=== PATIENT | male | born 1965 | race African-American/Black ===

== ENCOUNTER 2017-07-20 09:09 | Emergency (ER) | payer MEDICARE, MEDICAID ==
[~2017-07-20] VITALS: Ht 175.3 cm; Wt 100.7 kg
[~2017-07-20 09:09] MED LIST: BACTRIM DS TAB1 EAC1 ORAL; KEFLEX500 MG ORAL; NORVASC10 MG ORAL
[2017-07-20 09:17] VITALS: BP 145/94
[2017-07-20] MEDS ORDERED: ROBAXIN-750750 MG PO (09:45)
[2017-07-20] MEDS ORDERED: IBUPROFEN600 MG ORAL (09:45)
[2017-07-20] MEDS ORDERED: Ketorolac 30mg Inj IM ONE (09:45)
[2017-07-20 09:53] VITALS: BP 145/94
--- NOTE | 2017-07-20 12:54 | Emergency Room Report ---
History of Present Illness General Chief Complaint: Lower Back Pain or Injury Source: Patient Present Illness HPI 52-year-old male no significant past medical history p/w back pain for 2 days. Patient states pain started when after he lifted heavy boxes yesterday and. Pain is localized to the lateral lower back, sharp in nature, radiating down leg. Movement worsens pain. There are no alleviating factors. Patient has experienced this similar pain in the past. Denies trauma. Denies lower extremity weakness/numbness, no bowel/bladder retention or incontinence, saddle anesthesia. Denies fever, chills, abdominal pain, n/v, dysuria/hematuria. No history of IVDA Allergies: Coded Allergies: NO KNOWN ALLERGIES (Unverified Allergy, Unknown, 08/04/15) Patient History Past Medical History: see triage record Past Surgical History: none Pertinent Family History: none Reviewed Nursing Documentation: PMH: Agreed, PSxH: Agreed Nursing Documentation-PMH Past Medical History: No History, Except For Hx Hypertension: Yes Review of Systems All Other Systems: negative except mentioned in HPI Physical Exam Vital Signs Date Time Temp Pulse Resp B/P (MAP) Pulse Ox O2 Delivery O2 Flow Rate FiO2 07/20/17 09:10 97.3 79 18 145/94 95 Room Air Sp02 EP Interpretation: reviewed, normal General Appearance: alert, GCS 15, non-toxic, mild distress Head: normocephalic, atraumatic Eyes: bilateral eye normal inspection, bilateral eye PERRL, bilateral eye EOMI ENT: normal ENT inspection, normal pharynx, normal voice, moist mucus membranes Neck: normal inspection, full range of motion, supple Respiratory: normal inspection, lungs clear, normal breath sounds, no respiratory distress, no retraction, no wheezing, speaking full sentences, chest symmetrical Cardiovascular #1: normal inspection, regular rate, rhythm, no edema, normal capillary refill Cardiovascular #2: 2+ radial (R), 2+ radial (L) Gastrointestinal: normal inspection, non tender, soft, non-distended, no guarding Genitourinary: no CVA tenderness Musculoskeletal: other - Bilateral lower lumbar paraspinal tenderness, no midline tenderness full range of motion, able to bear weight on both lower extremities without issue Neurologic: normal inspection, alert, oriented x3, responsive, motor strength/ tone normal, sensory intact, normal gait, speech normal Psychiatric: normal inspection, judgement/insight normal, memory normal Skin: normal inspection, normal color, no rash, warm/dry, well hydrated, normal turgor Medical Decision Making Diagnostic Impression: Primary Impression: Low back pain ER Course 52-year-old male p/w back pain DDX: Likely musculoskeletal back pain vs. muscular strain vs. sciatica Lumbar fracture is unlikely given patients age, no midline tenderness, no history of trauma, and that patient is ambulatory. Therefore, at this time no imaging is indicated Serious diagnoses such as cord compression, epidural abscess is unlikely in this patient given the clinical scenario and abscess of neurological symptoms or findings. Patient appears nontoxic. Plan: Toradol ER course: Patient has remained nontoxic appearing and ambulatory in the ED. Pain improved w/ medications Disposition: Patient will be discharged to home with prescription of motrin and robaxin. Patient cautioned of the effects of robaxin including possible impairment of physical or mental abilities. Patient was instructed to refrain from operating machinery or driving. Patient is also cautioned on the GI effects of motrin and to take sparingly. Patient verbalized understanding. Strict precautions discussed with patient on when to emergently return to the ED which includes severe/worsening back pain, leg weakness/numbness, urinary retention/incontinence, fever or chills, which may indicate severe illness. Patient is to follow up with their PMD within 5 days. Patient agrees with plan. Please note that this Emergency Department Report was dictated using [email or web address] professor of voice technology software, occasionally this can lead to erroneous entry secondary to interpretation by the dictation equipment. Last Vital Signs Date Time Temp Pulse Resp B/P (MAP) Pulse Ox O2 Delivery O2 Flow Rate FiO2 07/20/17 09:53 97.3 18 145/94 95 Room Air 07/20/17 09:17 80 Disposition: HOME, SELF-CARE Condition: Improved Scripts Ibuprofen* (MOTRIN*) 600 Mg Tablet 600 MG ORAL Q8H Y for For Pain, #30 TAB 0 Refills Prov: Litzy Van M.D. 07/20/17 Methocarbamol* (ROBAXIN-750*) 750 Mg Tablet 750 MG PO QID, #28 TAB 0 Refills Prov: Litzy Van M.D. 07/20/17 Referrals: NON PHYSICIAN (PCP) Patient Instructions: Back Pain, Adult Litzy Van M.D. Jul 20, 2017 12:54
== END 2017-07-20 09:53 | disposition home or self-care (01) ==
LOC: EMR 09:50
DX: M54.5 Low back pain (principal); I10 Essential (primary) hypertension
CPT/HCPCS: 96372; 99283; J1885

== ENCOUNTER 2017-10-31 09:59 | Emergency (ER) | payer MEDICARE, MEDICAID ==
[~2017-10-31] VITALS: Ht 165.1 cm; Wt 99.8 kg
[~2017-10-31 09:59] MED LIST changes: +IBUPROFEN600 MG ORAL; +ROBAXIN-750750 MG PO
[2017-10-31 10:22] VITALS: BP 132/95
[2017-10-31] MEDS ORDERED: Sodium Chloride 500ML 500 ML IV ONE (10:32)
[2017-10-31] MEDS ORDERED: Ipratropium 0.02% Inh Soln 2.5ml UD HHN SCH (10:45)
[2017-10-31] MEDS ORDERED: Solu-MEDROL 125mg Inj IVP ONE (10:45)
[2017-10-31] MEDS ORDERED: Albuterol ud Inhalation HHN SCH (10:45)
[2017-10-31 10:54] LABS: APPEARANCE,URINE CLEAR; BILIRUBIN, URINE NEGATIVE (NEGATIVE); COLOR,URINE PALE YELLOW; GLUCOSE, URINE (UA) NEGATIVE (NEGATIVE); KETONES,URINE NEGATIVE (NEGATIVE); LEUKOCYTE ESTERASE ,URINE 1+ (NEGATIVE); NITRITE,URINE NEGATIVE (NEGATIVE); PH,URINE 6 (4.5-8.0); PROTEIN,URINE NEGATIVE (NEGATIVE); UROBILINOGEN,URINE NORMAL MG/DL (0.0-1.0)
[2017-10-31 10:55] LABS: BASOPHILS % (AUTO) 1.2 % (0.0-2.0); EOSINOPHILS % (AUTO) 3.2 % (0.0-3.0); HEMATOCRIT 44.9 % (42.0-52.0); HEMOGLOBIN 14.3 G/DL (14.2-18.0); LYMPHOCYTES % (AUTO) 17.9 % (20.0-45.0); MEAN CORPUSCULAR VOLUME 86 FL (80-99); MONOCYTES % (AUTO) 6.5 % (1.0-10.0); NEUTROPHILS % (AUTO) 71.2 % (45.0-75.0); PLATELET COUNT 201 K/UL (150-450); RED BLOOD COUNT 5.25 M/UL (4.70-6.10); RED CELL DISTRIBUTION WIDTH 13.4 % (11.6-14.8)
[2017-10-31 11:03] LABS: ANION GAP 8 mmol/L (5-15); BLOOD UREA NITROGEN 17 mg/dL (7-18); CALCIUM 8.6 MG/DL (8.5-10.1); CARBON DIOXIDE 25 MMOL/L (21-32); CHLORIDE 107 MMOL/L (98-107); CREATININE 1.8 MG/DL (0.55-1.30); SODIUM 140 MMOL/L (136-145)
[2017-10-31 11:15] LABS: ALANINE AMINOTRANSFERASE 41 U/L (12-78); ALBUMIN 3.3 G/DL (3.4-5.0); ALBUMIN/GLOBULIN RATIO 0.8 (1.0-2.7); ALKALINE PHOSPHATASE 33 U/L (46-116); ASPARTATE AMINO TRANSFERASE 25 U/L (15-37); BILIRUBIN,TOTAL 0.6 MG/DL (0.2-1.0); CREATINE KINASE 551 U/L (26-308)
[2017-10-31] MEDS ORDERED: AMOXICILLIN500 MG ORAL (11:44)
[2017-10-31] MEDS ORDERED: PREDNISONE20 MG ORAL (11:44)
[2017-10-31] MEDS ORDERED: ALBUTEROL SULF8.5 GM INH (11:44)
[2017-10-31 11:51] VITALS: BP 128/77
--- NOTE | 2017-10-31 12:00 | Diagnostic Imaging Report ---
Indication: Dyspnea Comparison: None A single view chest radiograph was obtained. Findings: There is mild basilar atelectasis present. The heart is borderline enlarged. Bones are unremarkable. IMPRESSION: Streaky densities at the lung bases likely atelectasis. Pneumonia not entirely excluded. Please correlate clinically.
--- NOTE | 2017-10-31 15:06 | Emergency Room Report ---
History of Present Illness General Chief Complaint: Upper Respiratory Illness Source: Patient, Medical Record Present Illness HPI 52-year-old male presents ED for evaluation. complaining of shortness of breath. On and off for several weeks. States he usually uses inhaler but states it is not helping at this time. Admits to smoking. Denies chest pain. Denies fevers or chills. Admits to cough productive with yellowish phlegm. No other aggravating relieving factors. Denies any other associated symptoms Allergies: Coded Allergies: NO KNOWN ALLERGIES (Unverified Allergy, Unknown, 08/04/15) Patient History Past Medical History: HTN Past Surgical History: none Pertinent Family History: none Social History: Reports: smoking; Denies: alcohol use, drug use Immunizations: UTD Reviewed Nursing Documentation: PMH: Agreed; PSxH: Agreed Nursing Documentation-PMH Past Medical History: No History, Except For Hx Hypertension: Yes Review of Systems All Other Systems: negative except mentioned in HPI Physical Exam Vital Signs Date Time Temp Pulse Resp B/P (MAP) Pulse Ox O2 Delivery O2 Flow Rate FiO2 10/31/17 10:15 98.7 99 18 137/92 94 Room Air 98.8 Sp02 EP Interpretation: reviewed, normal General Appearance: no apparent distress, alert, GCS 15, non-toxic Head: normocephalic, atraumatic Eyes: bilateral eye normal inspection, bilateral eye PERRL ENT: hearing grossly normal, normal pharynx, no angioedema, normal voice Neck: full range of motion, supple/symm/no masses Respiratory: chest non-tender, speaking full sentences, wheezing Cardiovascular #1: regular rate, rhythm, no edema Cardiovascular #2: 2+ carotid (R), 2+ carotid (L), 2+ radial (R), 2+ radial (L) , 2+ dorsalis pedis (R), 2+ dorsalis pedis (L) Gastrointestinal: normal bowel sounds, non tender, soft, non-distended, no guarding, no rebound Rectal: deferred Genitourinary: normal inspection, no CVA tenderness Musculoskeletal: back normal, gait/station normal, normal range of motion, non- tender Neurologic: alert, oriented x3, responsive, motor strength/tone normal, sensory intact, speech normal Psychiatric: judgement/insight normal, memory normal, mood/affect normal, no suicidal/homicidal ideation Reflexes: 3+ bicep (R), 3+ bicep (L), 3+ tricep (R), 3+ tricep (L), 3+ knee (R) , 3+ knee (L) Skin: normal color, no rash, warm/dry, well hydrated Lymphatic: no adenopathy Medical Decision Making Diagnostic Impression: Primary Impression: Pneumonia Qualified Codes: J18.1 - Lobar pneumonia, unspecified organism ER Course Hospital Course 52-year-old male presents to ED complaining of SOB, cough, wheezing Differential diagnoses include: URI, bronchitis, asthma/COPD, pneumonia Clinical course Patient placed on stretcher. After initial history, physical exam reveals a male in no acute distress. Bilateral TM unremarkable. No pharyngeal erythema. No tonsillar exudates. No lymphadenopathy. wheezing I ordered labs, IV fluids, chest x-ray. Labs reviewed-no leukocytosis, hemoglobin/hematocrit stable, electrolytes okay, trop negative Chest x-ray shows possible infiltrate EKG - NSR, no acute ischemic changes interpreted by me On reassessment patient states he feels better. Per curb-65 criteria, patient does not require admission. Patient can be safely discharged to home with outpatient therapy. Patient agrees with plan. Diagnosis - pneumonia Stable and discharged home with prescriptions for amoxicillin, prednisone, albuterol. Instructed to followup with PMD. Return to ED if symptoms recur or worsen Labs Test 10/31/17 10:34 White Blood Count 8.0 K/UL (4.8-10.8) Red Blood Count 5.25 M/UL (4.70-6.10) Hemoglobin 14.3 G/DL (14.2-18.0) Hematocrit 44.9 % (42.0-52.0) Mean Corpuscular Volume 86 FL (80-99) Mean Corpuscular Hemoglobin 27.3 PG (27.0-31.0) Mean Corpuscular Hemoglobin Concent 31.8 G/DL (32.0-36.0) Red Cell Distribution Width 13.4 % (11.6-14.8) Platelet Count 201 K/UL (150-450) Mean Platelet Volume 7.7 FL (6.5-10.1) Neutrophils (%) (Auto) 71.2 % (45.0-75.0) Lymphocytes (%) (Auto) 17.9 % (20.0-45.0) Monocytes (%) (Auto) 6.5 % (1.0-10.0) Eosinophils (%) (Auto) 3.2 % (0.0-3.0) Basophils (%) (Auto) 1.2 % (0.0-2.0) Urine Color Pale yellow Urine Appearance Clear Urine pH 6 (4.5-8.0) Urine Specific [place] 1.010 (1.005-1.035) Urine Protein Negative (NEGATIVE) Urine Glucose (UA) Negative (NEGATIVE) Urine Ketones Negative (NEGATIVE) Urine Occult Blood Negative (NEGATIVE) Urine Nitrite Negative (NEGATIVE) Urine Bilirubin Negative (NEGATIVE) Urine Urobilinogen Normal MG/DL (0.0-1.0) Urine Leukocyte Esterase 1+ (NEGATIVE) Urine RBC 0-2 /HPF (0 - 0) Urine WBC 2-4 /HPF (0 - 0) Urine Squamous Epithelial Cells Occasional /LPF Urine Bacteria Occasional /HPF (NONE) Sodium Level 140 MMOL/L (136-145) Potassium Level 4.0 MMOL/L (3.5-5.1) Chloride Level 107 MMOL/L (98-107) Carbon Dioxide Level 25 MMOL/L (21-32) Anion Gap 8 mmol/L (5-15) Blood Urea Nitrogen 17 mg/dL (7-18) Creatinine 1.8 MG/DL (0.55-1.30) Estimat Glomerular Filtration Rate 47.9 mL/min (>60) Glucose Level 103 MG/DL (74-106) Calcium Level 8.6 MG/DL (8.5-10.1) Total Bilirubin 0.6 MG/DL (0.2-1.0) Aspartate Amino Transf (AST/SGOT) 25 U/L (15-37) Alanine Aminotransferase (ALT/SGPT) 41 U/L (12-78) Alkaline Phosphatase 33 U/L (46-116) Total Creatine Kinase 551 U/L (26-308) Creatine Kinase MB 4.0 NG/ML (0.0-3.6) Creatine Kinase MB Relative Index 0.7 Troponin I 0.014 ng/mL (0.000-0.056) Pro-B-Type Natriuretic Peptide 1547 pg/mL (0-125) Total Protein 7.5 G/DL (6.4-8.2) Albumin 3.3 G/DL (3.4-5.0) Globulin 4.2 g/dL Albumin/Globulin Ratio 0.8 (1.0-2.7) EKG Diagnostic Results Rate: normal Rhythm: NSR ST Segments: no acute changes ASA given to the pt in ED: No Rhythm Strip Diag. Results EP Interpretation: yes Rhythm: NSR, no PVC's Chest X-Ray Diagnostic Results Chest X-Ray Diagnostic Results : Chest X-Ray Ordered: Yes # of Views/Limited/Complete: 1 View Indication: Shortness of Breath EP Interpretation: Yes Interpretation: no pneumothorax, other - bilateral atelectasis Impression: Other - ?PNA Electronically Signed by: Electronically signed by Christiano Akbar MD Last Vital Signs Date Time Temp Pulse Resp B/P (MAP) Pulse Ox O2 Delivery O2 Flow Rate FiO2 10/31/17 11:51 98.1 94 23 128/77 96 Room Air 98.8 Status: improved Disposition: HOME, SELF-CARE Condition: Stable Scripts Amoxicillin* (AMOXIL*) 500 Mg Capsule 500 MG ORAL THREE TIMES A DAY, #21 CAP Prov: Christiano Akbar MD 10/31/17 Prednisone* (PREDNISONE*) 20 Mg Tablet 40 MG ORAL DAILY, #10 TAB Prov: Christiano Akbar MD 10/31/17 Albuterol Sulfate* (ALBUTEROL SULFATE MDI*) 8.5 Gm Hfa.aer.ad 2 PUFF INH Q6H, #1 EA 0 Refills Prov: Christiano Akbar MD 10/31/17 Patient Instructions: Community-Acquired Pneumonia, Adult, [id number] Christiano Akbar MD Oct 31, 2017 15:06
--- NOTE | 2017-11-01 12:46 | Cardiology Report ---
APPROVED REPORT EKG Measurement Heart [id number] Normal sinus rhythm Possible Left atrial enlargement Borderline ECG
== END 2017-10-31 11:54 | disposition home or self-care (01) ==
LOC: EMR 11:30
DX: J18.9 Pneumonia, unspecified organism (principal); I10 Essential (primary) hypertension
CPT/HCPCS: 36415; 71045; 80053; 81003; 82550; 82553; 83880; 84484; 85025; 93005; 94640; 94664; 96361; 96374; 99284; J2930

== ENCOUNTER 2017-12-30 08:16 | Emergency (ER) | payer MEDICARE, MEDICAID ==
[~2017-12-30] VITALS: Ht 175.3 cm; Wt 99.8 kg
[~2017-12-30 08:16] MED LIST changes: +ALBUTEROL SULF8.5 GM INH; +AMOXICILLIN500 MG ORAL; +PREDNISONE20 MG ORAL
[2017-12-30] MEDS ORDERED: IBUPROFEN600 MG ORAL (08:34)
[2017-12-30] MEDS ORDERED: PREDNISONE20 MG ORAL (08:34)
--- NOTE | 2017-12-30 08:43 | Emergency Room Report ---
History of Present Illness General Chief Complaint: Lower Extremity Injury Source: Patient Present Illness HPI Patient 52-year-old male who presented after increased left sided knee pain. The patient denies recent injury. Patient had noticed his knee become spontaneously swollen. He denies any fever. He stated he the had not been consuming any alcohol but had been recently having increased red meat consumption. Patient reports having had no recent injuries or extra work. The patient states is currently disabled. He the reports increased pain with ambulation. The patient denies any swelling to his calf. Allergies: Coded Allergies: NO KNOWN ALLERGIES (Unverified Allergy, Unknown, 08/04/15) Patient History Past Medical History: see triage record, asthma Reviewed Nursing Documentation: PMH: Agreed; PSxH: Agreed Nursing Documentation-PMH Past Medical History: No History, Except For Hx Hypertension: Yes Review of Systems All Other Systems: negative except mentioned in HPI Physical Exam Vital Signs Date Time Temp Pulse Resp B/P (MAP) Pulse Ox O2 Delivery O2 Flow Rate FiO2 12/30/17 08:20 98.1 82 18 116/77 95 Room Air 98.1 General Appearance: well appearing, no apparent distress, alert, GCS 15, obese , Chronically Ill Head: normocephalic, atraumatic ENT: hearing grossly normal, normal voice Neck: full range of motion, supple Respiratory: no respiratory distress, speaking full sentences Cardiovascular #1: normal peripheral pulses, regular rate, rhythm, no edema Musculoskeletal: no calf tenderness, swelling - left knee, small effusion, no erythema. , other - left knee slight laxity anterior drawer, grind test normal Neurologic: normal inspection, alert, oriented x3, responsive, clerk of works III-XII nml as tested, normal gait Psychiatric: mood/affect normal Skin: no rash Medical Decision Making Diagnostic Impression: Primary Impression: Arthritis ER Course Patient presented for knee pain. Differential diagnosis included was not limited to popliteal aneurysm, arthritis, dislocation, ligamentous injury, septic joint among others. Patient has a benign exam and does not appear to require any further imaging or laboratory testing at this time. The patient was given ibuprofen. The patient's exam is consistent with arthritis which is likely related to gout as patient has had increased meat consumption. Patient was given prescription for prednisone as well as ibuprofen. He is advised follow-up with his primary care physician for further evaluation and possible orthopedic referral and MRI if pain persists or worsens. Last Vital Signs Date Time Temp Pulse Resp B/P (MAP) Pulse Ox O2 Delivery O2 Flow Rate FiO2 12/30/17 08:20 98.1 82 18 116/77 95 Room Air 98.1 Status: improved Disposition: HOME, SELF-CARE Condition: Stable Scripts Ibuprofen* (MOTRIN*) 600 Mg Tablet 600 MG ORAL Q8H PRN for For Pain, #30 TAB 0 Refills Prov: Moe Jones MD 12/30/17 Prednisone* (PREDNISONE*) 20 Mg Tablet 40 MG ORAL DAILY, #10 TAB Prov: Moe Jones MD 12/30/17 Patient Instructions: Arthritis Additional Instructions: Follow up with primary care physician for further evaluation of knee pain and possible orthopedic referral. Return if numbness or weakness. Avoid eating meat. May need MRI if pain persists Moe Jones MD Dec 30, 2017 08:43
[2017-12-30 09:28] VITALS: BP 119/78
== END 2017-12-30 09:31 | disposition home or self-care (01) ==
LOC: EMR 08:25
DX: M19.90 Unspecified osteoarthritis, unspecified site (principal); I10 Essential (primary) hypertension
CPT/HCPCS: 99284

== ENCOUNTER 2018-04-17 09:07 | Inpatient (IN) | payer MEDICARE, MEDICAID ==
[~2018-04-17] VITALS: Ht 175.3 cm; Wt 101.7 kg
[2018-04-17] MEDS ORDERED: Ipratropium 0.02% Inh Soln 2.5ml UD HHN ONE (09:30)
[2018-04-17] MEDS ORDERED: Solu-MEDROL 125mg Inj IVP ONE (09:30)
[2018-04-17] MEDS ORDERED: Albuterol ud Inhalation HHN ONE (09:30)
[2018-04-17 09:36] VITALS: BP 132/99
[2018-04-17 09:49] LABS: BASOPHILS % (AUTO) 0.5 % (0.0-2.0); EOSINOPHILS % (AUTO) 3.6 % (0.0-3.0); HEMATOCRIT 43.3 % (42.0-52.0); HEMOGLOBIN 13.7 G/DL (14.2-18.0); LYMPHOCYTES % (AUTO) 13.7 % (20.0-45.0); MEAN CORPUSCULAR VOLUME 89 FL (80-99); MONOCYTES % (AUTO) 5.3 % (1.0-10.0); NEUTROPHILS % (AUTO) 76.8 % (45.0-75.0); PLATELET COUNT 203 K/UL (150-450); RED BLOOD COUNT 4.85 M/UL (4.70-6.10); RED CELL DISTRIBUTION WIDTH 13.6 % (11.6-14.8); WHITE BLOOD COUNT 9.8 K/UL (4.8-10.8)
[2018-04-17 10:00] LABS: ANION GAP 7 mmol/L (5-15); BLOOD UREA NITROGEN 10 mg/dL (7-18); CALCIUM 8.8 MG/DL (8.5-10.1); CARBON DIOXIDE 28 MMOL/L (21-32); CHLORIDE 107 MMOL/L (98-107); CREATININE 1.7 MG/DL (0.55-1.30); SODIUM 142 MMOL/L (136-145)
[2018-04-17 10:13] LABS: ALANINE AMINOTRANSFERASE 59 U/L (12-78); ALBUMIN 3.1 G/DL (3.4-5.0); ALBUMIN/GLOBULIN RATIO 0.7 (1.0-2.7); ALKALINE PHOSPHATASE 36 U/L (46-116); ASPARTATE AMINO TRANSFERASE 31 U/L (15-37); BILIRUBIN,TOTAL 0.4 MG/DL (0.2-1.0); CREATINE KINASE 575 U/L (26-308)
[2018-04-17 10:31] LABS: APPEARANCE,URINE CLEAR; BILIRUBIN, URINE NEGATIVE (NEGATIVE); COLOR,URINE PALE YELLOW; GLUCOSE, URINE (UA) NEGATIVE (NEGATIVE); KETONES,URINE NEGATIVE (NEGATIVE); LEUKOCYTE ESTERASE ,URINE NEGATIVE (NEGATIVE); NITRITE,URINE NEGATIVE (NEGATIVE); PH,URINE 6 (4.5-8.0); PROTEIN,URINE NEGATIVE (NEGATIVE); UROBILINOGEN,URINE NORMAL MG/DL (0.0-1.0)
[2018-04-17] MEDS ORDERED: Metoprolol 5mg/5ml Inj IVP STA ×2 (10:43→12:18)
[2018-04-17] MEDS ORDERED: Nitroglycerin 2% oint pkt TOPIC ONE (10:45)
--- NOTE | 2018-04-17 10:58 | Emergency Room Report ---
History of Present Illness General Chief Complaint: Dyspnea/Respdistress Source: Patient Present Illness HPI Patient's presents with 2 days of intermittent dyspnea. He's been using his inhaler and machine without help. I denies any fevers or chills. He gets extremely dyspneic and feels a slight amount of chest pressure. Denies any productive phlegm. Several days ago, he had a similar problem which seemed to get better with aggressive use of his inhaler and machine. He has had prednisone in the past. He states this is one of the worst attacks he has had. He has never been intubated. Chest pain rated 0/10. He denies CHF or prior cardiac problems. H/O COPD No NVD, dysuria, abdominal pain, headache, palpitations, depression, rashes, joint pain, calf pain or swelling. Allergies: Coded Allergies: NO KNOWN ALLERGIES (Unverified Allergy, Unknown, 08/04/15) Patient History Past Medical History: see triage record Social History: Reports: smoking; Denies: drug use - see tox Social History Narrative Reviewed Nursing Documentation: PMH: Agreed; PSxH: Agreed Nursing Documentation-PMH Past Medical History: No History, Except For Hx Hypertension: Yes Hx Asthma: Yes Review of Systems All Other Systems: negative except mentioned in HPI Physical Exam Vital Signs Date Time Temp Pulse Resp B/P (MAP) Pulse Ox O2 Delivery O2 Flow Rate FiO2 04/17/18 09:11 98.2 104 20 132/89 96 Room Air 98.2 04/17/18 09:42 21 Sp02 EP Interpretation: reviewed, normal General Appearance: well appearing, no apparent distress, GCS 15 Head: normocephalic Eyes: bilateral eye normal inspection, bilateral eye PERRL ENT: moist mucus membranes Neck: supple Respiratory: lungs clear, normal breath sounds Cardiovascular #1: regular rate, rhythm Cardiovascular #2: 2+ radial (R) Gastrointestinal: normal inspection, normal bowel sounds, non tender, no mass, non-distended Musculoskeletal: back normal, gait/station normal, normal range of motion Neurologic: alert, oriented x3, grossly normal Psychiatric: anxious Skin: normal inspection, warm/dry Medical Decision Making Diagnostic Impression: Primary Impression: NSTEMI (non-ST elevated myocardial infarction) Additional Impressions: CHF (congestive heart failure) Qualified Codes: I50.41 - Acute combined systolic (congestive) and diastolic ( congestive) heart failure Cocaine abuse Renal insufficiency Elevated lactic acid level ER Course Patient presents with dyspnea. Differential includes acute myocardial infarction, congestive failure, exacerbation COPD, pneumonia amongst others. Evaluation will be with EKG, labs. Also chest x-ray will be obtained. Patient be treated with Solu Medrol and breathing treatments. He will be observed on a quality assurance monitor chassis. EKG with normal sinus rhythm biatrial enlargement left ventricular hypertrophy no acute changes. Labs significant for positive troponin. Chest x-ray with congestive failure. Patient is treated with aspirin,, Nitropaste and Lasix. Some improvement with treatment, less dyspnea. Metoprolol given as HTN and ischemia. The patient is improved and admitted to Dr. Coffey to stepdown unit. Laboratory Tests Test 04/17/18 09:39 04/17/18 10:20 04/17/18 10:44 04/17/18 12:50 White Blood Count 9.8 K/UL (4.8-10.8) Red Blood Count 4.85 M/UL (4.70-6.10) Hemoglobin 13.7 G/DL (14.2-18.0) L Hematocrit 43.3 % (42.0-52.0) Mean Corpuscular Volume 89 FL (80-99) Mean Corpuscular Hemoglobin 28.3 PG (27.0-31.0) Mean Corpuscular Hemoglobin Concent 31.7 G/DL (32.0-36.0) L Red Cell Distribution Width 13.6 % (11.6-14.8) Platelet Count 203 K/UL (150-450) Mean Platelet Volume 8.3 FL (6.5-10.1) Neutrophils (%) (Auto) 76.8 % (45.0-75.0) H Lymphocytes (%) (Auto) 13.7 % (20.0-45.0) L Monocytes (%) (Auto) 5.3 % (1.0-10.0) Eosinophils (%) (Auto) 3.6 % (0.0-3.0) H Basophils (%) (Auto) 0.5 % (0.0-2.0) Prothrombin Time 10.1 SEC (9.30-11.50) Prothrombin Time INR 1.0 (0.9-1.1) PTT 27 SEC (23-33) 27 SEC (23-33) Sodium Level 142 MMOL/L (136-145) Potassium Level 4.0 MMOL/L (3.5-5.1) Chloride Level 107 MMOL/L (98-107) Carbon Dioxide Level 28 MMOL/L (21-32) Anion Gap 7 mmol/L (5-15) Blood Urea Nitrogen 10 mg/dL (7-18) Creatinine 1.7 MG/DL (0.55-1.30) H Estimate Glomerular Filtration Rate 51.1 mL/min (>60) Glucose Level 99 MG/DL (74-106) Lactic Acid Level 2.30 mmol/L (0.4-2.0) H 2.00 mmol/L (0.66-2.22) Calcium Level 8.8 MG/DL (8.5-10.1) Magnesium Level 1.8 MG/DL (1.8-2.4) Total Bilirubin 0.4 MG/DL (0.2-1.0) Aspartate Amino Transferase (AST) 31 U/L (15-37) Alanine Aminotransferase (ALT) 59 U/L (12-78) Alkaline Phosphatase 36 U/L (46-116) L Total Creatine Kinase 575 U/L (26-308) H Troponin I 0.057 ng/mL (0.000-0.056) 0.047 ng/mL (0.000-0.056) Pro-B-Type Natriuretic Peptide 2999 pg/mL (0-125) H Total Protein 7.3 G/DL (6.4-8.2) Albumin 3.1 G/DL (3.4-5.0) L Globulin 4.2 g/dL Albumin/Globulin Ratio 0.7 (1.0-2.7) L Urine Color Pale yellow Urine Appearance Clear Urine pH 6 (4.5-8.0) Urine Specific [place] 1.010 (1.005-1.035) Urine Protein Negative (NEGATIVE) Urine Glucose (UA) Negative (NEGATIVE) Urine Ketones Negative (NEGATIVE) Urine Blood Negative (NEGATIVE) Urine Nitrite Negative (NEGATIVE) Urine Bilirubin Negative (NEGATIVE) Urine Urobilinogen Normal MG/DL (0.0-1.0) Urine Leukocyte Esterase Negative (NEGATIVE) Urine Opiates Screen Negative (NEGATIVE) Urine Barbiturates Screen Negative (NEGATIVE) Phencyclidine (PCP) Screen Negative (NEGATIVE) Urine Amphetamines Screen Negative (NEGATIVE) Urine Benzodiazepines Screen Negative (NEGATIVE) Urine Cocaine Screen Positive (NEGATIVE) H Urine Marijuana (THC) Screen Negative (NEGATIVE) Test 04/17/18 19:15 04/18/18 05:00 D-Dimer 0.22 mg/L FEU (0.00-0.49) White Blood Count 18.2 K/UL (4.8-10.8) #H Red Blood Count 4.61 M/UL (4.70-6.10) L Hemoglobin 13.2 G/DL (14.2-18.0) L Hematocrit 40.7 % (42.0-52.0) L Mean Corpuscular Volume 88 FL (80-99) Mean Corpuscular Hemoglobin 28.6 PG (27.0-31.0) Mean Corpuscular Hemoglobin Concent 32.3 G/DL (32.0-36.0) Red Cell Distribution Width 13.7 % (11.6-14.8) Platelet Count 212 K/UL (150-450) Mean Platelet Volume 7.5 FL (6.5-10.1) Neutrophils (%) (Auto) % (45.0-75.0) Lymphocytes (%) (Auto) % (20.0-45.0) Monocytes (%) (Auto) % (1.0-10.0) Eosinophils (%) (Auto) % (0.0-3.0) Basophils (%) (Auto) % (0.0-2.0) Differential Total Cells Counted 100 Neutrophils % (Manual) 87 % (45-75) H Lymphocytes % (Manual) 3 % (20-45) L Monocytes % (Manual) 4 % (1-10) Eosinophils % (Manual) 0 % (0-3) Basophils % (Manual) 0 % (0-2) Band Neutrophils 6 % (0-8) Platelet Estimate Adequate Platelet Morphology Normal Hypochromasia 1+ Sodium Level 140 MMOL/L (136-145) Potassium Level 4.8 MMOL/L (3.5-5.1) Chloride Level 107 MMOL/L (98-107) Carbon Dioxide Level 23 MMOL/L (21-32) Anion Gap 10 mmol/L (5-15) Blood Urea Nitrogen 27 mg/dL (7-18) H Creatinine 1.9 MG/DL (0.55-1.30) H Estimate Glomerular Filtration Rate 45.0 mL/min (>60) Glucose Level 111 MG/DL (74-106) H Calcium Level 9.4 MG/DL (8.5-10.1) Troponin I 0.019 ng/mL (0.000-0.056) Pro-B-Type Natriuretic Peptide 3104 pg/mL (0-125) H EKG Diagnostic Results Rate: normal Rhythm: NSR ST Segments: no acute changes ASA given to the pt in ED: Yes Rhythm Strip Diag. Results EP Interpretation: yes Rhythm: NSR, no PVC's, no ectopy Chest X-Ray Diagnostic Results Chest X-Ray Diagnostic Results : Chest X-Ray Ordered: Yes # of Views/Limited/Complete: 1 View Indication: Shortness of Breath EP Interpretation: Yes Interpretation: no effusion, no pneumothorax, other - chf Impression: Other Electronically Signed by: Electronically signed by Vinod Rodriguez MD Last Vital Signs Date Time Temp Pulse Resp B/P (MAP) Pulse Ox O2 Delivery O2 Flow Rate FiO2 04/18/18 04:00 Room Air 04/18/18 04:00 97.7 97 19 141/92 (108) 93 97.7 04/17/18 12:40 21 Status: improved Disposition: ADMITTED INPATIENT Condition: Serious Referrals: NON PHYSICIAN (PCP) Vinod Rodriguez M.D. Apr 17, 2018 10:58
[2018-04-17] MEDS ORDERED: NORCO 10-325 T1 EACH ORAL (11:05)
[2018-04-17] MEDS ORDERED: NORVASC10 MG ORAL (11:05)
[2018-04-17] MEDS ORDERED: BENADRYL25 MG ORAL (11:05)
--- NOTE | 2018-04-17 11:24 | Diagnostic Imaging Report ---
Indication: Shortness of breath Technique: One view of the chest Comparison: 10/31/2017 Findings: Heart is enlarged. There is bilateral pulmonary venous congestion, somewhat worse on the prior exam. No focal consolidation. No effusions. Impression: Cardiomegaly with mild pulmonary venous congestion
[2018-04-17] MEDS ORDERED: Heparin 25,000u/D5W 500ml 500 ML IV SCH (12:00)
[2018-04-17 12:15] VITALS: BP 139/101
[2018-04-17 12:50] VITALS: BP 127/98
--- NOTE | 2018-04-17 13:59 | Cardiac Electrophysiology PN ---
Subjective Subjective [id number] Objective Last 24 Hour Vital Signs Date Time Temp Pulse Resp B/P (MAP) Pulse Ox O2 Delivery O2 Flow Rate FiO2 04/17/18 12:40 98.3 90 20 139/107 96 Room Air 21 98.3 04/17/18 12:25 90 139/107 04/17/18 12:15 98.3 90 20 139/101 96 Room Air 98.3 04/17/18 10:57 153/95 04/17/18 10:56 96 153/95 04/17/18 09:57 88 20 Room Air 21 04/17/18 09:42 92 22 100 Room Air 21 04/17/18 09:36 98 20 Room Air 04/17/18 09:36 98 20 132/99 99 Room Air 04/17/18 09:11 98.2 104 20 132/89 96 Room Air 98.2 Laboratory Tests Test 04/17/18 09:39 04/17/18 10:20 04/17/18 10:44 04/17/18 12:50 White Blood Count 9.8 K/UL (4.8-10.8) Red Blood Count 4.85 M/UL (4.70-6.10) Hemoglobin 13.7 G/DL (14.2-18.0) L Hematocrit 43.3 % (42.0-52.0) Mean Corpuscular Volume 89 FL (80-99) Mean Corpuscular Hemoglobin 28.3 PG (27.0-31.0) Mean Corpuscular Hemoglobin Concent 31.7 G/DL (32.0-36.0) L Red Cell Distribution Width 13.6 % (11.6-14.8) Platelet Count 203 K/UL (150-450) Mean Platelet Volume 8.3 FL (6.5-10.1) Neutrophils (%) (Auto) 76.8 % (45.0-75.0) H Lymphocytes (%) (Auto) 13.7 % (20.0-45.0) L Monocytes (%) (Auto) 5.3 % (1.0-10.0) Eosinophils (%) (Auto) 3.6 % (0.0-3.0) H Basophils (%) (Auto) 0.5 % (0.0-2.0) Prothrombin Time 10.1 SEC (9.30-11.50) Prothromb Time International Ratio 1.0 (0.9-1.1) Activated Partial Thromboplast Time 27 SEC (23-33) 27 SEC (23-33) Sodium Level 142 MMOL/L (136-145) Potassium Level 4.0 MMOL/L (3.5-5.1) Chloride Level 107 MMOL/L (98-107) Carbon Dioxide Level 28 MMOL/L (21-32) Anion Gap 7 mmol/L (5-15) Blood Urea Nitrogen 10 mg/dL (7-18) Creatinine 1.7 MG/DL (0.55-1.30) H Estimat Glomerular Filtration Rate 51.1 mL/min (>60) Glucose Level 99 MG/DL (74-106) Lactic Acid Level 2.30 mmol/L (0.4-2.0) H 2.00 mmol/L (0.66-2.22) Calcium Level 8.8 MG/DL (8.5-10.1) Magnesium Level 1.8 MG/DL (1.8-2.4) Total Bilirubin 0.4 MG/DL (0.2-1.0) Aspartate Amino Transf (AST/SGOT) 31 U/L (15-37) Alanine Aminotransferase (ALT/SGPT) 59 U/L (12-78) Alkaline Phosphatase 36 U/L (46-116) L Total Creatine Kinase 575 U/L (26-308) H Troponin I 0.057 ng/mL (0.000-0.056) 0.047 ng/mL (0.000-0.056) Pro-B-Type Natriuretic Peptide 2999 pg/mL (0-125) H Total Protein 7.3 G/DL (6.4-8.2) Albumin 3.1 G/DL (3.4-5.0) L Globulin 4.2 g/dL Albumin/Globulin Ratio 0.7 (1.0-2.7) L Urine Color Pale yellow Urine Appearance Clear Urine pH 6 (4.5-8.0) Urine Specific [place] 1.010 (1.005-1.035) Urine Protein Negative (NEGATIVE) Urine Glucose (UA) Negative (NEGATIVE) Urine Ketones Negative (NEGATIVE) Urine Blood Negative (NEGATIVE) Urine Nitrite Negative (NEGATIVE) Urine Bilirubin Negative (NEGATIVE) Urine Urobilinogen Normal MG/DL (0.0-1.0) Urine Leukocyte Esterase Negative (NEGATIVE) Urine Opiates Screen Negative (NEGATIVE) Urine Barbiturates Screen Negative (NEGATIVE) Phencyclidine (PCP) Screen Negative (NEGATIVE) Urine Amphetamines Screen Negative (NEGATIVE) Urine Benzodiazepines Screen Negative (NEGATIVE) Urine Cocaine Screen Positive (NEGATIVE) H Urine Marijuana (THC) Screen Negative (NEGATIVE) Nhan Sim MD Apr 17, 2018 13:59
[2018-04-17] MEDS ORDERED: Methocarbamol 750mg tab ORAL PRN (14:45)
[2018-04-17 16:00] VITALS: BP 129/81
--- NOTE | 2018-04-17 16:30 | Consultation ---
DATE OF CONSULTATION: 04/17/2018 CARDIOLOGY CONSULTATION CONSULTING PHYSICIAN: Nhan Sim M.D. REFERRING PHYSICIAN: Abisai Johnson M.D. REASON FOR CONSULTATION: Shortness of breath and elevated troponin. HISTORY OF PRESENT ILLNESS: The patient is a 52-year-old gentleman with history of hypertension and cocaine use, who came to the emergency room complaining of shortness of breath. The patient denies any chest pain, syncope, or presyncope. The patient states that he used cocaine a few days earlier. The patient denies any prior myocardial infarction or congestive heart failure or known coronary artery disease. PAST MEDICAL HISTORY: Hypertension. FAMILY HISTORY: Noncontributory. SOCIAL HISTORY: He smokes and uses cocaine. He drinks alcohol. REVIEW OF SYSTEMS: Review of systems was performed and was negative other than what is mentioned in the history of present illness. PHYSICAL EXAMINATION: VITAL SIGNS: Blood pressure of 139/107, pulse is 90, respirations 18, and temperature 98.3 degrees. HEAD AND NECK: No JVD. LUNGS: Clear. CARDIOVASCULAR: Regular S1 and S2 with no gallop or murmur. ABDOMEN: Soft. EXTREMITIES: No pitting edema. LABORATORY AND DIAGNOSTIC DATA: His EKG shows sinus rhythm with nonspecific ST-T wave abnormalities. Labs show white count 9.8, hemoglobin 13.7, hematocrit 43.3, and platelet count of 203. Sodium 142, potassium 4.3, BUN of 10, creatinine 1.7, and glucose of 99. Initial troponin was 0.057 and second troponin 0.047. His BNP is 3000. ASSESSMENT AND PLAN: 1. Initial troponin leak, this is likely due to the patient's renal failure. The second troponin is negative and the patient does not have any chest pain. We will start the patient on aspirin and Lipitor. We will avoid beta-oneida in view of concurrent cocaine use. We will get an echocardiogram to evaluate for ejection fraction and wall motion abnormality. 2. Hypertension. Start the patient on Cardizem CD 120 mg daily that would help with the cocaine vasospasm. 3. Renal failure, creatinine 1.7. Repeat creatinine. His urine toxicology screen also positive for cocaine. Thank you very much for allowing me to participate in the care of this patient. Please do not hesitate to contact me for any questions regarding my evaluation. Nhan Sim M.D. DR: ROMINA JOB#: [id number] CC:
[2018-04-17] MEDS ORDERED: Albuterol/Ipratropium 3ml neb HHN PRN (17:30)
--- NOTE | 2018-04-17 17:45 | History and Physical ---
History of Present Illness General Date patient seen: Apr 17, 2018 Time patient seen: 17:23 Reason for Hospitalization: Dyspnea/Respdistress Present Illness HPI 52 year old man with history of HTN, pneumonia, smoking crack cocaine, last use 1 week ago who presents with dyspnea x 2 days. He denies any chest pain, palpitations or loss of consciousness. He was seen in ED and treated with IV Lasix, SoluMedrol and Duoneb with improvement in his symptoms. Allergies: Coded Allergies: NO KNOWN ALLERGIES (Unverified Allergy, Unknown, 08/04/15) Medication History Scheduled Albuterol Sulfate* (Albuterol Sulfate Mdi*), 2 PUFF INH Q6H Amlodipine Besylate (Norvasc), 10 MG ORAL DAILY, (Reported) Amlodipine Besylate (Norvasc), 10 MG ORAL DAILY, (Reported) Amoxicillin* (Amoxil*), 500 MG ORAL THREE TIMES A DAY Cephalexin* (Keflex*), 500 MG ORAL Q6H Methocarbamol* (Robaxin-750*), 750 MG PO QID Prednisone* (Prednisone*), 40 MG ORAL DAILY Prednisone* (Prednisone*), 40 MG ORAL DAILY Trimethoprim/Sulfamethoxazole 160/800* (Bactrim Ds Tablet*), 1 TAB ORAL Q12H Scheduled PRN Diphenhydramine Hcl* (Benadryl*), 50 MG ORAL Q6H PRN for Itching, (Reported) Hydrocodone Bit/Acetaminophen 10-325* ([place] 10-325*), 1 TAB ORAL Q6H PRN for For Pain, (Reported) Ibuprofen* (Motrin*), 600 MG ORAL Q8H PRN for For Pain Ibuprofen* (Motrin*), 600 MG ORAL Q8H PRN for For Pain Patient History Healthcare decision maker Resuscitation status Full Code Advanced Directive on File No Family History Family History: No history of premature CAD Social History Social History: (1) Former cigarrette smoker, + crack cocaine Review of Systems Constitutional: Denies: chills, fever Eye: Denies: eye pain, tearing ENT: Reports: ear pain Respiratory: Reports: shortness of breath; Denies: cough, orthopnea Cardiovascular: Denies: chest pain, edema, syncope Gastrointestinal: Denies: abdominal pain Musculoskeletal: Denies: back pain Skin: Denies: rash Neurological: Denies: headache Endocrine: Denies: excessive sweating, increased urine Hematologic/Lymphatic: Denies: anemia, blood clots Physical Exam General Appearance: no apparent distress, alert HEENT: normocephalic, atraumatic Neck: non-tender, supple Respiratory/Chest: lungs clear, normal breath sounds Cardiovascular/Chest: normal peripheral pulses, normal rate, regular rhythm Abdomen: non tender, soft, no organomegaly, no mass Extremities: normal range of motion, non-tender, no edema Skin Exam: normal pigmentation, warm/dry Neurologic: consulting nurse II-XII grossly normal, no motor/sensory deficits Last 24 Hour Vital Signs Date Time Temp Pulse Resp B/P (MAP) Pulse Ox O2 Delivery O2 Flow Rate FiO2 04/17/18 16:00 Room Air 04/17/18 16:00 87 04/17/18 16:00 97.9 88 16 129/81 (97) 94 97.9 04/17/18 14:49 Room Air 04/17/18 12:50 97.9 90 18 127/98 (108) 96 97.9 04/17/18 12:40 98.3 90 20 139/107 96 Room Air 21 98.3 04/17/18 12:37 95 04/17/18 12:25 90 139/107 04/17/18 12:15 98.3 90 20 139/101 96 Room Air 98.3 04/17/18 10:57 153/95 04/17/18 10:56 96 153/95 04/17/18 09:57 88 20 Room Air 21 04/17/18 09:42 92 22 100 Room Air 21 04/17/18 09:36 98 20 Room Air 04/17/18 09:36 98 20 132/99 99 Room Air 04/17/18 09:11 98.2 104 20 132/89 96 Room Air 98.2 Laboratory Tests Test 04/17/18 09:39 04/17/18 10:20 04/17/18 10:44 04/17/18 12:50 White Blood Count 9.8 K/UL (4.8-10.8) Red Blood Count 4.85 M/UL (4.70-6.10) Hemoglobin 13.7 G/DL (14.2-18.0) L Hematocrit 43.3 % (42.0-52.0) Mean Corpuscular Volume 89 FL (80-99) Mean Corpuscular Hemoglobin 28.3 PG (27.0-31.0) Mean Corpuscular Hemoglobin Concent 31.7 G/DL (32.0-36.0) L Red Cell Distribution Width 13.6 % (11.6-14.8) Platelet Count 203 K/UL (150-450) Mean Platelet Volume 8.3 FL (6.5-10.1) Neutrophils (%) (Auto) 76.8 % (45.0-75.0) H Lymphocytes (%) (Auto) 13.7 % (20.0-45.0) L Monocytes (%) (Auto) 5.3 % (1.0-10.0) Eosinophils (%) (Auto) 3.6 % (0.0-3.0) H Basophils (%) (Auto) 0.5 % (0.0-2.0) Prothrombin Time 10.1 SEC (9.30-11.50) Prothromb Time International Ratio 1.0 (0.9-1.1) Activated Partial Thromboplast Time 27 SEC (23-33) 27 SEC (23-33) Sodium Level 142 MMOL/L (136-145) Potassium Level 4.0 MMOL/L (3.5-5.1) Chloride Level 107 MMOL/L (98-107) Carbon Dioxide Level 28 MMOL/L (21-32) Anion Gap 7 mmol/L (5-15) Blood Urea Nitrogen 10 mg/dL (7-18) Creatinine 1.7 MG/DL (0.55-1.30) H Estimat Glomerular Filtration Rate 51.1 mL/min (>60) Glucose Level 99 MG/DL (74-106) Lactic Acid Level 2.30 mmol/L (0.4-2.0) H 2.00 mmol/L (0.66-2.22) Calcium Level 8.8 MG/DL (8.5-10.1) Magnesium Level 1.8 MG/DL (1.8-2.4) Total Bilirubin 0.4 MG/DL (0.2-1.0) Aspartate Amino Transf (AST/SGOT) 31 U/L (15-37) Alanine Aminotransferase (ALT/SGPT) 59 U/L (12-78) Alkaline Phosphatase 36 U/L (46-116) L Total Creatine Kinase 575 U/L (26-308) H Troponin I 0.057 ng/mL (0.000-0.056) 0.047 ng/mL (0.000-0.056) Pro-B-Type Natriuretic Peptide 2999 pg/mL (0-125) H Total Protein 7.3 G/DL (6.4-8.2) Albumin 3.1 G/DL (3.4-5.0) L Globulin 4.2 g/dL Albumin/Globulin Ratio 0.7 (1.0-2.7) L Urine Color Pale yellow Urine Appearance Clear Urine pH 6 (4.5-8.0) Urine Specific [place] 1.010 (1.005-1.035) Urine Protein Negative (NEGATIVE) Urine Glucose (UA) Negative (NEGATIVE) Urine Ketones Negative (NEGATIVE) Urine Blood Negative (NEGATIVE) Urine Nitrite Negative (NEGATIVE) Urine Bilirubin Negative (NEGATIVE) Urine Urobilinogen Normal MG/DL (0.0-1.0) Urine Leukocyte Esterase Negative (NEGATIVE) Urine Opiates Screen Negative (NEGATIVE) Urine Barbiturates Screen Negative (NEGATIVE) Phencyclidine (PCP) Screen Negative (NEGATIVE) Urine Amphetamines Screen Negative (NEGATIVE) Urine Benzodiazepines Screen Negative (NEGATIVE) Urine Cocaine Screen Positive (NEGATIVE) H Urine Marijuana (THC) Screen Negative (NEGATIVE) Height (Feet): 5 Height (Inches): 9.00 Weight (Pounds): 225 Medications Current Medications Medications (Trade) Dose Ordered Sig/Lizette Route PRN Reason Start Time Stop Time Status Last Admin Dose Admin Amlodipine Besylate (Norvasc) 10 mg DAILY ORAL 04/18/18 09:00 05/18/18 08:59 Atorvastatin Calcium (Lipitor) 10 mg BEDTIME ORAL 04/17/18 21:00 05/17/18 20:59 Furosemide (Lasix) 40 mg DAILY ORAL 04/18/18 09:00 05/18/18 08:59 Methocarbamol (Robaxin) 750 mg Q6H PRN ORAL MUSCLE PAIN/SPASMS 04/17/18 14:45 05/17/18 14:44 Assessment/Plan Problem List: (1) TOÑA (acute kidney injury) ICD Codes: N17.9 - Acute kidney failure, unspecified SNOMED: 36357250 (2) CHF (congestive heart failure) ICD Codes: I50.9 - Heart failure, unspecified SNOMED: 71149292 (3) NSTEMI (non-ST elevated myocardial infarction) ICD Codes: I21.4 - Non-ST elevation (NSTEMI) myocardial infarction SNOMED: 809395652, 152590889 Assessment/Plan Dyspnea without chest pain with mildly elevated troponin, doubt ACS at this time. Could have a component of fluid overload/ cute CHF given CXR findings. Will give oral Lasix starting tomorrow. Monitor on telemetry and monitor electrolytes. Obtain TTE. Cardiology evaluation appreciated. Monitor I&O and daily weights. 2 gram sodium diet. Elevated creatinine, could be TOÑA from cardiorenal syndrome. Will check BMP in AM. Essential HTN, continue amlodipine Substance abuse, counselled about the dangers of cocaine use, patient expressed understanding. VTE PPx heparin SC Full Code Patient will require a hospitalization crossing 2 midnights in order to get close hemodynamic monitoring and further treatments for her suspected fluid overload. Miller Bain MD Apr 17, 2018 17:45
--- NOTE | 2018-04-17 18:53 | Consultation ---
Consult Note Assessment/Plan DICT # [id number] Abisai Johnson MD Apr 17, 2018 18:53
[2018-04-17 20:00] VITALS: BP 134/76
[2018-04-17] MEDS ORDERED: Zolpidem 5mg tab ORAL PRN (20:15)
--- NOTE | 2018-04-17 20:30 | Consultation ---
DATE OF CONSULTATION: 04/17/2018 PULMONARY CONSULTATION CONSULTING PHYSICIAN: Abisai Johnson M.D. REFERRING PHYSICIAN: Caesar Mendoza M.D. REASON FOR CONSULTATION: Shortness of breath. HISTORY OF PRESENT ILLNESS: The patient is a 52-year-old male with history of hypertension and cocaine use, last 1 week ago presented with shortness of breath and atypical chest pain. No cough or wheezing. No congestion. No fevers or chills. No headaches or dizziness. Since coming to the ER, he has been afebrile. Vital signs are stable, saturating well on room air. His troponin on presentation was 0.057, repeat 0.047. Lactic acid 2.3, corrected to 2. Creatinine was 1.7. CK of 575. BNP was elevated. Urinalysis was negative. Urine toxicology positive for cocaine. Imaging, chest x-ray done in the emergency department showed cardiomegaly and pulmonary vascular congestion. He has been admitted for diuresis. Echo is pending. PAST MEDICAL HISTORY: 1. COPD. 2. Chronic pain. 3. Substance abuse. ALLERGIES: No known drug allergies. MEDICATIONS: Prior to admission medications reviewed. Current medications reviewed. SOCIAL HISTORY: Former smoker with cigarette, current crack use. FAMILY HISTORY: Noncontributory. REVIEW OF SYSTEMS: Negative other than history of present illness. PHYSICAL EXAMINATION: GENERAL: Overweight male in no acute distress. Awake, alert, and oriented x3. VITAL SIGNS: Temperature 98.3 degrees, pulse 90, blood pressure 139/107, respiratory 20, and saturating 96% on room air. HEENT: Normocephalic and atraumatic. Oropharynx is moist mucous membranes. NECK: Supple without lymphadenopathy or JVD. CHEST: Clear. HEART: Regular. ABDOMEN: Benign. LABORATORY AND DIAGNOSTIC DATA: Laboratories reviewed. Imaging, chest x-ray, pulmonary vascular congestion and cardiomegaly. ASSESSMENT: The patient is a 52-year-old male former smoker with a history of crack cocaine use including recent use presenting with shortness of breath and decompensated heart failure. He had elevated cardiac biomarkers and TOÑA and his creatinine down trended, so this is likely demand ischemia. There is no evidence of acute coronary syndrome at this time. He has been seen by Cardiology and echo has done and is pending. PROBLEM LIST: 1. Atypical chest pain. 2. Elevated cardiac biomarkers, likely demand ischemia. 3. Abnormal renal function, TOÑA versus CKD. 4. Lactic acidosis, resolved. 5. COPD without evidence of exacerbation. 6. Recent crack cocaine use. 7. Former smoker. TREATMENT PLAN: 1. Optimize pulmonary hygiene/mobilize as tolerated. 2. Follow up echocardiogram. 3. Monitor volumes and renal function, agree with cautious diuresis. 4. Follow up Cardiology recommendations, aspirin, consider statin, no beta-blockers. 5. P.r.n. bronchodilators. 6. Aspiration precautions. 7. DVT prophylaxis, heparin subcutaneous. Dr. Mendoza, thank you for allowing me to assist in the care of your patient. If I may be of any assistance in the future, please do not hesitate to ask. Abisai Johnson M.D. DR: ARIADNA JOB#: [id number] CC:
[2018-04-17] MEDS: Heparin 5000 units/ml inj SUBQ SCH (20:47)
[2018-04-18 04:00] VITALS: BP 141/92
[2018-04-18 06:00] LABS: HEMATOCRIT 40.7 % (42.0-52.0); HEMOGLOBIN 13.2 G/DL (14.2-18.0); MEAN CORPUSCULAR VOLUME 88 FL (80-99); PLATELET COUNT 212 K/UL (150-450); RED BLOOD COUNT 4.61 M/UL (4.70-6.10); RED CELL DISTRIBUTION WIDTH 13.7 % (11.6-14.8); WHITE BLOOD COUNT 18.2 K/UL (4.8-10.8)
[2018-04-18 07:47] LABS: CHLORIDE 107 MMOL/L (98-107); POTASSIUM 4.8 MMOL/L (3.5-5.1); SODIUM 140 MMOL/L (136-145)
[2018-04-18 07:48] LABS: ANION GAP 10 mmol/L (5-15); BLOOD UREA NITROGEN 27 mg/dL (7-18); CALCIUM 9.4 MG/DL (8.5-10.1); CARBON DIOXIDE 23 MMOL/L (21-32); CREATININE 1.9 MG/DL (0.55-1.30)
[2018-04-18 08:00] VITALS: BP 134/84
[2018-04-18] MEDS: Heparin 5000 units/ml inj SUBQ SCH ×2 (08:50→20:57)
[2018-04-18] MEDS ORDERED: Furosemide 40mg tab ORAL SCH (09:00)
--- NOTE | 2018-04-18 10:23 | General Progress Note ---
Assessment/Plan Problem List: (1) Acute on chronic systolic (congestive) heart failure ICD Codes: I50.23 - Acute on chronic systolic (congestive) heart failure SNOMED: 49556648, 281695415 (2) Cardiomyopathy ICD Codes: I42.9 - Cardiomyopathy, unspecified SNOMED: 19248138 (3) Acute on chronic renal failure ICD Codes: N17.9 - Acute kidney failure, unspecified; N18.9 - Chronic kidney disease, unspecified SNOMED: 084288928 (4) TOÑA (acute kidney injury) ICD Codes: N17.9 - Acute kidney failure, unspecified SNOMED: 16571136 (5) HTN (hypertension) ICD Codes: I10 - Essential (primary) hypertension SNOMED: 74485017 (6) Drug abuse ICD Codes: F19.10 - Other psychoactive substance abuse, uncomplicated SNOMED: 61271455 (7) Cardiorenal syndrome ICD Codes: I13.10 - Hypertensive heart and chronic kidney disease without heart failure, with stage 1 through stage 4 chronic kidney disease, or unspecified chronic kidney disease SNOMED: 017854499 Status: stable Assessment/Plan # Atypical chest pain likely NSTEMI type 2, demand ischemia in setting of CHF - Appreciate cardiology rec's. Monitor on tele. Mildly elevated trop. Cont ASA, statin. F/u nuc stress test today # Acute on chronic systolic heart failure/cardiomyopathy likely 2/2 cocaine abuse - Appreciate cardiology rec's. TTE review and EF 30-35%. Cont lasix 40mg daily. Avoid beta-oneida in view of concurrent cocaine use. # TOÑA likely cardiorenal syndrome - Renal consulted, hold SUSAN-I/ARB for now. Cont lasix for diuresis. Monitor BMP closely # Substance abuse - Counseled about the dangers of cocaine use, patient expressed understanding DVT Prophylaxis: SCD, HSQ Code Status: Full Hospital Classification Declaration: Based on this initial evaluation, and depending on the patient's clinical course, I anticipate that this patient will require hospitalization for 1-2 days for atypical chest pain, CHF, and close respiratory/hemodynamic monitoring. Disposition: Once the patient is stable to leave the hospital, I anticipate the patient will likely be discharged to the following environment: home with vs SNF I spent 42 minutes on this patient's case, and 38 minutes were dedicated to counseling and/or care coordination. Discussed with patient/family, nursing staff, SW/CM, cardiology, nephrology regarding clinical status, treatment course , and disposition planning. Time of note may not reflect time of encounter. Subjective Date patient seen: Apr 18, 2018 Time patient seen: 10:22 ROS Limited/Unobtainable: No Constitutional: Reports: no symptoms HEENT: Reports: no symptoms Cardiovascular: Reports: chest pain Respiratory: Reports: shortness of breath Gastrointestinal/Abdominal: Reports: no symptoms Genitourinary: Reports: no symptoms Neurologic/Psychiatric: Reports: no symptoms Endocrine: Reports: no symptoms Hematologic/Lymphatic: Reports: no symptoms Allergies: Coded Allergies: NO KNOWN ALLERGIES (Unverified Allergy, Unknown, 08/04/15) Subjective No acute o/n events Awaiting nuc stress test Chest pain, SOB improved. Good UOP Ambulating Objective Last 24 Hour Vital Signs Date Time Temp Pulse Resp B/P (MAP) Pulse Ox O2 Delivery O2 Flow Rate FiO2 04/18/18 08:49 100 134/84 04/18/18 08:10 100 20 Room Air 04/18/18 08:00 Room Air 04/18/18 08:00 97.7 104 21 134/84 (101) 95 97.7 04/18/18 07:52 105 04/18/18 04:00 Room Air 04/18/18 04:00 97.7 97 19 141/92 (108) 93 97.7 04/18/18 04:00 102 04/18/18 00:00 88 04/18/18 00:00 Room Air 04/17/18 20:00 92 04/17/18 20:00 Room Air 04/17/18 20:00 97.5 99 20 134/76 (95) 94 97.5 04/17/18 16:00 Room Air 04/17/18 16:00 87 04/17/18 16:00 97.9 88 16 129/81 (97) 94 97.9 04/17/18 14:49 Room Air 04/17/18 12:50 97.9 90 18 127/98 (108) 96 97.9 04/17/18 12:40 98.3 90 20 139/107 96 Room Air 21 98.3 04/17/18 12:37 95 04/17/18 12:25 90 139/107 04/17/18 12:15 98.3 90 20 139/101 96 Room Air 98.3 04/17/18 10:57 153/95 04/17/18 10:56 96 153/95 Intake and Output 04/17/18 04/18/18 19:00 07:00 Intake Total 510 ml Balance 510 ml Intake Oral 510 ml # Voids 2 3 # Bowel Movements 1 Laboratory Tests 04/17/18 10:44: Lactic Acid Level 2.00 04/17/18 12:50: Activated Partial Thromboplast Time 27, Troponin I 0.047 04/17/18 19:15: D-Dimer 0.22 04/18/18 05:00: Troponin I 0.019, White Blood Count 18.2#H, Red Blood Count 4.61L, Hemoglobin 13.2L, Hematocrit 40.7L, Mean Corpuscular Volume 88, Mean Corpuscular Hemoglobin 28.6, Mean Corpuscular Hemoglobin Concent 32.3, Red Cell Distribution Width 13.7, Platelet Count 212, Mean Platelet Volume 7.5, Neutrophils (%) (Auto) , Lymphocytes (%) (Auto) , Monocytes (%) (Auto) , Eosinophils (%) (Auto) , Basophils (%) (Auto) , Differential Total Cells Counted 100, Neutrophils % (Manual) 87H, Lymphocytes % (Manual) 3L, Monocytes % (Manual) 4, Eosinophils % (Manual) 0, Basophils % (Manual) 0, Band Neutrophils 6 , Platelet Estimate Adequate, Platelet Morphology Normal, Hypochromasia 1+, Sodium Level 140, Potassium Level 4.8, Chloride Level 107, Carbon Dioxide Level 23, Anion Gap 10, Blood Urea Nitrogen 27H, Creatinine 1.9H, Estimat Glomerular Filtration Rate 45.0, Glucose Level 111H, Calcium Level 9.4, Pro-B-Type Natriuretic Peptide 3104H Height (Feet): 5 Height (Inches): 9.00 Weight (Pounds): 224 Objective General: alert, cooperative, no distress, appears stated age Head: normocephalic, without obvious abnormality, atraumatic Eyes: conjunctivae/corneas clear. PERRL, EOM's intact Throat: lips, mucosa, and tongue normal. MMM Neck: supple, symmetrical, trachea midline, and no JVD Lungs: clear to auscultation bilaterally Heart: regular rate and rhythm, S1, S2 normal, no murmur, click, rub or gallop Abdomen: soft, non-tender, non-distended, bowel sounds normal; no masses or organomegaly Extremities: extremities normal, atraumatic, no cyanosis or edema Pulses: 2+ and symmetric Skin: skin color, texture, turgor normal; no rashes or lesions Neurologic: grossly normal, no focal deficits Ricardo Murdock M.D. Apr 18, 2018 10:23
[2018-04-18 12:00] VITALS: BP 132/74
--- NOTE | 2018-04-18 14:25 | Pulmonology Progress Note ---
Assessment/Plan Problems: (1) NSTEMI (non-ST elevated myocardial infarction) (2) CHF (congestive heart failure) (3) Elevated lactic acid level (4) TOÑA (acute kidney injury) (5) Cocaine abuse Assessment/Plan ASSESSMENT: The patient is a 52-year-old male former smoker with a history of crack cocaine use including recent use presenting with shortness of breath and decompensated heart failure. He had elevated cardiac biomarkers and TOÑA and his creatinine down trended, so this is likely demand ischemia. There is no evidence of acute coronary syndrome at this time. PROBLEM LIST: 1. Atypical chest pain 2/2 cocaine use, no e/o VTE (D-dimer and duplex neg) 2. Elevated cardiac biomarkers, likely demand ischemia. 3. CHF 4. Abnormal renal function, TOÑA versus CKD. 5. Lactic acidosis, resolved. 6. COPD without evidence of exacerbation. 7. Recent crack cocaine use. 8. Former smoker. TREATMENT PLAN: 1. Optimize pulmonary hygiene/mobilize as tolerated. 2. Monitor volumes and renal function, would decrease lasix 3. Nephrology evaluation 4. Follow up Cardiology recommendations, aspirin, statin, no beta-blockers. 5. P.r.n. bronchodilators. 6. Aspiration precautions. 7. Monitor for w/draw 8. Psychiatry evaluation 9. DVT prophylaxis, heparin subcutaneous. Subjective Allergies: Coded Allergies: NO KNOWN ALLERGIES (Unverified Allergy, Unknown, 08/04/15) Subjective AFVSS, stable on RA, no signs of w/draw, no CP, no SOB, less cough CR worse, TTE without elevated filling pressures, D-dimer and duplex negative, WCt increased Objective Last 24 Hour Vital Signs Date Time Temp Pulse Resp B/P (MAP) Pulse Ox O2 Delivery O2 Flow Rate FiO2 04/18/18 12:00 96.8 103 20 132/74 (93) 95 96.8 04/18/18 12:00 122 04/18/18 12:00 Room Air 04/18/18 11:14 108 20 Room Air 21 04/18/18 11:07 101 24 97 Room Air 21 04/18/18 08:49 100 134/84 04/18/18 08:10 100 20 Room Air 04/18/18 08:00 Room Air 04/18/18 08:00 97.7 104 21 134/84 (101) 95 97.7 04/18/18 07:52 105 04/18/18 04:00 Room Air 04/18/18 04:00 97.7 97 19 141/92 (108) 93 97.7 04/18/18 04:00 102 04/18/18 00:00 88 04/18/18 00:00 Room Air 04/17/18 20:00 92 04/17/18 20:00 Room Air 04/17/18 20:00 97.5 99 20 134/76 (95) 94 97.5 04/17/18 16:00 Room Air 04/17/18 16:00 87 04/17/18 16:00 97.9 88 16 129/81 (97) 94 97.9 04/17/18 14:49 Room Air Intake and Output 04/17/18 04/18/18 19:00 07:00 Intake Total 510 ml Balance 510 ml Intake Oral 510 ml # Voids 2 3 # Bowel Movements 1 General Appearance: WD/WN, no acute distress HEENT: normocephalic, atraumatic, anicteric, mucous membranes moist Respiratory/Chest: chest wall non-tender, lungs clear, normal breath sounds, no respiratory distress Cardiovascular: normal rate, regular rhythm, regularly irregular Abdomen: normal bowel sounds, soft, non tender, no organomegaly, non distended Extremities: no cyanosis, no clubbing, no edema Laboratory Tests 04/17/18 19:15: D-Dimer 0.22 04/18/18 05:00: White Blood Count 18.2#H, Red Blood Count 4.61L, Hemoglobin 13.2L, Hematocrit 40.7L, Mean Corpuscular Volume 88, Mean Corpuscular Hemoglobin 28.6, Mean Corpuscular Hemoglobin Concent 32.3, Red Cell Distribution Width 13.7, Platelet Count 212, Mean Platelet Volume 7.5, Neutrophils (%) (Auto) , Lymphocytes (%) ( Auto) , Monocytes (%) (Auto) , Eosinophils (%) (Auto) , Basophils (%) (Auto) , Differential Total Cells Counted 100, Neutrophils % (Manual) 87H, Lymphocytes % (Manual) 3L, Monocytes % (Manual) 4, Eosinophils % (Manual) 0, Basophils % ( Manual) 0, Band Neutrophils 6, Platelet Estimate Adequate, Platelet Morphology Normal, Hypochromasia 1+, Sodium Level 140, Potassium Level 4.8, Chloride Level 107, Carbon Dioxide Level 23, Anion Gap 10, Blood Urea Nitrogen 27H, Creatinine 1.9H, Estimat Glomerular Filtration Rate 45.0, Glucose Level 111H, Calcium Level 9.4, Troponin I 0.019, Pro-B-Type Natriuretic Peptide 3104H 04/18/18 12:00: Troponin I 0.024 Current Medications Medications (Trade) Dose Ordered Sig/Lizette Route PRN Reason Start Time Stop Time Status Last Admin Dose Admin Acetaminophen (Tylenol) 650 mg Q6H PRN ORAL Mild Pain (Pain Scale 1-3) 04/17/18 20:15 05/17/18 20:14 04/17/18 20:49 Albuterol/ Ipratropium (Albuterol/ Ipratropium) 3 ml Q4H PRN HHN Shortness of Breath 04/17/18 17:30 04/22/18 17:29 04/18/18 11:01 Amlodipine Besylate (Norvasc) 10 mg DAILY ORAL 04/18/18 09:00 05/18/18 08:59 04/18/18 08:49 Atorvastatin Calcium (Lipitor) 10 mg BEDTIME ORAL 04/17/18 21:00 05/17/18 20:59 04/17/18 20:46 Furosemide (Lasix) 40 mg DAILY ORAL 04/18/18 09:00 05/18/18 08:59 04/18/18 08:48 Heparin Sodium (Porcine) (Heparin 5000 units/ml) 5,000 units EVERY 12 HOURS SUBQ 04/17/18 21:00 05/17/18 20:59 04/18/18 08:50 Methocarbamol (Robaxin) 750 mg Q6H PRN ORAL MUSCLE PAIN/SPASMS 04/17/18 14:45 05/17/18 14:44 Zolpidem Tartrate (Ambien) 5 mg HSPRN PRN ORAL Insomnia 04/17/18 20:15 04/24/18 20:14 04/17/18 20:49 Abisai Johnson MD Apr 18, 2018 14:25
--- NOTE | 2018-04-18 15:02 | Consultation ---
History of Present Illness General Chief Complaint: Dyspnea/Respdistress Present Illness HPI 52-year-old male with history of hypertension and cocaine use, who came to the emergency room complaining of shortness of breath. The pt is depressed and irritable the pt denied any drug use. the pt was unable to cooperate with the exam. denies si/hi Allergies: Coded Allergies: NO KNOWN ALLERGIES (Unverified Allergy, Unknown, 08/04/15) Medication History Scheduled Albuterol Sulfate* (Albuterol Sulfate Mdi*), 2 PUFF INH Q6H Amlodipine Besylate (Norvasc), 10 MG ORAL DAILY, (Reported) Amlodipine Besylate (Norvasc), 10 MG ORAL DAILY, (Reported) Amoxicillin* (Amoxil*), 500 MG ORAL THREE TIMES A DAY Cephalexin* (Keflex*), 500 MG ORAL Q6H Methocarbamol* (Robaxin-750*), 750 MG PO QID Prednisone* (Prednisone*), 40 MG ORAL DAILY Prednisone* (Prednisone*), 40 MG ORAL DAILY Trimethoprim/Sulfamethoxazole 160/800* (Bactrim Ds Tablet*), 1 TAB ORAL Q12H Scheduled PRN Diphenhydramine Hcl* (Benadryl*), 50 MG ORAL Q6H PRN for Itching, (Reported) Hydrocodone Bit/Acetaminophen 10-325* ([place] 10-325*), 1 TAB ORAL Q6H PRN for For Pain, (Reported) Ibuprofen* (Motrin*), 600 MG ORAL Q8H PRN for For Pain Ibuprofen* (Motrin*), 600 MG ORAL Q8H PRN for For Pain Patient History History Provided By: Patient, Medical Record, PMD Healthcare decision maker Resuscitation status Full Code Advanced Directive on File No Past Medical/Surgical History Past Medical/Surgical History: (1) Overgrown toenails (2) Abscess of face (3) Low back pain (4) Pneumonia (5) Arthritis (6) Former cigarrette smoker, + crack cocaine (7) TOÑA (acute kidney injury) (8) Cocaine abuse (9) CHF (congestive heart failure) (10) Renal insufficiency (11) NSTEMI (non-ST elevated myocardial infarction) (12) Elevated lactic acid level Review of Systems Psychiatric: Reports: prior hx, anxiety, depressed feelings Physical Exam General Appearance: no apparent distress, alert Neurologic: oriented x 3, responsive, depressed affect Last 24 Hour Vital Signs Date Time Temp Pulse Resp B/P (MAP) Pulse Ox O2 Delivery O2 Flow Rate FiO2 04/18/18 12:00 96.8 103 20 132/74 (93) 95 96.8 04/18/18 12:00 122 04/18/18 12:00 Room Air 04/18/18 11:14 108 20 Room Air 21 04/18/18 11:07 101 24 97 Room Air 21 04/18/18 08:49 100 134/84 04/18/18 08:10 100 20 Room Air 04/18/18 08:00 Room Air 04/18/18 08:00 97.7 104 21 134/84 (101) 95 97.7 04/18/18 07:52 105 04/18/18 04:00 Room Air 04/18/18 04:00 97.7 97 19 141/92 (108) 93 97.7 04/18/18 04:00 102 04/18/18 00:00 88 04/18/18 00:00 Room Air 04/17/18 20:00 92 04/17/18 20:00 Room Air 04/17/18 20:00 97.5 99 20 134/76 (95) 94 97.5 04/17/18 16:00 Room Air 04/17/18 16:00 87 04/17/18 16:00 97.9 88 16 129/81 (97) 94 97.9 Intake and Output 04/17/18 04/18/18 19:00 07:00 Intake Total 510 ml Balance 510 ml Intake Oral 510 ml # Voids 2 3 # Bowel Movements 1 Laboratory Tests Test 04/17/18 19:15 04/18/18 05:00 04/18/18 12:00 D-Dimer 0.22 mg/L FEU (0.00-0.49) White Blood Count 18.2 K/UL (4.8-10.8) #H Red Blood Count 4.61 M/UL (4.70-6.10) L Hemoglobin 13.2 G/DL (14.2-18.0) L Hematocrit 40.7 % (42.0-52.0) L Mean Corpuscular Volume 88 FL (80-99) Mean Corpuscular Hemoglobin 28.6 PG (27.0-31.0) Mean Corpuscular Hemoglobin Concent 32.3 G/DL (32.0-36.0) Red Cell Distribution Width 13.7 % (11.6-14.8) Platelet Count 212 K/UL (150-450) Mean Platelet Volume 7.5 FL (6.5-10.1) Neutrophils (%) (Auto) % (45.0-75.0) Lymphocytes (%) (Auto) % (20.0-45.0) Monocytes (%) (Auto) % (1.0-10.0) Eosinophils (%) (Auto) % (0.0-3.0) Basophils (%) (Auto) % (0.0-2.0) Differential Total Cells Counted 100 Neutrophils % (Manual) 87 % (45-75) H Lymphocytes % (Manual) 3 % (20-45) L Monocytes % (Manual) 4 % (1-10) Eosinophils % (Manual) 0 % (0-3) Basophils % (Manual) 0 % (0-2) Band Neutrophils 6 % (0-8) Platelet Estimate Adequate Platelet Morphology Normal Hypochromasia 1+ Sodium Level 140 MMOL/L (136-145) Potassium Level 4.8 MMOL/L (3.5-5.1) Chloride Level 107 MMOL/L (98-107) Carbon Dioxide Level 23 MMOL/L (21-32) Anion Gap 10 mmol/L (5-15) Blood Urea Nitrogen 27 mg/dL (7-18) H Creatinine 1.9 MG/DL (0.55-1.30) H Estimat Glomerular Filtration Rate 45.0 mL/min (>60) Glucose Level 111 MG/DL (74-106) H Calcium Level 9.4 MG/DL (8.5-10.1) Troponin I 0.019 ng/mL (0.000-0.056) 0.024 ng/mL (0.000-0.056) Pro-B-Type Natriuretic Peptide 3104 pg/mL (0-125) H Height (Feet): 5 Height (Inches): 9.00 Weight (Pounds): 224 Medications Current Medications Medications (Trade) Dose Ordered Sig/Lizette Route PRN Reason Start Time Stop Time Status Last Admin Dose Admin Acetaminophen (Tylenol) 650 mg Q6H PRN ORAL Mild Pain (Pain Scale 1-3) 9/19/18 20:15 05/17/18 20:14 04/17/18 20:49 Albuterol/ Ipratropium (Albuterol/ Ipratropium) 3 ml Q4H PRN HHN Shortness of Breath 04/17/18 17:30 04/22/18 17:29 04/18/18 11:01 Amlodipine Besylate (Norvasc) 10 mg DAILY ORAL 04/18/18 09:00 05/18/18 08:59 04/18/18 08:49 Atorvastatin Calcium (Lipitor) 10 mg BEDTIME ORAL 04/17/18 21:00 05/17/18 20:59 04/17/18 20:46 Furosemide (Lasix) 40 mg DAILY ORAL 04/18/18 09:00 05/18/18 08:59 04/18/18 08:48 Heparin Sodium (Porcine) (Heparin 5000 units/ml) 5,000 units EVERY 12 HOURS SUBQ 04/17/18 21:00 05/17/18 20:59 04/18/18 08:50 Methocarbamol (Robaxin) 750 mg Q6H PRN ORAL MUSCLE PAIN/SPASMS 04/17/18 14:45 05/17/18 14:44 Zolpidem Tartrate (Ambien) 5 mg HSPRN PRN ORAL Insomnia 04/17/18 20:15 04/24/18 20:14 04/17/18 20:49 Assessment/Plan Status: stable Assessment/Plan Cocaine abuse depressive d/o the pt refused meds the pt refused outpt referrals Alex Fernandez MD Apr 18, 2018 15:02
--- NOTE | 2018-04-18 15:10 | Cardiac Electrophysiology PN ---
Assessment/Plan Assessment/Plan 1. Initial troponin leak, this is likely due to the patient's renal failure. 3 follow up troponins are negative and the patient does not have any chest pain.Continue aspirin and Lipitor. We will avoid beta-oneida in view of concurrent cocaine use. echocardiogram showed Ef 40-45% 2. Hypertension. On Norvasc 10 daily that would help with the cocaine vasospasm.Also on LAsix 3. Renal failure, creatinine 1.7. 4. Urine toxicology screen also positive for cocaine. Subjective Subjective Feeling better.No CP or SOB Objective Last 24 Hour Vital Signs Date Time Temp Pulse Resp B/P (MAP) Pulse Ox O2 Delivery O2 Flow Rate FiO2 04/18/18 12:00 96.8 103 20 132/74 (93) 95 96.8 04/18/18 12:00 122 04/18/18 12:00 Room Air 04/18/18 11:14 108 20 Room Air 21 04/18/18 11:07 101 24 97 Room Air 21 04/18/18 08:49 100 134/84 04/18/18 08:10 100 20 Room Air 04/18/18 08:00 Room Air 04/18/18 08:00 97.7 104 21 134/84 (101) 95 97.7 04/18/18 07:52 105 04/18/18 04:00 Room Air 04/18/18 04:00 97.7 97 19 141/92 (108) 93 97.7 04/18/18 04:00 102 04/18/18 00:00 88 04/18/18 00:00 Room Air 04/17/18 20:00 92 04/17/18 20:00 Room Air 04/17/18 20:00 97.5 99 20 134/76 (95) 94 97.5 04/17/18 16:00 Room Air 04/17/18 16:00 87 04/17/18 16:00 97.9 88 16 129/81 (97) 94 97.9 Intake and Output 04/17/18 04/18/18 19:00 07:00 Intake Total 510 ml Balance 510 ml Intake Oral 510 ml # Voids 2 3 # Bowel Movements 1 Laboratory Tests Test 04/17/18 19:15 04/18/18 05:00 04/18/18 12:00 D-Dimer 0.22 mg/L FEU (0.00-0.49) White Blood Count 18.2 K/UL (4.8-10.8) #H Red Blood Count 4.61 M/UL (4.70-6.10) L Hemoglobin 13.2 G/DL (14.2-18.0) L Hematocrit 40.7 % (42.0-52.0) L Mean Corpuscular Volume 88 FL (80-99) Mean Corpuscular Hemoglobin 28.6 PG (27.0-31.0) Mean Corpuscular Hemoglobin Concent 32.3 G/DL (32.0-36.0) Red Cell Distribution Width 13.7 % (11.6-14.8) Platelet Count 212 K/UL (150-450) Mean Platelet Volume 7.5 FL (6.5-10.1) Neutrophils (%) (Auto) % (45.0-75.0) Lymphocytes (%) (Auto) % (20.0-45.0) Monocytes (%) (Auto) % (1.0-10.0) Eosinophils (%) (Auto) % (0.0-3.0) Basophils (%) (Auto) % (0.0-2.0) Differential Total Cells Counted 100 Neutrophils % (Manual) 87 % (45-75) H Lymphocytes % (Manual) 3 % (20-45) L Monocytes % (Manual) 4 % (1-10) Eosinophils % (Manual) 0 % (0-3) Basophils % (Manual) 0 % (0-2) Band Neutrophils 6 % (0-8) Platelet Estimate Adequate Platelet Morphology Normal Hypochromasia 1+ Sodium Level 140 MMOL/L (136-145) Potassium Level 4.8 MMOL/L (3.5-5.1) Chloride Level 107 MMOL/L (98-107) Carbon Dioxide Level 23 MMOL/L (21-32) Anion Gap 10 mmol/L (5-15) Blood Urea Nitrogen 27 mg/dL (7-18) H Creatinine 1.9 MG/DL (0.55-1.30) H Estimat Glomerular Filtration Rate 45.0 mL/min (>60) Glucose Level 111 MG/DL (74-106) H Calcium Level 9.4 MG/DL (8.5-10.1) Troponin I 0.019 ng/mL (0.000-0.056) 0.024 ng/mL (0.000-0.056) Pro-B-Type Natriuretic Peptide 3104 pg/mL (0-125) H Objective HEAD AND NECK: No JVD. LUNGS: Clear. CARDIOVASCULAR: Regular S1 and S2 with no gallop or murmur. ABDOMEN: Soft. EXTREMITIES: No pitting edema. Nhan Sim MD Apr 18, 2018 15:10
--- NOTE | 2018-04-18 15:11 | Consultation ---
Consult Note Consult Note asked to eval for elevated Cr Patient's presents with 2 days of intermittent dyspnea. He's been using his inhaler and machine without help. I denies any fevers or chills. He gets extremely dyspneic and feels a slight amount of chest pressure. Denies any productive phlegm. Several days ago, he had a similar problem which seemed to get better with aggressive use of his inhaler and machine. He has had prednisone in the past. He states this is one of the worst attacks he has had. He has never been intubated. Chest pain rated 0/10. He denies CHF or prior cardiac problems. H/O COPD No NVD, dysuria, abdominal pain, headache, palpitations, depression, rashes, joint pain, calf pain or swelling. NO KNOWN ALLERGIES (Unverified Allergy, Unknown, 08/04/15) Past Medical History: No History, Except For Hx Hypertension: Yes Hx Asthma: Yes interviewed examined data reviewed Assessment/Plan renal failure ? Acute on Chronic Nephrotoxics??? : Med list: Bactrim , Ibuprofen, Prednisone Mild Anemia Urine + for cocaine HTN COPD former smoker evidence of CHF CLEO kidney 2D echo BP control Pulm support Urine studies per orders Dannie Puente MD Apr 18, 2018 15:11
[2018-04-18 16:00] VITALS: BP 137/86
[2018-04-18 18:36] LABS: APPEARANCE,URINE CLEAR; BILIRUBIN, URINE NEGATIVE (NEGATIVE); COLOR,URINE PALE YELLOW; GLUCOSE, URINE (UA) NEGATIVE (NEGATIVE); KETONES,URINE NEGATIVE (NEGATIVE); LEUKOCYTE ESTERASE ,URINE NEGATIVE (NEGATIVE); NITRITE,URINE NEGATIVE (NEGATIVE); PH,URINE 7 (4.5-8.0); PROTEIN,URINE NEGATIVE (NEGATIVE); UROBILINOGEN,URINE NORMAL MG/DL (0.0-1.0)
--- NOTE | 2018-04-18 18:38 | Cardiology Report ---
APPROVED REPORT EXAM: Two-dimensional and M-mode echocardiogram with Doppler and color Doppler. INDICATION Congestive Heart Failure M-Mode DIMENSIONS IVSd1.8 (0.7-1.1cm)Left Atrium (MM)4.6 (1.6-4.0cm) LVDd6.5 (3.5-5.6cm)Aortic Root3.3 (2.0-3.7cm) PWd1.6 (0.7-1.1cm)Aortic Cusp Exc.2.3 (1.5-2.0cm) IVSs2.4 cm LVDs5.4 (2.5-4.0cm) PWs1.7 cm Global left ventricular hypokinesis . Mild left ventricular enlargement. Left ventricular ejection fraction estimated to be 30-35 %. No evidence of left ventricular hypertrophy . Trace posterior pericardial effusion. Mild left atrial enlargement.. Right cardiac chamber sizes are within normal limits. Focal aortic valve sclerosis with adequate cusp excursion. Thickened mitral valve leaflets with normal excursion. Mitral annulus and aortic root calcification. Pulmonic valve not well visualized. Normal tricuspid valve structure. IVC at normal size with physiologic collapse. A color flow and spectral Doppler study was performed and revealed: No aortic regurgitation. Mild mitral regurgitation. Mitral inflow velocities indicates possible pseudo normalization pattern implying significant left ventricular diastolic dysfunction (Grade II ) Trace tricuspid regurgitation. Tricuspid systolic velocities suggests peak right ventricular systolic pressure of 13mmHg. Trace pulmonic regurgitation.
[2018-04-18] MEDS ORDERED: Methocarbamol 750mg tab ORAL PRN (19:00)
[2018-04-18] MEDS ORDERED: Albuterol/Ipratropium 3ml neb HHN PRN (19:00)
[2018-04-18 20:00] VITALS: BP 130/93
[2018-04-18] MEDS ORDERED: Zolpidem 5mg tab ORAL PRN (21:00)
[2018-04-19] VITALS: BP 135/94
[2018-04-19 04:00] VITALS: BP 125/89
[2018-04-19 06:07] LABS: BASOPHILS % (AUTO) 0.8 % (0.0-2.0); EOSINOPHILS % (AUTO) 1.6 % (0.0-3.0); HEMATOCRIT 43.8 % (42.0-52.0); HEMOGLOBIN 14.2 G/DL (14.2-18.0); LYMPHOCYTES % (AUTO) 17.9 % (20.0-45.0); MEAN CORPUSCULAR VOLUME 89 FL (80-99); MONOCYTES % (AUTO) 6.6 % (1.0-10.0); NEUTROPHILS % (AUTO) 73.1 % (45.0-75.0); PLATELET COUNT 211 K/UL (150-450); RED BLOOD COUNT 4.95 M/UL (4.70-6.10); RED CELL DISTRIBUTION WIDTH 13.6 % (11.6-14.8)
[2018-04-19 06:25] LABS: ALANINE AMINOTRANSFERASE 46 U/L (12-78); ALBUMIN 3.1 G/DL (3.4-5.0); ALBUMIN/GLOBULIN RATIO 0.7 (1.0-2.7); ALKALINE PHOSPHATASE 35 U/L (46-116); ANION GAP 9 mmol/L (5-15); ASPARTATE AMINO TRANSFERASE 22 U/L (15-37); BILIRUBIN,TOTAL 0.5 MG/DL (0.2-1.0); BLOOD UREA NITROGEN 27 mg/dL (7-18); CALCIUM 9.1 MG/DL (8.5-10.1); CARBON DIOXIDE 27 MMOL/L (21-32); CHLORIDE 106 MMOL/L (98-107); CHOLESTEROL 189 MG/DL (< 200); CREATINE KINASE 233 U/L (26-308); CREATININE 1.8 MG/DL (0.55-1.30); GAMMA GLUTAMYL TRANSPEPTIDASE 37 U/L (5-85); HDL CHOLESTEROL 48 MG/DL (40-60); PHOSPHORUS 4.5 MG/DL (2.5-4.9); POTASSIUM 4.3 MMOL/L (3.5-5.1); SODIUM 142 MMOL/L (136-145); TRIGLYCERIDES 147 MG/DL (30-150)
[2018-04-19 08:00] VITALS: BP 129/90
[2018-04-19] MEDS: Heparin 5000 units/ml inj SUBQ SCH (08:27)
[2018-04-19] MEDS ORDERED: Furosemide 40mg tab ORAL SCH (09:00)
--- NOTE | 2018-04-19 10:18 | Cardiac Electrophysiology PN ---
Assessment/Plan Assessment/Plan 1. Initial troponin leak, this is likely due to renal failure. Follow up troponins are negative and the patient does not have any chest pain. Continue aspirin and Lipitor. We will avoid beta-oneida in view of concurrent cocaine use. Echocardiogram showed Ef 40-45% Will schedule stress test today 2. Hypertension. On Norvasc 10 daily and Lasix 3. Renal failure, creatinine was 1.7. 4. Urine toxicology screen also positive for cocaine. DW RN Subjective Subjective No CP or SOB in NAD Objective Last 24 Hour Vital Signs Date Time Temp Pulse Resp B/P (MAP) Pulse Ox O2 Delivery O2 Flow Rate FiO2 04/19/18 09:00 Room Air 04/19/18 08:26 96 129/90 04/19/18 08:00 96 04/19/18 08:00 98.1 96 20 129/90 (103) 95 98.1 04/19/18 04:00 89 04/19/18 04:00 97.7 96 20 125/89 (101) 99 97.7 04/19/18 00:00 97.7 108 20 135/94 (108) 95 97.7 04/19/18 00:00 99 04/18/18 21:00 Room Air 04/18/18 20:00 98.2 106 20 130/93 (105) 95 98.2 04/18/18 20:00 107 04/18/18 19:22 92 18 Room Air 04/18/18 16:00 118 04/18/18 16:00 Room Air 04/18/18 16:00 99.3 105 18 137/86 (103) 91 99.3 04/18/18 12:00 96.8 103 20 132/74 (93) 95 96.8 04/18/18 12:00 122 04/18/18 12:00 Room Air 04/18/18 11:14 108 20 Room Air 21 04/18/18 11:07 101 24 97 Room Air 21 Intake and Output 04/18/18 04/19/18 19:00 07:00 Intake Total 640 ml 400 ml Output Total 400 ml Balance 240 ml 400 ml Intake Oral 640 ml 400 ml Output Urine Total 400 ml # Voids 3 Laboratory Tests Test 04/18/18 12:00 04/18/18 18:00 04/19/18 05:20 9/21/18 08:23 Troponin I 0.024 ng/mL (0.000-0.056) 0.050 ng/mL (0.000-0.056) Urine Color Pale yellow Urine Appearance Clear Urine pH 7 (4.5-8.0) Urine Specific [place] 1.010 (1.005-1.035) Urine Protein Negative (NEGATIVE) Urine Glucose (UA) Negative (NEGATIVE) Urine Ketones Negative (NEGATIVE) Urine Blood Negative (NEGATIVE) Urine Nitrite Negative (NEGATIVE) Urine Bilirubin Negative (NEGATIVE) Urine Urobilinogen Normal MG/DL (0.0-1.0) Urine Leukocyte Esterase Negative (NEGATIVE) Urine RBC 0-2 /HPF (0 - 0) H Urine WBC 0-2 /HPF (0 - 0) Urine Squamous Epithelial Cells None /LPF (NONE/OCC) Urine Bacteria None /HPF (NONE) White Blood Count 11.0 K/UL (4.8-10.8) H Red Blood Count 4.95 M/UL (4.70-6.10) Hemoglobin 14.2 G/DL (14.2-18.0) Hematocrit 43.8 % (42.0-52.0) Mean Corpuscular Volume 89 FL (80-99) Mean Corpuscular Hemoglobin 28.8 PG (27.0-31.0) Mean Corpuscular Hemoglobin Concent 32.5 G/DL (32.0-36.0) Red Cell Distribution Width 13.6 % (11.6-14.8) Platelet Count 211 K/UL (150-450) Mean Platelet Volume 8.1 FL (6.5-10.1) Neutrophils (%) (Auto) 73.1 % (45.0-75.0) Lymphocytes (%) (Auto) 17.9 % (20.0-45.0) L Monocytes (%) (Auto) 6.6 % (1.0-10.0) Eosinophils (%) (Auto) 1.6 % (0.0-3.0) Basophils (%) (Auto) 0.8 % (0.0-2.0) Sodium Level 142 MMOL/L (136-145) Potassium Level 4.3 MMOL/L (3.5-5.1) Chloride Level 106 MMOL/L (98-107) Carbon Dioxide Level 27 MMOL/L (21-32) Anion Gap 9 mmol/L (5-15) Blood Urea Nitrogen 27 mg/dL (7-18) H Creatinine 1.8 MG/DL (0.55-1.30) H Estimat Glomerular Filtration Rate 47.9 mL/min (>60) Glucose Level 94 MG/DL (74-106) Hemoglobin A1c 5.5 % (4.3-6.0) Uric Acid 11.4 MG/DL (2.6-7.2) H Calcium Level 9.1 MG/DL (8.5-10.1) Phosphorus Level 4.5 MG/DL (2.5-4.9) Magnesium Level 2.0 MG/DL (1.8-2.4) Total Bilirubin 0.5 MG/DL (0.2-1.0) Gamma Glutamyl Transpeptidase 37 U/L (5-85) Aspartate Amino Transf (AST/SGOT) 22 U/L (15-37) Alanine Aminotransferase (ALT/SGPT) 46 U/L (12-78) Alkaline Phosphatase 35 U/L (46-116) L Total Creatine Kinase 233 U/L (26-308) Pro-B-Type Natriuretic Peptide 3090 pg/mL (0-125) H Total Protein 7.5 G/DL (6.4-8.2) Albumin 3.1 G/DL (3.4-5.0) L Globulin 4.4 g/dL Albumin/Globulin Ratio 0.7 (1.0-2.7) L Triglycerides Level 147 MG/DL (30-150) Cholesterol Level 189 MG/DL (< 200) LDL Cholesterol 113 mg/dL (<100) H HDL Cholesterol 48 MG/DL (40-60) Cholesterol/HDL Ratio 3.9 (3.3-4.4) Vitamin B12 Level 358 PG/ML (193-986) Thyroid Stimulating Hormone (TSH) 1.462 uiU/mL (0.358-3.740) Urine Eosinophils Pending Objective HEAD AND NECK: No JVD. LUNGS: Clear. CARDIOVASCULAR: Regular S1 and S2 with no gallop or murmur. ABDOMEN: Soft. EXTREMITIES: No pitting edema. Nhan Sim MD Apr 19, 2018 10:18
[2018-04-19] MEDS ORDERED: Lexiscan 0.4mg/5ml syringe IV SCH (10:30)
--- NOTE | 2018-04-19 10:46 | General Progress Note ---
Assessment/Plan Assessment/Plan Cocaine abuse depressive d/o the pt refused meds the pt refused outpt referrals Subjective Date patient seen: Apr 19, 2018 Neurologic/Psychiatric: Reports: anxiety, depressed, emotional problems Allergies: Coded Allergies: NO KNOWN ALLERGIES (Unverified Allergy, Unknown, 08/04/15) Objective Last 24 Hour Vital Signs Date Time Temp Pulse Resp B/P (MAP) Pulse Ox O2 Delivery O2 Flow Rate FiO2 04/19/18 09:00 Room Air 04/19/18 08:26 96 129/90 04/19/18 08:00 96 04/19/18 08:00 98.1 96 20 129/90 (103) 95 98.1 04/19/18 04:00 89 04/19/18 04:00 97.7 96 20 125/89 (101) 99 97.7 04/19/18 00:00 97.7 108 20 135/94 (108) 95 97.7 04/19/18 00:00 99 04/18/18 21:00 Room Air 04/18/18 20:00 98.2 106 20 130/93 (105) 95 98.2 04/18/18 20:00 107 04/18/18 19:22 92 18 Room Air 04/18/18 16:00 118 04/18/18 16:00 Room Air 04/18/18 16:00 99.3 105 18 137/86 (103) 91 99.3 04/18/18 12:00 96.8 103 20 132/74 (93) 95 96.8 04/18/18 12:00 122 04/18/18 12:00 Room Air 04/18/18 11:14 108 20 Room Air 21 04/18/18 11:07 101 24 97 Room Air 21 Intake and Output 04/18/18 04/19/18 19:00 07:00 Intake Total 640 ml 400 ml Output Total 400 ml Balance 240 ml 400 ml Intake Oral 640 ml 400 ml Output Urine Total 400 ml # Voids 3 Laboratory Tests 04/18/18 12:00: Troponin I 0.024 04/18/18 18:00: Urine Color Pale yellow, Urine Appearance Clear, Urine pH 7, Urine Specific [place] 1.010, Urine Protein Negative, Urine Glucose (UA) Negative, Urine Ketones Negative, Urine Blood Negative, Urine Nitrite Negative, Urine Bilirubin Negative, Urine Urobilinogen Normal, Urine Leukocyte Esterase Negative, Urine RBC 0-2H, Urine WBC 0-2, Urine Squamous Epithelial Cells None, Urine Bacteria None 04/19/18 05:20: Troponin I 0.050, White Blood Count 11.0H, Red Blood Count 4.95, Hemoglobin 14.2 , Hematocrit 43.8, Mean Corpuscular Volume 89, Mean Corpuscular Hemoglobin 28.8 , Mean Corpuscular Hemoglobin Concent 32.5, Red Cell Distribution Width 13.6, Platelet Count 211, Mean Platelet Volume 8.1, Neutrophils (%) (Auto) 73.1, Lymphocytes (%) (Auto) 17.9L, Monocytes (%) (Auto) 6.6, Eosinophils (%) (Auto) 1.6, Basophils (%) (Auto) 0.8, Sodium Level 142, Potassium Level 4.3, Chloride Level 106, Carbon Dioxide Level 27, Anion Gap 9, Blood Urea Nitrogen 27H, Creatinine 1.8H, Estimat Glomerular Filtration Rate 47.9, Glucose Level 94, Hemoglobin A1c 5.5, Uric Acid 11.4H, Calcium Level 9.1, Phosphorus Level 4.5, Magnesium Level 2.0, Total Bilirubin 0.5, Gamma Glutamyl Transpeptidase 37, Aspartate Amino Transf (AST/SGOT) 22, Alanine Aminotransferase (ALT/SGPT) 46, Alkaline Phosphatase 35L, Total Creatine Kinase 233, Pro-B-Type Natriuretic Peptide 3090H, Total Protein 7.5, Albumin 3.1L, Globulin 4.4, Albumin/Globulin Ratio 0.7L, Triglycerides Level 147, Cholesterol Level 189, LDL Cholesterol 113H , HDL Cholesterol 48, Cholesterol/HDL Ratio 3.9, Vitamin B12 Level 358, Thyroid Stimulating Hormone (TSH) 1.462 04/19/18 08:23: Urine Eosinophils [Pending] Height (Feet): 5 Height (Inches): 9.00 Weight (Pounds): 224 General Appearance: no apparent distress, alert Neurologic: oriented x 3, responsive, depressed affect Alex Fernandez MD Apr 19, 2018 10:46
--- NOTE | 2018-04-19 11:39 | Diagnostic Imaging Report ---
Indication:Elevated Bun and Creatinine. Technique: Grayscale and duplex Doppler imaging of the kidneys performed. Comparison: None Findings: The size, contour, and echogenicity of both kidneys are within normal limits. Right kidney is 11.5 cm. Left kidney 11.4 cm in length. There are calcifications in the left kidney that are probably small nonobstructive stones. There is a left renal cyst measuring 1.6 cm noted. There is no hydronephrosis. The IVC and urinary bladder are unremarkable. IMPRESSION: Suspected nonobstructive stones in the left kidney. Left renal cyst
[2018-04-19 12:00] VITALS: BP 123/87
--- NOTE | 2018-04-19 13:55 | Nephrology Progress Note ---
Assessment/Plan Problem List: (1) Acute on chronic renal failure (2) CHF (congestive heart failure) (3) Cardiomyopathy (4) Cocaine abuse Assessment renal failure ? Acute on Chronic Nephrotoxics??? : Med list: Bactrim , Ibuprofen, Prednisone Mild Anemia Urine + for cocaine HTN COPD former smoker evidence of CHF and cardiomyopathy Plan CLEO kidney Suspected nonobstructive stones in the left kidney. 2D echo 30% EjFx BP control Pulm support Urine studies coreg , hydralazine , per orders Objective Objective Last 24 Hour Vital Signs Date Time Temp Pulse Resp B/P (MAP) Pulse Ox O2 Delivery O2 Flow Rate FiO2 04/19/18 12:00 97.9 93 20 123/87 (99) 100 97.9 04/19/18 12:00 93 04/19/18 09:00 Room Air 04/19/18 08:26 96 129/90 04/19/18 08:06 95 18 Room Air 04/19/18 08:00 96 04/19/18 08:00 98.1 96 20 129/90 (103) 95 98.1 04/19/18 04:00 89 04/19/18 04:00 97.7 96 20 125/89 (101) 99 97.7 04/19/18 00:00 97.7 108 20 135/94 (108) 95 97.7 04/19/18 00:00 99 04/18/18 21:00 Room Air 04/18/18 20:00 98.2 106 20 130/93 (105) 95 98.2 04/18/18 20:00 107 04/18/18 19:22 92 18 Room Air 04/18/18 16:00 118 04/18/18 16:00 Room Air 04/18/18 16:00 99.3 105 18 137/86 (103) 91 99.3 Intake and Output 04/18/18 04/19/18 19:00 07:00 Intake Total 640 ml 400 ml Output Total 400 ml Balance 240 ml 400 ml Intake Oral 640 ml 400 ml Output Urine Total 400 ml # Voids 3 Laboratory Tests 04/18/18 18:00: Urine Color Pale yellow, Urine Appearance Clear, Urine pH 7, Urine Specific Gattman 1.010, Urine Protein Negative, Urine Glucose (UA) Negative, Urine Ketones Negative, Urine Blood Negative, Urine Nitrite Negative, Urine Bilirubin Negative, Urine Urobilinogen Normal, Urine Leukocyte Esterase Negative, Urine RBC 0-2H, Urine WBC 0-2, Urine Squamous Epithelial Cells None, Urine Bacteria None 04/19/18 05:20: White Blood Count 11.0H, Red Blood Count 4.95, Hemoglobin 14.2, Hematocrit 43.8 , Mean Corpuscular Volume 89, Mean Corpuscular Hemoglobin 28.8, Mean Corpuscular Hemoglobin Concent 32.5, Red Cell Distribution Width 13.6, Platelet Count 211, Mean Platelet Volume 8.1, Neutrophils (%) (Auto) 73.1, Lymphocytes (% ) (Auto) 17.9L, Monocytes (%) (Auto) 6.6, Eosinophils (%) (Auto) 1.6, Basophils (%) (Auto) 0.8, Sodium Level 142, Potassium Level 4.3, Chloride Level 106, Carbon Dioxide Level 27, Anion Gap 9, Blood Urea Nitrogen 27H, Creatinine 1.8H, Estimat Glomerular Filtration Rate 47.9, Glucose Level 94, Hemoglobin A1c 5.5, Uric Acid 11.4H, Calcium Level 9.1, Phosphorus Level 4.5, Magnesium Level 2.0, Total Bilirubin 0.5, Gamma Glutamyl Transpeptidase 37, Aspartate Amino Transf ( AST/SGOT) 22, Alanine Aminotransferase (ALT/SGPT) 46, Alkaline Phosphatase 35L, Total Creatine Kinase 233, Troponin I 0.050, Pro-B-Type Natriuretic Peptide 3090H, Total Protein 7.5, Albumin 3.1L, Globulin 4.4, Albumin/Globulin Ratio 0.7L, Triglycerides Level 147, Cholesterol Level 189, LDL Cholesterol 113H, HDL Cholesterol 48, Cholesterol/HDL Ratio 3.9, Vitamin B12 Level 358, Thyroid Stimulating Hormone (TSH) 1.462 04/19/18 08:23: Urine Eosinophils None seen 04/19/18 12:30: Troponin I [Pending] Height (Feet): 5 Height (Inches): 9.00 Weight (Pounds): 224 Dannie Puente MD Apr 19, 2018 13:55
[2018-04-19] MEDS ORDERED: HydrALAZINE 25mg tab ORAL SCH (14:30)
[2018-04-19 16:00] VITALS: BP 120/75
--- NOTE | 2018-04-19 16:26 | Diagnostic Imaging Report ---
Indication: chest pain Technique: The study was conducted under the supervision of a supply service worker. lexiscan (regadenoson) infusion over 10 seconds followed by intravenous administration of 31.4 mCi of technetium 99m Myoview was performed. Three plane SPECT imaging of the heart was then performed. A resting study was performed as part of the one-day protocol with 10.9 mCi of technetium 99m myoview injected intravenously at that time. Three plane SPECT imaging of the heart was obtained. Comparison: None Clinical data: 1. Clinical response: Non ischemic 2. Electrocardiographic response: Non ischemic Findings: The myocardial perfusion scan demonstrates left ventricular dilatation. There is patchy perfusion with the small nontransmural defect in the anteroseptal wall and prominent defect in the inferior wall. There is no reversibility to suggest ischemic tissue. LVEF is estimated at 20%. IMPRESSION: Moderate to severe left ventricular dilatation with low ejection fraction estimated at 20% No definite evidence of myocardial ischemia. Suspected infarct involving the inferior wall. Suspected infarct involving the anteroseptal wall.
[2018-04-19] MEDS ORDERED: LIPITOR10 MG ORAL (17:23)
[2018-04-19] MEDS ORDERED: COREG3.125 MG ORAL (17:23)
[2018-04-19] MEDS ORDERED: NORVASC2.5 MG ORAL (17:23)
[2018-04-19] MEDS ORDERED: ASPIR 8181 MG ORAL (17:23)
[2018-04-19] MEDS ORDERED: FUROSEMIDE40 MG ORAL ×2 (17:23→17:24)
--- NOTE | 2018-04-19 17:27 | Discharge Instructions ---
Discharge Instructions Discharge Instructions Follow up with: primary care doctor and cardiolgoy dr. Nhan Sim in 1-2 weeks Services at Discharge: home health services Diet: 2 GM sodium (low sodium), cardiac 2 GM Na, low fat Resume Normal Activity?: Yes Activity: resume normal activities For Congestive Heart Failure Reminder Report to your physician any weight gain of 5 pounds or more in one week. Ricardo Murdock M.D. Apr 19, 2018 17:27
[2018-04-19] MEDS ORDERED: 1/2 NS 1000ml IV ONE (18:59)
--- NOTE | 2018-04-21 15:58 | Discharge Summary ---
Discharge Summary Hospital Course Date of Admission Apr 17, 2018 at 10:31 Date of Discharge Apr 19, 2018 at 19:00 Admitting Diagnosis NSTEMI, CHF HPI 52 year old man with history of HTN, pneumonia, smoking crack cocaine, last use 1 week ago who presents with dyspnea x 2 days. He denies any chest pain, palpitations or loss of consciousness. He was seen in ED and treated with IV Lasix, SoluMedrol and Duoneb with improvement in his symptoms. Consultations Cardiology, Nephrology, Pulmonology, Psychiatry Hospital Course Pt was admitted to [facility]. He was seen by cardiology. Serial trop mildly elevated. TTE showed EF 30-35%. Pt started on lasix for diuresis. Nuc stress test done showed moderate to severe left ventricular dilatation with low ejection fraction estimated at 20%, no definite evidence of myocardial ischemia. Discussed with cardiology and no further workup indicated. Pt with cardiomyopathy likely in setting of cocaine abuse. He was counseled on cessation. Pt also seen by nephrology given TOÑA which improved w/ lasix. Pt's cardiac medications optimized. Prior to d/c, pt was HD stable, tolerating PO and ambulating w/o assistance. Discharge physical exam General: alert, cooperative, no distress, appears stated age Head: normocephalic, without obvious abnormality, atraumatic Eyes: conjunctivae/corneas clear. PERRL, EOM's intact Throat: lips, mucosa, and tongue normal. MMM Neck: supple, symmetrical, trachea midline, and no JVD Lungs: clear to auscultation bilaterally Heart: regular rate and rhythm, S1, S2 normal, no murmur, click, rub or gallop Abdomen: soft, non-tender, non-distended, bowel sounds normal; no masses or organomegaly Extremities: extremities normal, atraumatic, no cyanosis or edema Pulses: 2+ and symmetric Skin: skin color, texture, turgor normal; no rashes or lesions Neurologic: grossly normal, no focal deficits Discharge Medications New Medications: Aspirin* (Aspir 81*) 81 Mg Tablet.dr 81 MG ORAL DAILY for 90 Days, #90 TAB 3 Refills Furosemide* (Lasix*) 40 Mg Tablet 40 MG ORAL DAILY for 30 Days, #30 TAB 0 Refills Amlodipine Besylate (Norvasc) 2.5 Mg Tablet 2.5 MG ORAL DAILY for 30 Days, #30 TAB 3 Refills Atorvastatin Calcium* (Lipitor*) 10 Mg Tablet 10 MG ORAL BEDTIME for 30 Days, #30 TAB 3 Refills Carvedilol (Coreg) 3.125 Mg Tablet 3.125 MG ORAL EVERY 12 HOURS for 30 Days, #60 TAB 3 Refills Continued Medications: Albuterol Sulfate* (Albuterol Sulfate Mdi*) 8.5 Gm Hfa.aer.ad 2 PUFF INH Q6H, #1 EA 0 Refills Diphenhydramine Hcl* (Benadryl*) 25 Mg Capsule 50 MG ORAL Q6H PRN for Itching, CAP (This prescription has been renewed) Hydrocodone Bit/Acetaminophen 10-325* (Willards 10-325*) 1 Each Tablet 1 TAB ORAL Q6H PRN for For Pain, #10 TAB 0 Refills (This prescription has been renewed) PRN PAIN Methocarbamol* (Robaxin-750*) 750 Mg Tablet 750 MG PO QID, #28 TAB 0 Refills Discontinued Medications: Amlodipine Besylate (Norvasc) 10 Mg Tablet 10 MG ORAL DAILY, TAB Amlodipine Besylate (Norvasc) 10 Mg Tablet 10 MG ORAL DAILY, TAB Amoxicillin* (Amoxil*) 500 Mg Capsule 500 MG ORAL THREE TIMES A DAY, #21 CAP Cephalexin* (Keflex*) 500 Mg Capsule 500 MG ORAL Q6H, #28 CAP 0 Refills Ibuprofen* (Motrin*) 600 Mg Tablet 600 MG ORAL Q8H PRN for For Pain, #30 TAB 0 Refills Ibuprofen* (Motrin*) 600 Mg Tablet 600 MG ORAL Q8H PRN for For Pain, #30 TAB 0 Refills Prednisone* (Prednisone*) 20 Mg Tablet 40 MG ORAL DAILY, #10 TAB Prednisone* (Prednisone*) 20 Mg Tablet 40 MG ORAL DAILY, #10 TAB Trimethoprim/Sulfamethoxazole 160/800* (Bactrim Ds Tablet*) 1 Each Tablet 1 TAB ORAL Q12H, #14 TAB 0 Refills Discharge Condition Upon Discharge: stable Discharge Disposition Patient was discharged to Home with Home Health(06) Discharge Diagnoses: (1) Acute on chronic systolic (congestive) heart failure (2) Cardiomyopathy (3) Cardiorenal syndrome (4) Drug abuse (5) TOÑA (acute kidney injury) Discharge Instructions Discharge Instructions Follow up with: primary care doctor and cardiolgoy dr. Nhan Sim in 1-2 weeks Services Upon Discharge: home health services Activity: resume normal activities Ricardo Murdock M.D. Apr 21, 2018 15:58
--- NOTE | 2018-04-21 20:26 | Diagnostic Imaging Report ---
APPROVED REPORT CPT Code: 79438 Present Symptoms Shortness of breath BILATERAL: Imaging reveals a patent deep venous system bilaterally. There is no evidence of thrombus within the femoral, popliteal or tibial segments. The greater saphenous veins are also within normal limits. Doppler indicates normal spontaneous flow within these segments.
== END 2018-04-19 19:00 | disposition home health service (06) | DRG 291 ==
LOC: EMR 09:20 → 2W 10:31 → EDBEDREQ 10:49 → 2E 04-18 17:57
DX: I13.0 Hypertensive heart and chronic kidney disease with heart failure and stage 1 through stage 4 chronic kidney disease, or unspecified chronic kidney disease (principal); I50.23 Acute on chronic systolic (congestive) heart failure; E87.2 Acidosis; N18.9 Chronic kidney disease, unspecified; I42.9 Cardiomyopathy, unspecified; F14.10 Cocaine abuse, uncomplicated; Z87.891 Personal history of nicotine dependence; J44.9 Chronic obstructive pulmonary disease, unspecified
CPT/HCPCS: 36415; 71045; 76770; 78452; 80048; 80053; 80061; 80307; 81001; 81003; 82550; 82607; 82977; 83036; 83605; 83735; 83880; 84100; 84443; 84484; 84550; 85007; 85025; 85379; 85610; 85730; 86140; 89050; 93005; 93017; 93306; 93970; 94640; 94664; 96361; 96374; 96375; 99285; J2785; J7620

== ENCOUNTER 2018-08-08 09:09 | Inpatient (IN) | payer MEDICARE, MEDICAID ==
[~2018-08-08] VITALS: Ht 175.3 cm; Wt 99.8 kg
[~2018-08-08 09:09] MED LIST changes: +ASPIR 8181 MG ORAL; +BENADRYL25 MG ORAL; +COREG3.125 MG ORAL; +FUROSEMIDE40 MG ORAL; +LIPITOR10 MG ORAL; +NORCO 10-325 T1 EACH ORAL; +NORVASC2.5 MG ORAL
[2018-08-08] MEDS ORDERED: LORazepam Inj 2mg/ml 1ml IV ONE (09:30)
--- NOTE | 2018-08-08 09:33 | Emergency Room Report ---
History of Present Illness General Chief Complaint: Asthma Source: Patient Present Illness HPI Patient initially presents with complaints of shortness of breath Attributing it to his asthma Reports that he has been using his inhaler without any significant relief Reviewing previous medical record patient was admitted with congestive heart failure after cocaine abuse This was asked during questioning and at this point he does report that he used cocaine 2 days ago And his symptoms started soon after that Denies any chest pain at this time he does feel some shortness of breath Feels agitated and anxious Denies any vomiting or diarrhea Allergies: Coded Allergies: NO KNOWN ALLERGIES (Verified Allergy, Unknown, 08/08/18) Patient History Past Medical History: see triage record Pertinent Family History: none Reviewed Nursing Documentation: PMH: Agreed; PSxH: Agreed Nursing Documentation-PMH Past Medical History: No History, Except For Hx Cardiac Problems: Yes Hx Hypertension: Yes Hx Asthma: Yes Hx Cancer: No Hx Gastrointestinal Problems: No Hx Neurological Problems: Yes - Chronic back pain Review of Systems All Other Systems: negative except mentioned in HPI Physical Exam Vital Signs Date Time Temp Pulse Resp B/P (MAP) Pulse Ox O2 Delivery O2 Flow Rate FiO2 08/08/18 09:06 98.2 103 20 134/104 98 Room Air Sp02 EP Interpretation: reviewed, normal General Appearance: mild distress - Mildly anxious Head: normocephalic, atraumatic Eyes: bilateral eye PERRL, bilateral eye EOMI ENT: hearing grossly normal, normal pharynx, TMs + canals normal, uvula midline Neck: full range of motion, supple, no meningismus, no bony tend Respiratory: no rhonchi, no respiratory distress, no retraction, no accessory muscle use, crackles - Bilaterally Cardiovascular #1: normal peripheral pulses, regular rate, rhythm, no edema, no gallop, no JVD, other - Holosystolic murmur Gastrointestinal: normal bowel sounds, non tender, soft, no mass, no organomegaly, non-distended, no guarding, no hernia, no pulsatile mass, no rebound Genitourinary: no CVA tenderness Musculoskeletal: normal inspection Neurologic: oriented x3, responsive, clay 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 III-XII nml as tested, motor strength/ tone normal, sensory intact Psychiatric: mood/affect normal Skin: normal color, no rash, warm/dry, palpation normal Lymphatic: normal inspection, no adenopathy Medical Decision Making Diagnostic Impression: Primary Impression: ACS (acute coronary syndrome) Additional Impressions: Drug abuse CHF (congestive heart failure) ER Course Patient is a fairly complex patient with multiple differential to consideration including but not limited to cardiac cardiopulmonary and vascular emergencies Patient initially presents with complaints of asthma discomfort however with further discussing and evaluation I am concerned about Cardiomyopathy and pulmonary congestion secondary to cocaine abuse patient's blood work does reveal some acute pathology Patient has acute intervention and admitted for further care Labs Test 08/08/18 09:30 08/08/18 12:14 08/08/18 18:50 08/09/18 09:48 White Blood Count 8.0 K/UL (4.8-10.8) 8.9 K/UL (4.8-10.8) Red Blood Count 4.66 M/UL (4.70-6.10) 4.87 M/UL (4.70-6.10) Hemoglobin 12.8 G/DL (14.2-18.0) 13.6 G/DL (14.2-18.0) Hematocrit 40.7 % (42.0-52.0) 42.4 % (42.0-52.0) Mean Corpuscular Volume 87 FL (80-99) 87 FL (80-99) Mean Corpuscular Hemoglobin 27.4 PG (27.0-31.0) 28.0 PG (27.0-31.0) Mean Corpuscular Hemoglobin Concent 31.4 G/DL (32.0-36.0) 32.1 G/DL (32.0-36.0) Red Cell Distribution Width 14.6 % (11.6-14.8) 14.2 % (11.6-14.8) Platelet Count 269 K/UL (150-450) 362 K/UL (150-450) Mean Platelet Volume 7.2 FL (6.5-10.1) 6.6 FL (6.5-10.1) Neutrophils (%) (Auto) 70.6 % (45.0-75.0) 69.0 % (45.0-75.0) Lymphocytes (%) (Auto) 18.4 % (20.0-45.0) 19.9 % (20.0-45.0) Monocytes (%) (Auto) 6.7 % (1.0-10.0) 5.8 % (1.0-10.0) Eosinophils (%) (Auto) 3.1 % (0.0-3.0) 4.3 % (0.0-3.0) Basophils (%) (Auto) 1.2 % (0.0-2.0) 1.0 % (0.0-2.0) Sodium Level 142 MMOL/L (136-145) 142 MMOL/L (136-145) Potassium Level 3.9 MMOL/L (3.5-5.1) 4.1 MMOL/L (3.5-5.1) Chloride Level 108 MMOL/L (98-107) 105 MMOL/L (98-107) Carbon Dioxide Level 26 MMOL/L (21-32) 30 MMOL/L (21-32) Anion Gap 8 mmol/L (5-15) 7 mmol/L (5-15) Blood Urea Nitrogen 11 mg/dL (7-18) 16 mg/dL (7-18) Creatinine 1.8 MG/DL (0.55-1.30) 1.9 MG/DL (0.55-1.30) Estimat Glomerular Filtration Rate 47.8 mL/min (>60) 44.8 mL/min (>60) Glucose Level 104 MG/DL (74-106) 94 MG/DL (74-106) Calcium Level 8.3 MG/DL (8.5-10.1) 9.3 MG/DL (8.5-10.1) Total Bilirubin 0.2 MG/DL (0.2-1.0) Aspartate Amino Transf (AST/SGOT) 42 U/L (15-37) Alanine Aminotransferase (ALT/SGPT) 50 U/L (12-78) Alkaline Phosphatase 47 U/L (46-116) Total Creatine Kinase 1044 U/L (26-308) Creatine Kinase MB 6.8 NG/ML (0.0-3.6) Creatine Kinase MB Relative Index 0.6 Troponin I 0.052 ng/mL (0.000-0.056) 0.045 ng/mL (0.000-0.056) 0.055 ng/mL (0.000-0.056) 0.036 ng/mL (0.000-0.056) Pro-B-Type Natriuretic Peptide 2236 pg/mL (0-125) Total Protein 7.1 G/DL (6.4-8.2) Albumin 2.8 G/DL (3.4-5.0) Globulin 4.3 g/dL Albumin/Globulin Ratio 0.7 (1.0-2.7) Urine Opiates Screen Negative (NEGATIVE) Urine Barbiturates Screen Negative (NEGATIVE) Phencyclidine (PCP) Screen Negative (NEGATIVE) Urine Amphetamines Screen Negative (NEGATIVE) Urine Benzodiazepines Screen Negative (NEGATIVE) Urine Cocaine Screen Positive (NEGATIVE) Urine Marijuana (THC) Screen Negative (NEGATIVE) Rhythm Strip Diag. Results EP Interpretation: yes Rate: 77 Rhythm: NSR, no PVC's, other - Nonspecific ST and T wave changes Chest X-Ray Diagnostic Results Chest X-Ray Diagnostic Results : Chest X-Ray Ordered: Yes # of Views/Limited/Complete: 1 View Indication: Chest Pain EP Interpretation: Yes Interpretation: no consolidation, no pneumothorax, other - Cardiomegaly and pulmonary congestion Impression: Other - Acute CHF Electronically Signed by: John Vogel DO Last Vital Signs Date Time Temp Pulse Resp B/P (MAP) Pulse Ox O2 Delivery O2 Flow Rate FiO2 08/08/18 09:06 98.2 103 20 134/104 98 Room Air Status: improved Disposition: ADMITTED INPATIENT Condition: Serious Referrals: NOT CHOSEN FABRICIO/,REFERRING (PCP) John Vogel DO Aug 08, 2018 09:33
[2018-08-08 10:02] LABS: BASOPHILS % (AUTO) 1.2 % (0.0-2.0); EOSINOPHILS % (AUTO) 3.1 % (0.0-3.0); HEMATOCRIT 40.7 % (42.0-52.0); HEMOGLOBIN 12.8 G/DL (14.2-18.0); LYMPHOCYTES % (AUTO) 18.4 % (20.0-45.0); MEAN CORPUSCULAR VOLUME 87 FL (80-99); MONOCYTES % (AUTO) 6.7 % (1.0-10.0); NEUTROPHILS % (AUTO) 70.6 % (45.0-75.0); PLATELET COUNT 269 K/UL (150-450); RED BLOOD COUNT 4.66 M/UL (4.70-6.10); RED CELL DISTRIBUTION WIDTH 14.6 % (11.6-14.8)
[2018-08-08 10:12] LABS: ANION GAP 8 mmol/L (5-15); BLOOD UREA NITROGEN 11 mg/dL (7-18); CALCIUM 8.3 MG/DL (8.5-10.1); CARBON DIOXIDE 26 MMOL/L (21-32); CHLORIDE 108 MMOL/L (98-107); CREATININE 1.8 MG/DL (0.55-1.30); POTASSIUM 3.9 MMOL/L (3.5-5.1); SODIUM 142 MMOL/L (136-145)
[2018-08-08 10:14] VITALS: BP 133/105
--- NOTE | 2018-08-08 10:15 | NUR ---
ED Nurse Note: Pt. AAOx4. ambulatory. came in to ER due to SOB x 1 week. pt received breathing tx en route to ER. skin is intact
--- NOTE | 2018-08-08 10:23 | NUR ---
ED Nurse Note: notified Dr. Vogel regarding pt.'s bp of 133/105. Per Dr. Vogel, it is ok
[2018-08-08 10:27] LABS: ALANINE AMINOTRANSFERASE 50 U/L (12-78); ALBUMIN 2.8 G/DL (3.4-5.0); ALBUMIN/GLOBULIN RATIO 0.7 (1.0-2.7); ALKALINE PHOSPHATASE 47 U/L (46-116); ASPARTATE AMINO TRANSFERASE 42 U/L (15-37); BILIRUBIN,TOTAL 0.2 MG/DL (0.2-1.0); CKMB 6.8 NG/ML (0.0-3.6); CREATINE KINASE 1044 U/L (26-308)
[2018-08-08] MEDS ORDERED: Sodium Chloride 500ML 500 ML IV ONE (11:30)
--- NOTE | 2018-08-08 11:50 | NUR ---
ED Nurse Note: PT GIVEN LUNCH TRAY
--- NOTE | 2018-08-08 11:55 | History and Physical ---
History of Present Illness General Date patient seen: Aug 08, 2018 Time patient seen: 11:45 Reason for Hospitalization: acute hypoxic respiratory failure Present Illness HPI Hernesto Khoury is a 53 yo male with h/o chf, asthma, and cocaine abuse who presents today with complains of shortness of breath that has been getting worse over the past 2 days. Patient denies any chest pain. Patient admits to recent cocaine use 2 days ago. Patient very agitated and anxious, denies abd pain/nausea/vomiting/diarrhea. Denies any MCLEAN/Dizziness/Vision changes. States he uses an inhaler without any relief. social hx reviewed: denies alcohol use, admits to smoking less than half ppd and cocaine use last used 2 days ago past fam hx reviewed: denies any sig past fam hx that he is aware of code status reviewed: FULL CODE Allergies: Coded Allergies: NO KNOWN ALLERGIES (Unverified Allergy, Unknown, 08/04/15) Medication History Scheduled Albuterol Sulfate* (Albuterol Sulfate Mdi*), 2 PUFF INH Q6H Amlodipine Besylate (Norvasc), 2.5 MG ORAL DAILY Aspirin* (Aspir 81*), 81 MG ORAL DAILY Atorvastatin Calcium* (Lipitor*), 10 MG ORAL BEDTIME Carvedilol (Coreg), 3.125 MG ORAL EVERY 12 HOURS Furosemide* (Lasix*), 40 MG ORAL DAILY Methocarbamol* (Robaxin-750*), 750 MG PO QID Scheduled PRN Diphenhydramine Hcl* (Benadryl*), 50 MG ORAL Q6H PRN for Itching, (Reported) Hydrocodone Bit/Acetaminophen 10-325* ([place] 10-325*), 1 TAB ORAL Q6H PRN for For Pain, (Reported) Patient History Healthcare decision maker Resuscitation status Advanced Directive on File Family History Family History: No history of premature CAD Review of Systems ROS Narrative 14 point ros reviewed and negative except mentioned in HPI Physical Exam General Appearance: WD/WN, alert, mild distress Lines, tubes and drains: peripheral HEENT: normocephalic, atraumatic, mucous membranes moist, PERRL Neck: non-tender, normal alignment, supple Respiratory/Chest: chest wall non-tender, respiratory distress, rhonchi - bilaterally Cardiovascular/Chest: normal peripheral pulses, normal rate, regular rhythm Abdomen: normal bowel sounds, non tender, soft, no organomegaly, no mass Extremities: normal range of motion, non-tender, normal inspection, no calf tenderness Skin Exam: normal pigmentation, warm/dry 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, no motor/sensory deficits, alert, oriented x 3, responsive, normal mood/affect Last 24 Hour Vital Signs Date Time Temp Pulse Resp B/P (MAP) Pulse Ox O2 Delivery O2 Flow Rate FiO2 08/08/18 10:14 98.2 100 20 133/105 98 Room Air 08/08/18 10:14 100 20 Room Air 08/08/18 09:06 98.2 103 20 134/104 98 Room Air Laboratory Tests Test 08/08/18 09:30 White Blood Count 8.0 K/UL (4.8-10.8) Red Blood Count 4.66 M/UL (4.70-6.10) L Hemoglobin 12.8 G/DL (14.2-18.0) L Hematocrit 40.7 % (42.0-52.0) L Mean Corpuscular Volume 87 FL (80-99) Mean Corpuscular Hemoglobin 27.4 PG (27.0-31.0) Mean Corpuscular Hemoglobin Concent 31.4 G/DL (32.0-36.0) L Red Cell Distribution Width 14.6 % (11.6-14.8) Platelet Count 269 K/UL (150-450) Mean Platelet Volume 7.2 FL (6.5-10.1) Neutrophils (%) (Auto) 70.6 % (45.0-75.0) Lymphocytes (%) (Auto) 18.4 % (20.0-45.0) L Monocytes (%) (Auto) 6.7 % (1.0-10.0) Eosinophils (%) (Auto) 3.1 % (0.0-3.0) H Basophils (%) (Auto) 1.2 % (0.0-2.0) Sodium Level 142 MMOL/L (136-145) Potassium Level 3.9 MMOL/L (3.5-5.1) Chloride Level 108 MMOL/L (98-107) H Carbon Dioxide Level 26 MMOL/L (21-32) Anion Gap 8 mmol/L (5-15) Blood Urea Nitrogen 11 mg/dL (7-18) Creatinine 1.8 MG/DL (0.55-1.30) H Estimat Glomerular Filtration Rate 47.8 mL/min (>60) Glucose Level 104 MG/DL (74-106) Calcium Level 8.3 MG/DL (8.5-10.1) L Total Bilirubin 0.2 MG/DL (0.2-1.0) Aspartate Amino Transf (AST/SGOT) 42 U/L (15-37) H Alanine Aminotransferase (ALT/SGPT) 50 U/L (12-78) Alkaline Phosphatase 47 U/L (46-116) Total Creatine Kinase 1044 U/L (26-308) H Creatine Kinase MB 6.8 NG/ML (0.0-3.6) H Creatine Kinase MB Relative Index 0.6 Troponin I 0.052 ng/mL (0.000-0.056) Pro-B-Type Natriuretic Peptide 2236 pg/mL (0-125) H Total Protein 7.1 G/DL (6.4-8.2) Albumin 2.8 G/DL (3.4-5.0) L Globulin 4.3 g/dL Albumin/Globulin Ratio 0.7 (1.0-2.7) L Urine Opiates Screen Negative (NEGATIVE) Urine Barbiturates Screen Negative (NEGATIVE) Phencyclidine (PCP) Screen Negative (NEGATIVE) Urine Amphetamines Screen Negative (NEGATIVE) Urine Benzodiazepines Screen Negative (NEGATIVE) Urine Cocaine Screen Positive (NEGATIVE) H Urine Marijuana (THC) Screen Negative (NEGATIVE) Height (Feet): 5 Height (Inches): 9.00 Weight (Pounds): 220 Medications Current Medications Medications (Trade) Dose Ordered Sig/Lizette Route PRN Reason Start Time Stop Time Status Last Admin Dose Admin Sodium Chloride 500 ml @ 999 mls/hr Q31M ONCE IV 08/08/18 11:30 08/08/18 12:00 08/08/18 11:35 Assessment/Plan Status: stable Assessment/Plan Acute on Chronic Systolic CHF exacerbation - BNP 2236 - EF around 30% - resume home meds, amlodipine, coreg, aggressive diuresis - asa - statin - tele - strict i/o - trop x 1 mild elevated 0.52, trend x 3 - due to cocaine abuse - pulse ox - monasb NSTEMI - type II nstemi - trop x 1 0.52, no acute st t wave changes - trend trop x 3 - likely due to demand ischemia from cocaine use Asthma Exacerbation - duonebs Cocaine abuse - educated on cessation for over 15 mins - patient states he understands Smoker - educated on cessation for over 15 mins - patient states he understands Diet: Cardiac Inpatient admit DVT Prophylaxis: SCD, HSQ Code Status: Full Hospital Classification Declaration: Based on this initial evaluation, and depending on the patient's clinical course, I anticipate that this patient will require hospitalization for 2-3 days for systolic CHF exacerbation induced by cocaine and close respiratory/hemodynamic monitoring. Disposition: Once the patient is stable to leave the hospital, I anticipate the patient will likely be discharged to the following environment: home with vs SNF I spent 71 minutes on this patient's case, and 41 minutes were dedicated to counseling and/or care coordination. Discussed with patient/family, nursing staff, SW/CM regarding clinical status, treatment course, and disposition planning. Time of note may not reflect time of encounter. ---- Date of Discussion: 08/08/18 A [id number] discussion with the patient regarding the patient's advanced care planning took place during this hospitalization on the above date. The discussion included the explanation and discussion of advance directives and associated forms/documents, as well as the patient's current code status. We also discussed at length the patient's medical conditions (both acute and chronic), general prognosis, treatment options, and goals of care. The following summarizes the discussion: Advance Care Planning/Goals of Care: - Will attempt to fill out an AD and/or POLST with the patient prior to discharge, if not already completed - Continue current evaluation and management of any acute and chronic medical issues - Will continue to support the patient/family - Will continue to discuss both short- and long-term goals of care DPOA-HC/Surrogate Decision Maker: None currently appointed Code Status: Full Code AD Forms/Documents Completed: Deferred A total of 35 minutes was spent on this discussion, including counseling, answering questions, and completing, if any, pertinent advanced care planning forms/documents. Brianne Yeung MD Aug 08, 2018 11:55
--- NOTE | 2018-08-08 12:05 | NUR ---
ED Nurse Note: SENT DOWN REPEAT TROPONIN
[2018-08-08 12:09] VITALS: BP 133/58
--- NOTE | 2018-08-08 12:39 | NUR ---
ED Nurse Note: PT. PULLED OUT IV ACCESS AND INSERTED A NEW IV ACCESS ON THE R HAND(20 GAUGE)
--- NOTE | 2018-08-08 12:44 | Diagnostic Imaging Report ---
Indication: Chest pain Technique: One view of the chest Comparison: 04/17/2018 Findings: The heart is borderline enlarged. There is borderline interstitial congestion which is less severe than on prior study. There is slight blunting of the bilateral costophrenic sulci. Impression: Borderline cardiomegaly and borderline interstitial edema Small bilateral pleural effusions
[2018-08-08 15:04] VITALS: BP 110/65
--- NOTE | 2018-08-08 15:10 | NUR ---
ED Nurse Note: Phone call report given to ANGELITA Dejesus
--- NOTE | 2018-08-08 15:21 | NUR ---
ED Nurse Note: Per CN, I have to wait for tghe admission packet before bringing the pt. up to Tele for admission
[2018-08-08 15:50] VITALS: BP 118/96
--- NOTE | 2018-08-08 15:50 | NUR ---
ED Nurse Note: PT TRANSPORTED VIA GURNEY WITH ALL HIS BELONGINGS. REPORT GIVEN TO ANGELITA SHEPARD
--- NOTE | 2018-08-08 15:50 | NUR ---
NURSE NOTES: Pt received from Zeynep Pitt RN alert and oriented x3 with moments of confusion. Per [employer], they gave him Ativan prior to transfer up to floor. Pt has no complaints or s/s of pain, SOB, or n/v. IV site asymptomatic and patent. Bed in lowest position, call light and belongings within reach. Bed alarm on, advised pt to stay in bed and avoid getting up by himself without assistance d/t risk of falls, pt verbalized understanding. No wounds noted upon admission. Belongings signed with transferring nurse, belongings all accounted for and with patient upon transfer. Admission orders already inputted, will carry them out.
[2018-08-08] MEDS: Methocarbamol 750mg tab ORAL SCH (17:39)
[2018-08-08 20:00] VITALS: BP 133/89
[2018-08-08] MEDS: Heparin 5000 units/ml inj SUBQ SCH (22:00)
[2018-08-09] VITALS: BP 130/95
[2018-08-09] MEDS: Albuterol/Ipratropium 3ml neb HHN SCH ×4 (01:58→19:54)
[2018-08-09 04:00] VITALS: BP 121/86
[2018-08-09] MEDS: Heparin 5000 units/ml inj SUBQ SCH ×3 (05:35→21:59)
[2018-08-09 08:00] VITALS: BP 125/90
--- NOTE | 2018-08-09 08:00 | General Progress Note ---
Assessment/Plan Status: stable, progressing Assessment/Plan Acute on Chronic Systolic CHF exacerbation - BNP 2236 - EF around 30% - resume home meds, amlodipine, coreg, aggressive diuresis - asa - statin - tele - strict i/o - trop mild elevated x3 around 0.5 - due to cocaine abuse - pulse ox - monasb - improving slowly - off o2 ncl NSTEMI - type II nstemi, demand ischemia from cocaine abuse - trop x 3 mild elevated around 0.5, stable - likely due to demand ischemia from cocaine use Asthma Exacerbation - duonebs Cocaine abuse - educated on cessation for over 15 mins - patient states he understands Smoker - educated on cessation for over 15 mins - patient states he understands Diet: Cardiac Inpatient admit DVT Prophylaxis: SCD, HSQ Code Status: Full Hospital Classification Declaration: Based on this initial evaluation, and depending on the patient's clinical course, I anticipate that this patient will require hospitalization for 2-3 days for systolic CHF exacerbation induced by cocaine and close respiratory/hemodynamic monitoring. Disposition: Once the patient is stable to leave the hospital, I anticipate the patient will likely be discharged to the following environment: home with HH vs SNF I spent 59 minutes on this patient's case, and 41 minutes were dedicated to counseling and/or care coordination. Discussed with patient/family, nursing staff, SW/CM regarding clinical status, treatment course, and disposition planning. Time of note may not reflect time of encounter. ---- Date of Discussion: 08/08/18 A [id number] discussion with the patient regarding the patient's advanced care planning took place during this hospitalization on the above date. The discussion included the explanation and discussion of advance directives and associated forms/documents, as well as the patient's current code status. We also discussed at length the patient's medical conditions (both acute and chronic), general prognosis, treatment options, and goals of care. The following summarizes the discussion: Advance Care Planning/Goals of Care: - Will attempt to fill out an AD and/or POLST with the patient prior to discharge, if not already completed - Continue current evaluation and management of any acute and chronic medical issues - Will continue to support the patient/family - Will continue to discuss both short- and long-term goals of care DPOA-HC/Surrogate Decision Maker: None currently appointed Code Status: Full Code AD Forms/Documents Completed: Deferred A total of 35 minutes was spent on this discussion, including counseling, answering questions, and completing, if any, pertinent advanced care planning forms/documents. Subjective Date patient seen: Aug 09, 2018 Time patient seen: 07:57 Allergies: Coded Allergies: NO KNOWN ALLERGIES (Verified Allergy, Unknown, 08/08/18) Subjective f/u chf exacerbation, sob, acute hypoxic resp failure states he is starting to feel better now a bit sob on exacerbation denies any fevers/chills/cp feels weak and is hungry ROS: 14 point ROS reviewed and negative except per above subjective/interval events. Objective Last 24 Hour Vital Signs Date Time Temp Pulse Resp B/P (MAP) Pulse Ox O2 Delivery O2 Flow Rate FiO2 08/09/18 04:00 97.0 92 20 121/86 (98) 96 08/09/18 04:00 92 08/09/18 02:02 96 20 99 Room Air 21 08/09/18 01:54 90 20 96 Room Air 21 08/09/18 00:00 98.4 96 20 130/95 (107) 98 96 08/09/18 00:00 90 08/08/18 21:22 105 20 Room Air 08/08/18 21:09 97 147/107 08/08/18 21:00 Room Air 08/08/18 20:00 98.0 106 133/89 (104) 08/08/18 20:00 107 08/08/18 17:04 Room Air 08/08/18 15:50 98.3 112 22 118/96 99 Room Air 08/08/18 15:50 89 08/08/18 15:50 98.3 112 118/96 (103) 08/08/18 15:04 98.6 16 22 110/65 99 Room Air 08/08/18 12:09 98.2 13 20 133/58 100 Room Air 08/08/18 10:14 98.2 100 20 133/105 98 Room Air 08/08/18 10:14 100 20 Room Air 08/08/18 09:06 98.2 103 20 134/104 98 Room Air Intake and Output 08/08/18 08/09/18 19:00 07:00 Intake Total 240 ml Output Total 0 ml Balance 240 ml Intake Oral 240 ml Output Urine Total 0 ml # Voids 3 # Bowel Movements 1 1 Laboratory Tests 08/08/18 09:30: White Blood Count 8.0, Red Blood Count 4.66L, Hemoglobin 12.8L, Hematocrit 40.7L , Mean Corpuscular Volume 87, Mean Corpuscular Hemoglobin 27.4, Mean Corpuscular Hemoglobin Concent 31.4L, Red Cell Distribution Width 14.6, Platelet Count 269, Mean Platelet Volume 7.2, Neutrophils (%) (Auto) 70.6, Lymphocytes (%) (Auto) 18.4L, Monocytes (%) (Auto) 6.7, Eosinophils (%) (Auto) 3.1H, Basophils (%) (Auto) 1.2, Sodium Level 142, Potassium Level 3.9, Chloride Level 108H, Carbon Dioxide Level 26, Anion Gap 8, Blood Urea Nitrogen 11, Creatinine 1.8H, Estimat Glomerular Filtration Rate 47.8, Glucose Level 104, Calcium Level 8.3L, Total Bilirubin 0.2, Aspartate Amino Transf (AST/SGOT) 42H, Alanine Aminotransferase (ALT/SGPT) 50, Alkaline Phosphatase 47, Total Creatine Kinase 1044H, Creatine Kinase MB 6.8H, Creatine Kinase MB Relative Index 0.6, Troponin I 0.052, Pro-B-Type Natriuretic Peptide 2236H, Total Protein 7.1, Albumin 2.8L, Globulin 4.3, Albumin/Globulin Ratio 0.7L, Urine Opiates Screen Negative, Urine Barbiturates Screen Negative, Phencyclidine (PCP) Screen Negative, Urine Amphetamines Screen Negative, Urine Benzodiazepines Screen Negative, Urine Cocaine Screen PositiveH, Urine Marijuana (THC) Screen Negative 08/08/18 12:14: Troponin I 0.045 08/08/18 18:50: Troponin I 0.055 Height (Feet): 5 Height (Inches): 9.00 Weight (Pounds): 220 Objective General Appearance: WD/WN, alert, mild distress Lines, tubes and drains: peripheral HEENT: normocephalic, atraumatic, mucous membranes moist, PERRL Neck: non-tender, normal alignment, supple Respiratory/Chest: chest wall non-tender, respiratory distress, mild crackles appreciated b/l Cardiovascular/Chest: normal peripheral pulses, normal rate, regular rhythm Abdomen: normal bowel sounds, non tender, soft, no organomegaly, no mass Extremities: normal range of motion, non-tender, normal inspection, no calf tenderness Skin Exam: normal pigmentation, warm/dry 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
--- NOTE | 2018-08-09 08:12 | NUR ---
NURSE NOTES: Received report from Oleg GOLDSTEIN. Pt in bed on cell phone. Introductions made. No distress noted. Bed in lowest position with side rail sup x2 and call light in reach. Will continue to monitor.
--- NOTE | 2018-08-09 08:12 | NUR ---
HAND-OFF: Report given to ANGELITA Murphy.
[2018-08-09] MEDS: Methocarbamol 750mg tab ORAL SCH ×3 (10:20→18:20)
[2018-08-09] MEDS: Aspirin EC 81mg tab ORAL SCH (10:20)
[2018-08-09 10:27] LABS: EOSINOPHILS % (AUTO) 4.3 % (0.0-3.0); HEMATOCRIT 42.4 % (42.0-52.0); HEMOGLOBIN 13.6 G/DL (14.2-18.0); LYMPHOCYTES % (AUTO) 19.9 % (20.0-45.0); MEAN CORPUSCULAR VOLUME 87 FL (80-99); MONOCYTES % (AUTO) 5.8 % (1.0-10.0); PLATELET COUNT 362 K/UL (150-450); RED BLOOD COUNT 4.87 M/UL (4.70-6.10); RED CELL DISTRIBUTION WIDTH 14.2 % (11.6-14.8); WHITE BLOOD COUNT 8.9 K/UL (4.8-10.8)
[2018-08-09 10:43] LABS: ANION GAP 7 mmol/L (5-15); BLOOD UREA NITROGEN 16 mg/dL (7-18); CALCIUM 9.3 MG/DL (8.5-10.1); CARBON DIOXIDE 30 MMOL/L (21-32); CHLORIDE 105 MMOL/L (98-107); CREATININE 1.9 MG/DL (0.55-1.30); POTASSIUM 4.1 MMOL/L (3.5-5.1); SODIUM 142 MMOL/L (136-145)
[2018-08-09 12:00] VITALS: BP 128/93
--- NOTE | 2018-08-09 12:58 | NUR ---
CASE MANAGEMENT:REVIEW BIBA FROM HOME CC: SOB. COUGH. WHEEZING SI: ACS. ASTHMA 98.3 103 20 134/104 98% ON RA CR+1.8 TCK+1044 BNP+2236 URINE(+) COCAINE IS: BREATHING TREATMENT PRIOR TO ADMISSION 500CC NS BOLUS IV LASIX ASA PO IV ATIVAN CXR : TO TELEMETRY INTERQUAL CRITERIA MET
[2018-08-09 16:00] VITALS: BP 130/91
--- NOTE | 2018-08-09 18:10 | Cardiology Report ---
APPROVED REPORT EKG Measurement Heart [id number] Normal sinus rhythm Possible Left atrial enlargement Left ventricular hypertrophy Nonspecific T wave abnormality Prolonged QT Abnormal ECG
--- NOTE | 2018-08-09 18:54 | NUR ---
NURSE NOTES: Per family, Left message asking MD Yeung for BNP, lipid panel, repeat CXR and cardio consult orders. Awaiting call back.
--- NOTE | 2018-08-09 19:20 | NUR ---
HAND-OFF: Report given to ANGELITA Rivas. Pt stable.
--- NOTE | 2018-08-09 19:30 | NUR ---
NURSE NOTES: Received report from ANGELITA Murphy. Patient in bed resting with no signs of acute distress. Denies pain or discomfort. Respiration even and non labored on room air. Vital signs stable. Bed in lowest position. Call light within reach. Will continue plan of care.
[2018-08-09 20:00] VITALS: BP 117/77
[2018-08-10] VITALS: BP 98/65
[2018-08-10] MEDS: Albuterol/Ipratropium 3ml neb HHN SCH ×3 (01:08→13:13)
[2018-08-10 04:00] VITALS: BP 137/84
[2018-08-10] MEDS: Heparin 5000 units/ml inj SUBQ SCH ×2 (05:52→13:32)
--- NOTE | 2018-08-10 07:15 | NUR ---
NURSE NOTES: Received report from ANGELITA Rivas. Patient in bed resting with signs of coughing and moderate chest pain from the cough. Respiratory therapist is contacted. Patient is SR. Bed in lowest position. Call light within reach. Will continue plan of care.
--- NOTE | 2018-08-10 07:55 | NUR ---
HAND-OFF: Report given to ANGELITA Clark. Vitals stable. Patient in no acute distress.
[2018-08-10 08:00] VITALS: BP 126/91
[2018-08-10] MEDS: Aspirin EC 81mg tab ORAL SCH (09:39)
[2018-08-10] MEDS: Methocarbamol 750mg tab ORAL SCH ×2 (09:40→13:38)
[2018-08-10 12:00] VITALS: BP 109/79
[2018-08-10] MEDS ORDERED: NORVASC2.5 MG ORAL (12:35)
[2018-08-10] MEDS ORDERED: ASPIR 8181 MG ORAL (12:35)
[2018-08-10] MEDS ORDERED: COREG3.125 MG ORAL (12:35)
[2018-08-10] MEDS ORDERED: FUROSEMIDE40 MG ORAL (12:35)
[2018-08-10] MEDS ORDERED: LIPITOR10 MG ORAL (12:35)
[2018-08-10] MEDS ORDERED: ALBUTEROL SULF8.5 GM INH (12:35)
--- NOTE | 2018-08-10 12:39 | Discharge Summary ---
Discharge Summary Hospital Course Date of Admission Aug 08, 2018 at 09:42 Date of Discharge Admitting Diagnosis acs HPI Hernesto Khoury is a 53 year old male who was admitted on Aug 08, 2018 at 09: 42 for chest pain, acs r/o Hernesto Khoury is a 53 yo male with h/o chf, asthma, and cocaine abuse who presents today with complains of shortness of breath that has been getting worse over the past 2 days. Patient denies any chest pain. Patient admits to recent cocaine use 2 days ago. treated for chf exacerbation, was diuresed, improved well. has known ef 30% educated on cocaine cessation. plan to dc home. 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, no motor/sensory deficits, alert, oriented x 3, responsive, normal mood/affect Hospital Course Acute on Chronic Systolic CHF exacerbation - BNP 2236 - EF around 30% - resume home meds, amlodipine, coreg, cont diuresis - asa - statin - tele - strict i/o - trop mild elevated x3 around 0.5 - due to cocaine abuse - pulse ox - monasb - improving slowly - off o2 ncl NSTEMI - type II nstemi, demand ischemia from cocaine abuse - trop x 3 mild elevated around 0.5, stable - likely due to demand ischemia from cocaine use Asthma Exacerbation - duonebs Cocaine abuse - educated on cessation for over 15 mins - patient states he understands Smoker - educated on cessation for over 15 mins - patient states he understands Diet: Cardiac Inpatient admit DVT Prophylaxis: SCD, HSQ Code Status: Full Disposition: Once the patient is stable to leave the hospital, I anticipate the patient will likely be discharged to the following environment: home with vs SNF I spent over 40 minutes on this patient's case, counseling and/or care coordination and discharge/dispo planning. Discussed with patient/family, nursing staff, SW/CM regarding clinical status, treatment course, and disposition planning. Time of note may not reflect time of encounter. ---- Date of Discussion: 08/08/18 A [id number] discussion with the patient regarding the patient's advanced care planning took place during this hospitalization on the above date. The discussion included the explanation and discussion of advance directives and associated forms/documents, as well as the patient's current code status. We also discussed at length the patient's medical conditions (both acute and chronic), general prognosis, treatment options, and goals of care. The following summarizes the discussion: Advance Care Planning/Goals of Care: - Will attempt to fill out an AD and/or POLST with the patient prior to discharge, if not already completed - Continue current evaluation and management of any acute and chronic medical issues - Will continue to support the patient/family - Will continue to discuss both short- and long-term goals of care DPOA-HC/Surrogate Decision Maker: None currently appointed Code Status: Full Code AD Forms/Documents Completed: Deferred A total of 35 minutes was spent on this discussion, including counseling, answering questions, and completing, if any, pertinent advanced care planning forms/documents. Discharge Medications Continued Medications: Albuterol Sulfate* (Albuterol Sulfate Mdi*) 8.5 Gm Hfa.aer.ad 2 PUFF INH Q6H for 30 Days, #1 EA 0 Refills (This prescription has been renewed) Amlodipine Besylate (Norvasc) 2.5 Mg Tablet 2.5 MG ORAL DAILY for 30 Days, #30 TAB 3 Refills (This prescription has been renewed) Aspirin* (Aspir 81*) 81 Mg Tablet.dr 81 MG ORAL DAILY for 90 Days, #90 TAB 3 Refills (This prescription has been renewed) Atorvastatin Calcium* (Lipitor*) 10 Mg Tablet 10 MG ORAL BEDTIME for 30 Days, #30 TAB 3 Refills (This prescription has been renewed) Carvedilol (Coreg) 3.125 Mg Tablet 3.125 MG ORAL EVERY 12 HOURS for 30 Days, #60 TAB 3 Refills (This prescription has been renewed) Furosemide* (Lasix*) 40 Mg Tablet 40 MG ORAL DAILY for 30 Days, #30 TAB 0 Refills (This prescription has been renewed) Discontinued Medications: Diphenhydramine Hcl* (Benadryl*) 25 Mg Capsule 50 MG ORAL Q6H PRN for Itching, CAP Hydrocodone Bit/Acetaminophen 10-325* ([place] 10-325*) 1 Each Tablet 1 TAB ORAL Q6H PRN for For Pain, #10 TAB 0 Refills PRN PAIN Methocarbamol* (Robaxin-750*) 750 Mg Tablet 750 MG PO QID, #28 TAB 0 Refills Discharge Condition Upon Discharge: stable Discharge Disposition Patient was discharged to home Discharge Diagnoses: (1) Acute on chronic systolic (congestive) heart failure (2) TOÑA (acute kidney injury) (3) Cardiorenal syndrome (4) Cardiomyopathy (5) Acute on chronic renal failure (6) Drug abuse Brianne Yeung MD Aug 10, 2018 12:39
[2018-08-10] MEDS ORDERED: Norco 5mg/325mg tab ORAL SCH ×2 (12:45→13:31)
--- NOTE | 2018-08-10 15:30 | NUR ---
Home Discharge: Patient is being discharged from medical care. Awake, alert and oriented x4. Patient verbalized understanding of discharge instructions, were given prescriptions, and to follow up with his primary doctor. All medical devices such as IV, heart monitor, and ID band were removed. Patient ambulated out with all personal belongings with steady gait to taxi cab. Taxi cab voucher was given.
== END 2018-08-10 15:52 | disposition home or self-care (01) | DRG 280 ==
LOC: EDBD 09:09 → EMR 09:30 → 2E 09:42 → EDBEDREQ 15:12 → 2E 08-09 13:00
DX: I13.0 Hypertensive heart and chronic kidney disease with heart failure and stage 1 through stage 4 chronic kidney disease, or unspecified chronic kidney disease (principal); I50.23 Acute on chronic systolic (congestive) heart failure; I21.A1 Myocardial infarction type 2; J45.901 Unspecified asthma with (acute) exacerbation; N17.9 Acute kidney failure, unspecified; F14.188 Cocaine abuse with other cocaine-induced disorder; N18.9 Chronic kidney disease, unspecified; I42.9 Cardiomyopathy, unspecified; F17.200 Nicotine dependence, unspecified, uncomplicated
CPT/HCPCS: 36415; 71045; 80048; 80053; 80307; 82550; 82553; 83880; 84484; 85025; 93005; 94640; 94664; 96374; 96375; 99285; J7620

== ENCOUNTER 2019-01-09 03:48 | Inpatient (IN) | payer MEDICARE, MEDICAID ==
[2019-01-08 20:00] VITALS: BP 130/83
[~2019-01-09] VITALS: Ht 175.3 cm; Wt 99.8 kg
[2019-01-09] VITALS (8 sets, daily range): BP systolic 113–142; BP diastolic 83–98
--- NOTE | 2019-01-09 03:59 | Emergency Room Report ---
History of Present Illness General Chief Complaint: Asthma Source: Patient Present Illness HPI Patient is 53-year-old male presented with EMS after increased difficulty with breathing. Patient had gradual onset of symptoms over the past few days. He reports of increased cough. He states that he had prior history of cardiac disease and had prior history of congestive heart failure. Patient had reportedly had a heart attack approximately 6 months ago. He denies any fevers or smoking. He states he intermittently uses cocaine. And last used cocaine approximately 5 days ago. Allergies: Coded Allergies: NO KNOWN ALLERGIES (Verified Allergy, Unknown, 08/08/18) Patient History Past Medical History: see triage record Reviewed Nursing Documentation: PMH: Agreed; PSxH: Agreed Nursing Documentation-PMH Hx Cardiac Problems: Yes Hx Hypertension: Yes Hx Asthma: Yes Hx Cancer: No Hx Gastrointestinal Problems: No Hx Neurological Problems: Yes - Chronic back pain Review of Systems All Other Systems: negative except mentioned in HPI Physical Exam Vital Signs Date Time Temp Pulse Resp B/P (MAP) Pulse Ox O2 Delivery O2 Flow Rate FiO2 01/09/19 03:50 97.5 104 18 142/88 (106) 99 Room Air Sp02 EP Interpretation: reviewed, normal General Appearance: normal inspection, well appearing, no apparent distress, alert, GCS 15, Chronically Ill Head: atraumatic ENT: normal ENT inspection, hearing grossly normal, normal voice Neck: normal inspection, full range of motion, supple, no bony tend Respiratory: normal inspection, lungs clear, normal breath sounds, no respiratory distress, no retraction, wheezing Cardiovascular #1: regular rate, rhythm, no edema Gastrointestinal: normal inspection, normal bowel sounds, non tender, soft, no guarding, no hernia Genitourinary: no CVA tenderness Musculoskeletal: normal inspection, back normal, normal range of motion Neurologic: normal inspection, alert, oriented x3, responsive, agent producer III-XII nml as tested, speech normal Psychiatric: normal inspection, judgement/insight normal, mood/affect normal Skin: normal inspection, normal color, no rash Medical Decision Making Diagnostic Impression: Primary Impression: Cardiomyopathy Additional Impression: Drug abuse ER Course Patient presented for shortness of breath. Differential diagnosis include was not limited to pneumonia, bronchitis, congestive heart failure among others. Because of complexity of patient's case laboratory testing and imaging studies were ordered. Patient was noted to have prior history of cardiomyopathy likely due to cocaine. Patient was given breathing treatments by EMS. He was given further albuterol treatment in the emergency department. He was noted to have reported prior drug use proxy 5 days ago. Patient was noted to have chest x- ray one view interpreted by me with cardiac enlargement as well as increased vascular congestion consistent with congestive heart failure. Laboratory testing showed elevated BNP as well as troponin which was minimally elevated. Patient was given aspirin as well as IV Lasix. Patient be admitted for further evaluation of chest discomfort and shortness of breath.Patient was discussed with Dr. Silva for [facility] due to prior admission. Labs Test 01/09/19 04:00 White Blood Count 9.9 K/UL (4.8-10.8) Red Blood Count 4.83 M/UL (4.70-6.10) Hemoglobin 13.2 G/DL (14.2-18.0) Hematocrit 41.9 % (42.0-52.0) Mean Corpuscular Volume 87 FL (80-99) Mean Corpuscular Hemoglobin 27.4 PG (27.0-31.0) Mean Corpuscular Hemoglobin Concent 31.6 G/DL (32.0-36.0) Red Cell Distribution Width 14.1 % (11.6-14.8) Platelet Count 216 K/UL (150-450) Mean Platelet Volume 7.0 FL (6.5-10.1) Neutrophils (%) (Auto) 69.5 % (45.0-75.0) Lymphocytes (%) (Auto) 21.8 % (20.0-45.0) Monocytes (%) (Auto) 5.9 % (1.0-10.0) Eosinophils (%) (Auto) 2.0 % (0.0-3.0) Basophils (%) (Auto) 0.7 % (0.0-2.0) Sodium Level 146 MMOL/L (136-145) Potassium Level 3.3 MMOL/L (3.5-5.1) Chloride Level 116 MMOL/L (98-107) Carbon Dioxide Level 20 MMOL/L (21-32) Anion Gap 10 mmol/L (5-15) Blood Urea Nitrogen 14 mg/dL (7-18) Creatinine 1.4 MG/DL (0.55-1.30) Estimat Glomerular Filtration Rate > 60 mL/min (>60) Glucose Level 97 MG/DL (74-106) Calcium Level 6.9 MG/DL (8.5-10.1) Total Bilirubin 0.2 MG/DL (0.2-1.0) Aspartate Amino Transf (AST/SGOT) 116 U/L (15-37) Alanine Aminotransferase (ALT/SGPT) 140 U/L (12-78) Alkaline Phosphatase 32 U/L (46-116) Total Creatine Kinase 383 U/L (26-308) Creatine Kinase MB 2.5 NG/ML (0.0-3.6) Creatine Kinase MB Relative Index 0.6 Troponin I 0.063 ng/mL (0.000-0.056) Pro-B-Type Natriuretic Peptide 6008 pg/mL (0-125) Total Protein 5.3 G/DL (6.4-8.2) Albumin 2.5 G/DL (3.4-5.0) Globulin 2.8 g/dL Albumin/Globulin Ratio 0.9 (1.0-2.7) Lipase 236 U/L (73-393) EKG Diagnostic Results Rate: normal Rhythm: NSR ST Segments: no acute changes Last Vital Signs Date Time Temp Pulse Resp B/P (MAP) Pulse Ox O2 Delivery O2 Flow Rate FiO2 01/09/19 03:54 108 18 Room Air 01/09/19 03:54 97.6 142/88 98 Status: improved Disposition: ADMITTED INPATIENT Condition: Stable Moe Jones MD Jan 09, 2019 03:59
[2019-01-09] MEDS ORDERED: Aspirin Baby 81mg ORAL ONE (04:00)
[2019-01-09] MEDS ORDERED: Solu-MEDROL 125mg Inj IVP ONE (04:00)
[2019-01-09] MEDS ORDERED: Ipratropium 0.02% Inh Soln 2.5ml UD HHN ONE (04:00)
[2019-01-09] MEDS ORDERED: Albuterol ud Inhalation HHN ONE (04:00)
[2019-01-09 04:14] LABS: BASOPHILS % (AUTO) 0.7 % (0.0-2.0); HEMATOCRIT 41.9 % (42.0-52.0); HEMOGLOBIN 13.2 G/DL (14.2-18.0); LYMPHOCYTES % (AUTO) 21.8 % (20.0-45.0); MEAN CORPUSCULAR VOLUME 87 FL (80-99); MONOCYTES % (AUTO) 5.9 % (1.0-10.0); NEUTROPHILS % (AUTO) 69.5 % (45.0-75.0); PLATELET COUNT 216 K/UL (150-450); RED BLOOD COUNT 4.83 M/UL (4.70-6.10); RED CELL DISTRIBUTION WIDTH 14.1 % (11.6-14.8); WHITE BLOOD COUNT 9.9 K/UL (4.8-10.8)
[2019-01-09 04:32] LABS: ANION GAP 10 mmol/L (5-15); BLOOD UREA NITROGEN 14 mg/dL (7-18); CALCIUM 6.9 MG/DL (8.5-10.1); CARBON DIOXIDE 20 MMOL/L (21-32); CHLORIDE 116 MMOL/L (98-107); CREATININE 1.4 MG/DL (0.55-1.30); POTASSIUM 3.3 MMOL/L (3.5-5.1); SODIUM 146 MMOL/L (136-145)
[2019-01-09 04:47] LABS: ALANINE AMINOTRANSFERASE 140 U/L (12-78); ALBUMIN 2.5 G/DL (3.4-5.0); ALBUMIN/GLOBULIN RATIO 0.9 (1.0-2.7); ALKALINE PHOSPHATASE 32 U/L (46-116); ASPARTATE AMINO TRANSFERASE 116 U/L (15-37); BILIRUBIN,TOTAL 0.2 MG/DL (0.2-1.0); CKMB 2.5 NG/ML (0.0-3.6); CREATINE KINASE 383 U/L (26-308)
[2019-01-09] MEDS ORDERED: Albuterol/Ipratropium 3ml neb HHN PRN (08:00)
--- NOTE | 2019-01-09 08:01 | History and Physical ---
History of Present Illness General Date patient seen: Jan 09, 2019 Time patient seen: 07:25 Reason for Hospitalization: Asthma Present Illness HPI 53 year old man with history of CAD, chronci systolic CHF with EF of 30%, COPD, quit smoking cigarettes 2.5 years ago, current intermittent crack cocaine user who presented to the ED with progressive dyspnea x 5 days associated with wheeze and cough productive of brown sputum. Patient last used crack cocaine around the time his symptoms started. Denies fever, chills, abdominal pain, nausea or vomiting. In ED treated with Solu-Medrol, Lasix and Duoneb with partial improvement in his symptoms. No evidence of hypoxemia Social History: as per HPI Family History: No premature CAD Allergies: Coded Allergies: NO KNOWN ALLERGIES (Verified Allergy, Unknown, 08/08/18) Medication History Scheduled Albuterol Sulfate* (Albuterol Sulfate Mdi*), 2 PUFF INH Q6H Amlodipine Besylate (Norvasc), 2.5 MG ORAL DAILY Aspirin* (Aspir 81*), 81 MG ORAL DAILY Atorvastatin Calcium* (Lipitor*), 10 MG ORAL BEDTIME Carvedilol (Coreg), 3.125 MG ORAL EVERY 12 HOURS Furosemide* (Lasix*), 40 MG ORAL DAILY Patient History Healthcare decision maker Resuscitation status Advanced Directive on File Family History Family History: No history of premature CAD Review of Systems Constitutional: Denies: chills, sweats, fever Eye: Denies: blurred vision Respiratory: Reports: cough, shortness of breath, wheezing; Denies: orthopnea, stridor Cardiovascular: Denies: chest pain, edema, palpitations Gastrointestinal: Denies: abdominal pain, constipation, diarrhea Genitourinary: Denies: dysuria Musculoskeletal: Denies: back pain Skin: Denies: rash Neurological: Denies: headache Endocrine: Denies: excessive sweating Hematologic/Lymphatic: Denies: anemia Physical Exam General Appearance: no apparent distress, alert HEENT: atraumatic, anicteric, mucous membranes moist Neck: normal alignment, supple, normal inspection Respiratory/Chest: lungs clear, no respiratory distress, no accessory muscle use, decreased breath sounds Cardiovascular/Chest: normal peripheral pulses, normal rate, regular rhythm Abdomen: non tender, soft, no organomegaly Extremities: non-tender, normal inspection, no edema 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, no motor/sensory deficits, alert, oriented x 3 Last 24 Hour Vital Signs Date Time Temp Pulse Resp B/P (MAP) Pulse Ox O2 Delivery O2 Flow Rate FiO2 01/09/19 07:17 97.9 98 18 129/98 96 Nasal Cannula 2.0 01/09/19 06:26 97.5 99 24 113/88 100 Nasal Cannula 2.0 01/09/19 05:39 97.4 101 24 128/93 94 Room Air 01/09/19 04:21 105 20 98 Room Air 21 01/09/19 04:05 107 20 97 Room Air 21 01/09/19 04:05 107 20 97 Room Air 21 01/09/19 03:54 108 18 Room Air 01/09/19 03:54 97.6 108 18 142/88 98 Room Air 01/09/19 03:50 97.5 104 18 142/88 (106) 99 Room Air Intake and Output 01/08/19 01/09/19 19:00 07:00 # Voids 2 Laboratory Tests Test 01/09/19 04:00 White Blood Count 9.9 K/UL (4.8-10.8) Red Blood Count 4.83 M/UL (4.70-6.10) Hemoglobin 13.2 G/DL (14.2-18.0) L Hematocrit 41.9 % (42.0-52.0) L Mean Corpuscular Volume 87 FL (80-99) Mean Corpuscular Hemoglobin 27.4 PG (27.0-31.0) Mean Corpuscular Hemoglobin Concent 31.6 G/DL (32.0-36.0) L Red Cell Distribution Width 14.1 % (11.6-14.8) Platelet Count 216 K/UL (150-450) Mean Platelet Volume 7.0 FL (6.5-10.1) Neutrophils (%) (Auto) 69.5 % (45.0-75.0) Lymphocytes (%) (Auto) 21.8 % (20.0-45.0) Monocytes (%) (Auto) 5.9 % (1.0-10.0) Eosinophils (%) (Auto) 2.0 % (0.0-3.0) Basophils (%) (Auto) 0.7 % (0.0-2.0) Sodium Level 146 MMOL/L (136-145) H Potassium Level 3.3 MMOL/L (3.5-5.1) L Chloride Level 116 MMOL/L (98-107) H Carbon Dioxide Level 20 MMOL/L (21-32) L Anion Gap 10 mmol/L (5-15) Blood Urea Nitrogen 14 mg/dL (7-18) Creatinine 1.4 MG/DL (0.55-1.30) H Estimat Glomerular Filtration Rate > 60 mL/min (>60) Glucose Level 97 MG/DL (74-106) Calcium Level 6.9 MG/DL (8.5-10.1) L Total Bilirubin 0.2 MG/DL (0.2-1.0) Aspartate Amino Transf (AST/SGOT) 116 U/L (15-37) H Alanine Aminotransferase (ALT/SGPT) 140 U/L (12-78) H Alkaline Phosphatase 32 U/L (46-116) L Total Creatine Kinase 383 U/L (26-308) H Creatine Kinase MB 2.5 NG/ML (0.0-3.6) Creatine Kinase MB Relative Index 0.6 Troponin I 0.063 ng/mL (0.000-0.056) Pro-B-Type Natriuretic Peptide 6008 pg/mL (0-125) H Total Protein 5.3 G/DL (6.4-8.2) L Albumin 2.5 G/DL (3.4-5.0) L Globulin 2.8 g/dL Albumin/Globulin Ratio 0.9 (1.0-2.7) L Lipase 236 U/L (73-393) Height (Feet): 5 Height (Inches): 9.00 Weight (Pounds): 216 Medications Current Medications Medications (Trade) Dose Ordered Sig/Lizette Route PRN Reason Start Time Stop Time Status Last Admin Dose Admin Acetaminophen (Tylenol) 650 mg Q4H PRN ORAL Mild Pain (Pain Scale 1-3) 01/09/19 08:00 02/08/19 07:59 UNV Albuterol/ Ipratropium (Albuterol/ Ipratropium) 3 ml Q4H PRN HHN Shortness of Breath 01/09/19 08:00 01/14/19 07:59 UNV Amlodipine Besylate (Norvasc) 2.5 mg DAILY ORAL 01/09/19 09:00 02/08/19 08:59 UNV Aspirin (Ecotrin) 81 mg DAILY ORAL 01/09/19 09:00 02/08/19 08:59 UNV Atorvastatin Calcium (Lipitor) 10 mg BEDTIME ORAL 01/09/19 21:00 02/08/19 20:59 UNV Carvedilol (Coreg) 3.125 mg EVERY 12 HOURS ORAL 01/09/19 09:00 02/08/19 08:59 UNV Dextrose (Dextrose 50%) 25 ml Q30M PRN IV Hypoglycemia 01/09/19 08:00 02/08/19 07:59 UNV Dextrose (Dextrose 50%) 50 ml Q30M PRN IV Hypoglycemia 01/09/19 08:00 02/08/19 07:59 UNV Diphenhydramine HCl (Benadryl) 25 mg Q6H PRN ORAL Itching/Pruritis 01/09/19 08:00 02/08/19 07:59 UNV Docusate Sodium (Colace) 100 mg EVERY 12 HOURS ORAL 01/09/19 09:00 02/08/19 08:59 UNV Furosemide (Lasix) 40 mg DAILY ORAL 01/09/19 09:00 02/08/19 08:59 UNV Heparin Sodium (Porcine) (Heparin 5000 units/ml) 5,000 units EVERY 12 HOURS SUBQ 01/09/19 09:00 02/08/19 08:59 UNV Ondansetron HCl (Zofran) 4 mg Q6H PRN IVP Nausea & Vomiting 01/09/19 08:00 02/08/19 07:59 UNV Prednisone (predniSONE) 60 mg DAILY ORAL 01/09/19 09:00 02/08/19 08:59 UNV Assessment/Plan Assessment/Plan: 53 year old man with CAD, chronic systolic CHF, asthma (likely COPD given smoking history) who presents with progressive dyspnea and brown productive cough #Dyspnea, multifactorial #Acute on chronci systolic CHF #Acute exacerbation of asthma/COPD #Crack cocaine use #NSTEMI type 2 from demand ischemia -admit to telemetry unit -Prednisone 60mg PO daily -Duoneb prn -Azithromycin -Lasix 40mg PO daily -monitor I&O -serial troponin -Low sodium diet -Cont Coreg, Norvasc, ASA and Liptor -Monitor daily BMP -Counselled about avoidance of drugs -Pulm and Cards consulted VTE PPx Heparin SC Full Code I spent 70 minutes on this patient's case, and 38 minutes were dedicated to counseling and/or care coordination. Discussed with patient, nursing staff, cardiology, regarding clinical status, treatment course, and disposition planning. I spent an additional 38 minutes on review of medical records including prior outside hospital records, consult notes, progress notes, procedures, imaging, labs, hemodynamics, and other clinical documentation. Miller Bain MD Jan 09, 2019 08:01
--- NOTE | 2019-01-09 08:07 | General Progress Note ---
Advance Care Planning Advance Care Planning Advance Care Planning [facility] An independent Hospitalist group, where every patient is our [facility] Internal Medicine Hospitalist Advanced Care Planning Note Please contact us at Date of Discussion: A [id number] discussion with the Patient regarding the patient's advanced care planning took place during this hospitalization on the above date. The discussion included the explanation and discussion of advance directives and associated forms/documents, as well as the patient's current code status. We also discussed at length the patient's medical conditions (both acute and chronic), general prognosis, treatment options, and goals of care. The following summarizes the discussion: Advance Care Planning/Goals of Care: - Will attempt to fill out an AD and/or POLST with the patient prior to discharge, if not already completed - Continue current evaluation and management of any acute and chronic medical issues - Will continue to support the patient/family - Will continue to discuss both short- and long-term goals of care DPOA-HC/Surrogate Decision Maker: None currently appointed Code Status: Full Code Advanced Care Planning Forms/Documents Completed: Deferred until later encounter/visit A total of 16 minutes was spent on this discussion, including counseling, answering questions, and completing, if any, pertinent advanced care planning forms/documents. Time of note may not reflect time of encounter. Miller Bain MD Jan 09, 2019 08:07
[2019-01-09] MEDS ORDERED: Furosemide 40mg tab ORAL SCH (09:00)
[2019-01-09] MEDS ORDERED: Aspirin EC 81mg tab ORAL SCH (09:00)
--- NOTE | 2019-01-09 09:35 | Diagnostic Imaging Report ---
Indication: Shortness of breath for one day Technique: One view of the chest Comparison: 08/08/2018 Findings: The heart is enlarged. There is right hilar fullness which is more apparent than on earlier studies. No acute infiltrates, effusions. There is mild interstitial congestive change, similar in extent to that seen previously. There is some atelectasis at the left lung base Impression: Cardiomegaly and mild interstitial congestion Right hilar prominence, more apparent than on earlier exams. Suspect on the basis of prominent vessels and exaggerated by patient rotation, but the possibility of an enlarging hilar mass should be considered. This finding was discussed by phone with Dr. Mercado at the time of interpretation
[2019-01-09] MEDS: Docusate 100mg cap ORAL SCH ×2 (09:49→21:34)
[2019-01-09] MEDS: Heparin 5000 units/ml inj SUBQ SCH ×2 (09:50→21:34)
--- NOTE | 2019-01-09 10:24 | Cardiac Electrophysiology PN ---
Subjective Subjective [id number] Objective Last 24 Hour Vital Signs Date Time Temp Pulse Resp B/P (MAP) Pulse Ox O2 Delivery O2 Flow Rate FiO2 01/09/19 09:49 100 138/95 01/09/19 09:49 100 138/95 01/09/19 08:30 Nasal Cannula 2.0 01/09/19 08:15 98.0 92 17 129/98 95 Nasal Cannula 2.0 01/09/19 08:15 97.5 100 20 138/95 (109) 98 01/09/19 07:17 97.9 98 18 129/98 96 Nasal Cannula 2.0 01/09/19 06:26 97.5 99 24 113/88 100 Nasal Cannula 2.0 01/09/19 05:39 97.4 101 24 128/93 94 Room Air 01/09/19 04:21 105 20 98 Room Air 21 01/09/19 04:05 107 20 97 Room Air 21 01/09/19 04:05 107 20 97 Room Air 21 01/09/19 03:54 108 18 Room Air 01/09/19 03:54 97.6 108 18 142/88 98 Room Air 01/09/19 03:50 97.5 104 18 142/88 (106) 99 Room Air Intake and Output 01/08/19 01/09/19 19:00 07:00 # Voids 2 Laboratory Tests Test 01/09/19 04:00 01/09/19 10:05 White Blood Count 9.9 K/UL (4.8-10.8) Red Blood Count 4.83 M/UL (4.70-6.10) Hemoglobin 13.2 G/DL (14.2-18.0) L Hematocrit 41.9 % (42.0-52.0) L Mean Corpuscular Volume 87 FL (80-99) Mean Corpuscular Hemoglobin 27.4 PG (27.0-31.0) Mean Corpuscular Hemoglobin Concent 31.6 G/DL (32.0-36.0) L Red Cell Distribution Width 14.1 % (11.6-14.8) Platelet Count 216 K/UL (150-450) Mean Platelet Volume 7.0 FL (6.5-10.1) Neutrophils (%) (Auto) 69.5 % (45.0-75.0) Lymphocytes (%) (Auto) 21.8 % (20.0-45.0) Monocytes (%) (Auto) 5.9 % (1.0-10.0) Eosinophils (%) (Auto) 2.0 % (0.0-3.0) Basophils (%) (Auto) 0.7 % (0.0-2.0) Sodium Level 146 MMOL/L (136-145) H Potassium Level 3.3 MMOL/L (3.5-5.1) L Chloride Level 116 MMOL/L (98-107) H Carbon Dioxide Level 20 MMOL/L (21-32) L Anion Gap 10 mmol/L (5-15) Blood Urea Nitrogen 14 mg/dL (7-18) Creatinine 1.4 MG/DL (0.55-1.30) H Estimat Glomerular Filtration Rate > 60 mL/min (>60) Glucose Level 97 MG/DL (74-106) Calcium Level 6.9 MG/DL (8.5-10.1) L Total Bilirubin 0.2 MG/DL (0.2-1.0) Aspartate Amino Transf (AST/SGOT) 116 U/L (15-37) H Alanine Aminotransferase (ALT/SGPT) 140 U/L (12-78) H Alkaline Phosphatase 32 U/L (46-116) L Total Creatine Kinase 383 U/L (26-308) H Creatine Kinase MB 2.5 NG/ML (0.0-3.6) Creatine Kinase MB Relative Index 0.6 Troponin I 0.063 ng/mL (0.000-0.056) Pending Pro-B-Type Natriuretic Peptide 6008 pg/mL (0-125) H Total Protein 5.3 G/DL (6.4-8.2) L Albumin 2.5 G/DL (3.4-5.0) L Globulin 2.8 g/dL Albumin/Globulin Ratio 0.9 (1.0-2.7) L Lipase 236 U/L (73-393) Nhan Sim MD Jan 09, 2019 10:24
[2019-01-09] MEDS: Azithromycin 250mg tab ORAL SCH (11:06)
[2019-01-09] MEDS ORDERED: Isovue-300 100ml vial INJ PRN (16:00)
--- NOTE | 2019-01-09 18:45 | Consultation ---
DATE OF CONSULTATION: 01/09/2019 CARDIOLOGY CONSULTATION CONSULTING PHYSICIAN: Nhan Sim M.D. REFERRING PHYSICIAN: Miller Bain M.D. REASON FOR CONSULTATION: Management congestive heart failure and shortness of breath. HISTORY OF PRESENT ILLNESS: The patient is a 53-year-old gentleman with history of chronic systolic congestive heart failure, ejection fraction about 30%, COPD, history of intermittent cocaine use, who was admitted with increasing shortness of breath of 5 days' duration (productive of brownish sputum). His last crack cocaine use was just 5 days ago. The patient was admitted and a Cardiology consultation was obtained for further evaluation. In the emergency room, the patient received Solu-Medrol, Lasix, and DuoNeb. REVIEW OF SYSTEMS: Review of systems was negative other than what is mentioned in the history of present illness. PAST MEDICAL HISTORY: As mentioned above. FAMILY HISTORY: Noncontributory. SOCIAL HISTORY: He still uses crack cocaine intermittently. MEDICATIONS: Include amlodipine, aspirin, Lipitor, Coreg and Lasix. PHYSICAL EXAMINATION: VITAL SIGNS: Show blood pressure of 138/95, pulse is 100, respirations 18, and temperature 97.5. NECK: No JVD. LUNGS: Coarse rhonchi. CARDIOVASCULAR: Regular S1 and S2 with no gallop or murmur. ABDOMEN: Soft. EXTREMITIES: No pitting edema. LABORATORY AND DIAGNOSTIC DATA: Labs show white count of 9.9, hemoglobin 13.7, hematocrit of 42, and platelet count is 216. Sodium 143, potassium 3.3, BUN of 14, creatinine 1.6, and glucose of 97. Troponin is 0.063. CK is 383. Previous urine toxicology was positive for cocaine in March 2018 and July 2018. ASSESSMENT AND PLAN: 1. Exacerbation of congestive heart failure. We will repeat the echocardiogram. Continue Lasix 40 mg daily. In view of active cocaine use, we will discontinue Coreg. Resume lisinopril and Aldactone. Creatinine is now 1.4. 2. Troponin leak. It could be due to renal failure. His creatinine is mildly elevated at 1.4. Repeat cardiac enzymes. His stress test on the previous admission showed no evidence of ischemia. 3. Asthma and COPD. 4. History of crack cocaine use. We will repeat urine toxicology screen again. 5. Hypertension, on Lasix 40 mg daily. Add lisinopril and Aldactone. Discontinue Norvasc and discontinue Coreg in view of active cocaine use. Thank you very much for allowing me to participate in the care of this patient. Please do not hesitate to contact for any questions regarding my evaluation. Nhan Sim M.D. DR: Rainer JOB#: [id number] CC:
[2019-01-09] MEDS: Albuterol/Ipratropium 3ml neb HHN SCH ×2 (19:58→23:38)
[2019-01-09] MEDS ORDERED: Solu-MEDROL 125mg Inj IVP SCH (21:00)
--- NOTE | 2019-01-09 23:22 | Pulmonology Progress Note ---
Assessment/Plan Assessment/Plan Pulmonary Consultation HPI Patient is a 53 year old man with history of CAD, chronic HFrEF with EF of 30%, COPD (quit smoking cigarettes 2.5 years ago), current intermittent crack cocaine user, Hypertension, Chronic Back Pain who presented with progressive dyspnea x 5 days associated with wheeze and cough productive of brown sputum. Patient last used crack cocaine around the time his symptoms started. Denies fever, chills, abdominal pain, nausea or vomiting. Currently on Solu-Medrol, Lasix and Duoneb with partial improvement in his symptoms. No evidence of hypoxemia Coded Allergies: NO KNOWN ALLERGIES Scheduled Medications Albuterol Sulfate* (Albuterol Sulfate Mdi*), 2 PUFF INH Q6H Amlodipine Besylate (Norvasc), 2.5 MG ORAL DAILY Aspirin* (Aspir 81*), 81 MG ORAL DAILY Atorvastatin Calcium* (Lipitor*), 10 MG ORAL BEDTIME Carvedilol (Coreg), 3.125 MG ORAL EVERY 12 HOURS Furosemide* (Lasix*), 40 MG ORAL DAILY ROS: Negative aside from above Physical Exam Vital signs noted General Appearance: chronically ill appearing, no apparent distress, alert HEENT: atraumatic, anicteric, mucous membranes moist Neck: normal alignment, supple, normal inspection Respiratory/Chest: lungs clear, no respiratory distress, no accessory muscle use, decreased breath sounds Cardiovascular/Chest: normal peripheral pulses, normal rate, regular rhythm Abdomen: non tender, soft, no organomegaly Extremities: non-tender, normal inspection, no edema Neurologic: chain tender II-XII grossly normal, no motor/sensory deficits, alert, oriented x 3 Laboratory Tests Noted Test 01/09/19 04:00 White Blood Count 9.9 K/UL (4.8-10.8) Red Blood Count 4.83 M/UL (4.70-6.10) Hemoglobin 13.2 G/DL (14.2-18.0) L Hematocrit 41.9 % (42.0-52.0) L Mean Corpuscular Volume 87 FL (80-99) Mean Corpuscular Hemoglobin 27.4 PG (27.0-31.0) Mean Corpuscular Hemoglobin Concent 31.6 G/DL (32.0-36.0) L Red Cell Distribution Width 14.1 % (11.6-14.8) Platelet Count 216 K/UL (150-450) Mean Platelet Volume 7.0 FL (6.5-10.1) Neutrophils (%) (Auto) 69.5 % (45.0-75.0) Lymphocytes (%) (Auto) 21.8 % (20.0-45.0) Monocytes (%) (Auto) 5.9 % (1.0-10.0) Eosinophils (%) (Auto) 2.0 % (0.0-3.0) Basophils (%) (Auto) 0.7 % (0.0-2.0) Sodium Level 146 MMOL/L (136-145) H Potassium Level 3.3 MMOL/L (3.5-5.1) L Chloride Level 116 MMOL/L (98-107) H Carbon Dioxide Level 20 MMOL/L (21-32) L Anion Gap 10 mmol/L (5-15) Blood Urea Nitrogen 14 mg/dL (7-18) Creatinine 1.4 MG/DL (0.55-1.30) H Estimat Glomerular Filtration Rate > 60 mL/min (>60) Glucose Level 97 MG/DL (74-106) Calcium Level 6.9 MG/DL (8.5-10.1) L Total Bilirubin 0.2 MG/DL (0.2-1.0) Aspartate Amino Transf (AST/SGOT) 116 U/L (15-37) H Alanine Aminotransferase (ALT/SGPT) 140 U/L (12-78) H Alkaline Phosphatase 32 U/L (46-116) L Total Creatine Kinase 383 U/L (26-308) H Creatine Kinase MB 2.5 NG/ML (0.0-3.6) Creatine Kinase MB Relative Index 0.6 Troponin I 0.063 ng/mL (0.000-0.056) Pro-B-Type Natriuretic Peptide 6008 pg/mL (0-125) H Total Protein 5.3 G/DL (6.4-8.2) L Albumin 2.5 G/DL (3.4-5.0) L Globulin 2.8 g/dL Albumin/Globulin Ratio 0.9 (1.0-2.7) L Lipase 236 U/L (73-393) CXR: Congestion, Prominent right hilum Height (Feet): 5 Height (Inches): 9.00 Weight (Pounds): 216 Medications Current Medications Medications (Trade) Dose Ordered Sig/Lizette Route PRN Reason Start Time Stop Time Status Last Admin Dose Admin Acetaminophen (Tylenol) 650 mg Q4H PRN ORAL Mild Pain (Pain Scale 1-3) 01/09/19 08:00 02/08/19 07:59 UNV Albuterol/ Ipratropium (Albuterol/ Ipratropium) 3 ml Q4H PRN HHN Shortness of Breath 01/09/19 08:00 01/14/19 07:59 UNV Amlodipine Besylate (Norvasc) 2.5 mg DAILY ORAL 01/09/19 09:00 02/08/19 08:59 UNV Aspirin (Ecotrin) 81 mg DAILY ORAL 01/09/19 09:00 02/08/19 08:59 UNV Atorvastatin Calcium (Lipitor) 10 mg BEDTIME ORAL 01/09/19 21:00 02/08/19 20:59 UNV Carvedilol (Coreg) 3.125 mg EVERY 12 HOURS ORAL 01/09/19 09:00 02/08/19 08:59 UNV Dextrose (Dextrose 50%) 25 ml Q30M PRN IV Hypoglycemia 01/09/19 08:00 02/08/19 07:59 UNV Dextrose (Dextrose 50%) 50 ml Q30M PRN IV Hypoglycemia 01/09/19 08:00 02/08/19 07:59 UNV Diphenhydramine HCl (Benadryl) 25 mg Q6H PRN ORAL Itching/Pruritis 01/09/19 08:00 02/08/19 07:59 UNV Docusate Sodium (Colace) 100 mg EVERY 12 HOURS ORAL 01/09/19 09:00 02/08/19 08:59 UNV Furosemide (Lasix) 40 mg DAILY ORAL 01/09/19 09:00 02/08/19 08:59 UNV Heparin Sodium (Porcine) (Heparin 5000 units/ml) 5,000 units EVERY 12 HOURS SUBQ 01/09/19 09:00 02/08/19 08:59 UNV Ondansetron HCl (Zofran) 4 mg Q6H PRN IVP Nausea & Vomiting 01/09/19 08:00 02/08/19 07:59 UNV Prednisone (predniSONE) 60 mg DAILY ORAL 6/13/19 09:00 02/08/19 08:59 UNV Assessment/Plan: 53 year old man with CAD, chronic systolic CHF, asthma (likely COPD given smoking history) who presents with progressive dyspnea and brown productive cough #Dyspnea, multifactorial #Acute on chronic systolic CHF #NSTEMI type 2 from demand ischemia #Acute exacerbation of asthma/COPD #Prominent right hilum on CXR #Crack cocaine use -admit to telemetry unit -Continue steroids -Duoneb Q4 -CT Chest -Azithromycin -Diurese PRN -monitor I&O -serial troponin -Cardiac Diet -PATIENT SCHEDULER meds -Monitor labs -Counselled about avoidance of drugs -VTE PPx - Full Code Subjective ROS Limited/Unobtainable: No Allergies: Coded Allergies: NO KNOWN ALLERGIES (Verified Allergy, Unknown, 08/08/18) Objective Last 24 Hour Vital Signs Date Time Temp Pulse Resp B/P (MAP) Pulse Ox O2 Delivery O2 Flow Rate FiO2 01/09/19 20:00 96 20 99 Nasal Cannula 3.0 32 01/09/19 19:56 100 20 98 Nasal Cannula 3.0 32 01/09/19 16:00 97.7 96 20 130/90 (103) 99 01/09/19 16:00 2.0 01/09/19 16:00 93 01/09/19 12:00 97.2 97 20 125/91 (102) 95 01/09/19 12:00 94 01/09/19 12:00 2.0 01/09/19 09:49 100 138/95 01/09/19 09:49 100 138/95 01/09/19 09:00 Nasal Cannula 2.0 01/09/19 08:39 103 01/09/19 08:30 Nasal Cannula 2.0 01/09/19 08:15 98.0 92 17 129/98 95 Nasal Cannula 2.0 01/09/19 08:15 97.5 100 20 138/95 (109) 98 01/09/19 07:17 97.9 98 18 129/98 96 Nasal Cannula 2.0 01/09/19 06:26 97.5 99 24 113/88 100 Nasal Cannula 2.0 01/09/19 05:39 97.4 101 24 128/93 94 Room Air 01/09/19 04:21 105 20 98 Room Air 21 01/09/19 04:05 107 20 97 Room Air 21 01/09/19 04:05 107 20 97 Room Air 21 01/09/19 03:54 108 18 Room Air 01/09/19 03:54 97.6 108 18 142/88 98 Room Air 01/09/19 03:50 97.5 104 18 142/88 (106) 99 Room Air Intake and Output 01/08/19 01/09/19 19:00 07:00 # Voids 2 Laboratory Tests 01/09/19 04:00: White Blood Count 9.9, Red Blood Count 4.83, Hemoglobin 13.2L, Hematocrit 41.9L , Mean Corpuscular Volume 87, Mean Corpuscular Hemoglobin 27.4, Mean Corpuscular Hemoglobin Concent 31.6L, Red Cell Distribution Width 14.1, Platelet Count 216, Mean Platelet Volume 7.0, Neutrophils (%) (Auto) 69.5, Lymphocytes (%) (Auto) 21.8, Monocytes (%) (Auto) 5.9, Eosinophils (%) (Auto) 2.0, Basophils (%) (Auto) 0.7, Sodium Level 146H, Potassium Level 3.3L, Chloride Level 116H, Carbon Dioxide Level 20L, Anion Gap 10, Blood Urea Nitrogen 14, Creatinine 1.4H, Estimat Glomerular Filtration Rate > 60, Glucose Level 97, Calcium Level 6.9L, Total Bilirubin 0.2, Aspartate Amino Transf (AST/ SGOT) 116H, Alanine Aminotransferase (ALT/SGPT) 140H, Alkaline Phosphatase 32L, Total Creatine Kinase 383H, Creatine Kinase MB 2.5, Creatine Kinase MB Relative Index 0.6, Troponin I 0.063H, Pro-B-Type Natriuretic Peptide 6008H, Total Protein 5.3L, Albumin 2.5L, Globulin 2.8, Albumin/Globulin Ratio 0.9L, Lipase 236 01/09/19 10:05: Troponin I 0.039 01/09/19 10:30: Urine Opiates Screen Negative, Urine Barbiturates Screen Negative, Phencyclidine (PCP) Screen PositiveH, Urine Amphetamines Screen Negative, Urine Benzodiazepines Screen Negative, Urine Cocaine Screen PositiveH, Urine Marijuana (THC) Screen Negative Current Medications Medications (Trade) Dose Ordered Sig/Lizette Route PRN Reason Start Time Stop Time Status Last Admin Dose Admin Acetaminophen (Tylenol) 650 mg Q4H PRN ORAL Mild Pain (Pain Scale 1-3) 01/09/19 08:00 02/08/19 07:59 Albuterol/ Ipratropium (Albuterol/ Ipratropium) 3 ml Q4H PRN HHN Shortness of Breath 01/09/19 08:00 01/14/19 07:59 Albuterol/ Ipratropium (Albuterol/ Ipratropium) 3 ml Q4HRT HHN 01/09/19 19:00 01/14/19 18:59 01/09/19 19:58 Aspirin (Ecotrin) 81 mg DAILY ORAL 01/10/19 09:00 02/08/19 08:59 Atorvastatin Calcium (Lipitor) 10 mg BEDTIME ORAL 01/09/19 21:00 02/08/19 20:59 01/09/19 21:34 Azithromycin (Zithromax) 500 mg DAILY ORAL 01/09/19 10:00 01/16/19 09:59 01/09/19 11:06 Dextrose (Dextrose 50%) 25 ml Q30M PRN IV Hypoglycemia 01/09/19 08:00 02/08/19 07:59 Dextrose (Dextrose 50%) 50 ml Q30M PRN IV Hypoglycemia 01/09/19 08:00 02/08/19 07:59 Diphenhydramine HCl (Benadryl) 25 mg Q6H PRN ORAL Itching/Pruritis 01/09/19 08:00 02/08/19 07:59 Docusate Sodium (Colace) 100 mg EVERY 12 HOURS ORAL 01/09/19 09:00 02/08/19 08:59 01/09/19 21:34 Furosemide (Lasix) 40 mg DAILY ORAL 01/10/19 09:00 02/08/19 08:59 Heparin Sodium (Porcine) (Heparin 5000 units/ml) 5,000 units EVERY 12 HOURS SUBQ 01/09/19 09:00 02/08/19 08:59 01/09/19 21:34 Iopamidol (Isovue-300 100ml) 100 ml NOW PRN INJ Radiology Procedure 01/09/19 16:00 01/11/19 15:59 Lisinopril (Zestril) 10 mg DAILY ORAL 01/10/19 09:00 02/09/19 08:59 Ondansetron HCl (Zofran) 4 mg Q6H PRN IVP Nausea & Vomiting 01/09/19 08:00 02/08/19 07:59 Prednisone (predniSONE) 60 mg DAILY ORAL 01/10/19 09:00 02/08/19 08:59 Spironolactone (Aldactone) 25 mg DAILY ORAL 01/10/19 09:00 02/09/19 08:59 Vinod Martin MD Jan 09, 2019 23:22
[2019-01-10] VITALS: BP 110/74
[2019-01-10] MEDS: Albuterol/Ipratropium 3ml neb HHN SCH ×6 (03:00→23:53)
[2019-01-10 04:00] VITALS: BP 105/64
[2019-01-10 08:00] VITALS: BP 132/89
[2019-01-10 08:04] LABS: HEMOGLOBIN 13.8 G/DL (14.2-18.0); MEAN CORPUSCULAR VOLUME 86 FL (80-99); PLATELET COUNT 252 K/UL (150-450); RED BLOOD COUNT 5.01 M/UL (4.70-6.10); WHITE BLOOD COUNT 15.7 K/UL (4.8-10.8)
[2019-01-10 08:31] LABS: ANION GAP 9 mmol/L (5-15); BLOOD UREA NITROGEN 31 mg/dL (7-18); CALCIUM 9.9 MG/DL (8.5-10.1); CARBON DIOXIDE 26 MMOL/L (21-32); CHLORIDE 105 MMOL/L (98-107); CREATININE 2.1 MG/DL (0.55-1.30); POTASSIUM 4.8 MMOL/L (3.5-5.1); SODIUM 140 MMOL/L (136-145)
--- NOTE | 2019-01-10 08:51 | Diagnostic Imaging Report ---
Clinical Indication: Abnormal chest radiograph, evaluation of right hilar enlargement Technique: IV administration nonionic contrast. Spiral acquisition obtained through the chest. Multiplanar reconstructions generated. Total dose length product 911.98 mGycm. CTDIvol(s) 21.04 mGy. Dose reduction achieved using automated exposure control Comparison: Reference made to chest radiograph of earlier the same day. No prior CT scans Findings: Hazy parenchymal opacity is seen in the right lower lobe in the perihilar region. Scattered areas of hazy opacity and atelectasis are seen in the left lower lobe. Areas of atelectasis are seen in the right middle lobe and lingula. There are scattered small cystic spaces seen bilaterally. No mass is demonstrated. No effusions. No dense consolidation. No hilar mass or adenopathy. Specifically, no right hilar mass demonstrated. The right main pulmonary artery is dilated, however, measuring 3 cm in diameter. This probably accounts for the findings on recent chest radiograph There is a prominent but not frankly enlarged paratracheal lymph node which measures 2.4 cm long axis dimension. The included portion of the thyroid is unremarkable. No axillary or chest wall mass or adenopathy. The heart is mildly enlarged. There is minimal anterior and posterior wall pericardial thickening versus fluid demonstrated. Unremarkable esophagus. The bones are unremarkable except for mild degenerative disc disease of the upper thoracic spine. The included upper abdominal anatomy is unremarkable. Impression: Dilated right main pulmonary artery, may indicate pulmonary arterial hypertension No right hilar or other pulmonary mass or adenopathy demonstrated. Right hilar fullness demonstrated on recent chest radiograph presumably due to the above. Hazy right lower lobe and to lesser extent left lower lobe opacities, probably reflects mild pulmonary edema but could indicate inflammatory/infectious infiltrates or less likely chronic postinflammatory changes Bilateral atelectatic changes, as described Small parenchymal cystic spaces could represent early bullous COPD changes. Mild cardiomegaly Minimal pericardial thickening versus fluid Single prominent/borderline enlarged paratracheal lymph node, nonspecific The CT scanner at [facility] is accredited by the [employer] and the scans are performed using protocols designed to limit radiation exposure to as low as reasonably achievable to attain images of sufficient resolution adequate for diagnostic evaluation.
[2019-01-10] MEDS ORDERED: Spironolactone 25mg tab ORAL SCH (09:00)
[2019-01-10] MEDS ORDERED: Lisinopril 10mg tab ORAL SCH (09:00)
[2019-01-10] MEDS: Heparin 5000 units/ml inj SUBQ SCH ×2 (09:00→21:19)
[2019-01-10] MEDS ORDERED: Furosemide 40mg tab ORAL SCH (09:00)
[2019-01-10] MEDS: Aspirin EC 81mg tab ORAL SCH (09:26)
[2019-01-10] MEDS: Azithromycin 250mg tab ORAL SCH (09:27)
[2019-01-10] MEDS: Docusate 100mg cap ORAL SCH ×2 (09:27→18:17)
--- NOTE | 2019-01-10 10:03 | General Progress Note ---
Assessment/Plan Status: stable Assessment/Plan: 53 year old man with CAD, chronic systolic CHF, asthma (likely COPD given smoking history) who presents with progressive dyspnea and brown productive cough #Dyspnea, multifactorial #Acute on chronci systolic CHF #Acute exacerbation of asthma/COPD #Crack cocaine use #NSTEMI type 2 from demand ischemia #TOÑA on CKD -Continue telemetry care -Continue Prednisone 60mg PO daily -Continue Duoneb prn -Continue Azithromycin -hold Lasix, Aldactone and lisinopril due to TOÑA -Coreg held due to cocaine use -monitor I&O -Low sodium diet -Monitor daily BMP -Counselled about avoidance of drugs -Pulm and Cards following -Nephrology consulted I spent 45 minutes on this patient's case, and 25 minutes was dedicated to counseling and/or care coordination. VTE PPx Heparin SC Full Code Subjective Date patient seen: Jan 10, 2019 Time patient seen: 09:05 ROS Limited/Unobtainable: No Constitutional: Denies: chills, fever Cardiovascular: Denies: chest pain Respiratory: Denies: cough Gastrointestinal/Abdominal: Denies: abdomen distended, abdominal pain Allergies: Coded Allergies: NO KNOWN ALLERGIES (Verified Allergy, Unknown, 08/08/18) Subjective Follow up for acute on chronic systolic CHF, COPD exacerbation TOÑA on CKD. Breathing better today. Objective Last 24 Hour Vital Signs Date Time Temp Pulse Resp B/P (MAP) Pulse Ox O2 Delivery O2 Flow Rate FiO2 01/10/19 09:27 132/89 01/10/19 08:52 Room Air 01/10/19 08:26 2.0 01/10/19 08:00 98.2 101 20 132/89 (103) 95 01/10/19 07:56 92 20 99 Nasal Cannula 3.0 32 01/10/19 07:47 101 20 96 Room Air 21 01/10/19 04:00 91 01/10/19 04:00 97.8 98 18 105/64 (78) 95 01/10/19 03:25 Room Air 21 01/10/19 03:25 Room Air 21 01/10/19 00:00 98.5 81 18 110/74 (86) 96 01/10/19 00:00 98 01/09/19 23:47 101 20 99 Nasal Cannula 3.0 32 01/09/19 23:37 104 20 95 Room Air 21 01/09/19 21:00 Room Air 01/09/19 20:00 96 01/09/19 20:00 97.9 100 20 130/83 (99) 98 01/09/19 20:00 96 20 99 Nasal Cannula 3.0 32 01/09/19 19:56 100 20 98 Nasal Cannula 3.0 32 01/09/19 16:00 97.7 96 20 130/90 (103) 99 01/09/19 16:00 2.0 01/09/19 16:00 93 01/09/19 12:00 97.2 97 20 125/91 (102) 95 01/09/19 12:00 94 01/09/19 12:00 2.0 Intake and Output 01/09/19 01/10/19 19:00 07:00 Intake Total 1300 ml Balance 1300 ml Intake Oral 1300 ml # Voids 4 Laboratory Tests 01/09/19 10:05: Troponin I 0.039 01/09/19 10:30: Urine Opiates Screen Negative, Urine Barbiturates Screen Negative, Phencyclidine (PCP) Screen PositiveH, Urine Amphetamines Screen Negative, Urine Benzodiazepines Screen Negative, Urine Cocaine Screen PositiveH, Urine Marijuana (THC) Screen Negative 01/10/19 07:42: White Blood Count 15.7#H, Red Blood Count 5.01, Hemoglobin 13.8L, Hematocrit 43.0, Mean Corpuscular Volume 86, Mean Corpuscular Hemoglobin 27.5, Mean Corpuscular Hemoglobin Concent 32.0, Red Cell Distribution Width 14.0, Platelet Count 252, Mean Platelet Volume 7.2, Neutrophils (%) (Auto) , Lymphocytes (%) ( Auto) , Monocytes (%) (Auto) , Eosinophils (%) (Auto) , Basophils (%) (Auto) , Differential Total Cells Counted 100, Neutrophils % (Manual) 93H, Lymphocytes % (Manual) 5L, Monocytes % (Manual) 2, Eosinophils % (Manual) 0, Basophils % ( Manual) 0, Band Neutrophils 0, Platelet Estimate Adequate, Platelet Morphology Normal, Hypochromasia 1+, Sodium Level 140, Potassium Level 4.8, Chloride Level 105, Carbon Dioxide Level 26, Anion Gap 9, Blood Urea Nitrogen 31H, Creatinine 2.1H, Estimat Glomerular Filtration Rate 40.0, Glucose Level 133H, Calcium Level 9.9#, Pro-B-Type Natriuretic Peptide 8280H Height (Feet): 5 Height (Inches): 9.00 Weight (Pounds): 216 General Appearance: alert Neck: normal alignment Cardiovascular: normal rate, regular rhythm Respiratory/Chest: lungs clear, normal breath sounds, no respiratory distress, no accessory muscle use Abdomen: non tender, soft Neurologic: no motor/sensory deficits, alert, oriented x 3 Miller Bain MD Jan 10, 2019 10:03
[2019-01-10 12:00] VITALS: BP 118/86
--- NOTE | 2019-01-10 12:03 | Cardiac Electrophysiology PN ---
Assessment/Plan Assessment/Plan 1. Exacerbation of congestive heart failure. EF 15%. On Lasix 40 mg daily. In view of active cocaine use, we will discontinue Coreg. DC lisinopril and Aldactone as Creatinine is now >2.0. Add Hydralazine and isordil 2. Troponin leak. It could be due to renal failure. His creatinine is mildly elevated. Repeat cardiac enzymes. His stress test on the previous admission showed no evidence of ischemia. 3. Asthma and COPD. 4. Crack cocaine and PCP use. 5. Hypertension, Add Hydralazine and isordil 6. ARF Hold Lasix until evaluated by Dr Cindi Mercado Subjective Subjective Feeling better with diuresis. No CP Objective Last 24 Hour Vital Signs Date Time Temp Pulse Resp B/P (MAP) Pulse Ox O2 Delivery O2 Flow Rate FiO2 01/10/19 11:22 94 20 99 Nasal Cannula 3.0 32 01/10/19 11:12 102 20 95 Room Air 21 01/10/19 09:27 132/89 01/10/19 08:52 Room Air 01/10/19 08:26 2.0 01/10/19 08:00 98.2 101 20 132/89 (103) 95 01/10/19 08:00 100 01/10/19 07:56 92 20 99 Nasal Cannula 3.0 32 01/10/19 07:47 101 20 96 Room Air 21 01/10/19 04:00 91 01/10/19 04:00 97.8 98 18 105/64 (78) 95 01/10/19 03:25 Room Air 21 01/10/19 03:25 Room Air 21 01/10/19 00:00 98.5 81 18 110/74 (86) 96 01/10/19 00:00 98 01/09/19 23:47 101 20 99 Nasal Cannula 3.0 32 01/09/19 23:37 104 20 95 Room Air 21 01/09/19 21:00 Room Air 01/09/19 20:00 96 01/09/19 20:00 97.9 100 20 130/83 (99) 98 01/09/19 20:00 96 20 99 Nasal Cannula 3.0 32 01/09/19 19:56 100 20 98 Nasal Cannula 3.0 32 01/09/19 16:00 97.7 96 20 130/90 (103) 99 01/09/19 16:00 2.0 01/09/19 16:00 93 01/09/19 12:00 97.2 97 20 125/91 (102) 95 01/09/19 12:00 94 01/09/19 12:00 2.0 Intake and Output 01/09/19 01/10/19 19:00 07:00 Intake Total 1300 ml Balance 1300 ml Intake Oral 1300 ml # Voids 4 Laboratory Tests Test 01/10/19 07:42 White Blood Count 15.7 K/UL (4.8-10.8) #H Red Blood Count 5.01 M/UL (4.70-6.10) Hemoglobin 13.8 G/DL (14.2-18.0) L Hematocrit 43.0 % (42.0-52.0) Mean Corpuscular Volume 86 FL (80-99) Mean Corpuscular Hemoglobin 27.5 PG (27.0-31.0) Mean Corpuscular Hemoglobin Concent 32.0 G/DL (32.0-36.0) Red Cell Distribution Width 14.0 % (11.6-14.8) Platelet Count 252 K/UL (150-450) Mean Platelet Volume 7.2 FL (6.5-10.1) Neutrophils (%) (Auto) % (45.0-75.0) Lymphocytes (%) (Auto) % (20.0-45.0) Monocytes (%) (Auto) % (1.0-10.0) Eosinophils (%) (Auto) % (0.0-3.0) Basophils (%) (Auto) % (0.0-2.0) Differential Total Cells Counted 100 Neutrophils % (Manual) 93 % (45-75) H Lymphocytes % (Manual) 5 % (20-45) L Monocytes % (Manual) 2 % (1-10) Eosinophils % (Manual) 0 % (0-3) Basophils % (Manual) 0 % (0-2) Band Neutrophils 0 % (0-8) Platelet Estimate Adequate Platelet Morphology Normal Hypochromasia 1+ Sodium Level 140 MMOL/L (136-145) Potassium Level 4.8 MMOL/L (3.5-5.1) Chloride Level 105 MMOL/L (98-107) Carbon Dioxide Level 26 MMOL/L (21-32) Anion Gap 9 mmol/L (5-15) Blood Urea Nitrogen 31 mg/dL (7-18) H Creatinine 2.1 MG/DL (0.55-1.30) H Estimat Glomerular Filtration Rate 40.0 mL/min (>60) Glucose Level 133 MG/DL (74-106) H Calcium Level 9.9 MG/DL (8.5-10.1) # Pro-B-Type Natriuretic Peptide 8280 pg/mL (0-125) H Objective NECK: No JVD. LUNGS: Coarse rhonchi. CARDIOVASCULAR: Regular S1 and S2 with no gallop or murmur. ABDOMEN: Soft. EXTREMITIES: No pitting edema. Nhan Sim MD Jan 10, 2019 12:03
--- NOTE | 2019-01-10 13:13 | Pulmonology Progress Note ---
Assessment/Plan Assessment/Plan Pulmonary Progress Note HPI Patient is a 53 year old man with history of CAD, chronic HFrEF with EF of 30%, COPD (quit smoking cigarettes 2.5 years ago), current intermittent crack cocaine user, Hypertension, Chronic Back Pain who presented with progressive dyspnea x 5 days associated with wheeze and cough productive of brown sputum. Patient last used crack cocaine around the time his symptoms started. Denies fever, chills, abdominal pain, nausea or vomiting. Currently on Solu-Medrol, Lasix and Duoneb with partial improvement in his symptoms. No evidence of hypoxemia. Less SOB Coded Allergies: NO KNOWN ALLERGIES Scheduled Medications Albuterol Sulfate* (Albuterol Sulfate Mdi*), 2 PUFF INH Q6H Amlodipine Besylate (Norvasc), 2.5 MG ORAL DAILY Aspirin* (Aspir 81*), 81 MG ORAL DAILY Atorvastatin Calcium* (Lipitor*), 10 MG ORAL BEDTIME Carvedilol (Coreg), 3.125 MG ORAL EVERY 12 HOURS Furosemide* (Lasix*), 40 MG ORAL DAILY ROS: Negative aside from above Physical Exam Vital signs noted General Appearance: chronically ill appearing, no apparent distress, alert HEENT: atraumatic, anicteric, mucous membranes moist Neck: normal alignment, supple, normal inspection Respiratory/Chest: lungs clear, no respiratory distress, no accessory muscle use, decreased breath sounds Cardiovascular/Chest: normal peripheral pulses, normal rate, regular rhythm Abdomen: non tender, soft, no organomegaly Extremities: non-tender, normal inspection, no edema 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, no motor/sensory deficits, alert, oriented x 3 Laboratory Tests Noted Test 01/09/19 04:00 White Blood Count 9.9 K/UL (4.8-10.8) Red Blood Count 4.83 M/UL (4.70-6.10) Hemoglobin 13.2 G/DL (14.2-18.0) L Hematocrit 41.9 % (42.0-52.0) L Mean Corpuscular Volume 87 FL (80-99) Mean Corpuscular Hemoglobin 27.4 PG (27.0-31.0) Mean Corpuscular Hemoglobin Concent 31.6 G/DL (32.0-36.0) L Red Cell Distribution Width 14.1 % (11.6-14.8) Platelet Count 216 K/UL (150-450) Mean Platelet Volume 7.0 FL (6.5-10.1) Neutrophils (%) (Auto) 69.5 % (45.0-75.0) Lymphocytes (%) (Auto) 21.8 % (20.0-45.0) Monocytes (%) (Auto) 5.9 % (1.0-10.0) Eosinophils (%) (Auto) 2.0 % (0.0-3.0) Basophils (%) (Auto) 0.7 % (0.0-2.0) Sodium Level 146 MMOL/L (136-145) H Potassium Level 3.3 MMOL/L (3.5-5.1) L Chloride Level 116 MMOL/L (98-107) H Carbon Dioxide Level 20 MMOL/L (21-32) L Anion Gap 10 mmol/L (5-15) Blood Urea Nitrogen 14 mg/dL (7-18) Creatinine 1.4 MG/DL (0.55-1.30) H Estimat Glomerular Filtration Rate > 60 mL/min (>60) Glucose Level 97 MG/DL (74-106) Calcium Level 6.9 MG/DL (8.5-10.1) L Total Bilirubin 0.2 MG/DL (0.2-1.0) Aspartate Amino Transf (AST/SGOT) 116 U/L (15-37) H Alanine Aminotransferase (ALT/SGPT) 140 U/L (12-78) H Alkaline Phosphatase 32 U/L (46-116) L Total Creatine Kinase 383 U/L (26-308) H Creatine Kinase MB 2.5 NG/ML (0.0-3.6) Creatine Kinase MB Relative Index 0.6 Troponin I 0.063 ng/mL (0.000-0.056) Pro-B-Type Natriuretic Peptide 6008 pg/mL (0-125) H Total Protein 5.3 G/DL (6.4-8.2) L Albumin 2.5 G/DL (3.4-5.0) L Globulin 2.8 g/dL Albumin/Globulin Ratio 0.9 (1.0-2.7) L Lipase 236 U/L (73-393) CXR: Congestion, Prominent right hilum CT Chest; Dilated right main pulmonary artery, may indicate pulmonary arterial hypertension No right hilar or other pulmonary mass or adenopathy demonstrated. Right hilar fullness demonstrated on recent chest radiograph presumably due to the above. Hazy right lower lobe and to lesser extent left lower lobe opacities, probably reflects mild pulmonary edema but could indicate inflammatory/infectious infiltrates or less likely chronic postinflammatory changes Bilateral atelectatic changes, as described Small parenchymal cystic spaces could represent early bullous COPD changes. Mild cardiomegaly Minimal pericardial thickening versus fluid Single prominent/borderline enlarged paratracheal lymph node, nonspecific Height (Feet): 5 Height (Inches): 9.00 Weight (Pounds): 216 Medications Current Medications Medications (Trade) Dose Ordered Sig/Lizette Route PRN Reason Start Time Stop Time Status Last Admin Dose Admin Acetaminophen (Tylenol) 650 mg Q4H PRN ORAL Mild Pain (Pain Scale 1-3) 01/09/19 08:00 02/08/19 07:59 UNV Albuterol/ Ipratropium (Albuterol/ Ipratropium) 3 ml Q4H PRN HHN Shortness of Breath 01/09/19 08:00 01/14/19 07:59 UNV Amlodipine Besylate (Norvasc) 2.5 mg DAILY ORAL 01/09/19 09:00 02/08/19 08:59 UNV Aspirin (Ecotrin) 81 mg DAILY ORAL 01/09/19 09:00 02/08/19 08:59 UNV Atorvastatin Calcium (Lipitor) 10 mg BEDTIME ORAL 01/09/19 21:00 02/08/19 20:59 UNV Carvedilol (Coreg) 3.125 mg EVERY 12 HOURS ORAL 01/09/19 09:00 02/08/19 08:59 UNV Dextrose (Dextrose 50%) 25 ml Q30M PRN IV Hypoglycemia 01/09/19 08:00 02/08/19 07:59 UNV Dextrose (Dextrose 50%) 50 ml Q30M PRN IV Hypoglycemia 01/09/19 08:00 02/08/19 07:59 UNV Diphenhydramine HCl (Benadryl) 25 mg Q6H PRN ORAL Itching/Pruritis 01/09/19 08:00 02/08/19 07:59 UNV Docusate Sodium (Colace) 100 mg EVERY 12 HOURS ORAL 01/09/19 09:00 02/08/19 08:59 UNV Furosemide (Lasix) 40 mg DAILY ORAL 01/09/19 09:00 02/08/19 08:59 UNV Heparin Sodium (Porcine) (Heparin 5000 units/ml) 5,000 units EVERY 12 HOURS SUBQ 01/09/19 09:00 02/08/19 08:59 UNV Ondansetron HCl (Zofran) 4 mg Q6H PRN IVP Nausea & Vomiting 01/09/19 08:00 02/08/19 07:59 UNV Prednisone (predniSONE) 60 mg DAILY ORAL 01/09/19 09:00 02/08/19 08:59 UNV Assessment/Plan: 53 year old man with CAD, chronic systolic CHF, asthma (likely COPD given smoking history) who presents with progressive dyspnea and brown productive cough #Dyspnea, multifactorial #Acute on chronic systolic CHF #NSTEMI type 2 from demand ischemia #Acute exacerbation of asthma/COPD #Prominent right hilum on CXR #Crack cocaine use -admit to telemetry unit -Continue steroids -Duoneb Q4 -CT Chest -Azithromycin -Diurese PRN -monitor I&O -serial troponin -Cardiac Diet -MORTAR CARRIER meds -Monitor labs -Counselled about avoidance of drugs -VTE PPx - Full Code Subjective ROS Limited/Unobtainable: No Allergies: Coded Allergies: NO KNOWN ALLERGIES (Verified Allergy, Unknown, 08/08/18) Objective Last 24 Hour Vital Signs Date Time Temp Pulse Resp B/P (MAP) Pulse Ox O2 Delivery O2 Flow Rate FiO2 01/10/19 12:00 2.0 01/10/19 12:00 98 01/10/19 12:00 98.5 99 20 118/86 (97) 98 01/10/19 11:22 94 20 99 Nasal Cannula 3.0 32 01/10/19 11:12 102 20 95 Room Air 21 01/10/19 09:27 132/89 01/10/19 08:52 Room Air 01/10/19 08:26 2.0 01/10/19 08:00 98.2 101 20 132/89 (103) 95 01/10/19 08:00 100 01/10/19 07:56 92 20 99 Nasal Cannula 3.0 32 01/10/19 07:47 101 20 96 Room Air 21 01/10/19 04:00 91 01/10/19 04:00 97.8 98 18 105/64 (78) 95 01/10/19 03:25 Room Air 21 01/10/19 03:25 Room Air 21 01/10/19 00:00 98.5 81 18 110/74 (86) 96 01/10/19 00:00 98 01/09/19 23:47 101 20 99 Nasal Cannula 3.0 32 01/09/19 23:37 104 20 95 Room Air 21 01/09/19 21:00 Room Air 01/09/19 20:00 96 01/09/19 20:00 97.9 100 20 130/83 (99) 98 01/09/19 20:00 96 20 99 Nasal Cannula 3.0 32 01/09/19 19:56 100 20 98 Nasal Cannula 3.0 32 01/09/19 16:00 97.7 96 20 130/90 (103) 99 01/09/19 16:00 2.0 01/09/19 16:00 93 Intake and Output 01/09/19 01/10/19 19:00 07:00 Intake Total 1300 ml Balance 1300 ml Intake Oral 1300 ml # Voids 4 Laboratory Tests 01/10/19 07:42: White Blood Count 15.7#H, Red Blood Count 5.01, Hemoglobin 13.8L, Hematocrit 43.0, Mean Corpuscular Volume 86, Mean Corpuscular Hemoglobin 27.5, Mean Corpuscular Hemoglobin Concent 32.0, Red Cell Distribution Width 14.0, Platelet Count 252, Mean Platelet Volume 7.2, Neutrophils (%) (Auto) , Lymphocytes (%) ( Auto) , Monocytes (%) (Auto) , Eosinophils (%) (Auto) , Basophils (%) (Auto) , Differential Total Cells Counted 100, Neutrophils % (Manual) 93H, Lymphocytes % (Manual) 5L, Monocytes % (Manual) 2, Eosinophils % (Manual) 0, Basophils % ( Manual) 0, Band Neutrophils 0, Platelet Estimate Adequate, Platelet Morphology Normal, Hypochromasia 1+, Sodium Level 140, Potassium Level 4.8, Chloride Level 105, Carbon Dioxide Level 26, Anion Gap 9, Blood Urea Nitrogen 31H, Creatinine 2.1H, Estimat Glomerular Filtration Rate 40.0, Glucose Level 133H, Calcium Level 9.9#, Pro-B-Type Natriuretic Peptide 8280H Current Medications Medications (Trade) Dose Ordered Sig/Lizette Route PRN Reason Start Time Stop Time Status Last Admin Dose Admin Acetaminophen (Tylenol) 650 mg Q4H PRN ORAL Mild Pain (Pain Scale 1-3) 01/09/19 08:00 02/08/19 07:59 Albuterol/ Ipratropium (Albuterol/ Ipratropium) 3 ml Q4H PRN HHN Shortness of Breath 01/09/19 08:00 01/14/19 07:59 Albuterol/ Ipratropium (Albuterol/ Ipratropium) 3 ml Q4HRT HHN 01/09/19 19:00 01/14/19 18:59 01/10/19 11:15 Aspirin (Ecotrin) 81 mg DAILY ORAL 01/10/19 09:00 02/08/19 08:59 01/10/19 09:26 Atorvastatin Calcium (Lipitor) 10 mg BEDTIME ORAL 01/09/19 21:00 02/08/19 20:59 01/09/19 21:34 Azithromycin (Zithromax) 500 mg DAILY ORAL 01/09/19 10:00 01/16/19 09:59 01/10/19 09:27 Dextrose (Dextrose 50%) 25 ml Q30M PRN IV Hypoglycemia 01/09/19 08:00 02/08/19 07:59 Dextrose (Dextrose 50%) 50 ml Q30M PRN IV Hypoglycemia 01/09/19 08:00 02/08/19 07:59 Diphenhydramine HCl (Benadryl) 25 mg Q6H PRN ORAL Itching/Pruritis 01/09/19 08:00 02/08/19 07:59 Docusate Sodium (Colace) 100 mg EVERY 12 HOURS ORAL 01/09/19 09:00 02/08/19 08:59 01/10/19 09:27 Heparin Sodium (Porcine) (Heparin 5000 units/ml) 5,000 units EVERY 12 HOURS SUBQ 01/09/19 09:00 02/08/19 08:59 01/10/19 09:00 Hydralazine HCl (Apresoline) 10 mg EVERY 8 HOURS ORAL 01/10/19 14:00 02/09/19 13:59 Iopamidol (Isovue-300 100ml) 100 ml NOW PRN INJ Radiology Procedure 01/09/19 16:00 01/11/19 15:59 Isosorbide Mononitrate (Imdur) 30 mg DAILY ORAL 01/11/19 09:00 02/10/19 08:59 Lisinopril (Zestril) 10 mg DAILY ORAL 01/10/19 09:00 02/09/19 08:59 01/10/19 09:27 Ondansetron HCl (Zofran) 4 mg Q6H PRN IVP Nausea & Vomiting 01/09/19 08:00 02/08/19 07:59 Prednisone (predniSONE) 60 mg DAILY ORAL 01/10/19 09:00 02/08/19 08:59 01/10/19 09:27 Vinod Martin MD Jan 10, 2019 13:13
--- NOTE | 2019-01-10 13:33 | Consultation ---
History of Present Illness General Chief Complaint: Asthma Present Illness Allergies: Coded Allergies: NO KNOWN ALLERGIES (Verified Allergy, Unknown, 08/08/18) Medication History Scheduled Albuterol Sulfate* (Albuterol Sulfate Mdi*), 2 PUFF INH Q6H Amlodipine Besylate (Norvasc), 2.5 MG ORAL DAILY Aspirin* (Aspir 81*), 81 MG ORAL DAILY Atorvastatin Calcium* (Lipitor*), 10 MG ORAL BEDTIME Carvedilol (Coreg), 3.125 MG ORAL EVERY 12 HOURS Furosemide* (Lasix*), 40 MG ORAL DAILY Patient History Healthcare decision maker Resuscitation status Full Code Advanced Directive on File Physical Exam Last 24 Hour Vital Signs Date Time Temp Pulse Resp B/P (MAP) Pulse Ox O2 Delivery O2 Flow Rate FiO2 01/10/19 12:00 2.0 01/10/19 12:00 98 01/10/19 12:00 98.5 99 20 118/86 (97) 98 01/10/19 11:22 94 20 99 Nasal Cannula 3.0 32 01/10/19 11:12 102 20 95 Room Air 21 01/10/19 09:27 132/89 01/10/19 08:52 Room Air 01/10/19 08:26 2.0 01/10/19 08:00 98.2 101 20 132/89 (103) 95 01/10/19 08:00 100 01/10/19 07:56 92 20 99 Nasal Cannula 3.0 32 01/10/19 07:47 101 20 96 Room Air 21 01/10/19 04:00 91 01/10/19 04:00 97.8 98 18 105/64 (78) 95 01/10/19 03:25 Room Air 21 01/10/19 03:25 Room Air 21 01/10/19 00:00 98.5 81 18 110/74 (86) 96 01/10/19 00:00 98 01/09/19 23:47 101 20 99 Nasal Cannula 3.0 32 01/09/19 23:37 104 20 95 Room Air 21 01/09/19 21:00 Room Air 01/09/19 20:00 96 01/09/19 20:00 97.9 100 20 130/83 (99) 98 01/09/19 20:00 96 20 99 Nasal Cannula 3.0 32 01/09/19 19:56 100 20 98 Nasal Cannula 3.0 32 01/09/19 16:00 97.7 96 20 130/90 (103) 99 01/09/19 16:00 2.0 01/09/19 16:00 93 Intake and Output 01/09/19 01/10/19 19:00 07:00 Intake Total 1300 ml Balance 1300 ml Intake Oral 1300 ml # Voids 4 Laboratory Tests Test 01/10/19 07:42 White Blood Count 15.7 K/UL (4.8-10.8) #H Red Blood Count 5.01 M/UL (4.70-6.10) Hemoglobin 13.8 G/DL (14.2-18.0) L Hematocrit 43.0 % (42.0-52.0) Mean Corpuscular Volume 86 FL (80-99) Mean Corpuscular Hemoglobin 27.5 PG (27.0-31.0) Mean Corpuscular Hemoglobin Concent 32.0 G/DL (32.0-36.0) Red Cell Distribution Width 14.0 % (11.6-14.8) Platelet Count 252 K/UL (150-450) Mean Platelet Volume 7.2 FL (6.5-10.1) Neutrophils (%) (Auto) % (45.0-75.0) Lymphocytes (%) (Auto) % (20.0-45.0) Monocytes (%) (Auto) % (1.0-10.0) Eosinophils (%) (Auto) % (0.0-3.0) Basophils (%) (Auto) % (0.0-2.0) Differential Total Cells Counted 100 Neutrophils % (Manual) 93 % (45-75) H Lymphocytes % (Manual) 5 % (20-45) L Monocytes % (Manual) 2 % (1-10) Eosinophils % (Manual) 0 % (0-3) Basophils % (Manual) 0 % (0-2) Band Neutrophils 0 % (0-8) Platelet Estimate Adequate Platelet Morphology Normal Hypochromasia 1+ Sodium Level 140 MMOL/L (136-145) Potassium Level 4.8 MMOL/L (3.5-5.1) Chloride Level 105 MMOL/L (98-107) Carbon Dioxide Level 26 MMOL/L (21-32) Anion Gap 9 mmol/L (5-15) Blood Urea Nitrogen 31 mg/dL (7-18) H Creatinine 2.1 MG/DL (0.55-1.30) H Estimat Glomerular Filtration Rate 40.0 mL/min (>60) Glucose Level 133 MG/DL (74-106) H Calcium Level 9.9 MG/DL (8.5-10.1) # Pro-B-Type Natriuretic Peptide 8280 pg/mL (0-125) H Height (Feet): 5 Height (Inches): 9.00 Weight (Pounds): 216 Medications Current Medications Medications (Trade) Dose Ordered Sig/Lizette Route PRN Reason Start Time Stop Time Status Last Admin Dose Admin Acetaminophen (Tylenol) 650 mg Q4H PRN ORAL Mild Pain (Pain Scale 1-3) 01/09/19 08:00 02/08/19 07:59 Albuterol/ Ipratropium (Albuterol/ Ipratropium) 3 ml Q4H PRN HHN Shortness of Breath 01/09/19 08:00 01/14/19 07:59 Albuterol/ Ipratropium (Albuterol/ Ipratropium) 3 ml Q4HRT HHN 01/09/19 19:00 01/14/19 18:59 01/10/19 11:15 Aspirin (Ecotrin) 81 mg DAILY ORAL 01/10/19 09:00 02/08/19 08:59 01/10/19 09:26 Atorvastatin Calcium (Lipitor) 10 mg BEDTIME ORAL 01/09/19 21:00 02/08/19 20:59 01/09/19 21:34 Azithromycin (Zithromax) 500 mg DAILY ORAL 01/09/19 10:00 01/16/19 09:59 01/10/19 09:27 Dextrose (Dextrose 50%) 25 ml Q30M PRN IV Hypoglycemia 01/09/19 08:00 02/08/19 07:59 Dextrose (Dextrose 50%) 50 ml Q30M PRN IV Hypoglycemia 01/09/19 08:00 02/08/19 07:59 Diphenhydramine HCl (Benadryl) 25 mg Q6H PRN ORAL Itching/Pruritis 01/09/19 08:00 02/08/19 07:59 Docusate Sodium (Colace) 100 mg EVERY 12 HOURS ORAL 01/09/19 09:00 02/08/19 08:59 01/10/19 09:27 Heparin Sodium (Porcine) (Heparin 5000 units/ml) 5,000 units EVERY 12 HOURS SUBQ 01/09/19 09:00 02/08/19 08:59 01/10/19 09:00 Hydralazine HCl (Apresoline) 10 mg EVERY 8 HOURS ORAL 01/10/19 14:00 02/09/19 13:59 Iopamidol (Isovue-300 100ml) 100 ml NOW PRN INJ Radiology Procedure 01/09/19 16:00 01/11/19 15:59 Isosorbide Mononitrate (Imdur) 30 mg DAILY ORAL 01/11/19 09:00 02/10/19 08:59 Lisinopril (Zestril) 10 mg DAILY ORAL 01/10/19 09:00 02/09/19 08:59 01/10/19 09:27 Ondansetron HCl (Zofran) 4 mg Q6H PRN IVP Nausea & Vomiting 01/09/19 08:00 02/08/19 07:59 Prednisone (predniSONE) 60 mg DAILY ORAL 01/10/19 09:00 02/08/19 08:59 01/10/19 09:27 Assessment/Plan Assessment/Plan: Hematology Consultation Date patient seen: Jan 10, 2019 Reason for Hospitalization: Asthma RFC: Leukocytosis and pulm nodule/mass REQ MD: Zenia Bain HPI 53 year old man with history of CAD, chronci systolic CHF with EF of 30%, COPD, quit smoking cigarettes 2.5 years ago, current intermittent crack cocaine user who presented to the ED with progressive dyspnea x 5 days associated with wheeze and cough productive of brown sputum. Patient last used crack cocaine around the time his symptoms started. Denies fever, chills, abdominal pain, nausea or vomiting. In ED treated with Solu-Medrol, Lasix and Duoneb with partial improvement in his symptoms. No evidence of hypoxemia, noted on cxr to have a pulm mass/nodule and onco was consulted. Social History: as per HPI Family History: No premature CAD Allergies: Coded Allergies: NO KNOWN ALLERGIES (Verified Allergy, Unknown, 08/08/18) Medication History Scheduled Albuterol Sulfate* (Albuterol Sulfate Mdi*), 2 PUFF INH Q6H Amlodipine Besylate (Norvasc), 2.5 MG ORAL DAILY Aspirin* (Aspir 81*), 81 MG ORAL DAILY Atorvastatin Calcium* (Lipitor*), 10 MG ORAL BEDTIME Carvedilol (Coreg), 3.125 MG ORAL EVERY 12 HOURS Furosemide* (Lasix*), 40 MG ORAL DAILY Patient History Healthcare decision maker Resuscitation status Advanced Directive on File Family History Family History: No history of premature CAD ROS Constitutional: Denies: chills, sweats, fever Eye: Denies: blurred vision Respiratory: Reports: cough, shortness of breath, wheezing; Denies: orthopnea, stridor Cardiovascular: Denies: chest pain, edema, palpitations Gastrointestinal: Denies: abdominal pain, constipation, diarrhea Genitourinary: Denies: dysuria Musculoskeletal: Denies: back pain Skin: Denies: rash Neurological: Denies: headache Endocrine: Denies: excessive sweating Hematologic/Lymphatic: Denies: anemia PE General Appearance: no apparent distress, alert HEENT: atraumatic, anicteric, mucous membranes moist Neck: normal alignment, supple, normal inspection Respiratory/Chest: lungs clear, no respiratory distress, no accessory muscle use, decreased breath sounds Cardiovascular/Chest: normal peripheral pulses, normal rate, regular rhythm Abdomen: non tender, soft, no organomegaly Extremities: non-tender, normal inspection, no edema 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, no motor/sensory deficits, alert, oriented x 3 Last 24 Hour Vital Signs Date Time Temp Pulse Resp B/P (MAP) Pulse Ox O2 Delivery O2 Flow Rate FiO2 01/09/19 07:17 97.9 98 18 129/98 96 Nasal Cannula 2.0 01/09/19 06:26 97.5 99 24 113/88 100 Nasal Cannula 2.0 01/09/19 05:39 97.4 101 24 128/93 94 Room Air 01/09/19 04:21 105 20 98 Room Air 21 01/09/19 04:05 107 20 97 Room Air 21 01/09/19 04:05 107 20 97 Room Air 21 01/09/19 03:54 108 18 Room Air 01/09/19 03:54 97.6 108 18 142/88 98 Room Air 01/09/19 03:50 97.5 104 18 142/88 (106) 99 Room Air Intake and Output 01/08/19 01/09/19 19:00 07:00 # Voids 2 Laboratory Tests Test 01/09/19 04:00 White Blood Count 9.9 K/UL (4.8-10.8) Red Blood Count 4.83 M/UL (4.70-6.10) Hemoglobin 13.2 G/DL (14.2-18.0) L Hematocrit 41.9 % (42.0-52.0) L Mean Corpuscular Volume 87 FL (80-99) Mean Corpuscular Hemoglobin 27.4 PG (27.0-31.0) Mean Corpuscular Hemoglobin Concent 31.6 G/DL (32.0-36.0) L Red Cell Distribution Width 14.1 % (11.6-14.8) Platelet Count 216 K/UL (150-450) Mean Platelet Volume 7.0 FL (6.5-10.1) Neutrophils (%) (Auto) 69.5 % (45.0-75.0) Lymphocytes (%) (Auto) 21.8 % (20.0-45.0) Monocytes (%) (Auto) 5.9 % (1.0-10.0) Eosinophils (%) (Auto) 2.0 % (0.0-3.0) Basophils (%) (Auto) 0.7 % (0.0-2.0) Sodium Level 146 MMOL/L (136-145) H Potassium Level 3.3 MMOL/L (3.5-5.1) L Chloride Level 116 MMOL/L (98-107) H Carbon Dioxide Level 20 MMOL/L (21-32) L Anion Gap 10 mmol/L (5-15) Blood Urea Nitrogen 14 mg/dL (7-18) Creatinine 1.4 MG/DL (0.55-1.30) H Estimat Glomerular Filtration Rate > 60 mL/min (>60) Glucose Level 97 MG/DL (74-106) Calcium Level 6.9 MG/DL (8.5-10.1) L Total Bilirubin 0.2 MG/DL (0.2-1.0) Aspartate Amino Transf (AST/SGOT) 116 U/L (15-37) H Alanine Aminotransferase (ALT/SGPT) 140 U/L (12-78) H Alkaline Phosphatase 32 U/L (46-116) L Total Creatine Kinase 383 U/L (26-308) H Creatine Kinase MB 2.5 NG/ML (0.0-3.6) Creatine Kinase MB Relative Index 0.6 Troponin I 0.063 ng/mL (0.000-0.056) Pro-B-Type Natriuretic Peptide 6008 pg/mL (0-125) H Total Protein 5.3 G/DL (6.4-8.2) L Albumin 2.5 G/DL (3.4-5.0) L Globulin 2.8 g/dL Albumin/Globulin Ratio 0.9 (1.0-2.7) L Lipase 236 U/L (73-393) Height (Feet): 5 Height (Inches): 9.00 Weight (Pounds): 216 Medications Current Medications Medications (Trade) Dose Ordered Sig/Lizette Route PRN Reason Start Time Stop Time Status Last Admin Dose Admin Acetaminophen (Tylenol) 650 mg Q4H PRN ORAL Mild Pain (Pain Scale 1-3) 01/09/19 08:00 02/08/19 07:59 UNV Albuterol/ Ipratropium (Albuterol/ Ipratropium) 3 ml Q4H PRN HHN Shortness of Breath 01/09/19 08:00 01/14/19 07:59 UNV Amlodipine Besylate (Norvasc) 2.5 mg DAILY ORAL 01/09/19 09:00 02/08/19 08:59 UNV Aspirin (Ecotrin) 81 mg DAILY ORAL 01/09/19 09:00 02/08/19 08:59 UNV Atorvastatin Calcium (Lipitor) 10 mg BEDTIME ORAL 01/09/19 21:00 02/08/19 20:59 UNV Carvedilol (Coreg) 3.125 mg EVERY 12 HOURS ORAL 01/09/19 09:00 02/08/19 08:59 UNV Dextrose (Dextrose 50%) 25 ml Q30M PRN IV Hypoglycemia 01/09/19 08:00 02/08/19 07:59 UNV Dextrose (Dextrose 50%) 50 ml Q30M PRN IV Hypoglycemia 01/09/19 08:00 02/08/19 07:59 UNV Diphenhydramine HCl (Benadryl) 25 mg Q6H PRN ORAL Itching/Pruritis 01/09/19 08:00 02/08/19 07:59 UNV Docusate Sodium (Colace) 100 mg EVERY 12 HOURS ORAL 01/09/19 09:00 02/08/19 08:59 UNV Furosemide (Lasix) 40 mg DAILY ORAL 01/09/19 09:00 02/08/19 08:59 UNV Heparin Sodium (Porcine) (Heparin 5000 units/ml) 5,000 units EVERY 12 HOURS SUBQ 01/09/19 09:00 02/08/19 08:59 UNV Ondansetron HCl (Zofran) 4 mg Q6H PRN IVP Nausea & Vomiting 01/09/19 08:00 02/08/19 07:59 UNV Prednisone (predniSONE) 60 mg DAILY ORAL 01/09/19 09:00 02/08/19 08:59 UNV Assessment/Plan: # Lung mass on cxr with hilar prominence -- CT was ordered shows dilated right main pulmonary artery, may indicate pulmonary arterial hypertension No right hilar or other pulmonary mass or adenopathy demonstrated. Right hilar fullness demonstrated on recent chest radiograph presumably due to the above. --> because of CT scan shows no lung mass --> would hold off on tumor markers given no lung mass at this time --> likely initial cxr has a pna --> abx and steriods for asthma as per pulm # Leukocytosis with elevated wbc is likely due to steriod use --> smear peripheral has been reviewed --> no evidence of malginancy noted # Dyspnea, multifactorial --> steriods and breathing treatments prn # Acute on chronci systolic CHF --> as per cards # Acute exacerbation of asthma/COPD --> per pulm # Crack cocaine use The timing of this note does not necessarily reflect the time of the patient was seen. GREATLY APPRECIATE CONSULTATION. Miguelito Anaya MD Jan 10, 2019 13:33
[2019-01-10] MEDS ORDERED: HydrALAZINE 10mg Tab ORAL SCH (14:00)
[2019-01-10 16:00] VITALS: BP 127/94
--- NOTE | 2019-01-10 16:22 | Consultation ---
Consult Note Consult Note Asked to eval by Dr Edwards for rising serum Cr 53 year old man with history of CAD, chronci systolic CHF with EF of 30%, COPD, quit smoking cigarettes 2.5 years ago, current intermittent crack cocaine user who presented to the ED with progressive dyspnea x 5 days associated with wheeze and cough productive of brown sputum. Patient last used crack cocaine around the time his symptoms started. Denies fever, chills, abdominal pain, nausea or vomiting. In ED treated with Solu-Medrol, Lasix and Duoneb with partial improvement in his symptoms. No evidence of hypoxemia examined interviewed data reviewed Assessment/Plan renal failure ? Acute on Chronic Nephrotoxics??? : Mild Anemia Urine + for cocaine and PCP HTN COPD former smoker evidence of CHF, Ej Fx 15% - 20 % Plan: Stop Lisinopril Urine studies and Ua CLEO kidney if not done past 3 month 2D echo NOTED BP control as needed Pulm support Urine studies per orders Dannie Puente MD Jan 10, 2019 16:22
[2019-01-10] MEDS ORDERED: HydrALAZINE 25mg tab ORAL PRN (16:45)
[2019-01-10] MEDS ORDERED: MULTI-VITAMIN1 EACH PO (19:02)
[2019-01-10 20:00] VITALS: BP 118/83
[2019-01-10] MEDS: HydrALAZINE 10mg Tab ORAL SCH (21:34)
[2019-01-11] VITALS: BP 120/84
[2019-01-11] MEDS: Albuterol/Ipratropium 3ml neb HHN SCH ×6 (03:41→23:39)
[2019-01-11 04:14] VITALS: BP 131/90
[2019-01-11] MEDS: HydrALAZINE 10mg Tab ORAL SCH ×3 (06:18→21:43)
[2019-01-11 07:09] LABS: BASOPHILS % (AUTO) 0.3 % (0.0-2.0); EOSINOPHILS % (AUTO) 0.1 % (0.0-3.0); HEMATOCRIT 40.3 % (42.0-52.0); HEMOGLOBIN 13.1 G/DL (14.2-18.0); LYMPHOCYTES % (AUTO) 11.5 % (20.0-45.0); MEAN CORPUSCULAR VOLUME 86 FL (80-99); NEUTROPHILS % (AUTO) 82.2 % (45.0-75.0); PLATELET COUNT 244 K/UL (150-450); RED BLOOD COUNT 4.67 M/UL (4.70-6.10); RED CELL DISTRIBUTION WIDTH 14.3 % (11.6-14.8); WHITE BLOOD COUNT 14.4 K/UL (4.8-10.8)
[2019-01-11 07:56] LABS: ALANINE AMINOTRANSFERASE 108 U/L (12-78); ALBUMIN 3.3 G/DL (3.4-5.0); ALKALINE PHOSPHATASE 39 U/L (46-116); ANION GAP 8 mmol/L (5-15); ASPARTATE AMINO TRANSFERASE 33 U/L (15-37); BILIRUBIN,TOTAL 0.2 MG/DL (0.2-1.0); BLOOD UREA NITROGEN 40 mg/dL (7-18); CALCIUM 9.1 MG/DL (8.5-10.1); CARBON DIOXIDE 27 MMOL/L (21-32); CHLORIDE 107 MMOL/L (98-107); CHOLESTEROL 162 MG/DL (< 200); CREATININE 2.2 MG/DL (0.55-1.30); GAMMA GLUTAMYL TRANSPEPTIDASE 78 U/L (5-85); HDL CHOLESTEROL 45 MG/DL (40-60); PHOSPHORUS 4.6 MG/DL (2.5-4.9); POTASSIUM 4.4 MMOL/L (3.5-5.1); SODIUM 142 MMOL/L (136-145); TRIGLYCERIDES 128 MG/DL (30-150)
[2019-01-11 08:00] VITALS: BP 112/79
--- NOTE | 2019-01-11 08:03 | Hematology/Onc Progress Note ---
Assessment/Plan Assessment/Plan Assessment/Plan: # Lung mass on cxr with hilar prominence -- CT was ordered shows dilated right main pulmonary artery, may indicate pulmonary arterial hypertension No right hilar or other pulmonary mass or adenopathy demonstrated. Right hilar fullness demonstrated on recent chest radiograph presumably due to the above. --> because of CT scan shows no lung mass --> would hold off on tumor markers given no lung mass at this time --> likely initial cxr has a pna --> abx and steriods for asthma as per pulm # Leukocytosis with elevated wbc is likely due to steriod use --> smear peripheral has been reviewed --> no evidence of malginancy noted --> wbc 14.4k # Dyspnea, multifactorial --> steriods and breathing treatments prn # Acute on chronci systolic CHF --> as per cards # Acute exacerbation of asthma/COPD --> per pulm # Crack cocaine use --> urine tox screen reviewed The timing of this note does not necessarily reflect the time of the patient was seen. GREATLY APPRECIATE CONSULTATION. Subjective Allergies: Coded Allergies: NO KNOWN ALLERGIES (Verified Allergy, Unknown, 08/08/18) Subjective 01/11: pt resting in bed, no acute distress. Objective Objective Current Medications Medications (Trade) Dose Ordered Sig/Lizette Route PRN Reason Start Time Stop Time Status Last Admin Dose Admin Acetaminophen (Tylenol) 650 mg Q4H PRN ORAL Mild Pain (Pain Scale 1-3) 01/09/19 08:00 02/08/19 07:59 Albuterol/ Ipratropium (Albuterol/ Ipratropium) 3 ml Q4H PRN HHN Shortness of Breath 01/09/19 08:00 01/14/19 07:59 Albuterol/ Ipratropium (Albuterol/ Ipratropium) 3 ml Q4HRT HHN 01/09/19 19:00 01/14/19 18:59 01/11/19 03:41 Aspirin (Ecotrin) 81 mg DAILY ORAL 01/10/19 09:00 02/08/19 08:59 01/10/19 09:26 Atorvastatin Calcium (Lipitor) 10 mg BEDTIME ORAL 01/09/19 21:00 02/08/19 20:59 01/10/19 21:18 Azithromycin (Zithromax) 500 mg DAILY ORAL 01/09/19 10:00 01/16/19 09:59 01/10/19 09:27 Dextrose (Dextrose 50%) 25 ml Q30M PRN IV Hypoglycemia 01/09/19 08:00 02/08/19 07:59 Dextrose (Dextrose 50%) 50 ml Q30M PRN IV Hypoglycemia 01/09/19 08:00 02/08/19 07:59 Diphenhydramine HCl (Benadryl) 25 mg Q6H PRN ORAL Itching/Pruritis 01/09/19 08:00 02/08/19 07:59 Docusate Sodium (Colace) 100 mg TID ORAL 01/10/19 18:00 02/08/19 08:59 01/10/19 18:17 Heparin Sodium (Porcine) (Heparin 5000 units/ml) 5,000 units EVERY 12 HOURS SUBQ 01/09/19 09:00 02/08/19 08:59 01/10/19 21:19 Hydralazine HCl (Apresoline) 10 mg EVERY 8 HOURS ORAL 01/10/19 22:00 02/09/19 13:59 01/11/19 06:18 Hydralazine HCl (Apresoline) 25 mg Q4H PRN ORAL bp over 160 syst 01/10/19 16:45 02/09/19 16:44 Iopamidol (Isovue-300 100ml) 100 ml NOW PRN INJ Radiology Procedure 01/09/19 16:00 01/11/19 15:59 Isosorbide Mononitrate (Imdur) 30 mg DAILY ORAL 01/11/19 09:00 02/10/19 08:59 Ondansetron HCl (Zofran) 4 mg Q6H PRN IVP Nausea & Vomiting 01/09/19 08:00 02/08/19 07:59 Pantoprazole (Protonix) 40 mg EVERY 12 HOURS ORAL 01/10/19 21:00 02/09/19 20:59 01/10/19 21:18 Prednisone (predniSONE) 50 mg DAILY ORAL 01/11/19 09:00 02/08/19 08:59 Last 24 Hour Vital Signs Date Time Temp Pulse Resp B/P (MAP) Pulse Ox O2 Delivery O2 Flow Rate FiO2 01/11/19 06:18 131/90 01/11/19 04:14 97.9 90 18 131/90 (104) 97 01/11/19 04:00 87 01/11/19 03:57 91 18 97 Room Air 21 01/11/19 03:41 93 16 97 Room Air 21 01/11/19 00:10 93 18 97 Room Air 21 01/11/19 00:00 99 01/11/19 00:00 98.1 101 18 120/84 (96) 95 01/10/19 23:56 95 17 97 Room Air 21 01/10/19 21:34 118/83 01/10/19 21:00 Room Air 01/10/19 20:00 98.2 100 20 118/83 (95) 95 01/10/19 20:00 98 01/10/19 19:58 96 18 98 Room Air 21 01/10/19 19:37 96 18 95 Room Air 21 01/10/19 16:00 97.7 105 20 127/94 (105) 97 01/10/19 16:00 1.0 01/10/19 16:00 98 01/10/19 15:21 101 18 98 Room Air 21 01/10/19 15:14 100 18 96 Room Air 21 01/10/19 12:00 2.0 01/10/19 12:00 98 01/10/19 12:00 98.5 99 20 118/86 (97) 98 01/10/19 11:22 94 20 99 Nasal Cannula 3.0 32 01/10/19 11:12 102 20 95 Room Air 21 01/10/19 09:27 132/89 01/10/19 08:52 Room Air 01/10/19 08:26 2.0 01/10/19 08:00 98.2 101 20 132/89 (103) 95 01/10/19 08:00 100 01/10/19 07:56 92 20 99 Nasal Cannula 3.0 32 01/10/19 07:47 101 20 96 Room Air 21 01/10/19 04:00 91 01/10/19 04:00 97.8 98 18 105/64 (78) 95 01/10/19 03:25 Room Air 21 01/10/19 03:25 Room Air 21 01/10/19 00:00 98.5 81 18 110/74 (86) 96 01/10/19 00:00 98 01/09/19 23:47 101 20 99 Nasal Cannula 3.0 32 01/09/19 23:37 104 20 95 Room Air 21 01/09/19 21:00 Room Air 01/09/19 20:00 96 01/09/19 20:00 97.9 100 20 130/83 (99) 98 01/09/19 20:00 96 20 99 Nasal Cannula 3.0 32 01/09/19 19:56 100 20 98 Nasal Cannula 3.0 32 01/09/19 16:00 97.7 96 20 130/90 (103) 99 01/09/19 16:00 2.0 01/09/19 16:00 93 01/09/19 12:00 97.2 97 20 125/91 (102) 95 01/09/19 12:00 94 01/09/19 12:00 2.0 01/09/19 09:49 100 138/95 01/09/19 09:49 100 138/95 01/09/19 09:00 Nasal Cannula 2.0 01/09/19 08:39 103 01/09/19 08:30 Nasal Cannula 2.0 01/09/19 08:15 98.0 92 17 129/98 95 Nasal Cannula 2.0 01/09/19 08:15 97.5 100 20 138/95 (109) 98 Intake and Output 01/10/19 01/11/19 19:00 07:00 Intake Total 820 ml Balance 820 ml Intake Oral 820 ml # Voids 5 # Bowel Movements 2 1 Labs Test 01/09/19 04:00 01/09/19 10:05 01/09/19 10:30 01/10/19 07:42 White Blood Count 9.9 K/UL (4.8-10.8) 15.7 K/UL (4.8-10.8) Red Blood Count 4.83 M/UL (4.70-6.10) 5.01 M/UL (4.70-6.10) Hemoglobin 13.2 G/DL (14.2-18.0) 13.8 G/DL (14.2-18.0) Hematocrit 41.9 % (42.0-52.0) 43.0 % (42.0-52.0) Mean Corpuscular Volume 87 FL (80-99) 86 FL (80-99) Mean Corpuscular Hemoglobin 27.4 PG (27.0-31.0) 27.5 PG (27.0-31.0) Mean Corpuscular Hemoglobin Concent 31.6 G/DL (32.0-36.0) 32.0 G/DL (32.0-36.0) Red Cell Distribution Width 14.1 % (11.6-14.8) 14.0 % (11.6-14.8) Platelet Count 216 K/UL (150-450) 252 K/UL (150-450) Mean Platelet Volume 7.0 FL (6.5-10.1) 7.2 FL (6.5-10.1) Neutrophils (%) (Auto) 69.5 % (45.0-75.0) % (45.0-75.0) Lymphocytes (%) (Auto) 21.8 % (20.0-45.0) % (20.0-45.0) Monocytes (%) (Auto) 5.9 % (1.0-10.0) % (1.0-10.0) Eosinophils (%) (Auto) 2.0 % (0.0-3.0) % (0.0-3.0) Basophils (%) (Auto) 0.7 % (0.0-2.0) % (0.0-2.0) Sodium Level 146 MMOL/L (136-145) 140 MMOL/L (136-145) Potassium Level 3.3 MMOL/L (3.5-5.1) 4.8 MMOL/L (3.5-5.1) Chloride Level 116 MMOL/L (98-107) 105 MMOL/L (98-107) Carbon Dioxide Level 20 MMOL/L (21-32) 26 MMOL/L (21-32) Anion Gap 10 mmol/L (5-15) 9 mmol/L (5-15) Blood Urea Nitrogen 14 mg/dL (7-18) 31 mg/dL (7-18) Creatinine 1.4 MG/DL (0.55-1.30) 2.1 MG/DL (0.55-1.30) Estimat Glomerular Filtration Rate > 60 mL/min (>60) 40.0 mL/min (>60) Glucose Level 97 MG/DL (74-106) 133 MG/DL (74-106) Calcium Level 6.9 MG/DL (8.5-10.1) 9.9 MG/DL (8.5-10.1) Total Bilirubin 0.2 MG/DL (0.2-1.0) Aspartate Amino Transf (AST/SGOT) 116 U/L (15-37) Alanine Aminotransferase (ALT/SGPT) 140 U/L (12-78) Alkaline Phosphatase 32 U/L (46-116) Total Creatine Kinase 383 U/L (26-308) Creatine Kinase MB 2.5 NG/ML (0.0-3.6) Creatine Kinase MB Relative Index 0.6 Troponin I 0.063 ng/mL (0.000-0.056) 0.039 ng/mL (0.000-0.056) Pro-B-Type Natriuretic Peptide 6008 pg/mL (0-125) 8280 pg/mL (0-125) Total Protein 5.3 G/DL (6.4-8.2) Albumin 2.5 G/DL (3.4-5.0) Globulin 2.8 g/dL Albumin/Globulin Ratio 0.9 (1.0-2.7) Lipase 236 U/L (73-393) Urine Opiates Screen Negative (NEGATIVE) Urine Barbiturates Screen Negative (NEGATIVE) Phencyclidine (PCP) Screen Positive (NEGATIVE) Urine Amphetamines Screen Negative (NEGATIVE) Urine Benzodiazepines Screen Negative (NEGATIVE) Urine Cocaine Screen Positive (NEGATIVE) Urine Marijuana (THC) Screen Negative (NEGATIVE) Differential Total Cells Counted 100 Neutrophils % (Manual) 93 % (45-75) Lymphocytes % (Manual) 5 % (20-45) Monocytes % (Manual) 2 % (1-10) Eosinophils % (Manual) 0 % (0-3) Basophils % (Manual) 0 % (0-2) Band Neutrophils 0 % (0-8) Platelet Estimate Adequate Platelet Morphology Normal Hypochromasia 1+ Test 01/10/19 17:30 01/11/19 06:30 01/11/19 06:45 Urine Eosinophils None seen (NONE SEEN) Urine Random Sodium 58 mmol/L (20-110) White Blood Count 14.4 K/UL (4.8-10.8) Red Blood Count 4.67 M/UL (4.70-6.10) Hemoglobin 13.1 G/DL (14.2-18.0) Hematocrit 40.3 % (42.0-52.0) Mean Corpuscular Volume 86 FL (80-99) Mean Corpuscular Hemoglobin 28.1 PG (27.0-31.0) Mean Corpuscular Hemoglobin Concent 32.5 G/DL (32.0-36.0) Red Cell Distribution Width 14.3 % (11.6-14.8) Platelet Count 244 K/UL (150-450) Mean Platelet Volume 7.2 FL (6.5-10.1) Neutrophils (%) (Auto) 82.2 % (45.0-75.0) Lymphocytes (%) (Auto) 11.5 % (20.0-45.0) Monocytes (%) (Auto) 6.0 % (1.0-10.0) Eosinophils (%) (Auto) 0.1 % (0.0-3.0) Basophils (%) (Auto) 0.3 % (0.0-2.0) Sodium Level 142 MMOL/L (136-145) Potassium Level 4.4 MMOL/L (3.5-5.1) Chloride Level 107 MMOL/L (98-107) Carbon Dioxide Level 27 MMOL/L (21-32) Anion Gap 8 mmol/L (5-15) Blood Urea Nitrogen 40 mg/dL (7-18) Creatinine 2.2 MG/DL (0.55-1.30) Estimat Glomerular Filtration Rate 37.8 mL/min (>60) Glucose Level 112 MG/DL (74-106) Hemoglobin A1c 5.7 % (4.3-6.0) Uric Acid 11.4 MG/DL (2.6-7.2) Calcium Level 9.1 MG/DL (8.5-10.1) Phosphorus Level 4.6 MG/DL (2.5-4.9) Magnesium Level 1.9 MG/DL (1.8-2.4) Total Bilirubin 0.2 MG/DL (0.2-1.0) Gamma Glutamyl Transpeptidase 78 U/L (5-85) Aspartate Amino Transf (AST/SGOT) 33 U/L (15-37) Alanine Aminotransferase (ALT/SGPT) 108 U/L (12-78) Alkaline Phosphatase 39 U/L (46-116) Pro-B-Type Natriuretic Peptide 5968 pg/mL (0-125) Total Protein 6.6 G/DL (6.4-8.2) Albumin 3.3 G/DL (3.4-5.0) Globulin 3.3 g/dL Albumin/Globulin Ratio 1.0 (1.0-2.7) Triglycerides Level 128 MG/DL (30-150) Cholesterol Level 162 MG/DL (< 200) LDL Cholesterol 96 mg/dL (<100) HDL Cholesterol 45 MG/DL (40-60) Cholesterol/HDL Ratio 3.6 (3.3-4.4) Thyroid Stimulating Hormone (TSH) 1.255 uiU/mL (0.358-3.740) Height (Feet): 5 Height (Inches): 9.00 Weight (Pounds): 216 Objective PE General Appearance: no apparent distress, alert HEENT: atraumatic, anicteric, mucous membranes moist Neck: normal alignment, supple, normal inspection Respiratory/Chest: lungs clear, no respiratory distress, no accessory muscle use, decreased breath sounds Cardiovascular/Chest: normal peripheral pulses, normal rate, regular rhythm Abdomen: non tender, soft, no organomegaly Extremities: non-tender, normal inspection, no edema Neurologic: hook and eye attacher II-XII grossly normal, no motor/sensory deficits, alert, oriented x 3 Milvia Molina NP Jan 11, 2019 08:03
[2019-01-11] MEDS: Heparin 5000 units/ml inj SUBQ SCH ×2 (09:48→21:45)
[2019-01-11] MEDS: Imdur 30mg tab ORAL SCH (09:50)
[2019-01-11] MEDS: Azithromycin 250mg tab ORAL SCH (09:51)
[2019-01-11] MEDS: Aspirin EC 81mg tab ORAL SCH (09:51)
[2019-01-11] MEDS: Docusate 100mg cap ORAL SCH ×3 (09:51→18:11)
--- NOTE | 2019-01-11 10:58 | Nephrology Progress Note ---
Assessment/Plan Problem List: (1) TOÑA (acute kidney injury) (2) Acute on chronic renal failure (3) Cardiomyopathy (4) CHF (congestive heart failure) Assessment renal failure ? Acute on Chronic Nephrotoxics??? : Mild Anemia Urine + for cocaine and PCP HTN COPD former smoker evidence of CHF, Ej Fx 15% - 20 % Plan Stop Lisinopril One dose Digoxin Adjust Hydralazine Taper steroids Urine studies and Ua CLEO kidney if not done past 3 month 2D echo NOTED BP control as needed Pulm support Urine studies per orders Subjective ROS Limited/Unobtainable: No Constitutional: Reports: malaise, weakness Objective Objective Last 24 Hour Vital Signs Date Time Temp Pulse Resp B/P (MAP) Pulse Ox O2 Delivery O2 Flow Rate FiO2 01/11/19 09:50 112/79 01/11/19 08:16 93 18 97 Room Air 21 01/11/19 08:08 90 16 97 Room Air 21 01/11/19 08:00 98.5 98 18 112/79 (90) 96 01/11/19 06:18 131/90 01/11/19 04:14 97.9 90 18 131/90 (104) 97 01/11/19 04:00 87 01/11/19 03:57 91 18 97 Room Air 21 01/11/19 03:41 93 16 97 Room Air 21 01/11/19 00:10 93 18 97 Room Air 21 01/11/19 00:00 99 01/11/19 00:00 98.1 101 18 120/84 (96) 95 01/10/19 23:56 95 17 97 Room Air 21 01/10/19 21:34 118/83 01/10/19 21:00 Room Air 01/10/19 20:00 98.2 100 20 118/83 (95) 95 01/10/19 20:00 98 01/10/19 19:58 96 18 98 Room Air 21 01/10/19 19:37 96 18 95 Room Air 21 01/10/19 16:00 97.7 105 20 127/94 (105) 97 01/10/19 16:00 1.0 01/10/19 16:00 98 01/10/19 15:21 101 18 98 Room Air 21 01/10/19 15:14 100 18 96 Room Air 21 01/10/19 12:00 2.0 01/10/19 12:00 98 01/10/19 12:00 98.5 99 20 118/86 (97) 98 01/10/19 11:22 94 20 99 Nasal Cannula 3.0 32 01/10/19 11:12 102 20 95 Room Air 21 Intake and Output 01/10/19 01/11/19 19:00 07:00 Intake Total 820 ml Balance 820 ml Intake Oral 820 ml # Voids 5 # Bowel Movements 2 1 Laboratory Tests 01/10/19 17:30: Urine Eosinophils None seen, Urine Random Sodium 58 01/11/19 06:30: Urine Eosinophils None seen 01/11/19 06:45: White Blood Count 14.4H, Red Blood Count 4.67L, Hemoglobin 13.1L, Hematocrit 40.3L, Mean Corpuscular Volume 86, Mean Corpuscular Hemoglobin 28.1, Mean Corpuscular Hemoglobin Concent 32.5, Red Cell Distribution Width 14.3, Platelet Count 244, Mean Platelet Volume 7.2, Neutrophils (%) (Auto) 82.2H, Lymphocytes ( %) (Auto) 11.5L, Monocytes (%) (Auto) 6.0, Eosinophils (%) (Auto) 0.1, Basophils (%) (Auto) 0.3, Sodium Level 142, Potassium Level 4.4, Chloride Level 107, Carbon Dioxide Level 27, Anion Gap 8, Blood Urea Nitrogen 40H, Creatinine 2.2H, Estimat Glomerular Filtration Rate 37.8, Glucose Level 112H, Hemoglobin A1c 5.7, Uric Acid 11.4H, Calcium Level 9.1, Phosphorus Level 4.6, Magnesium Level 1.9, Total Bilirubin 0.2, Gamma Glutamyl Transpeptidase 78, Aspartate Amino Transf (AST/SGOT) 33, Alanine Aminotransferase (ALT/SGPT) 108H, Alkaline Phosphatase 39L, C-Reactive Protein, Quantitative < 0.4, Pro-B-Type Natriuretic Peptide 5968H, Total Protein 6.6, Albumin 3.3L, Globulin 3.3, Albumin/Globulin Ratio 1.0, Triglycerides Level 128, Cholesterol Level 162, LDL Cholesterol 96, HDL Cholesterol 45, Cholesterol/HDL Ratio 3.6, Vitamin B12 Level 572, Folate 6.0L, Thyroid Stimulating Hormone (TSH) 1.255 Height (Feet): 5 Height (Inches): 9.00 Weight (Pounds): 216 General Appearance: no apparent distress Cardiovascular: tachycardia Respiratory/Chest: decreased breath sounds Abdomen: distended Dannie Puente MD Jan 11, 2019 10:58
[2019-01-11 12:00] VITALS: BP 105/63
[2019-01-11] MEDS: Guaifenesin/DM 10ml syrup ORAL PRN ×2 (12:22→18:11)
--- NOTE | 2019-01-11 14:23 | General Progress Note ---
Assessment/Plan Status: stable Assessment/Plan: Assessment/Plan Status: stable Assessment/Plan: 53 year old man with CAD, chronic systolic CHF, asthma (likely COPD given smoking history which he stopped 3 years ago) who presents with progressive dyspnea and brown productive cough #Dyspnea, multifactorial #Acute on chronci systolic CHF #Acute exacerbation of asthma/COPD #Crack cocaine use #NSTEMI type 2 from demand ischemia #TOÑA on CKD -Continue telemetry care -Continue Prednisone 60mg PO daily -Continue Duoneb prn -Continue Azithromycin -hold Lasix, Aldactone and lisinopril due to TOÑA -Coreg held due to cocaine use -monitor I&O -Low sodium diet -Monitor daily BMP -Counselled about avoidance of drugs and seems to be agreeing with stopping usage. -Pulm and Cards following -Nephrology consulted - Defer IVF to nephrology. EF 15-20 % and creatinine not stable as of today. I spent 45 minutes on this patient's case, and 25 minutes was dedicated to counseling and/or care coordination. VTE PPx Heparin SC Full Code Subjective ROS Limited/Unobtainable: No Constitutional: Reports: no symptoms Allergies: Coded Allergies: NO KNOWN ALLERGIES (Verified Allergy, Unknown, 08/08/18) Objective Last 24 Hour Vital Signs Date Time Temp Pulse Resp B/P (MAP) Pulse Ox O2 Delivery O2 Flow Rate FiO2 01/11/19 12:00 94 01/11/19 12:00 98.3 91 20 105/63 (77) 99 01/11/19 11:28 96 18 98 Room Air 21 01/11/19 11:20 96 18 95 Room Air 01/11/19 09:50 112/79 01/11/19 08:16 93 18 97 Room Air 21 01/11/19 08:08 90 16 97 Room Air 21 01/11/19 08:00 98.5 98 18 112/79 (90) 96 01/11/19 06:18 131/90 01/11/19 04:14 97.9 90 18 131/90 (104) 97 01/11/19 04:00 87 01/11/19 03:57 91 18 97 Room Air 21 01/11/19 03:41 93 16 97 Room Air 21 01/11/19 00:10 93 18 97 Room Air 21 01/11/19 00:00 99 01/11/19 00:00 98.1 101 18 120/84 (96) 95 01/10/19 23:56 95 17 97 Room Air 21 01/10/19 21:34 118/83 01/10/19 21:00 Room Air 01/10/19 20:00 98.2 100 20 118/83 (95) 95 01/10/19 20:00 98 01/10/19 19:58 96 18 98 Room Air 21 01/10/19 19:37 96 18 95 Room Air 21 01/10/19 16:00 97.7 105 20 127/94 (105) 97 01/10/19 16:00 1.0 01/10/19 16:00 98 01/10/19 15:21 101 18 98 Room Air 21 01/10/19 15:14 100 18 96 Room Air 21 Intake and Output 01/10/19 01/11/19 19:00 07:00 Intake Total 820 ml Balance 820 ml Intake Oral 820 ml # Voids 5 # Bowel Movements 2 1 Laboratory Tests 01/10/19 17:30: Urine Eosinophils None seen, Urine Random Sodium 58 01/11/19 06:30: Urine Eosinophils None seen 01/11/19 06:45: White Blood Count 14.4H, Red Blood Count 4.67L, Hemoglobin 13.1L, Hematocrit 40.3L, Mean Corpuscular Volume 86, Mean Corpuscular Hemoglobin 28.1, Mean Corpuscular Hemoglobin Concent 32.5, Red Cell Distribution Width 14.3, Platelet Count 244, Mean Platelet Volume 7.2, Neutrophils (%) (Auto) 82.2H, Lymphocytes ( %) (Auto) 11.5L, Monocytes (%) (Auto) 6.0, Eosinophils (%) (Auto) 0.1, Basophils (%) (Auto) 0.3, Sodium Level 142, Potassium Level 4.4, Chloride Level 107, Carbon Dioxide Level 27, Anion Gap 8, Blood Urea Nitrogen 40H, Creatinine 2.2H, Estimat Glomerular Filtration Rate 37.8, Glucose Level 112H, Hemoglobin A1c 5.7, Uric Acid 11.4H, Calcium Level 9.1, Phosphorus Level 4.6, Magnesium Level 1.9, Total Bilirubin 0.2, Gamma Glutamyl Transpeptidase 78, Aspartate Amino Transf (AST/SGOT) 33, Alanine Aminotransferase (ALT/SGPT) 108H, Alkaline Phosphatase 39L, C-Reactive Protein, Quantitative < 0.4, Pro-B-Type Natriuretic Peptide 5968H, Total Protein 6.6, Albumin 3.3L, Globulin 3.3, Albumin/Globulin Ratio 1.0, Triglycerides Level 128, Cholesterol Level 162, LDL Cholesterol 96, HDL Cholesterol 45, Cholesterol/HDL Ratio 3.6, Vitamin B12 Level 572, Folate 6.0L, Thyroid Stimulating Hormone (TSH) 1.255 Height (Feet): 5 Height (Inches): 9.00 Weight (Pounds): 216 General Appearance: WD/WN, no apparent distress EENT: PERRL/EOMI Neck: non-tender Cardiovascular: normal peripheral pulses, normal rate Respiratory/Chest: lungs clear Abdomen: non tender, soft, no mass Extremities: normal range of motion Edema: trace edema Neurologic: log sorter II-XII grossly normal Yonas Galindo MD Jan 11, 2019 14:23
[2019-01-11 16:00] VITALS: BP 107/66
--- NOTE | 2019-01-11 19:47 | Cardiac Electrophysiology PN ---
Assessment/Plan Assessment/Plan 1. Exacerbation of congestive heart failure. EF 15%. On Lasix 40 mg daily. In view of active cocaine use, avoid betablockers. On Hydralazine and isordil 2. Troponin leak. It could be due to renal failure. His creatinine is mildly elevated. Repeat cardiac enzymes. His stress test on the previous admission showed no evidence of ischemia. 3. Asthma and COPD. 4. Crack cocaine and PCP use. 5. Hypertension, on Hydralazine and isordil 6. ARF off Lasix per Dr Cindi PABON RN Subjective Subjective Feeling better . In SR. DC planning Objective Last 24 Hour Vital Signs Date Time Temp Pulse Resp B/P (MAP) Pulse Ox O2 Delivery O2 Flow Rate FiO2 01/11/19 16:00 89 01/11/19 16:00 98.1 92 18 107/66 (80) 97 01/11/19 15:29 96 18 98 Room Air 21 01/11/19 15:21 95 18 96 Room Air 01/11/19 14:25 121/84 01/11/19 12:00 94 01/11/19 12:00 98 01/11/19 12:00 98.3 91 20 105/63 (77) 99 01/11/19 11:28 96 18 98 Room Air 21 01/11/19 11:20 96 18 95 Room Air 21 01/11/19 09:50 112/79 01/11/19 09:00 Room Air 01/11/19 08:16 93 18 97 Room Air 21 01/11/19 08:08 90 16 97 Room Air 21 01/11/19 08:00 98.5 98 18 112/79 (90) 96 01/11/19 08:00 99 01/11/19 06:18 131/90 01/11/19 04:14 97.9 90 18 131/90 (104) 97 01/11/19 04:00 87 01/11/19 03:57 91 18 97 Room Air 21 01/11/19 03:41 93 16 97 Room Air 21 01/11/19 00:10 93 18 97 Room Air 21 01/11/19 00:00 99 01/11/19 00:00 98.1 101 18 120/84 (96) 95 01/10/19 23:56 95 17 97 Room Air 21 01/10/19 21:34 118/83 6/14/19 21:00 Room Air 01/10/19 20:00 98.2 100 20 118/83 (95) 95 01/10/19 20:00 98 01/10/19 19:58 96 18 98 Room Air 21 Intake and Output 01/10/19 01/11/19 19:00 07:00 Intake Total 820 ml Balance 820 ml Intake Oral 820 ml # Voids 5 # Bowel Movements 2 1 Laboratory Tests Test 01/11/19 06:30 01/11/19 06:45 Urine Eosinophils None seen (NONE SEEN) White Blood Count 14.4 K/UL (4.8-10.8) H Red Blood Count 4.67 M/UL (4.70-6.10) L Hemoglobin 13.1 G/DL (14.2-18.0) L Hematocrit 40.3 % (42.0-52.0) L Mean Corpuscular Volume 86 FL (80-99) Mean Corpuscular Hemoglobin 28.1 PG (27.0-31.0) Mean Corpuscular Hemoglobin Concent 32.5 G/DL (32.0-36.0) Red Cell Distribution Width 14.3 % (11.6-14.8) Platelet Count 244 K/UL (150-450) Mean Platelet Volume 7.2 FL (6.5-10.1) Neutrophils (%) (Auto) 82.2 % (45.0-75.0) H Lymphocytes (%) (Auto) 11.5 % (20.0-45.0) L Monocytes (%) (Auto) 6.0 % (1.0-10.0) Eosinophils (%) (Auto) 0.1 % (0.0-3.0) Basophils (%) (Auto) 0.3 % (0.0-2.0) Sodium Level 142 MMOL/L (136-145) Potassium Level 4.4 MMOL/L (3.5-5.1) Chloride Level 107 MMOL/L (98-107) Carbon Dioxide Level 27 MMOL/L (21-32) Anion Gap 8 mmol/L (5-15) Blood Urea Nitrogen 40 mg/dL (7-18) H Creatinine 2.2 MG/DL (0.55-1.30) H Estimat Glomerular Filtration Rate 37.8 mL/min (>60) Glucose Level 112 MG/DL (74-106) H Hemoglobin A1c 5.7 % (4.3-6.0) Uric Acid 11.4 MG/DL (2.6-7.2) H Calcium Level 9.1 MG/DL (8.5-10.1) Phosphorus Level 4.6 MG/DL (2.5-4.9) Magnesium Level 1.9 MG/DL (1.8-2.4) Total Bilirubin 0.2 MG/DL (0.2-1.0) Gamma Glutamyl Transpeptidase 78 U/L (5-85) Aspartate Amino Transf (AST/SGOT) 33 U/L (15-37) Alanine Aminotransferase (ALT/SGPT) 108 U/L (12-78) H Alkaline Phosphatase 39 U/L (46-116) L C-Reactive Protein, Quantitative < 0.4 mg/dL (0.00-0.90) Pro-B-Type Natriuretic Peptide 5968 pg/mL (0-125) H Total Protein 6.6 G/DL (6.4-8.2) Albumin 3.3 G/DL (3.4-5.0) L Globulin 3.3 g/dL Albumin/Globulin Ratio 1.0 (1.0-2.7) Triglycerides Level 128 MG/DL (30-150) Cholesterol Level 162 MG/DL (< 200) LDL Cholesterol 96 mg/dL (<100) HDL Cholesterol 45 MG/DL (40-60) Cholesterol/HDL Ratio 3.6 (3.3-4.4) Vitamin B12 Level 572 PG/ML (193-986) Folate 6.0 NG/ML (8.6-58.9) L Thyroid Stimulating Hormone (TSH) 1.255 uiU/mL (0.358-3.740) Objective NECK: No JVD. LUNGS: Coarse rhonchi. CARDIOVASCULAR: Regular S1 and S2 with no gallop or murmur. ABDOMEN: Soft. EXTREMITIES: No pitting edema. Nhan Sim MD Jan 11, 2019 19:47
[2019-01-11 20:00] VITALS: BP 119/67
--- NOTE | 2019-01-11 21:56 | Pulmonology Progress Note ---
Assessment/Plan Assessment/Plan Assessment/Plan: 53 year old man with CAD, chronic systolic CHF, asthma (likely COPD given smoking history) who presents with progressive dyspnea and brown productive cough #Dyspnea, multifactorial #Acute on chronic systolic CHF #NSTEMI type 2 from demand ischemia #Acute exacerbation of asthma/COPD #Prominent right hilum on CXR #Crack cocaine use -Continue steroids 40 mg po daily -Duoneb Q4 -CT Chest-benign -Azithromycin -Diurese PRN -monitor I&O -Cardiac Diet -[employer] meds -Monitor labs -Counselled about avoidance of drugs and tobacco cessation -VTE PPx - Full Code Subjective Constitutional: Reports: no symptoms HEENT: Repors: no symptoms Respiratory: Reports: dry cough, shortness of breath Gastrointestinal/Abdominal: Reports: no symptoms Skin: Reports: no symptoms Endocrine: Reports: no symptoms Hematologic: Reports: no symptoms Allergies: Coded Allergies: NO KNOWN ALLERGIES (Verified Allergy, Unknown, 08/08/18) Subjective feeling better less so b no cpn or bleeding on RA no cough nebs helpful Objective Last 24 Hour Vital Signs Date Time Temp Pulse Resp B/P (MAP) Pulse Ox O2 Delivery O2 Flow Rate FiO2 01/11/19 21:43 119/67 01/11/19 20:03 99 18 97 Room Air 21 01/11/19 19:56 94 18 96 Room Air 21 01/11/19 16:00 89 01/11/19 16:00 98.1 92 18 107/66 (80) 97 01/11/19 15:29 96 18 98 Room Air 21 01/11/19 15:21 95 18 96 Room Air 21 01/11/19 14:25 121/84 01/11/19 12:00 94 01/11/19 12:00 98 01/11/19 12:00 98.3 91 20 105/63 (77) 99 01/11/19 11:28 96 18 98 Room Air 21 01/11/19 11:20 96 18 95 Room Air 21 01/11/19 09:50 112/79 01/11/19 09:00 Room Air 01/11/19 08:16 93 18 97 Room Air 21 01/11/19 08:08 90 16 97 Room Air 21 01/11/19 08:00 98.5 98 18 112/79 (90) 96 01/11/19 08:00 99 01/11/19 06:18 131/90 01/11/19 04:14 97.9 90 18 131/90 (104) 97 01/11/19 04:00 87 01/11/19 03:57 91 18 97 Room Air 21 01/11/19 03:41 93 16 97 Room Air 21 01/11/19 00:10 93 18 97 Room Air 21 01/11/19 00:00 99 01/11/19 00:00 98.1 101 18 120/84 (96) 95 01/10/19 23:56 95 17 97 Room Air 21 Intake and Output 01/10/19 01/11/19 18:59 06:59 Intake Total 820 ml Balance 820 ml Intake Oral 820 ml # Voids 5 # Bowel Movements 2 1 General Appearance: WD/WN Respiratory/Chest: rhonchi Cardiovascular: normal rate, regular rhythm Abdomen: soft, non tender, no organomegaly Extremities: no clubbing Skin: no lesions Neurologic/Psychiatric: oriented x 3 Lymphatic: no neck adenopathy, no groin adenopathy Musculoskeletal: no effusion Current Medications Medications (Trade) Dose Ordered Sig/Lizette Route PRN Reason Start Time Stop Time Status Last Admin Dose Admin Acetaminophen (Tylenol) 650 mg Q4H PRN ORAL Mild Pain (Pain Scale 1-3) 01/09/19 08:00 02/08/19 07:59 01/11/19 21:43 Albuterol/ Ipratropium (Albuterol/ Ipratropium) 3 ml Q4H PRN HHN Shortness of Breath 01/09/19 08:00 01/14/19 07:59 Albuterol/ Ipratropium (Albuterol/ Ipratropium) 3 ml Q4HRT HHN 01/09/19 19:00 01/14/19 18:59 01/11/19 19:56 Allopurinol (Allopurinol) 300 mg DAILY ORAL 01/11/19 10:00 02/10/19 09:59 01/11/19 11:24 Aspirin (Ecotrin) 81 mg DAILY ORAL 01/10/19 09:00 02/08/19 08:59 01/11/19 09:51 Atorvastatin Calcium (Lipitor) 10 mg BEDTIME ORAL 01/09/19 21:00 02/08/19 20:59 01/11/19 21:43 Azithromycin (Zithromax) 500 mg DAILY ORAL 01/09/19 10:00 01/16/19 09:59 01/11/19 09:51 Dextrose (Dextrose 50%) 25 ml Q30M PRN IV Hypoglycemia 01/09/19 08:00 02/08/19 07:59 Dextrose (Dextrose 50%) 50 ml Q30M PRN IV Hypoglycemia 01/09/19 08:00 02/08/19 07:59 Diphenhydramine HCl (Benadryl) 25 mg Q6H PRN ORAL Itching/Pruritis 01/09/19 08:00 02/08/19 07:59 Docusate Sodium (Colace) 100 mg TID ORAL 01/10/19 18:00 02/08/19 08:59 01/11/19 18:11 Folic Acid (Folate) 3 mg DAILY ORAL 01/11/19 12:00 02/10/19 11:59 01/11/19 12:23 Guaifenesin/ Dextromethorphan (Robitussin DM Syrup) 20 ml Q4H PRN ORAL For Cough 01/11/19 12:00 02/10/19 11:59 01/11/19 18:11 Heparin Sodium (Porcine) (Heparin 5000 units/ml) 5,000 units EVERY 12 HOURS SUBQ 01/09/19 09:00 02/08/19 08:59 01/11/19 21:45 Hydralazine HCl (Apresoline) 20 mg EVERY 8 HOURS ORAL 01/11/19 14:00 02/09/19 13:59 01/11/19 21:43 Hydralazine HCl (Apresoline) 25 mg Q4H PRN ORAL bp over 160 syst 01/10/19 16:45 02/09/19 16:44 Isosorbide Mononitrate (Imdur) 30 mg DAILY ORAL 01/11/19 09:00 02/10/19 08:59 01/11/19 09:50 Ondansetron HCl (Zofran) 4 mg Q6H PRN IVP Nausea & Vomiting 01/09/19 08:00 02/08/19 07:59 Pantoprazole (Protonix) 40 mg EVERY 12 HOURS ORAL 01/10/19 21:00 02/09/19 20:59 01/11/19 21:44 Prednisone (predniSONE) 40 mg DAILY ORAL 01/12/19 09:00 02/08/19 08:59 Laboratory Tests 01/11/19 06:30: Urine Eosinophils None seen 01/11/19 06:45: White Blood Count 14.4H, Red Blood Count 4.67L, Hemoglobin 13.1L, Hematocrit 40.3L, Mean Corpuscular Volume 86, Mean Corpuscular Hemoglobin 28.1, Mean Corpuscular Hemoglobin Concent 32.5, Red Cell Distribution Width 14.3, Platelet Count 244, Mean Platelet Volume 7.2, Neutrophils (%) (Auto) 82.2H, Lymphocytes ( %) (Auto) 11.5L, Monocytes (%) (Auto) 6.0, Eosinophils (%) (Auto) 0.1, Basophils (%) (Auto) 0.3, Sodium Level 142, Potassium Level 4.4, Chloride Level 107, Carbon Dioxide Level 27, Anion Gap 8, Blood Urea Nitrogen 40H, Creatinine 2.2H, Estimat Glomerular Filtration Rate 37.8, Glucose Level 112H, Hemoglobin A1c 5.7, Uric Acid 11.4H, Calcium Level 9.1, Phosphorus Level 4.6, Magnesium Level 1.9, Total Bilirubin 0.2, Gamma Glutamyl Transpeptidase 78, Aspartate Amino Transf (AST/SGOT) 33, Alanine Aminotransferase (ALT/SGPT) 108H, Alkaline Phosphatase 39L, C-Reactive Protein, Quantitative < 0.4, Pro-B-Type Natriuretic Peptide 5968H, Total Protein 6.6, Albumin 3.3L, Globulin 3.3, Albumin/Globulin Ratio 1.0, Triglycerides Level 128, Cholesterol Level 162, LDL Cholesterol 96, HDL Cholesterol 45, Cholesterol/HDL Ratio 3.6, Vitamin B12 Level 572, Folate 6.0L, Thyroid Stimulating Hormone (TSH) 1.255 Current Medications Medications (Trade) Dose Ordered Sig/Lizette Route PRN Reason Start Time Stop Time Status Last Admin Dose Admin Acetaminophen (Tylenol) 650 mg Q4H PRN ORAL Mild Pain (Pain Scale 1-3) 01/09/19 08:00 02/08/19 07:59 01/11/19 21:43 Albuterol/ Ipratropium (Albuterol/ Ipratropium) 3 ml Q4H PRN HHN Shortness of Breath 01/09/19 08:00 01/14/19 07:59 Albuterol/ Ipratropium (Albuterol/ Ipratropium) 3 ml Q4HRT HHN 01/09/19 19:00 01/14/19 18:59 01/11/19 19:56 Allopurinol (Allopurinol) 300 mg DAILY ORAL 01/11/19 10:00 02/10/19 09:59 01/11/19 11:24 Aspirin (Ecotrin) 81 mg DAILY ORAL 01/10/19 09:00 02/08/19 08:59 01/11/19 09:51 Atorvastatin Calcium (Lipitor) 10 mg BEDTIME ORAL 01/09/19 21:00 02/08/19 20:59 01/11/19 21:43 Azithromycin (Zithromax) 500 mg DAILY ORAL 01/09/19 10:00 01/16/19 09:59 01/11/19 09:51 Dextrose (Dextrose 50%) 25 ml Q30M PRN IV Hypoglycemia 01/09/19 08:00 02/08/19 07:59 Dextrose (Dextrose 50%) 50 ml Q30M PRN IV Hypoglycemia 01/09/19 08:00 02/08/19 07:59 Diphenhydramine HCl (Benadryl) 25 mg Q6H PRN ORAL Itching/Pruritis 01/09/19 08:00 02/08/19 07:59 Docusate Sodium (Colace) 100 mg TID ORAL 01/10/19 18:00 02/08/19 08:59 01/11/19 18:11 Folic Acid (Folate) 3 mg DAILY ORAL 01/11/19 12:00 02/10/19 11:59 01/11/19 12:23 Guaifenesin/ Dextromethorphan (Robitussin DM Syrup) 20 ml Q4H PRN ORAL For Cough 01/11/19 12:00 02/10/19 11:59 01/11/19 18:11 Heparin Sodium (Porcine) (Heparin 5000 units/ml) 5,000 units EVERY 12 HOURS SUBQ 01/09/19 09:00 02/08/19 08:59 01/11/19 21:45 Hydralazine HCl (Apresoline) 20 mg EVERY 8 HOURS ORAL 01/11/19 14:00 02/09/19 13:59 01/11/19 21:43 Hydralazine HCl (Apresoline) 25 mg Q4H PRN ORAL bp over 160 syst 01/10/19 16:45 02/09/19 16:44 Isosorbide Mononitrate (Imdur) 30 mg DAILY ORAL 01/11/19 09:00 02/10/19 08:59 01/11/19 09:50 Ondansetron HCl (Zofran) 4 mg Q6H PRN IVP Nausea & Vomiting 01/09/19 08:00 02/08/19 07:59 Pantoprazole (Protonix) 40 mg EVERY 12 HOURS ORAL 01/10/19 21:00 02/09/19 20:59 01/11/19 21:44 Prednisone (predniSONE) 40 mg DAILY ORAL 01/12/19 09:00 02/08/19 08:59 Radhika Cochran DO Jan 11, 2019 21:56
[2019-01-12] VITALS: BP 126/70
[2019-01-12] MEDS: Albuterol/Ipratropium 3ml neb HHN SCH ×6 (03:00→23:49)
[2019-01-12] MEDS: Guaifenesin/DM 10ml syrup ORAL PRN ×4 (03:03→21:20)
[2019-01-12] MEDS: HydrALAZINE 10mg Tab ORAL SCH (06:00)
--- NOTE | 2019-01-12 07:25 | Pulmonology Progress Note ---
Assessment/Plan Assessment/Plan Assessment/Plan: 53 year old man with CAD, chronic systolic CHF, asthma (likely COPD given smoking history) who presents with progressive dyspnea and brown productive cough #Dyspnea, multifactorial #Acute on chronic systolic CHF #NSTEMI type 2 from demand ischemia #Acute exacerbation of asthma/COPD #Prominent right hilum on CXR #Crack cocaine use -Continue steroids 40 mg po daily, decrease to 30 mg in am if stable -Duoneb Q4 -CT Chest-benign -Azithromycin -Diurese PRN -monitor I&O -Cardiac Diet -Monitor labs -Counselled about avoidance of drugs and tobacco cessation -VTE PPx - Full Code -DC planning Subjective ROS Limited/Unobtainable: Yes Constitutional: Reports: no symptoms HEENT: Repors: no symptoms Respiratory: Reports: no symptoms Cardiovascular: Reports: no symptoms Gastrointestinal/Abdominal: Reports: no symptoms Genitourinary: Reports: no symptoms Neurologic: Reports: no symptoms Allergies: Coded Allergies: NO KNOWN ALLERGIES (Verified Allergy, Unknown, 08/08/18) Subjective feeling better less so breath no wheezing this am no cpn or bleeding on RA no cough nebs helpful Objective Last 24 Hour Vital Signs Date Time Temp Pulse Resp B/P (MAP) Pulse Ox O2 Delivery O2 Flow Rate FiO2 01/12/19 04:00 103 01/12/19 03:27 Room Air 21 01/12/19 03:27 Room Air 21 01/12/19 00:00 98.1 103 21 126/70 (88) 96 01/12/19 00:00 94 01/11/19 23:54 103 18 97 Room Air 21 01/11/19 23:40 92 18 95 Room Air 21 01/11/19 21:43 119/67 01/11/19 21:00 Room Air 01/11/19 20:03 99 18 97 Room Air 21 01/11/19 20:00 97.4 94 19 119/67 (84) 95 01/11/19 20:00 96 01/11/19 19:56 94 18 96 Room Air 21 01/11/19 16:00 89 01/11/19 16:00 98.1 92 18 107/66 (80) 97 01/11/19 15:29 96 18 98 Room Air 21 01/11/19 15:21 95 18 96 Room Air 21 01/11/19 14:25 121/84 01/11/19 12:00 94 01/11/19 12:00 98 01/11/19 12:00 98.3 91 20 105/63 (77) 99 01/11/19 11:28 96 18 98 Room Air 21 01/11/19 11:20 96 18 95 Room Air 21 01/11/19 09:50 112/79 01/11/19 09:00 Room Air 01/11/19 08:16 93 18 97 Room Air 21 01/11/19 08:08 90 16 97 Room Air 21 01/11/19 08:00 98.5 98 18 112/79 (90) 96 01/11/19 08:00 99 Intake and Output 01/11/19 01/12/19 19:00 07:00 Intake Total 360 ml Balance 360 ml Intake Oral 360 ml # Voids 3 # Bowel Movements 1 General Appearance: WD/WN Respiratory/Chest: rhonchi Cardiovascular: normal rate, regular rhythm Abdomen: soft, non tender, no organomegaly Skin: no rash, no lesions Neurologic/Psychiatric: alert, oriented x 3 Laboratory Tests 01/12/19 00:00: Urine Eosinophils None seen Current Medications Medications (Trade) Dose Ordered Sig/Lizette Route PRN Reason Start Time Stop Time Status Last Admin Dose Admin Acetaminophen (Tylenol) 650 mg Q4H PRN ORAL Mild Pain (Pain Scale 1-3) 01/09/19 08:00 02/08/19 07:59 01/11/19 21:43 Albuterol/ Ipratropium (Albuterol/ Ipratropium) 3 ml Q4H PRN HHN Shortness of Breath 01/09/19 08:00 01/14/19 07:59 Albuterol/ Ipratropium (Albuterol/ Ipratropium) 3 ml Q4HRT HHN 01/09/19 19:00 01/14/19 18:59 01/11/19 23:39 Allopurinol (Allopurinol) 300 mg DAILY ORAL 01/11/19 10:00 02/10/19 09:59 01/11/19 11:24 Aspirin (Ecotrin) 81 mg DAILY ORAL 01/10/19 09:00 02/08/19 08:59 01/11/19 09:51 Atorvastatin Calcium (Lipitor) 10 mg BEDTIME ORAL 01/09/19 21:00 02/08/19 20:59 01/11/19 21:43 Azithromycin (Zithromax) 500 mg DAILY ORAL 01/09/19 10:00 01/16/19 09:59 01/11/19 09:51 Dextrose (Dextrose 50%) 25 ml Q30M PRN IV Hypoglycemia 01/09/19 08:00 02/08/19 07:59 Dextrose (Dextrose 50%) 50 ml Q30M PRN IV Hypoglycemia 01/09/19 08:00 02/08/19 07:59 Diphenhydramine HCl (Benadryl) 25 mg Q6H PRN ORAL Itching/Pruritis 01/09/19 08:00 02/08/19 07:59 Docusate Sodium (Colace) 100 mg TID ORAL 01/10/19 18:00 02/08/19 08:59 01/11/19 18:11 Folic Acid (Folate) 3 mg DAILY ORAL 01/11/19 12:00 02/10/19 11:59 01/11/19 12:23 Guaifenesin/ Dextromethorphan (Robitussin DM Syrup) 20 ml Q4H PRN ORAL For Cough 01/11/19 12:00 02/10/19 11:59 01/12/19 03:03 Heparin Sodium (Porcine) (Heparin 5000 units/ml) 5,000 units EVERY 12 HOURS SUBQ 01/09/19 09:00 02/08/19 08:59 01/11/19 21:45 Hydralazine HCl (Apresoline) 20 mg EVERY 8 HOURS ORAL 01/11/19 14:00 02/09/19 13:59 01/11/19 21:43 Hydralazine HCl (Apresoline) 25 mg Q4H PRN ORAL bp over 160 syst 01/10/19 16:45 02/09/19 16:44 Isosorbide Mononitrate (Imdur) 30 mg DAILY ORAL 01/11/19 09:00 02/10/19 08:59 01/11/19 09:50 Ondansetron HCl (Zofran) 4 mg Q6H PRN IVP Nausea & Vomiting 01/09/19 08:00 02/08/19 07:59 Pantoprazole (Protonix) 40 mg EVERY 12 HOURS ORAL 01/10/19 21:00 02/09/19 20:59 01/11/19 21:44 Prednisone (predniSONE) 40 mg DAILY ORAL 01/12/19 09:00 02/08/19 08:59 Radhika Cochran DO Jan 12, 2019 07:25
[2019-01-12 08:00] VITALS: BP 117/80
[2019-01-12 08:20] LABS: ALANINE AMINOTRANSFERASE 109 U/L (12-78); ALBUMIN 2.9 G/DL (3.4-5.0); ALBUMIN/GLOBULIN RATIO 0.8 (1.0-2.7); ALKALINE PHOSPHATASE 31 U/L (46-116); ANION GAP 9 mmol/L (5-15); ASPARTATE AMINO TRANSFERASE 41 U/L (15-37); BILIRUBIN,TOTAL 0.3 MG/DL (0.2-1.0); BLOOD UREA NITROGEN 28 mg/dL (7-18); CALCIUM 8.8 MG/DL (8.5-10.1); CARBON DIOXIDE 26 MMOL/L (21-32); CHLORIDE 110 MMOL/L (98-107); CREATININE 1.9 MG/DL (0.55-1.30); PHOSPHORUS 4.9 MG/DL (2.5-4.9); POTASSIUM 4.2 MMOL/L (3.5-5.1); SODIUM 145 MMOL/L (136-145)
[2019-01-12] MEDS: Aspirin EC 81mg tab ORAL SCH (09:13)
[2019-01-12] MEDS: Azithromycin 250mg tab ORAL SCH (09:14)
[2019-01-12] MEDS: Imdur 30mg tab ORAL SCH (09:15)
[2019-01-12] MEDS: Docusate 100mg cap ORAL SCH ×3 (09:15→18:32)
[2019-01-12] MEDS: Heparin 5000 units/ml inj SUBQ SCH ×2 (09:17→21:22)
--- NOTE | 2019-01-12 09:35 | General Progress Note ---
Assessment/Plan Status: stable Assessment/Plan: Assessment/Plan Status: stable Assessment/Plan: 53 year old man with CAD, chronic systolic CHF, asthma (likely COPD given smoking history which he stopped 3 years ago) who presents with progressive dyspnea and brown productive cough #Dyspnea, multifactorial #Acute on chronci systolic CHF #Acute exacerbation of asthma/COPD #Crack cocaine use #NSTEMI type 2 from demand ischemia #TOÑA on CKD -Continue telemetry care -Continue Prednisone 40mg PO daily and per pulmonary can transition to 30 mg tomorrow if stable. -Continue Duoneb prn -Continue Azithromycin -hold Lasix, Aldactone and lisinopril due to TOÑA - good clinical response today with Cr: 1.9 downtrending from 2.2 -Coreg held due to cocaine use -monitor I&O -Low sodium diet -Monitor daily BMP -Counselled about avoidance of drugs and seems to be agreeing with stopping usage. -Pulm and Cards following -Nephrology consulted - Defer IVF to nephrology. EF 15-20 % and creatinine started to trend down today. VTE PPx Heparin SC Full Code Subjective ROS Limited/Unobtainable: No Allergies: Coded Allergies: NO KNOWN ALLERGIES (Verified Allergy, Unknown, 08/08/18) Objective Last 24 Hour Vital Signs Date Time Temp Pulse Resp B/P (MAP) Pulse Ox O2 Delivery O2 Flow Rate FiO2 01/12/19 09:15 117/80 01/12/19 08:00 97.4 109 20 117/80 (92) 96 01/12/19 08:00 98 18 99 Room Air 21 01/12/19 07:51 95 18 96 Room Air 21 01/12/19 04:00 103 01/12/19 03:27 Room Air 21 01/12/19 03:27 Room Air 21 01/12/19 00:00 98.1 103 21 126/70 (88) 96 01/12/19 00:00 94 01/11/19 23:54 103 18 97 Room Air 21 01/11/19 23:40 92 18 95 Room Air 21 01/11/19 21:43 119/67 01/11/19 21:00 Room Air 01/11/19 20:03 99 18 97 Room Air 21 01/11/19 20:00 97.4 94 19 119/67 (84) 95 01/11/19 20:00 96 01/11/19 19:56 94 18 96 Room Air 21 01/11/19 16:00 89 01/11/19 16:00 98.1 92 18 107/66 (80) 97 01/11/19 15:29 96 18 98 Room Air 21 01/11/19 15:21 95 18 96 Room Air 21 01/11/19 14:25 121/84 01/11/19 12:00 94 01/11/19 12:00 98 01/11/19 12:00 98.3 91 20 105/63 (77) 99 01/11/19 11:28 96 18 98 Room Air 21 01/11/19 11:20 96 18 95 Room Air 21 01/11/19 09:50 112/79 Intake and Output 01/11/19 01/12/19 19:00 07:00 Intake Total 360 ml Balance 360 ml Intake Oral 360 ml # Voids 3 # Bowel Movements 1 Laboratory Tests 01/12/19 00:00: Urine Eosinophils None seen 01/12/19 07:44: Sodium Level 145, Potassium Level 4.2, Chloride Level 110H, Carbon Dioxide Level 26, Anion Gap 9, Blood Urea Nitrogen 28H, Creatinine 1.9H, Estimat Glomerular Filtration Rate 44.8, Glucose Level 107H, Uric Acid 10.1H, Calcium Level 8.8, Phosphorus Level 4.9, Magnesium Level 1.9, Total Bilirubin 0.3, Aspartate Amino Transf (AST/SGOT) 41H, Alanine Aminotransferase (ALT/SGPT) 109H , Alkaline Phosphatase 31L, Pro-B-Type Natriuretic Peptide 2737H, Total Protein 6.5, Albumin 2.9L, Globulin 3.6, Albumin/Globulin Ratio 0.8L, Digoxin Level < 0.2L Height (Feet): 5 Height (Inches): 9.00 Weight (Pounds): 216 General Appearance: WD/WN, alert EENT: PERRL/EOMI Neck: non-tender, supple Cardiovascular: normal rate, regular rhythm Respiratory/Chest: lungs clear, normal breath sounds Abdomen: non tender Neurologic: mother tester II-XII grossly normal Skin: normal pigmentation Yonas Galindo MD Jan 12, 2019 09:35
[2019-01-12 12:00] VITALS: BP 113/74
--- NOTE | 2019-01-12 12:12 | Nephrology Progress Note ---
Assessment/Plan Problem List: (1) TOÑA (acute kidney injury) (2) Acute on chronic renal failure (3) Cardiomyopathy (4) CHF (congestive heart failure) Assessment renal failure ? Acute on Chronic Nephrotoxics??? : Mild Anemia Urine + for cocaine and PCP HTN COPD former smoker evidence of CHF, Ej Fx 15% - 20 % Plan Stop Lisinopril Digoxin PO Adjust Hydralazine Taper steroids Urine studies and Ua CLEO kidney if not done past 3 month 2D echo NOTED BP control as needed Pulm support Urine studies per orders Subjective ROS Limited/Unobtainable: No Constitutional: Reports: malaise Objective Objective Last 24 Hour Vital Signs Date Time Temp Pulse Resp B/P (MAP) Pulse Ox O2 Delivery O2 Flow Rate FiO2 01/12/19 11:46 94 18 100 Room Air 21 01/12/19 11:36 99 18 96 Room Air 21 01/12/19 09:52 79 16 96 Room Air 21 01/12/19 09:15 117/80 01/12/19 08:00 97.4 109 20 117/80 (92) 96 01/12/19 08:00 98 18 99 Room Air 21 01/12/19 07:51 95 18 96 Room Air 21 01/12/19 04:00 103 01/12/19 03:27 Room Air 21 01/12/19 03:27 Room Air 21 01/12/19 00:00 98.1 103 21 126/70 (88) 96 01/12/19 00:00 94 01/11/19 23:54 103 18 97 Room Air 21 01/11/19 23:40 92 18 95 Room Air 21 01/11/19 21:43 119/67 01/11/19 21:00 Room Air 01/11/19 20:03 99 18 97 Room Air 21 01/11/19 20:00 97.4 94 19 119/67 (84) 95 01/11/19 20:00 96 01/11/19 19:56 94 18 96 Room Air 21 01/11/19 16:00 89 01/11/19 16:00 98.1 92 18 107/66 (80) 97 01/11/19 15:29 96 18 98 Room Air 21 01/11/19 15:21 95 18 96 Room Air 01/11/19 14:25 121/84 Intake and Output 01/11/19 01/12/19 19:00 07:00 Intake Total 360 ml Balance 360 ml Intake Oral 360 ml # Voids 3 # Bowel Movements 1 Laboratory Tests 01/12/19 00:00: Urine Eosinophils None seen 01/12/19 07:44: Sodium Level 145, Potassium Level 4.2, Chloride Level 110H, Carbon Dioxide Level 26, Anion Gap 9, Blood Urea Nitrogen 28H, Creatinine 1.9H, Estimat Glomerular Filtration Rate 44.8, Glucose Level 107H, Uric Acid 10.1H, Calcium Level 8.8, Phosphorus Level 4.9, Magnesium Level 1.9, Total Bilirubin 0.3, Aspartate Amino Transf (AST/SGOT) 41H, Alanine Aminotransferase (ALT/SGPT) 109H , Alkaline Phosphatase 31L, Pro-B-Type Natriuretic Peptide 2737H, Total Protein 6.5, Albumin 2.9L, Globulin 3.6, Albumin/Globulin Ratio 0.8L, Digoxin Level < 0.2L Height (Feet): 5 Height (Inches): 9.00 Weight (Pounds): 216 General Appearance: no apparent distress Cardiovascular: tachycardia Respiratory/Chest: decreased breath sounds Abdomen: distended Dannie Puente MD Jan 12, 2019 12:12
--- NOTE | 2019-01-12 13:54 | Cardiology Report ---
APPROVED REPORT EKG Measurement Heart [id number] Sinus tachycardia Biatrial enlargement LVH Nonspecific T wave abnormality Abnormal ECG
[2019-01-12] MEDS: HydrALAZINE 25mg tab ORAL SCH ×2 (15:31→21:21)
[2019-01-12 16:00] VITALS: BP 119/70
--- NOTE | 2019-01-12 16:39 | Cardiac Electrophysiology PN ---
Assessment/Plan Assessment/Plan 1. Exacerbation of congestive heart failure.Due to polysubstance abuse. EF 15% . On Lasix 40 mg daily. On Hydralazine and isordil In view of active cocaine use, avoid betablockers 2. Troponin leak. It could be due to renal failure. His creatinine is mildly elevated. Repeat cardiac enzymes. His stress test on the previous admission showed no evidence of ischemia. 3. Asthma and COPD. 4. Crack cocaine and PCP use. 5. Hypertension, on Hydralazine and isordil 6. ARF off Lasix per Dr Cindi PABON RN Subjective Subjective Feeling better . In SR. No CP Objective Last 24 Hour Vital Signs Date Time Temp Pulse Resp B/P (MAP) Pulse Ox O2 Delivery O2 Flow Rate FiO2 01/12/19 15:31 119/74 01/12/19 15:25 99 18 99 Room Air 21 01/12/19 15:18 98 18 95 Room Air 01/12/19 12:15 99 01/12/19 11:46 94 18 100 Room Air 01/12/19 11:36 99 18 96 Room Air 21 01/12/19 09:52 79 16 96 Room Air 21 01/12/19 09:15 117/80 01/12/19 08:00 97.4 109 20 117/80 (92) 96 01/12/19 08:00 98 18 99 Room Air 21 01/12/19 07:51 95 18 96 Room Air 21 01/12/19 04:00 103 01/12/19 03:27 Room Air 21 01/12/19 03:27 Room Air 21 01/12/19 00:00 98.1 103 21 126/70 (88) 96 01/12/19 00:00 94 01/11/19 23:54 103 18 97 Room Air 21 01/11/19 23:40 92 18 95 Room Air 21 01/11/19 21:43 119/67 01/11/19 21:00 Room Air 01/11/19 20:03 99 18 97 Room Air 21 01/11/19 20:00 97.4 94 19 119/67 (84) 95 01/11/19 20:00 96 01/11/19 19:56 94 18 96 Room Air 21 Intake and Output 01/11/19 01/12/19 19:00 07:00 Intake Total 360 ml Balance 360 ml Intake Oral 360 ml # Voids 3 # Bowel Movements 1 Laboratory Tests Test 01/12/19 00:00 01/12/19 07:44 Urine Eosinophils None seen (NONE SEEN) Sodium Level 145 MMOL/L (136-145) Potassium Level 4.2 MMOL/L (3.5-5.1) Chloride Level 110 MMOL/L (98-107) H Carbon Dioxide Level 26 MMOL/L (21-32) Anion Gap 9 mmol/L (5-15) Blood Urea Nitrogen 28 mg/dL (7-18) H Creatinine 1.9 MG/DL (0.55-1.30) H Estimat Glomerular Filtration Rate 44.8 mL/min (>60) Glucose Level 107 MG/DL (74-106) H Uric Acid 10.1 MG/DL (2.6-7.2) H Calcium Level 8.8 MG/DL (8.5-10.1) Phosphorus Level 4.9 MG/DL (2.5-4.9) Magnesium Level 1.9 MG/DL (1.8-2.4) Total Bilirubin 0.3 MG/DL (0.2-1.0) Aspartate Amino Transf (AST/SGOT) 41 U/L (15-37) H Alanine Aminotransferase (ALT/SGPT) 109 U/L (12-78) H Alkaline Phosphatase 31 U/L (46-116) L Pro-B-Type Natriuretic Peptide 2737 pg/mL (0-125) H Total Protein 6.5 G/DL (6.4-8.2) Albumin 2.9 G/DL (3.4-5.0) L Globulin 3.6 g/dL Albumin/Globulin Ratio 0.8 (1.0-2.7) L Digoxin Level < 0.2 NG/ML (0.5-2.0) L Objective NECK: No JVD. LUNGS: Coarse rhonchi. CARDIOVASCULAR: Regular S1 and S2 with no gallop or murmur. ABDOMEN: Soft. EXTREMITIES: No pitting edema. Nhan Sim MD Jan 12, 2019 16:39
[2019-01-12 20:00] VITALS: BP 121/74
--- NOTE | 2019-01-12 23:22 | Hematology/Onc Progress Note ---
Assessment/Plan Assessment/Plan Assessment/Plan: # Lung mass on cxr with hilar prominence -- CT was ordered shows dilated right main pulmonary artery, may indicate pulmonary arterial hypertension No right hilar or other pulmonary mass or adenopathy demonstrated. Right hilar fullness demonstrated on recent chest radiograph presumably due to the above. --> because of CT scan shows no lung mass --> would hold off on tumor markers given no lung mass at this time --> likely initial cxr has a pna --> abx and steriods for asthma as per pulm # Leukocytosis with elevated wbc is likely due to steriod use --> smear peripheral has been reviewed --> no evidence of malginancy noted --> wbc 14.4k # Dyspnea, multifactorial --> steriods and breathing treatments prn # Acute on chronci systolic CHF --> as per cards # Acute exacerbation of asthma/COPD --> per pulm rec's # Crack cocaine use --> urine tox screen reviewed The timing of this note does not necessarily reflect the time of the patient was seen. GREATLY APPRECIATE CONSULTATION. Subjective Allergies: Coded Allergies: NO KNOWN ALLERGIES (Verified Allergy, Unknown, 08/08/18) Subjective 01/11: pt resting in bed, no acute distress. 01/12: pt was seen in am, no acute events reported overnight, no acute distress, afebrile. Objective Objective Current Medications Medications (Trade) Dose Ordered Sig/Lizette Route PRN Reason Start Time Stop Time Status Last Admin Dose Admin Acetaminophen (Tylenol) 650 mg Q4H PRN ORAL Mild Pain (Pain Scale 1-3) 01/09/19 08:00 02/08/19 07:59 01/12/19 21:20 Albuterol/ Ipratropium (Albuterol/ Ipratropium) 3 ml Q4H PRN HHN Shortness of Breath 01/09/19 08:00 01/14/19 07:59 Albuterol/ Ipratropium (Albuterol/ Ipratropium) 3 ml Q4HRT HHN 01/09/19 19:00 01/14/19 18:59 01/12/19 19:54 Allopurinol (Allopurinol) 300 mg DAILY ORAL 01/11/19 10:00 02/10/19 09:59 01/12/19 09:14 Aspirin (Ecotrin) 81 mg DAILY ORAL 01/10/19 09:00 02/08/19 08:59 01/12/19 09:13 Atorvastatin Calcium (Lipitor) 10 mg BEDTIME ORAL 01/09/19 21:00 02/08/19 20:59 01/12/19 21:21 Azithromycin (Zithromax) 500 mg DAILY ORAL 01/09/19 10:00 01/16/19 09:59 01/12/19 09:14 Dextrose (Dextrose 50%) 25 ml Q30M PRN IV Hypoglycemia 01/09/19 08:00 02/08/19 07:59 Dextrose (Dextrose 50%) 50 ml Q30M PRN IV Hypoglycemia 01/09/19 08:00 02/08/19 07:59 Digoxin (Lanoxin) 0.125 mg DAILY ORAL 01/13/19 09:00 02/12/19 08:59 Diphenhydramine HCl (Benadryl) 25 mg Q6H PRN ORAL Itching/Pruritis 01/09/19 08:00 02/08/19 07:59 Docusate Sodium (Colace) 100 mg TID ORAL 01/10/19 18:00 02/08/19 08:59 01/12/19 18:32 Folic Acid (Folate) 3 mg DAILY ORAL 01/11/19 12:00 02/10/19 11:59 01/12/19 09:14 Guaifenesin/ Dextromethorphan (Robitussin DM Syrup) 20 ml Q4H PRN ORAL For Cough 01/11/19 12:00 02/10/19 11:59 01/12/19 21:20 Heparin Sodium (Porcine) (Heparin 5000 units/ml) 5,000 units EVERY 12 HOURS SUBQ 01/09/19 09:00 02/08/19 08:59 01/12/19 21:22 Hydralazine HCl (Apresoline) 25 mg EVERY 8 HOURS ORAL 01/12/19 14:00 02/09/19 13:59 01/12/19 21:21 Hydralazine HCl (Apresoline) 25 mg Q4H PRN ORAL bp over 160 syst 01/10/19 16:45 02/09/19 16:44 Isosorbide Mononitrate (Imdur) 30 mg DAILY ORAL 01/11/19 09:00 02/10/19 08:59 01/12/19 09:15 Ondansetron HCl (Zofran) 4 mg Q6H PRN IVP Nausea & Vomiting 01/09/19 08:00 02/08/19 07:59 Pantoprazole (Protonix) 40 mg EVERY 12 HOURS ORAL 01/10/19 21:00 02/09/19 20:59 01/12/19 21:21 Prednisone (predniSONE) 30 mg DAILY ORAL 01/13/19 09:00 02/08/19 08:59 Last 24 Hour Vital Signs Date Time Temp Pulse Resp B/P (MAP) Pulse Ox O2 Delivery O2 Flow Rate FiO2 01/12/19 21:21 121/74 01/12/19 20:03 95 20 98 Room Air 21 01/12/19 19:51 94 20 96 Room Air 21 01/12/19 19:51 94 20 96 Room Air 21 01/12/19 16:00 98.4 98 20 119/70 (86) 96 01/12/19 16:00 104 01/12/19 15:31 119/74 01/12/19 15:25 99 18 99 Room Air 21 01/12/19 15:18 98 18 95 Room Air 01/12/19 12:15 99 01/12/19 12:00 98.3 104 18 113/74 (87) 96 01/12/19 12:00 102 01/12/19 11:46 94 18 100 Room Air 01/12/19 11:36 99 18 96 Room Air 01/12/19 09:52 79 16 96 Room Air 01/12/19 09:15 117/80 01/12/19 09:00 Room Air 01/12/19 08:00 97.4 109 20 117/80 (92) 96 01/12/19 08:00 98 18 99 Room Air 01/12/19 08:00 105 01/12/19 07:51 95 18 96 Room Air 21 01/12/19 04:00 103 01/12/19 03:27 Room Air 21 01/12/19 03:27 Room Air 21 01/12/19 00:00 98.1 103 21 126/70 (88) 96 01/12/19 00:00 94 01/11/19 23:54 103 18 97 Room Air 21 01/11/19 23:40 92 18 95 Room Air 21 01/11/19 21:43 119/67 01/11/19 21:00 Room Air 01/11/19 20:03 99 18 97 Room Air 21 01/11/19 20:00 97.4 94 19 119/67 (84) 95 01/11/19 20:00 96 01/11/19 19:56 94 18 96 Room Air 21 01/11/19 16:00 89 01/11/19 16:00 98.1 92 18 107/66 (80) 97 01/11/19 15:29 96 18 98 Room Air 21 01/11/19 15:21 95 18 96 Room Air 21 01/11/19 14:25 121/84 01/11/19 12:00 94 01/11/19 12:00 98 01/11/19 12:00 98.3 91 20 105/63 (77) 99 01/11/19 11:28 96 18 98 Room Air 21 01/11/19 11:20 96 18 95 Room Air 21 01/11/19 09:50 112/79 01/11/19 09:00 Room Air 01/11/19 08:16 93 18 97 Room Air 21 01/11/19 08:08 90 16 97 Room Air 21 01/11/19 08:00 98.5 98 18 112/79 (90) 96 01/11/19 08:00 99 01/11/19 06:18 131/90 01/11/19 04:14 97.9 90 18 131/90 (104) 97 01/11/19 04:00 87 01/11/19 03:57 91 18 97 Room Air 21 01/11/19 03:41 93 16 97 Room Air 21 01/11/19 00:10 93 18 97 Room Air 21 01/11/19 00:00 99 01/11/19 00:00 98.1 101 18 120/84 (96) 95 01/10/19 23:56 95 17 97 Room Air 21 Intake and Output 01/11/19 01/12/19 19:00 07:00 Intake Total 360 ml Balance 360 ml Intake Oral 360 ml # Voids 3 # Bowel Movements 1 Labs Test 01/10/19 07:42 01/10/19 17:30 01/11/19 06:30 01/11/19 06:45 White Blood Count 15.7 K/UL (4.8-10.8) 14.4 K/UL (4.8-10.8) Red Blood Count 5.01 M/UL (4.70-6.10) 4.67 M/UL (4.70-6.10) Hemoglobin 13.8 G/DL (14.2-18.0) 13.1 G/DL (14.2-18.0) Hematocrit 43.0 % (42.0-52.0) 40.3 % (42.0-52.0) Mean Corpuscular Volume 86 FL (80-99) 86 FL (80-99) Mean Corpuscular Hemoglobin 27.5 PG (27.0-31.0) 28.1 PG (27.0-31.0) Mean Corpuscular Hemoglobin Concent 32.0 G/DL (32.0-36.0) 32.5 G/DL (32.0-36.0) Red Cell Distribution Width 14.0 % (11.6-14.8) 14.3 % (11.6-14.8) Platelet Count 252 K/UL (150-450) 244 K/UL (150-450) Mean Platelet Volume 7.2 FL (6.5-10.1) 7.2 FL (6.5-10.1) Neutrophils (%) (Auto) % (45.0-75.0) 82.2 % (45.0-75.0) Lymphocytes (%) (Auto) % (20.0-45.0) 11.5 % (20.0-45.0) Monocytes (%) (Auto) % (1.0-10.0) 6.0 % (1.0-10.0) Eosinophils (%) (Auto) % (0.0-3.0) 0.1 % (0.0-3.0) Basophils (%) (Auto) % (0.0-2.0) 0.3 % (0.0-2.0) Differential Total Cells Counted 100 Neutrophils % (Manual) 93 % (45-75) Lymphocytes % (Manual) 5 % (20-45) Monocytes % (Manual) 2 % (1-10) Eosinophils % (Manual) 0 % (0-3) Basophils % (Manual) 0 % (0-2) Band Neutrophils 0 % (0-8) Platelet Estimate Adequate Platelet Morphology Normal Hypochromasia 1+ Sodium Level 140 MMOL/L (136-145) 142 MMOL/L (136-145) Potassium Level 4.8 MMOL/L (3.5-5.1) 4.4 MMOL/L (3.5-5.1) Chloride Level 105 MMOL/L (98-107) 107 MMOL/L (98-107) Carbon Dioxide Level 26 MMOL/L (21-32) 27 MMOL/L (21-32) Anion Gap 9 mmol/L (5-15) 8 mmol/L (5-15) Blood Urea Nitrogen 31 mg/dL (7-18) 40 mg/dL (7-18) Creatinine 2.1 MG/DL (0.55-1.30) 2.2 MG/DL (0.55-1.30) Estimat Glomerular Filtration Rate 40.0 mL/min (>60) 37.8 mL/min (>60) Glucose Level 133 MG/DL (74-106) 112 MG/DL (74-106) Calcium Level 9.9 MG/DL (8.5-10.1) 9.1 MG/DL (8.5-10.1) Pro-B-Type Natriuretic Peptide 8280 pg/mL (0-125) 5968 pg/mL (0-125) Urine Eosinophils None seen (NONE SEEN) None seen (NONE SEEN) Urine Random Sodium 58 mmol/L (20-110) Hemoglobin A1c 5.7 % (4.3-6.0) Uric Acid 11.4 MG/DL (2.6-7.2) Phosphorus Level 4.6 MG/DL (2.5-4.9) Magnesium Level 1.9 MG/DL (1.8-2.4) Total Bilirubin 0.2 MG/DL (0.2-1.0) Gamma Glutamyl Transpeptidase 78 U/L (5-85) Aspartate Amino Transf (AST/SGOT) 33 U/L (15-37) Alanine Aminotransferase (ALT/SGPT) 108 U/L (12-78) Alkaline Phosphatase 39 U/L (46-116) C-Reactive Protein, Quantitative < 0.4 mg/dL (0.00-0.90) Total Protein 6.6 G/DL (6.4-8.2) Albumin 3.3 G/DL (3.4-5.0) Globulin 3.3 g/dL Albumin/Globulin Ratio 1.0 (1.0-2.7) Triglycerides Level 128 MG/DL (30-150) Cholesterol Level 162 MG/DL (< 200) LDL Cholesterol 96 mg/dL (<100) HDL Cholesterol 45 MG/DL (40-60) Cholesterol/HDL Ratio 3.6 (3.3-4.4) Vitamin B12 Level 572 PG/ML (193-986) Folate 6.0 NG/ML (8.6-58.9) Thyroid Stimulating Hormone (TSH) 1.255 uiU/mL (0.358-3.740) Test 01/12/19 00:00 01/12/19 07:44 Urine Eosinophils None seen (NONE SEEN) Sodium Level 145 MMOL/L (136-145) Potassium Level 4.2 MMOL/L (3.5-5.1) Chloride Level 110 MMOL/L (98-107) Carbon Dioxide Level 26 MMOL/L (21-32) Anion Gap 9 mmol/L (5-15) Blood Urea Nitrogen 28 mg/dL (7-18) Creatinine 1.9 MG/DL (0.55-1.30) Estimat Glomerular Filtration Rate 44.8 mL/min (>60) Glucose Level 107 MG/DL (74-106) Uric Acid 10.1 MG/DL (2.6-7.2) Calcium Level 8.8 MG/DL (8.5-10.1) Phosphorus Level 4.9 MG/DL (2.5-4.9) Magnesium Level 1.9 MG/DL (1.8-2.4) Total Bilirubin 0.3 MG/DL (0.2-1.0) Aspartate Amino Transf (AST/SGOT) 41 U/L (15-37) Alanine Aminotransferase (ALT/SGPT) 109 U/L (12-78) Alkaline Phosphatase 31 U/L (46-116) Pro-B-Type Natriuretic Peptide 2737 pg/mL (0-125) Total Protein 6.5 G/DL (6.4-8.2) Albumin 2.9 G/DL (3.4-5.0) Globulin 3.6 g/dL Albumin/Globulin Ratio 0.8 (1.0-2.7) Digoxin Level < 0.2 NG/ML (0.5-2.0) Height (Feet): 5 Height (Inches): 9.00 Weight (Pounds): 216 Objective PE General Appearance: no apparent distress, alert HEENT: atraumatic, anicteric, mucous membranes moist Neck: normal alignment, supple, normal inspection Respiratory/Chest: lungs clear, no respiratory distress, no accessory muscle use, decreased breath sounds Cardiovascular/Chest: normal peripheral pulses, normal rate, regular rhythm Abdomen: non tender, soft, no organomegaly Extremities: non-tender, normal inspection, no edema 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
[2019-01-13] VITALS: BP 114/79
[2019-01-13] MEDS: Albuterol/Ipratropium 3ml neb HHN SCH ×6 (03:29→23:04)
[2019-01-13 04:00] VITALS: BP 108/73
--- NOTE | 2019-01-13 05:13 | Cardiac Electrophysiology PN ---
Assessment/Plan Assessment/Plan 1. Exacerbation of congestive heart failure. Due to polysubstance abuse and nonischemic CMP. EF 15%. On Dig, Hydralazine and isordil. Off Lasix for ARF In view of active cocaine use, avoid betablockers 2. Troponin leak. It could be due to renal failure. His creatinine is mildly elevated. Repeat cardiac enzymes. His stress test on the previous admission showed no evidence of ischemia. 3. Asthma and COPD. 4. Crack cocaine and PCP use. 5. Hypertension, on Hydralazine and isordil 6. ARF, off Lasix per Dr Cindi PABON RN Subjective Subjective Feeling better. In SR. Objective Last 24 Hour Vital Signs Date Time Temp Pulse Resp B/P (MAP) Pulse Ox O2 Delivery O2 Flow Rate FiO2 01/13/19 04:00 98.2 96 18 108/73 (85) 97 01/13/19 04:00 98 01/13/19 03:29 94 17 97 Room Air 21 01/13/19 00:00 99 01/13/19 00:00 97.5 101 18 114/79 (91) 97 01/12/19 23:59 97 20 99 Nasal Cannula 2.0 28 01/12/19 23:49 108 20 94 Room Air 21 01/12/19 21:21 121/74 01/12/19 21:00 Room Air 01/12/19 20:03 95 20 98 Room Air 21 01/12/19 20:00 96 01/12/19 20:00 97.4 95 19 121/74 (90) 98 01/12/19 19:51 94 20 96 Room Air 21 01/12/19 19:51 94 20 96 Room Air 21 01/12/19 16:00 98.4 98 20 119/70 (86) 96 01/12/19 16:00 104 01/12/19 15:31 119/74 01/12/19 15:25 99 18 99 Room Air 21 01/12/19 15:18 98 18 95 Room Air 21 01/12/19 12:15 99 01/12/19 12:00 98.3 104 18 113/74 (87) 96 01/12/19 12:00 102 01/12/19 11:46 94 18 100 Room Air 21 01/12/19 11:36 99 18 96 Room Air 21 01/12/19 09:52 79 16 96 Room Air 21 01/12/19 09:15 117/80 01/12/19 09:00 Room Air 01/12/19 08:00 97.4 109 20 117/80 (92) 96 01/12/19 08:00 98 18 99 Room Air 21 01/12/19 08:00 105 01/12/19 07:51 95 18 96 Room Air 21 Intake and Output 01/12/19 01/13/19 18:59 06:59 Intake Total 480 ml Balance 480 ml Intake Oral 480 ml # Voids 3 # Bowel Movements 3 1 Laboratory Tests Test 01/12/19 07:44 Sodium Level 145 MMOL/L (136-145) Potassium Level 4.2 MMOL/L (3.5-5.1) Chloride Level 110 MMOL/L (98-107) H Carbon Dioxide Level 26 MMOL/L (21-32) Anion Gap 9 mmol/L (5-15) Blood Urea Nitrogen 28 mg/dL (7-18) H Creatinine 1.9 MG/DL (0.55-1.30) H Estimat Glomerular Filtration Rate 44.8 mL/min (>60) Glucose Level 107 MG/DL (74-106) H Uric Acid 10.1 MG/DL (2.6-7.2) H Calcium Level 8.8 MG/DL (8.5-10.1) Phosphorus Level 4.9 MG/DL (2.5-4.9) Magnesium Level 1.9 MG/DL (1.8-2.4) Total Bilirubin 0.3 MG/DL (0.2-1.0) Aspartate Amino Transf (AST/SGOT) 41 U/L (15-37) H Alanine Aminotransferase (ALT/SGPT) 109 U/L (12-78) H Alkaline Phosphatase 31 U/L (46-116) L Pro-B-Type Natriuretic Peptide 2737 pg/mL (0-125) H Total Protein 6.5 G/DL (6.4-8.2) Albumin 2.9 G/DL (3.4-5.0) L Globulin 3.6 g/dL Albumin/Globulin Ratio 0.8 (1.0-2.7) L Digoxin Level < 0.2 NG/ML (0.5-2.0) L Objective NECK: No JVD. LUNGS: Coarse rhonchi. CARDIOVASCULAR: Regular S1 and S2 with no gallop or murmur. ABDOMEN: Soft. EXTREMITIES: No pitting edema. Nhan Sim MD Jan 13, 2019 05:13
[2019-01-13] MEDS: HydrALAZINE 25mg tab ORAL SCH ×3 (05:34→21:45)
[2019-01-13 08:00] VITALS: BP 128/81
[2019-01-13 08:22] LABS: BASOPHILS % (AUTO) 0.6 % (0.0-2.0); EOSINOPHILS % (AUTO) 0.5 % (0.0-3.0); HEMATOCRIT 39.8 % (42.0-52.0); HEMOGLOBIN 12.6 G/DL (14.2-18.0); LYMPHOCYTES % (AUTO) 22.8 % (20.0-45.0); MEAN CORPUSCULAR VOLUME 87 FL (80-99); MONOCYTES % (AUTO) 5.6 % (1.0-10.0); NEUTROPHILS % (AUTO) 70.6 % (45.0-75.0); PLATELET COUNT 235 K/UL (150-450); RED BLOOD COUNT 4.55 M/UL (4.70-6.10); RED CELL DISTRIBUTION WIDTH 14.2 % (11.6-14.8); WHITE BLOOD COUNT 11.5 K/UL (4.8-10.8)
[2019-01-13 08:32] LABS: ANION GAP 7 mmol/L (5-15); BLOOD UREA NITROGEN 22 mg/dL (7-18); CARBON DIOXIDE 28 MMOL/L (21-32); CHLORIDE 109 MMOL/L (98-107); CREATININE 1.8 MG/DL (0.55-1.30); POTASSIUM 3.9 MMOL/L (3.5-5.1); SODIUM 144 MMOL/L (136-145)
[2019-01-13] MEDS: Guaifenesin/DM 10ml syrup ORAL PRN (09:40)
[2019-01-13] MEDS: Docusate 100mg cap ORAL SCH ×3 (09:43→17:23)
[2019-01-13] MEDS: Azithromycin 250mg tab ORAL SCH (09:44)
[2019-01-13] MEDS: Imdur 30mg tab ORAL SCH (09:44)
[2019-01-13] MEDS: Aspirin EC 81mg tab ORAL SCH (09:44)
[2019-01-13] MEDS: Digoxin 0.125mg tab ORAL SCH (09:46)
[2019-01-13] MEDS: Heparin 5000 units/ml inj SUBQ SCH ×2 (09:49→21:47)
[2019-01-13] MEDS ORDERED: Digoxin 0.125mg tab ORAL SCH (12:41)
--- NOTE | 2019-01-13 12:41 | Nephrology Progress Note ---
Assessment/Plan Problem List: (1) TOÑA (acute kidney injury) (2) Acute on chronic renal failure (3) Cardiomyopathy (4) CHF (congestive heart failure) Assessment renal failure ? Acute on Chronic Nephrotoxics??? : Mild Anemia Urine + for cocaine and PCP HTN COPD former smoker evidence of CHF, Ej Fx 15% - 20 % Plan Stop Lisinopril Digoxin PO Adjust Hydralazine Taper steroids Urine studies and Ua CLEO kidney if not done past 3 month 2D echo NOTED BP control as needed Pulm support Urine studies per orders Subjective ROS Limited/Unobtainable: No Constitutional: Reports: malaise Objective Objective Last 24 Hour Vital Signs Date Time Temp Pulse Resp B/P (MAP) Pulse Ox O2 Delivery O2 Flow Rate FiO2 01/13/19 11:02 98 20 100 Nasal Cannula 2.0 28 01/13/19 10:55 104 20 98 Room Air 21 01/13/19 09:46 90 01/13/19 09:44 128/81 01/13/19 08:00 98.5 106 20 128/81 (97) 96 01/13/19 08:00 103 01/13/19 07:32 92 22 100 Nasal Cannula 2.0 28 01/13/19 07:20 96 18 96 Room Air 21 01/13/19 07:20 99 22 97 Room Air 21 01/13/19 05:34 107/72 01/13/19 04:00 98.2 96 18 108/73 (85) 97 01/13/19 04:00 98 01/13/19 03:39 94 20 100 Nasal Cannula 2.0 28 01/13/19 03:29 94 17 97 Room Air 21 01/13/19 00:00 99 01/13/19 00:00 97.5 101 18 114/79 (91) 97 01/12/19 23:59 97 20 99 Nasal Cannula 2.0 28 01/12/19 23:49 108 20 94 Room Air 21 01/12/19 21:21 121/74 01/12/19 21:00 Room Air 01/12/19 20:03 95 20 98 Room Air 21 01/12/19 20:00 96 01/12/19 20:00 97.4 95 19 121/74 (90) 98 01/12/19 19:51 94 20 96 Room Air 21 01/12/19 19:51 94 20 96 Room Air 21 01/12/19 16:00 98.4 98 20 119/70 (86) 96 01/12/19 16:00 104 01/12/19 15:31 119/74 01/12/19 15:25 99 18 99 Room Air 21 01/12/19 15:18 98 18 95 Room Air 21 Intake and Output 01/12/19 01/13/19 19:00 07:00 Intake Total 480 ml 240 ml Balance 480 ml 240 ml Intake Oral 480 ml 240 ml # Voids 3 2 # Bowel Movements 3 1 Laboratory Tests 01/13/19 07:04: White Blood Count 11.5H, Red Blood Count 4.55L, Hemoglobin 12.6L, Hematocrit 39.8L, Mean Corpuscular Volume 87, Mean Corpuscular Hemoglobin 27.7, Mean Corpuscular Hemoglobin Concent 31.7L, Red Cell Distribution Width 14.2, Platelet Count 235, Mean Platelet Volume 7.7, Neutrophils (%) (Auto) 70.6, Lymphocytes (%) (Auto) 22.8, Monocytes (%) (Auto) 5.6, Eosinophils (%) (Auto) 0.5, Basophils (%) (Auto) 0.6, Sodium Level 144, Potassium Level 3.9, Chloride Level 109H, Carbon Dioxide Level 28, Anion Gap 7, Blood Urea Nitrogen 22H, Creatinine 1.8H, Estimat Glomerular Filtration Rate 47.8, Glucose Level 83, Calcium Level 9.0 Height (Feet): 5 Height (Inches): 9.00 Weight (Pounds): 216 General Appearance: no apparent distress Cardiovascular: tachycardia Respiratory/Chest: decreased breath sounds Abdomen: distended Dannie Puente MD Jan 13, 2019 12:41
[2019-01-13 12:51] VITALS: BP 123/84
--- NOTE | 2019-01-13 13:52 | Hematology/Onc Progress Note ---
Assessment/Plan Assessment/Plan Assessment/Plan Assessment/Plan: # Lung mass on cxr with hilar prominence -- CT was ordered shows dilated right main pulmonary artery, may indicate pulmonary arterial hypertension No right hilar or other pulmonary mass or adenopathy demonstrated. Right hilar fullness demonstrated on recent chest radiograph presumably due to the above. --> because of CT scan shows no lung mass --> would hold off on tumor markers given no lung mass at this time --> likely initial cxr has a pna --> abx and steriods for asthma as per pulm # Leukocytosis with elevated wbc is likely due to steriod use --> smear peripheral has been reviewed --> no evidence of malginancy noted --> wbc 14.4k # Dyspnea, multifactorial --> steriods and breathing treatments prn # Acute on chronci systolic CHF --> as per cards # Acute exacerbation of asthma/COPD --> per pulm rec's # Crack cocaine use --> urine tox screen reviewed The timing of this note does not necessarily reflect the time of the patient was seen. GREATLY APPRECIATE CONSULTATION. Subjective Allergies: Coded Allergies: NO KNOWN ALLERGIES (Verified Allergy, Unknown, 08/08/18) Subjective Subjective Subjective Allergies: Coded Allergies: NO KNOWN ALLERGIES (Verified Allergy, Unknown, 08/08/18) Subjective 01/11: pt resting in bed, no acute distress. 01/12: pt was seen in am, no acute events reported overnight, no acute distress, afebrile. 01/13: pt was seen in am, pt seated on edge of bed eating his breakfast no acute distress Objective Objective Current Medications Medications (Trade) Dose Ordered Sig/Lizette Route PRN Reason Start Time Stop Time Status Last Admin Dose Admin Acetaminophen (Tylenol) 650 mg Q4H PRN ORAL Mild Pain (Pain Scale 1-3) 01/09/19 08:00 02/08/19 07:59 01/12/19 21:20 Albuterol/ Ipratropium (Albuterol/ Ipratropium) 3 ml Q4H PRN HHN Shortness of Breath 01/09/19 08:00 01/14/19 07:59 Albuterol/ Ipratropium (Albuterol/ Ipratropium) 3 ml Q4HRT HHN 01/09/19 19:00 01/14/19 18:59 01/13/19 10:53 Allopurinol (Allopurinol) 300 mg DAILY ORAL 01/11/19 10:00 02/10/19 09:59 01/13/19 09:44 Aspirin (Ecotrin) 81 mg DAILY ORAL 01/10/19 09:00 02/08/19 08:59 01/13/19 09:44 Atorvastatin Calcium (Lipitor) 10 mg BEDTIME ORAL 01/09/19 21:00 02/08/19 20:59 01/12/19 21:21 Azithromycin (Zithromax) 500 mg DAILY ORAL 01/09/19 10:00 01/16/19 09:59 01/13/19 09:44 Dextrose (Dextrose 50%) 25 ml Q30M PRN IV Hypoglycemia 01/09/19 08:00 02/08/19 07:59 Dextrose (Dextrose 50%) 50 ml Q30M PRN IV Hypoglycemia 01/09/19 08:00 02/08/19 07:59 Digoxin (Lanoxin) 0.125 mg DAILY ORAL 01/13/19 09:00 02/12/19 08:59 01/13/19 09:46 Digoxin (Lanoxin) 0.125 mg ONCE ORAL 01/13/19 12:41 01/13/19 14:00 01/13/19 13:01 Docusate Sodium (Colace) 100 mg TID ORAL 01/10/19 18:00 02/08/19 08:59 01/13/19 12:59 Folic Acid (Folate) 3 mg DAILY ORAL 01/11/19 12:00 02/10/19 11:59 01/13/19 09:41 Guaifenesin/ Dextromethorphan (Robitussin DM Syrup) 20 ml Q4H PRN ORAL For Cough 01/11/19 12:00 02/10/19 11:59 01/13/19 09:40 Heparin Sodium (Porcine) (Heparin 5000 units/ml) 5,000 units EVERY 12 HOURS SUBQ 01/09/19 09:00 02/08/19 08:59 01/13/19 09:49 Hydralazine HCl (Apresoline) 25 mg EVERY 8 HOURS ORAL 01/12/19 14:00 02/09/19 13:59 01/12/19 21:21 Hydralazine HCl (Apresoline) 25 mg Q4H PRN ORAL bp over 160 syst 01/10/19 16:45 02/09/19 16:44 Isosorbide Mononitrate (Imdur) 30 mg DAILY ORAL 01/11/19 09:00 02/10/19 08:59 01/13/19 09:44 Ondansetron HCl (Zofran) 4 mg Q6H PRN IVP Nausea & Vomiting 01/09/19 08:00 02/08/19 07:59 Pantoprazole (Protonix) 40 mg EVERY 12 HOURS ORAL 01/10/19 21:00 02/09/19 20:59 01/13/19 09:44 Prednisone (predniSONE) 5 mg DAILY ORAL 01/14/19 09:00 02/13/19 08:59 Prednisone (predniSONE) 20 mg DAILY ORAL 01/14/19 09:00 02/08/19 08:59 Last 24 Hour Vital Signs Date Time Temp Pulse Resp B/P (MAP) Pulse Ox O2 Delivery O2 Flow Rate FiO2 01/13/19 13:01 96 01/13/19 12:51 97.7 108 20 123/84 (97) 96 01/13/19 11:02 98 20 100 Nasal Cannula 2.0 28 01/13/19 10:55 104 20 98 Room Air 21 01/13/19 09:46 90 01/13/19 09:44 128/81 01/13/19 08:00 98.5 106 20 128/81 (97) 96 01/13/19 08:00 103 01/13/19 07:32 92 22 100 Nasal Cannula 2.0 28 01/13/19 07:20 96 18 96 Room Air 21 01/13/19 07:20 99 22 97 Room Air 21 01/13/19 05:34 107/72 01/13/19 04:00 98.2 96 18 108/73 (85) 97 01/13/19 04:00 98 01/13/19 03:39 94 20 100 Nasal Cannula 2.0 28 01/13/19 03:29 94 17 97 Room Air 21 01/13/19 00:00 99 01/13/19 00:00 97.5 101 18 114/79 (91) 97 01/12/19 23:59 97 20 99 Nasal Cannula 2.0 28 01/12/19 23:49 108 20 94 Room Air 21 01/12/19 21:21 121/74 01/12/19 21:00 Room Air 01/12/19 20:03 95 20 98 Room Air 21 01/12/19 20:00 96 01/12/19 20:00 97.4 95 19 121/74 (90) 98 01/12/19 19:51 94 20 96 Room Air 21 01/12/19 19:51 94 20 96 Room Air 21 01/12/19 16:00 98.4 98 20 119/70 (86) 96 01/12/19 16:00 104 01/12/19 15:31 119/74 01/12/19 15:25 99 18 99 Room Air 21 01/12/19 15:18 98 18 95 Room Air 21 01/12/19 12:15 99 01/12/19 12:00 98.3 104 18 113/74 (87) 96 01/12/19 12:00 102 01/12/19 11:46 94 18 100 Room Air 21 01/12/19 11:36 99 18 96 Room Air 21 01/12/19 09:52 79 16 96 Room Air 21 01/12/19 09:15 117/80 01/12/19 09:00 Room Air 01/12/19 08:00 97.4 109 20 117/80 (92) 96 01/12/19 08:00 98 18 99 Room Air 21 01/12/19 08:00 105 01/12/19 07:51 95 18 96 Room Air 21 01/12/19 04:00 103 01/12/19 03:27 Room Air 21 01/12/19 03:27 Room Air 21 01/12/19 00:00 98.1 103 21 126/70 (88) 96 01/12/19 00:00 94 01/11/19 23:54 103 18 97 Room Air 21 01/11/19 23:40 92 18 95 Room Air 21 01/11/19 21:43 119/67 01/11/19 21:00 Room Air 01/11/19 20:03 99 18 97 Room Air 21 01/11/19 20:00 97.4 94 19 119/67 (84) 95 01/11/19 20:00 96 01/11/19 19:56 94 18 96 Room Air 21 01/11/19 16:00 89 01/11/19 16:00 98.1 92 18 107/66 (80) 97 01/11/19 15:29 96 18 98 Room Air 21 01/11/19 15:21 95 18 96 Room Air 21 01/11/19 14:25 121/84 Intake and Output 01/12/19 01/13/19 19:00 07:00 Intake Total 480 ml 240 ml Balance 480 ml 240 ml Intake Oral 480 ml 240 ml # Voids 3 2 # Bowel Movements 3 1 Labs Test 01/10/19 17:30 01/11/19 06:30 01/11/19 06:45 01/12/19 00:00 Urine Eosinophils None seen (NONE SEEN) None seen (NONE SEEN) None seen (NONE SEEN) Urine Random Sodium 58 mmol/L (20-110) White Blood Count 14.4 K/UL (4.8-10.8) Red Blood Count 4.67 M/UL (4.70-6.10) Hemoglobin 13.1 G/DL (14.2-18.0) Hematocrit 40.3 % (42.0-52.0) Mean Corpuscular Volume 86 FL (80-99) Mean Corpuscular Hemoglobin 28.1 PG (27.0-31.0) Mean Corpuscular Hemoglobin Concent 32.5 G/DL (32.0-36.0) Red Cell Distribution Width 14.3 % (11.6-14.8) Platelet Count 244 K/UL (150-450) Mean Platelet Volume 7.2 FL (6.5-10.1) Neutrophils (%) (Auto) 82.2 % (45.0-75.0) Lymphocytes (%) (Auto) 11.5 % (20.0-45.0) Monocytes (%) (Auto) 6.0 % (1.0-10.0) Eosinophils (%) (Auto) 0.1 % (0.0-3.0) Basophils (%) (Auto) 0.3 % (0.0-2.0) Sodium Level 142 MMOL/L (136-145) Potassium Level 4.4 MMOL/L (3.5-5.1) Chloride Level 107 MMOL/L (98-107) Carbon Dioxide Level 27 MMOL/L (21-32) Anion Gap 8 mmol/L (5-15) Blood Urea Nitrogen 40 mg/dL (7-18) Creatinine 2.2 MG/DL (0.55-1.30) Estimat Glomerular Filtration Rate 37.8 mL/min (>60) Glucose Level 112 MG/DL (74-106) Hemoglobin A1c 5.7 % (4.3-6.0) Uric Acid 11.4 MG/DL (2.6-7.2) Calcium Level 9.1 MG/DL (8.5-10.1) Phosphorus Level 4.6 MG/DL (2.5-4.9) Magnesium Level 1.9 MG/DL (1.8-2.4) Total Bilirubin 0.2 MG/DL (0.2-1.0) Gamma Glutamyl Transpeptidase 78 U/L (5-85) Aspartate Amino Transf (AST/SGOT) 33 U/L (15-37) Alanine Aminotransferase (ALT/SGPT) 108 U/L (12-78) Alkaline Phosphatase 39 U/L (46-116) C-Reactive Protein, Quantitative < 0.4 mg/dL (0.00-0.90) Pro-B-Type Natriuretic Peptide 5968 pg/mL (0-125) Total Protein 6.6 G/DL (6.4-8.2) Albumin 3.3 G/DL (3.4-5.0) Globulin 3.3 g/dL Albumin/Globulin Ratio 1.0 (1.0-2.7) Triglycerides Level 128 MG/DL (30-150) Cholesterol Level 162 MG/DL (< 200) LDL Cholesterol 96 mg/dL (<100) HDL Cholesterol 45 MG/DL (40-60) Cholesterol/HDL Ratio 3.6 (3.3-4.4) Vitamin B12 Level 572 PG/ML (193-986) Folate 6.0 NG/ML (8.6-58.9) Thyroid Stimulating Hormone (TSH) 1.255 uiU/mL (0.358-3.740) Test 01/12/19 07:44 01/13/19 07:04 Sodium Level 145 MMOL/L (136-145) 144 MMOL/L (136-145) Potassium Level 4.2 MMOL/L (3.5-5.1) 3.9 MMOL/L (3.5-5.1) Chloride Level 110 MMOL/L (98-107) 109 MMOL/L (98-107) Carbon Dioxide Level 26 MMOL/L (21-32) 28 MMOL/L (21-32) Anion Gap 9 mmol/L (5-15) 7 mmol/L (5-15) Blood Urea Nitrogen 28 mg/dL (7-18) 22 mg/dL (7-18) Creatinine 1.9 MG/DL (0.55-1.30) 1.8 MG/DL (0.55-1.30) Estimat Glomerular Filtration Rate 44.8 mL/min (>60) 47.8 mL/min (>60) Glucose Level 107 MG/DL (74-106) 83 MG/DL (74-106) Uric Acid 10.1 MG/DL (2.6-7.2) Calcium Level 8.8 MG/DL (8.5-10.1) 9.0 MG/DL (8.5-10.1) Phosphorus Level 4.9 MG/DL (2.5-4.9) Magnesium Level 1.9 MG/DL (1.8-2.4) Total Bilirubin 0.3 MG/DL (0.2-1.0) Aspartate Amino Transf (AST/SGOT) 41 U/L (15-37) Alanine Aminotransferase (ALT/SGPT) 109 U/L (12-78) Alkaline Phosphatase 31 U/L (46-116) Pro-B-Type Natriuretic Peptide 2737 pg/mL (0-125) Total Protein 6.5 G/DL (6.4-8.2) Albumin 2.9 G/DL (3.4-5.0) Globulin 3.6 g/dL Albumin/Globulin Ratio 0.8 (1.0-2.7) Digoxin Level < 0.2 NG/ML (0.5-2.0) White Blood Count 11.5 K/UL (4.8-10.8) Red Blood Count 4.55 M/UL (4.70-6.10) Hemoglobin 12.6 G/DL (14.2-18.0) Hematocrit 39.8 % (42.0-52.0) Mean Corpuscular Volume 87 FL (80-99) Mean Corpuscular Hemoglobin 27.7 PG (27.0-31.0) Mean Corpuscular Hemoglobin Concent 31.7 G/DL (32.0-36.0) Red Cell Distribution Width 14.2 % (11.6-14.8) Platelet Count 235 K/UL (150-450) Mean Platelet Volume 7.7 FL (6.5-10.1) Neutrophils (%) (Auto) 70.6 % (45.0-75.0) Lymphocytes (%) (Auto) 22.8 % (20.0-45.0) Monocytes (%) (Auto) 5.6 % (1.0-10.0) Eosinophils (%) (Auto) 0.5 % (0.0-3.0) Basophils (%) (Auto) 0.6 % (0.0-2.0) Height (Feet): 5 Height (Inches): 9.00 Weight (Pounds): 216 Objective PE General Appearance: no apparent distress, alert HEENT: atraumatic, anicteric, mucous membranes moist Neck: normal alignment, supple, normal inspection Respiratory/Chest: lungs clear, no respiratory distress, no accessory muscle use, decreased breath sounds Cardiovascular/Chest: normal peripheral pulses, normal rate, regular rhythm Abdomen: non tender, soft, no organomegaly Extremities: non-tender, normal inspection, no edema 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
--- NOTE | 2019-01-13 14:46 | General Progress Note ---
Assessment/Plan Status: stable Assessment/Plan: Assessment/Plan Status: stable Assessment/Plan: 53 year old man with CAD, chronic systolic CHF, asthma (likely COPD given smoking history which he stopped 3 years ago) who presents with progressive dyspnea and brown productive cough #Dyspnea, multifactorial #Acute on chronci systolic CHF #Acute exacerbation of asthma/COPD #Crack cocaine use #NSTEMI type 2 from demand ischemia #TOÑA on CKD -Continue telemetry care -Continue Prednisone 40mg PO daily and per pulmonary and taper per pulmonary -Continue Duoneb prn -Continue Azithromycin -hold Lasix, Aldactone and lisinopril due to TOÑA - good clinical response today with Cr: 1.8 downtrending from 2.2 -Coreg held due to cocaine use -monitor I&O -Low sodium diet -Monitor daily BMP -Counselled about avoidance of drugs and seems to be agreeing with stopping usage. -Pulm and Cards following -Nephrology consulted - Defer IVF to nephrology. EF 15-20 % and creatinine started to trend down today. - Robitussin AC for cough ordered VTE PPx Heparin SC Full Code Subjective ROS Limited/Unobtainable: No Respiratory: Reports: cough Allergies: Coded Allergies: NO KNOWN ALLERGIES (Verified Allergy, Unknown, 08/08/18) Objective Last 24 Hour Vital Signs Date Time Temp Pulse Resp B/P (MAP) Pulse Ox O2 Delivery O2 Flow Rate FiO2 01/13/19 13:01 96 01/13/19 12:51 97.7 108 20 123/84 (97) 96 01/13/19 11:02 98 20 100 Nasal Cannula 2.0 28 01/13/19 10:55 104 20 98 Room Air 21 01/13/19 09:46 90 01/13/19 09:44 128/81 01/13/19 08:00 98.5 106 20 128/81 (97) 96 01/13/19 08:00 103 01/13/19 07:32 92 22 100 Nasal Cannula 2.0 28 01/13/19 07:20 96 18 96 Room Air 21 01/13/19 07:20 99 22 97 Room Air 21 01/13/19 05:34 107/72 01/13/19 04:00 98.2 96 18 108/73 (85) 97 01/13/19 04:00 98 01/13/19 03:39 94 20 100 Nasal Cannula 2.0 28 01/13/19 03:29 94 17 97 Room Air 21 01/13/19 00:00 99 01/13/19 00:00 97.5 101 18 114/79 (91) 97 01/12/19 23:59 97 20 99 Nasal Cannula 2.0 28 01/12/19 23:49 108 20 94 Room Air 21 01/12/19 21:21 121/74 01/12/19 21:00 Room Air 01/12/19 20:03 95 20 98 Room Air 21 01/12/19 20:00 96 01/12/19 20:00 97.4 95 19 121/74 (90) 98 01/12/19 19:51 94 20 96 Room Air 21 01/12/19 19:51 94 20 96 Room Air 21 01/12/19 16:00 98.4 98 20 119/70 (86) 96 01/12/19 16:00 104 01/12/19 15:31 119/74 01/12/19 15:25 99 18 99 Room Air 21 01/12/19 15:18 98 18 95 Room Air 21 Intake and Output 01/12/19 01/13/19 19:00 07:00 Intake Total 480 ml 240 ml Balance 480 ml 240 ml Intake Oral 480 ml 240 ml # Voids 3 2 # Bowel Movements 3 1 Laboratory Tests 01/13/19 07:04: White Blood Count 11.5H, Red Blood Count 4.55L, Hemoglobin 12.6L, Hematocrit 39.8L, Mean Corpuscular Volume 87, Mean Corpuscular Hemoglobin 27.7, Mean Corpuscular Hemoglobin Concent 31.7L, Red Cell Distribution Width 14.2, Platelet Count 235, Mean Platelet Volume 7.7, Neutrophils (%) (Auto) 70.6, Lymphocytes (%) (Auto) 22.8, Monocytes (%) (Auto) 5.6, Eosinophils (%) (Auto) 0.5, Basophils (%) (Auto) 0.6, Sodium Level 144, Potassium Level 3.9, Chloride Level 109H, Carbon Dioxide Level 28, Anion Gap 7, Blood Urea Nitrogen 22H, Creatinine 1.8H, Estimat Glomerular Filtration Rate 47.8, Glucose Level 83, Calcium Level 9.0 Height (Feet): 5 Height (Inches): 9.00 Weight (Pounds): 216 General Appearance: WD/WN EENT: PERRL/EOMI Neck: normal alignment Cardiovascular: normal rate, regular rhythm Respiratory/Chest: lungs clear, normal breath sounds Abdomen: non tender, soft 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
[2019-01-13 16:00] VITALS: BP 119/74
[2019-01-13] MEDS: guaiFENesin w/Codeine 5ml Liq ud ORAL PRN ×2 (17:23→23:18)
[2019-01-13 20:00] VITALS: BP 114/69
[2019-01-14] VITALS: BP 113/62
[2019-01-14] MEDS: Albuterol/Ipratropium 3ml neb HHN SCH ×4 (02:40→15:59)
[2019-01-14 04:00] VITALS: BP 117/73
[2019-01-14] MEDS: HydrALAZINE 25mg tab ORAL SCH ×3 (05:14→21:04)
[2019-01-14 06:31] LABS: BASOPHILS % (AUTO) 0.4 % (0.0-2.0); EOSINOPHILS % (AUTO) 0.5 % (0.0-3.0); HEMOGLOBIN 12.3 G/DL (14.2-18.0); LYMPHOCYTES % (AUTO) 19.8 % (20.0-45.0); MEAN CORPUSCULAR VOLUME 87 FL (80-99); NEUTROPHILS % (AUTO) 73.3 % (45.0-75.0); PLATELET COUNT 217 K/UL (150-450); RED BLOOD COUNT 4.49 M/UL (4.70-6.10); RED CELL DISTRIBUTION WIDTH 14.5 % (11.6-14.8); WHITE BLOOD COUNT 10.5 K/UL (4.8-10.8)
[2019-01-14 07:14] LABS: ANION GAP 9 mmol/L (5-15); BLOOD UREA NITROGEN 23 mg/dL (7-18); CALCIUM 8.7 MG/DL (8.5-10.1); CARBON DIOXIDE 26 MMOL/L (21-32); CHLORIDE 109 MMOL/L (98-107); CREATININE 1.8 MG/DL (0.55-1.30); POTASSIUM 4.2 MMOL/L (3.5-5.1); SODIUM 144 MMOL/L (136-145)
[2019-01-14 07:16] LABS: ALANINE AMINOTRANSFERASE 76 U/L (12-78); ALBUMIN 2.6 G/DL (3.4-5.0); ALBUMIN/GLOBULIN RATIO 0.8 (1.0-2.7); ALKALINE PHOSPHATASE 28 U/L (46-116); ANION GAP 7 mmol/L (5-15); ASPARTATE AMINO TRANSFERASE 21 U/L (15-37); BILIRUBIN,TOTAL 0.3 MG/DL (0.2-1.0); BLOOD UREA NITROGEN 23 mg/dL (7-18); CALCIUM 8.7 MG/DL (8.5-10.1); CARBON DIOXIDE 28 MMOL/L (21-32); CHLORIDE 109 MMOL/L (98-107); CREATININE 1.9 MG/DL (0.55-1.30); PHOSPHORUS 4.7 MG/DL (2.5-4.9); POTASSIUM 4.2 MMOL/L (3.5-5.1); SODIUM 144 MMOL/L (136-145)
[2019-01-14 08:00] VITALS: BP 129/82
[2019-01-14] MEDS: Azithromycin 250mg tab ORAL SCH (08:27)
[2019-01-14] MEDS: Aspirin EC 81mg tab ORAL SCH (08:27)
[2019-01-14] MEDS: Digoxin 0.125mg tab ORAL SCH (08:28)
[2019-01-14] MEDS: Imdur 30mg tab ORAL SCH (08:29)
[2019-01-14] MEDS: Docusate 100mg cap ORAL SCH ×3 (08:30→18:31)
[2019-01-14] MEDS: Heparin 5000 units/ml inj SUBQ SCH ×2 (08:31→21:06)
[2019-01-14] MEDS: guaiFENesin w/Codeine 5ml Liq ud ORAL PRN ×2 (08:34→21:04)
[2019-01-14 12:00] VITALS: BP 122/71
[2019-01-14 16:00] VITALS: BP 124/70
--- NOTE | 2019-01-14 16:30 | Nephrology Progress Note ---
Assessment/Plan Problem List: (1) TOÑA (acute kidney injury) (2) Acute on chronic renal failure (3) Cardiomyopathy (4) CHF (congestive heart failure) Assessment renal failure ? Acute on Chronic Nephrotoxics??? : Mild Anemia Urine + for cocaine and PCP HTN COPD former smoker evidence of CHF, Ej Fx 15% - 20 % Plan Stop Lisinopril Digoxin PO Adjust Hydralazine off steroids Urine studies and Ua CLEO kidney if not done past 3 month 2D echo NOTED BP control as needed Pulm support Urine studies per orders Subjective ROS Limited/Unobtainable: No Constitutional: Reports: malaise Objective Objective Last 24 Hour Vital Signs Date Time Temp Pulse Resp B/P (MAP) Pulse Ox O2 Delivery O2 Flow Rate FiO2 01/14/19 15:59 81 16 95 Room Air 21 01/14/19 14:22 122/71 01/14/19 12:00 97.9 96 20 122/71 (88) 97 01/14/19 12:00 85 01/14/19 11:36 92 16 98 Room Air 01/14/19 11:24 97 18 95 Room Air 21 01/14/19 09:00 Nasal Cannula 2.0 01/14/19 08:29 129/82 01/14/19 08:28 68 01/14/19 08:00 91 01/14/19 08:00 97.1 91 20 129/82 (98) 98 01/14/19 07:20 84 18 99 Room Air 01/14/19 07:10 83 18 97 Room Air 21 01/14/19 05:14 116/75 01/14/19 04:00 87 01/14/19 04:00 98.2 74 20 117/73 (88) 100 01/14/19 02:41 Room Air 01/14/19 02:40 Room Air 01/14/19 00:00 93 01/14/19 00:00 98.5 93 20 113/62 (79) 100 01/13/19 23:20 82 18 100 Nasal Cannula 2.0 28 01/13/19 23:00 74 16 97 Room Air 21 01/13/19 21:45 114/69 01/13/19 21:00 Nasal Cannula 2.0 01/13/19 20:00 99 01/13/19 20:00 98.5 90 20 114/69 (84) 99 01/13/19 19:26 84 20 100 Nasal Cannula 2.0 28 01/13/19 19:18 77 16 96 Room Air 21 01/13/19 19:18 77 16 96 Room Air 21 Intake and Output 01/13/19 01/14/19 19:00 07:00 Intake Total 740 ml Balance 740 ml Intake Oral 740 ml # Voids 5 # Bowel Movements 1 1 Laboratory Tests 01/14/19 05:50: White Blood Count 10.5, Red Blood Count 4.49L, Hemoglobin 12.3L, Hematocrit 39.0L, Mean Corpuscular Volume 87, Mean Corpuscular Hemoglobin 27.5, Mean Corpuscular Hemoglobin Concent 31.7L, Red Cell Distribution Width 14.5, Platelet Count 217, Mean Platelet Volume 7.8, Neutrophils (%) (Auto) 73.3, Lymphocytes (%) (Auto) 19.8L, Monocytes (%) (Auto) 6.0, Eosinophils (%) (Auto) 0.5, Basophils (%) (Auto) 0.4, Sodium Level 144, Potassium Level 4.2, Chloride Level 109H, Carbon Dioxide Level 26, Anion Gap 9, Blood Urea Nitrogen 23H, Creatinine 1.8H, Estimat Glomerular Filtration Rate 47.8, Glucose Level 92, Uric Acid 8.1H, Calcium Level 8.7, Phosphorus Level 4.7, Magnesium Level 1.9, Total Bilirubin 0.3, Aspartate Amino Transf (AST/SGOT) 21, Alanine Aminotransferase (ALT/SGPT) 76, Alkaline Phosphatase 28L, Total Protein 5.8L, Albumin 2.6L, Globulin 3.2, Albumin/Globulin Ratio 0.8L, Digoxin Level < 0.2L Height (Feet): 5 Height (Inches): 9.00 Weight (Pounds): 216 General Appearance: no apparent distress Cardiovascular: tachycardia - 95 rate Abdomen: soft Objective no change Dannie Puente MD Jan 14, 2019 16:30
--- NOTE | 2019-01-14 16:42 | Cardiac Electrophysiology PN ---
Assessment/Plan Assessment/Plan 1. Exacerbation of congestive heart failure. Due to polysubstance abuse and nonischemic CMP. EF 15%. On Dig, Hydralazine and isordil. Off Lasix for ARF In view of active cocaine use, avoid betablockers 2. Troponin leak. It could be due to renal failure. His creatinine is mildly elevated. Repeat cardiac enzymes. His stress test on the previous admission showed no evidence of ischemia. 3. Asthma and COPD. 4. Crack cocaine and PCP use. 5. Hypertension, on Hydralazine and isordil 6. ARF, off Lasix per Dr Puente. Cr now 1.8 DW RN Subjective Subjective In SR. No events. Objective Last 24 Hour Vital Signs Date Time Temp Pulse Resp B/P (MAP) Pulse Ox O2 Delivery O2 Flow Rate FiO2 01/14/19 15:59 81 16 95 Room Air 21 01/14/19 14:22 122/71 01/14/19 12:00 97.9 96 20 122/71 (88) 97 01/14/19 12:00 85 01/14/19 11:36 92 16 98 Room Air 01/14/19 11:24 97 18 95 Room Air 21 01/14/19 09:00 Nasal Cannula 2.0 01/14/19 08:29 129/82 01/14/19 08:28 68 01/14/19 08:00 91 01/14/19 08:00 97.1 91 20 129/82 (98) 98 01/14/19 07:20 84 18 99 Room Air 01/14/19 07:10 83 18 97 Room Air 01/14/19 05:14 116/75 01/14/19 04:00 87 01/14/19 04:00 98.2 74 20 117/73 (88) 100 01/14/19 02:41 Room Air 01/14/19 02:40 Room Air 01/14/19 00:00 93 01/14/19 00:00 98.5 93 20 113/62 (79) 100 01/13/19 23:20 82 18 100 Nasal Cannula 2.0 28 01/13/19 23:00 74 16 97 Room Air 21 01/13/19 21:45 114/69 01/13/19 21:00 Nasal Cannula 2.0 01/13/19 20:00 99 01/13/19 20:00 98.5 90 20 114/69 (84) 99 01/13/19 19:26 84 20 100 Nasal Cannula 2.0 28 01/13/19 19:18 77 16 96 Room Air 21 01/13/19 19:18 77 16 96 Room Air 21 Intake and Output 01/13/19 01/14/19 19:00 07:00 Intake Total 740 ml Balance 740 ml Intake Oral 740 ml # Voids 5 # Bowel Movements 1 1 Laboratory Tests Test 01/14/19 05:50 White Blood Count 10.5 K/UL (4.8-10.8) Red Blood Count 4.49 M/UL (4.70-6.10) L Hemoglobin 12.3 G/DL (14.2-18.0) L Hematocrit 39.0 % (42.0-52.0) L Mean Corpuscular Volume 87 FL (80-99) Mean Corpuscular Hemoglobin 27.5 PG (27.0-31.0) Mean Corpuscular Hemoglobin Concent 31.7 G/DL (32.0-36.0) L Red Cell Distribution Width 14.5 % (11.6-14.8) Platelet Count 217 K/UL (150-450) Mean Platelet Volume 7.8 FL (6.5-10.1) Neutrophils (%) (Auto) 73.3 % (45.0-75.0) Lymphocytes (%) (Auto) 19.8 % (20.0-45.0) L Monocytes (%) (Auto) 6.0 % (1.0-10.0) Eosinophils (%) (Auto) 0.5 % (0.0-3.0) Basophils (%) (Auto) 0.4 % (0.0-2.0) Sodium Level 144 MMOL/L (136-145) Potassium Level 4.2 MMOL/L (3.5-5.1) Chloride Level 109 MMOL/L (98-107) H Carbon Dioxide Level 26 MMOL/L (21-32) Anion Gap 9 mmol/L (5-15) Blood Urea Nitrogen 23 mg/dL (7-18) H Creatinine 1.8 MG/DL (0.55-1.30) H Estimat Glomerular Filtration Rate 47.8 mL/min (>60) Glucose Level 92 MG/DL (74-106) Uric Acid 8.1 MG/DL (2.6-7.2) H Calcium Level 8.7 MG/DL (8.5-10.1) Phosphorus Level 4.7 MG/DL (2.5-4.9) Magnesium Level 1.9 MG/DL (1.8-2.4) Total Bilirubin 0.3 MG/DL (0.2-1.0) Aspartate Amino Transf (AST/SGOT) 21 U/L (15-37) Alanine Aminotransferase (ALT/SGPT) 76 U/L (12-78) Alkaline Phosphatase 28 U/L (46-116) L Total Protein 5.8 G/DL (6.4-8.2) L Albumin 2.6 G/DL (3.4-5.0) L Globulin 3.2 g/dL Albumin/Globulin Ratio 0.8 (1.0-2.7) L Digoxin Level < 0.2 NG/ML (0.5-2.0) L Objective NECK: No JVD. LUNGS: Coarse rhonchi. CARDIOVASCULAR: Regular S1 and S2 with no gallop or murmur. ABDOMEN: Soft. EXTREMITIES: No pitting edema. Nhan Sim MD Jan 14, 2019 16:42
--- NOTE | 2019-01-14 17:04 | General Progress Note ---
Assessment/Plan Status: stable Assessment/Plan: Assessment/Plan Status: stable Assessment/Plan: 53 year old man with CAD, chronic systolic CHF, asthma (likely COPD given smoking history which he stopped 3 years ago) who presents with progressive dyspnea and brown productive cough #Dyspnea, multifactorial #Acute on chronci systolic CHF #Acute exacerbation of asthma/COPD #Crack cocaine use #NSTEMI type 2 from demand ischemia #TOÑA on CKD -Continue telemetry care -Continue Prednisone 40mg PO daily and per pulmonary and taper per pulmonary -Continue Duoneb prn -Continue Azithromycin -hold Lasix, Aldactone and lisinopril due to TOÑA - good clinical response today with Cr: 1.8 downtrending from 2.2 -Coreg held due to cocaine use -monitor I&O -Low sodium diet -Monitor daily BMP -Counselled about avoidance of drugs and seems to be agreeing with stopping usage. -Pulm and Cards following -Nephrology consulted - Defer IVF to nephrology. EF 15-20 % and creatinine started to trend down today. - Monitor HR on digoxin. - Robitussin AC for cough ordered - dc home tomorrow VTE PPx Heparin SC Full Code Subjective ROS Limited/Unobtainable: No Allergies: Coded Allergies: NO KNOWN ALLERGIES (Verified Allergy, Unknown, 08/08/18) Objective Last 24 Hour Vital Signs Date Time Temp Pulse Resp B/P (MAP) Pulse Ox O2 Delivery O2 Flow Rate FiO2 01/14/19 15:59 81 16 95 Room Air 21 01/14/19 14:22 122/71 01/14/19 12:00 97.9 96 20 122/71 (88) 97 01/14/19 12:00 85 01/14/19 11:36 92 16 98 Room Air 01/14/19 11:24 97 18 95 Room Air 21 01/14/19 09:00 Nasal Cannula 2.0 01/14/19 08:29 129/82 01/14/19 08:28 68 01/14/19 08:00 91 01/14/19 08:00 97.1 91 20 129/82 (98) 98 01/14/19 07:20 84 18 99 Room Air 01/14/19 07:10 83 18 97 Room Air 21 01/14/19 05:14 116/75 01/14/19 04:00 87 01/14/19 04:00 98.2 74 20 117/73 (88) 100 01/14/19 02:41 Room Air 01/14/19 02:40 Room Air 01/14/19 00:00 93 01/14/19 00:00 98.5 93 20 113/62 (79) 100 01/13/19 23:20 82 18 100 Nasal Cannula 2.0 28 01/13/19 23:00 74 16 97 Room Air 21 01/13/19 21:45 114/69 01/13/19 21:00 Nasal Cannula 2.0 01/13/19 20:00 99 01/13/19 20:00 98.5 90 20 114/69 (84) 99 01/13/19 19:26 84 20 100 Nasal Cannula 2.0 28 01/13/19 19:18 77 16 96 Room Air 21 01/13/19 19:18 77 16 96 Room Air 21 Intake and Output 01/13/19 01/14/19 19:00 07:00 Intake Total 740 ml Balance 740 ml Intake Oral 740 ml # Voids 5 # Bowel Movements 1 1 Laboratory Tests 01/14/19 05:50: White Blood Count 10.5, Red Blood Count 4.49L, Hemoglobin 12.3L, Hematocrit 39.0L, Mean Corpuscular Volume 87, Mean Corpuscular Hemoglobin 27.5, Mean Corpuscular Hemoglobin Concent 31.7L, Red Cell Distribution Width 14.5, Platelet Count 217, Mean Platelet Volume 7.8, Neutrophils (%) (Auto) 73.3, Lymphocytes (%) (Auto) 19.8L, Monocytes (%) (Auto) 6.0, Eosinophils (%) (Auto) 0.5, Basophils (%) (Auto) 0.4, Sodium Level 144, Potassium Level 4.2, Chloride Level 109H, Carbon Dioxide Level 26, Anion Gap 9, Blood Urea Nitrogen 23H, Creatinine 1.8H, Estimat Glomerular Filtration Rate 47.8, Glucose Level 92, Uric Acid 8.1H, Calcium Level 8.7, Phosphorus Level 4.7, Magnesium Level 1.9, Total Bilirubin 0.3, Aspartate Amino Transf (AST/SGOT) 21, Alanine Aminotransferase (ALT/SGPT) 76, Alkaline Phosphatase 28L, Total Protein 5.8L, Albumin 2.6L, Globulin 3.2, Albumin/Globulin Ratio 0.8L, Digoxin Level < 0.2L Height (Feet): 5 Height (Inches): 9.00 Weight (Pounds): 216 General Appearance: WD/WN, no apparent distress EENT: PERRL/EOMI, normal ENT inspection Neck: non-tender Cardiovascular: normal peripheral pulses Respiratory/Chest: chest wall non-tender, lungs clear Abdomen: normal bowel sounds 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
[2019-01-14 20:00] VITALS: BP 127/96
--- NOTE | 2019-01-14 20:31 | Hematology/Onc Progress Note ---
Assessment/Plan Assessment/Plan Assessment/Plan: # Lung mass on cxr with hilar prominence -- CT was ordered shows dilated right main pulmonary artery, may indicate pulmonary arterial hypertension No right hilar or other pulmonary mass or adenopathy demonstrated. Right hilar fullness demonstrated on recent chest radiograph presumably due to the above. --> because of CT scan shows no lung mass --> would hold off on tumor markers given no lung mass at this time --> likely initial cxr has a pna --> abx and steriods for asthma as per pulm # Leukocytosis with elevated wbc is likely due to steriod use --> smear peripheral has been reviewed --> no evidence of malginancy noted --> wbc 14.4k # Dyspnea, multifactorial --> steriods and breathing treatments prn # Acute on chronci systolic CHF --> as per cards # Acute exacerbation of asthma/COPD --> per pulm rec's # Crack cocaine use --> urine tox screen reviewed The timing of this note does not necessarily reflect the time of the patient was seen. GREATLY APPRECIATE CONSULTATION. Subjective Constitutional: Denies: no symptoms, chills, fever, malaise, weakness, other HEENT: Denies: no symptoms, eye pain, blurred vision, tearing, double vision, ear pain, ear discharge, nose pain, nose congestion, throat pain, throat swelling, mouth pain, mouth swelling, other Cardiovascular: Denies: no symptoms, chest pain, edema, irregular heart rate, lightheadedness, palpitations, syncope, other Respiratory: Denies: no symptoms, cough, shortness of breath, SOB with excertion, SOB at rest, sputum, wheezing, other Gastrointestinal/Abdominal: Denies: no symptoms, abdomen distended, abdominal pain, black stools, tarry stools, blood in stool, constipated, diarrhea, difficulty swallowing, nausea, poor appetite, poor fluid intake, rectal bleeding , vomiting, other Genitourinary: Denies: no symptoms, burning, discharge, frequency, flank pain, hematuria, incontinence, pain, urgency, other Neurologic/Psychiatric: Denies: no symptoms, anxiety, depressed, emotional problems, headache, numbness, paresthesia, pre-existing deficit, seizure, tingling, tremors, weakness, other Endocrine: Denies: no symptoms, excessive sweating, flushing, intolerance to cold, intolerance to heat, increased hunger, increased thirst, increased urine, unexplained weight gain, unexplained weight loss, other Allergies: Coded Allergies: NO KNOWN ALLERGIES (Verified Allergy, Unknown, 08/08/18) Subjective Subjective 01/11: pt resting in bed, no acute distress. 01/12: pt was seen in am, no acute events reported overnight, no acute distress, afebrile. 01/13: pt was seen in am, pt seated on edge of bed eating his breakfast no acute distress 01/14: no events noted, no bleeding, avoiding BBs Objective Objective Current Medications Medications (Trade) Dose Ordered Sig/Lizette Route PRN Reason Start Time Stop Time Status Last Admin Dose Admin Acetaminophen (Tylenol) 650 mg Q4H PRN ORAL Mild Pain (Pain Scale 1-3) 01/09/19 08:00 02/08/19 07:59 01/12/19 21:20 Allopurinol (Allopurinol) 300 mg DAILY ORAL 01/11/19 10:00 02/10/19 09:59 01/14/19 08:29 Aspirin (Ecotrin) 81 mg DAILY ORAL 01/10/19 09:00 02/08/19 08:59 01/14/19 08:27 Atorvastatin Calcium (Lipitor) 10 mg BEDTIME ORAL 01/09/19 21:00 02/08/19 20:59 01/13/19 21:44 Azithromycin (Zithromax) 500 mg DAILY ORAL 01/09/19 10:00 01/16/19 09:59 01/14/19 08:27 Dextrose (Dextrose 50%) 25 ml Q30M PRN IV Hypoglycemia 01/09/19 08:00 02/08/19 07:59 Dextrose (Dextrose 50%) 50 ml Q30M PRN IV Hypoglycemia 01/09/19 08:00 02/08/19 07:59 Docusate Sodium (Colace) 100 mg TID ORAL 01/10/19 18:00 02/08/19 08:59 01/14/19 18:31 Folic Acid (Folate) 3 mg DAILY ORAL 01/11/19 12:00 02/10/19 11:59 01/14/19 08:30 Guaifenesin/ Codeine Phosphate (Robitussin with codeine) 5 ml Q6H PRN ORAL For Cough 01/13/19 14:46 02/12/19 14:45 01/14/19 08:34 Heparin Sodium (Porcine) (Heparin 5000 units/ml) 5,000 units EVERY 12 HOURS SUBQ 01/09/19 09:00 02/08/19 08:59 01/14/19 08:31 Hydralazine HCl (Apresoline) 25 mg EVERY 8 HOURS ORAL 01/12/19 14:00 02/09/19 13:59 01/14/19 14:22 Hydralazine HCl (Apresoline) 25 mg Q4H PRN ORAL bp over 160 syst 01/10/19 16:45 02/09/19 16:44 Isosorbide Mononitrate (Imdur) 30 mg DAILY ORAL 01/11/19 09:00 02/10/19 08:59 01/14/19 08:29 Ondansetron HCl (Zofran) 4 mg Q6H PRN IVP Nausea & Vomiting 01/09/19 08:00 02/08/19 07:59 Pantoprazole (Protonix) 40 mg EVERY 12 HOURS ORAL 01/10/19 21:00 02/09/19 20:59 01/14/19 08:28 Prednisone (predniSONE) 5 mg DAILY ORAL 01/14/19 09:00 02/13/19 08:59 01/14/19 08:29 Prednisone (predniSONE) 20 mg DAILY ORAL 01/14/19 09:00 02/08/19 08:59 01/14/19 08:27 Last 24 Hour Vital Signs Date Time Temp Pulse Resp B/P (MAP) Pulse Ox O2 Delivery O2 Flow Rate FiO2 01/14/19 18:32 97 01/14/19 16:09 84 18 98 Room Air 01/14/19 16:00 90 01/14/19 16:00 98.7 97 20 124/70 (88) 99 01/14/19 15:59 81 16 95 Room Air 21 01/14/19 14:22 122/71 01/14/19 12:00 97.9 96 20 122/71 (88) 97 01/14/19 12:00 85 01/14/19 11:36 92 16 98 Room Air 01/14/19 11:24 97 18 95 Room Air 21 01/14/19 09:00 Nasal Cannula 2.0 01/14/19 08:29 129/82 01/14/19 08:28 68 01/14/19 08:00 91 01/14/19 08:00 97.1 91 20 129/82 (98) 98 01/14/19 07:20 84 18 99 Room Air 01/14/19 07:10 83 18 97 Room Air 21 01/14/19 05:14 116/75 01/14/19 04:00 87 01/14/19 04:00 98.2 74 20 117/73 (88) 100 01/14/19 02:41 Room Air 01/14/19 02:40 Room Air 01/14/19 00:00 93 01/14/19 00:00 98.5 93 20 113/62 (79) 100 01/13/19 23:20 82 18 100 Nasal Cannula 2.0 28 01/13/19 23:00 74 16 97 Room Air 21 01/13/19 21:45 114/69 01/13/19 21:00 Nasal Cannula 2.0 01/13/19 20:00 99 01/13/19 20:00 98.5 90 20 114/69 (84) 99 01/13/19 19:26 84 20 100 Nasal Cannula 2.0 28 01/13/19 19:18 77 16 96 Room Air 21 01/13/19 19:18 77 16 96 Room Air 21 01/13/19 16:00 91 01/13/19 16:00 98.2 98 20 119/74 (89) 97 01/13/19 15:16 104 22 100 Nasal Cannula 2.0 28 01/13/19 15:00 89 22 97 Room Air 21 01/13/19 14:00 112/77 01/13/19 13:01 96 01/13/19 12:51 97.7 108 20 123/84 (97) 96 01/13/19 12:00 99 01/13/19 11:02 98 20 100 Nasal Cannula 2.0 28 01/13/19 10:55 104 20 98 Room Air 21 01/13/19 09:46 90 01/13/19 09:44 128/81 01/13/19 09:00 Nasal Cannula 2.0 01/13/19 08:00 98.5 106 20 128/81 (97) 96 01/13/19 08:00 103 01/13/19 07:32 92 22 100 Nasal Cannula 2.0 28 01/13/19 07:20 96 18 96 Room Air 21 01/13/19 07:20 99 22 97 Room Air 21 01/13/19 05:34 107/72 01/13/19 04:00 98.2 96 18 108/73 (85) 97 01/13/19 04:00 98 01/13/19 03:39 94 20 100 Nasal Cannula 2.0 28 01/13/19 03:29 94 17 97 Room Air 21 01/13/19 00:00 99 01/13/19 00:00 97.5 101 18 114/79 (91) 97 01/12/19 23:59 97 20 99 Nasal Cannula 2.0 28 01/12/19 23:49 108 20 94 Room Air 21 01/12/19 21:21 121/74 01/12/19 21:00 Room Air Intake and Output 01/13/19 01/14/19 19:00 07:00 Intake Total 740 ml Balance 740 ml Intake Oral 740 ml # Voids 5 # Bowel Movements 1 1 Labs Test 01/12/19 00:00 01/12/19 07:44 01/13/19 07:04 01/14/19 05:50 Urine Eosinophils None seen (NONE SEEN) Sodium Level 145 MMOL/L (136-145) 144 MMOL/L (136-145) 144 MMOL/L (136-145) Potassium Level 4.2 MMOL/L (3.5-5.1) 3.9 MMOL/L (3.5-5.1) 4.2 MMOL/L (3.5-5.1) Chloride Level 110 MMOL/L (98-107) 109 MMOL/L (98-107) 109 MMOL/L (98-107) Carbon Dioxide Level 26 MMOL/L (21-32) 28 MMOL/L (21-32) 26 MMOL/L (21-32) Anion Gap 9 mmol/L (5-15) 7 mmol/L (5-15) 9 mmol/L (5-15) Blood Urea Nitrogen 28 mg/dL (7-18) 22 mg/dL (7-18) 23 mg/dL (7-18) Creatinine 1.9 MG/DL (0.55-1.30) 1.8 MG/DL (0.55-1.30) 1.8 MG/DL (0.55-1.30) Estimat Glomerular Filtration Rate 44.8 mL/min (>60) 47.8 mL/min (>60) 47.8 mL/min (>60) Glucose Level 107 MG/DL (74-106) 83 MG/DL (74-106) 92 MG/DL (74-106) Uric Acid 10.1 MG/DL (2.6-7.2) 8.1 MG/DL (2.6-7.2) Calcium Level 8.8 MG/DL (8.5-10.1) 9.0 MG/DL (8.5-10.1) 8.7 MG/DL (8.5-10.1) Phosphorus Level 4.9 MG/DL (2.5-4.9) 4.7 MG/DL (2.5-4.9) Magnesium Level 1.9 MG/DL (1.8-2.4) 1.9 MG/DL (1.8-2.4) Total Bilirubin 0.3 MG/DL (0.2-1.0) 0.3 MG/DL (0.2-1.0) Aspartate Amino Transf (AST/SGOT) 41 U/L (15-37) 21 U/L (15-37) Alanine Aminotransferase (ALT/SGPT) 109 U/L (12-78) 76 U/L (12-78) Alkaline Phosphatase 31 U/L (46-116) 28 U/L (46-116) Pro-B-Type Natriuretic Peptide 2737 pg/mL (0-125) Total Protein 6.5 G/DL (6.4-8.2) 5.8 G/DL (6.4-8.2) Albumin 2.9 G/DL (3.4-5.0) 2.6 G/DL (3.4-5.0) Globulin 3.6 g/dL 3.2 g/dL Albumin/Globulin Ratio 0.8 (1.0-2.7) 0.8 (1.0-2.7) Digoxin Level < 0.2 NG/ML (0.5-2.0) < 0.2 NG/ML (0.5-2.0) White Blood Count 11.5 K/UL (4.8-10.8) 10.5 K/UL (4.8-10.8) Red Blood Count 4.55 M/UL (4.70-6.10) 4.49 M/UL (4.70-6.10) Hemoglobin 12.6 G/DL (14.2-18.0) 12.3 G/DL (14.2-18.0) Hematocrit 39.8 % (42.0-52.0) 39.0 % (42.0-52.0) Mean Corpuscular Volume 87 FL (80-99) 87 FL (80-99) Mean Corpuscular Hemoglobin 27.7 PG (27.0-31.0) 27.5 PG (27.0-31.0) Mean Corpuscular Hemoglobin Concent 31.7 G/DL (32.0-36.0) 31.7 G/DL (32.0-36.0) Red Cell Distribution Width 14.2 % (11.6-14.8) 14.5 % (11.6-14.8) Platelet Count 235 K/UL (150-450) 217 K/UL (150-450) Mean Platelet Volume 7.7 FL (6.5-10.1) 7.8 FL (6.5-10.1) Neutrophils (%) (Auto) 70.6 % (45.0-75.0) 73.3 % (45.0-75.0) Lymphocytes (%) (Auto) 22.8 % (20.0-45.0) 19.8 % (20.0-45.0) Monocytes (%) (Auto) 5.6 % (1.0-10.0) 6.0 % (1.0-10.0) Eosinophils (%) (Auto) 0.5 % (0.0-3.0) 0.5 % (0.0-3.0) Basophils (%) (Auto) 0.6 % (0.0-2.0) 0.4 % (0.0-2.0) Height (Feet): 5 Height (Inches): 9.00 Weight (Pounds): 216 Objective PE General Appearance: no apparent distress, alert HEENT: atraumatic, anicteric, mucous membranes moist Neck: normal alignment, supple, normal inspection Respiratory/Chest: lungs clear, no respiratory distress, no accessory muscle use, decreased breath sounds Cardiovascular/Chest: normal peripheral pulses, normal rate, regular rhythm Abdomen: non tender, soft, no organomegaly Extremities: non-tender, normal inspection, no edema 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
[2019-01-15 04:00] VITALS: BP 141/97
[2019-01-15] MEDS: HydrALAZINE 25mg tab ORAL SCH ×3 (05:42→14:42)
[2019-01-15] MEDS: guaiFENesin w/Codeine 5ml Liq ud ORAL PRN ×2 (06:03→14:46)
[2019-01-15 08:00] VITALS: BP 130/87
[2019-01-15 08:13] LABS: ALANINE AMINOTRANSFERASE 88 U/L (12-78); ALBUMIN 2.7 G/DL (3.4-5.0); ALBUMIN/GLOBULIN RATIO 0.8 (1.0-2.7); ALKALINE PHOSPHATASE 29 U/L (46-116); ANION GAP 8 mmol/L (5-15); ASPARTATE AMINO TRANSFERASE 40 U/L (15-37); BILIRUBIN,TOTAL 0.5 MG/DL (0.2-1.0); BLOOD UREA NITROGEN 26 mg/dL (7-18); CALCIUM 8.6 MG/DL (8.5-10.1); CARBON DIOXIDE 27 MMOL/L (21-32); CHLORIDE 110 MMOL/L (98-107); CREATININE 1.8 MG/DL (0.55-1.30); PHOSPHORUS 4.2 MG/DL (2.5-4.9); POTASSIUM 4.2 MMOL/L (3.5-5.1); SODIUM 145 MMOL/L (136-145)
[2019-01-15] MEDS: Azithromycin 250mg tab ORAL SCH (09:29)
[2019-01-15] MEDS: Imdur 30mg tab ORAL SCH (09:30)
[2019-01-15] MEDS: Aspirin EC 81mg tab ORAL SCH (09:30)
[2019-01-15] MEDS: Docusate 100mg cap ORAL SCH ×2 (09:32→14:42)
[2019-01-15] MEDS: Heparin 5000 units/ml inj SUBQ SCH (09:34)
[2019-01-15] MEDS: Albuterol/Ipratropium 3ml neb HHN PRN ×2 (11:49→15:59)
[2019-01-15 12:00] VITALS: BP 119/83
--- NOTE | 2019-01-15 12:39 | Nephrology Progress Note ---
Assessment/Plan Problem List: (1) TOÑA (acute kidney injury) (2) Acute on chronic renal failure (3) Cardiomyopathy (4) CHF (congestive heart failure) Assessment renal failure ? Acute on Chronic Nephrotoxics??? : Mild Anemia Urine + for cocaine and PCP HTN COPD former smoker evidence of CHF, Ej Fx 15% - 20 % Plan ? DC Stop Lisinopril Digoxin PO Adjust Hydralazine Taper steroids Urine studies and Ua CLEO kidney if not done past 3 month 2D echo NOTED BP control as needed Pulm support Urine studies per orders Subjective ROS Limited/Unobtainable: No Objective Objective Last 24 Hour Vital Signs Date Time Temp Pulse Resp B/P (MAP) Pulse Ox O2 Delivery O2 Flow Rate FiO2 01/15/19 09:32 105 01/15/19 09:30 130/87 01/15/19 09:00 Nasal Cannula 2.0 01/15/19 08:00 97.2 102 20 130/87 (101) 95 01/15/19 08:00 102 01/15/19 06:03 141/97 01/15/19 04:00 98.4 99 20 141/97 (112) 95 01/15/19 04:00 87 01/15/19 00:00 96 01/14/19 21:04 127/96 01/14/19 21:00 Nasal Cannula 2.0 01/14/19 20:00 87 01/14/19 20:00 98.9 92 19 127/96 (106) 99 01/14/19 18:32 97 01/14/19 16:09 84 18 98 Room Air 01/14/19 16:00 90 01/14/19 16:00 98.7 97 20 124/70 (88) 99 01/14/19 15:59 81 16 95 Room Air 21 01/14/19 14:22 122/71 Intake and Output 01/14/19 01/15/19 18:59 06:59 Intake Total 810 ml Balance 810 ml Intake Oral 810 ml # Voids 4 1 # Bowel Movements 1 Current Medications Medications (Trade) Dose Ordered Sig/Lizette Route PRN Reason Start Time Stop Time Status Last Admin Dose Admin Acetaminophen (Tylenol) 650 mg Q4H PRN ORAL Mild Pain (Pain Scale 1-3) 01/09/19 08:00 02/08/19 07:59 01/12/19 21:20 Albuterol/ Ipratropium (Albuterol/ Ipratropium) 3 ml Q4H PRN HHN Shortness of Breath 01/15/19 09:00 01/20/19 08:59 01/15/19 11:49 Allopurinol (Allopurinol) 300 mg DAILY ORAL 01/11/19 10:00 02/10/19 09:59 01/15/19 09:32 Aspirin (Ecotrin) 81 mg DAILY ORAL 01/10/19 09:00 02/08/19 08:59 01/15/19 09:30 Atorvastatin Calcium (Lipitor) 10 mg BEDTIME ORAL 01/09/19 21:00 02/08/19 20:59 01/14/19 21:04 Azithromycin (Zithromax) 500 mg DAILY ORAL 01/09/19 10:00 01/16/19 09:59 01/15/19 09:29 Dextrose (Dextrose 50%) 25 ml Q30M PRN IV Hypoglycemia 01/09/19 08:00 02/08/19 07:59 Dextrose (Dextrose 50%) 50 ml Q30M PRN IV Hypoglycemia 01/09/19 08:00 02/08/19 07:59 Digoxin (Lanoxin) 0.25 mg DAILY ORAL 01/15/19 09:00 02/14/19 08:59 01/15/19 09:32 Docusate Sodium (Colace) 100 mg TID ORAL 01/10/19 18:00 02/08/19 08:59 01/15/19 09:32 Folic Acid (Folate) 3 mg DAILY ORAL 01/11/19 12:00 02/10/19 11:59 01/15/19 09:29 Guaifenesin/ Codeine Phosphate (Robitussin with codeine) 5 ml Q6H PRN ORAL For Cough 01/13/19 14:46 02/12/19 14:45 01/15/19 06:03 Heparin Sodium (Porcine) (Heparin 5000 units/ml) 5,000 units EVERY 12 HOURS SUBQ 01/09/19 09:00 02/08/19 08:59 01/15/19 09:34 Hydralazine HCl (Apresoline) 25 mg EVERY 8 HOURS ORAL 01/12/19 14:00 02/09/19 13:59 01/15/19 06:03 Hydralazine HCl (Apresoline) 25 mg Q4H PRN ORAL bp over 160 syst 01/10/19 16:45 02/09/19 16:44 Isosorbide Mononitrate (Imdur) 30 mg DAILY ORAL 01/11/19 09:00 02/10/19 08:59 01/15/19 09:30 Ondansetron HCl (Zofran) 4 mg Q6H PRN IVP Nausea & Vomiting 01/09/19 08:00 02/08/19 07:59 Pantoprazole (Protonix) 40 mg EVERY 12 HOURS ORAL 01/10/19 21:00 02/09/19 20:59 01/15/19 09:30 Prednisone (predniSONE) 5 mg DAILY ORAL 01/14/19 09:00 02/13/19 08:59 01/15/19 09:31 Prednisone (predniSONE) 20 mg DAILY ORAL 01/14/19 09:00 02/08/19 08:59 01/15/19 09:32 Laboratory Tests 01/15/19 06:41: Sodium Level 145, Potassium Level 4.2, Chloride Level 110H, Carbon Dioxide Level 27, Anion Gap 8, Blood Urea Nitrogen 26H, Creatinine 1.8H, Estimat Glomerular Filtration Rate 47.8, Glucose Level 82, Calcium Level 8.6, Phosphorus Level 4.2, Magnesium Level 1.8, Total Bilirubin 0.5, Aspartate Amino Transf (AST/SGOT) 40H, Alanine Aminotransferase (ALT/SGPT) 88H, Alkaline Phosphatase 29L, Total Protein 6.0L, Albumin 2.7L, Globulin 3.3, Albumin/ Globulin Ratio 0.8L, Folate 16.7, Digoxin Level 0.3L Height (Feet): 5 Height (Inches): 9.00 Weight (Pounds): 220 General Appearance: no apparent distress Cardiovascular: normal rate Respiratory/Chest: decreased breath sounds Abdomen: soft Objective no change Dannie Puente MD Jan 15, 2019 12:39
[2019-01-15] MEDS ORDERED: DIGOXIN250 MCG ORAL (15:36)
[2019-01-15] MEDS ORDERED: HYDRALAZINE HCL25 M1 ORAL (15:36)
[2019-01-15] MEDS ORDERED: ISOSORBIDE MONO30 M1 ORAL (15:36)
--- NOTE | 2019-01-15 15:37 | Discharge Instructions ---
Discharge Instructions Discharge Instructions Call MD/Return to Hospital if: acute shortness of breath or chest pain Diet: 2 GM sodium (low sodium) Resume Normal Activity?: Yes Special Instructions do not use cocaine or amphetamines For Congestive Heart Failure Reminder Report to your physician any weight gain of 5 pounds or more in one week. Yonas Galindo MD Jan 15, 2019 15:37
--- NOTE | 2019-01-15 15:44 | Discharge Summary ---
Discharge Summary Hospital Course Date of Admission Jan 09, 2019 at 05:34 Date of Discharge Jan 15, 2019 Admitting Diagnosis chf exacerbation HPI Hernesto Khoury is a 53 year old male who was admitted on Jan 09, 2019 at 05: 34 for Congestive Heart Failure Exacerbation. He was noted to have COPD exacerbation as well and treated with Azithromycin, steroids with good response. He gradually improved and his creatinine elevated to 2.2 range. Nephrology consultation and stoppage of diuretics was done. His Creatinine improved to 1.8 OFF diuretics and Lisinopril, Lasix were discontinued. He is tolerating low dose DIgoxin, hydralazine and Imdur currently. Medically, he is stable to discharge home and Rx for Prednisone taper provided. Education to stay OFF cocaine and Amphetamines provided. Discharge Medications New Medications: Digoxin* (Digoxin*) 250 Mcg Tablet 0.25 MG ORAL DAILY for 28 Days, #30 TAB take one tablet daily Hydralazine Hcl* (Hydralazine Hcl*) 25 Mg Tablet 25 MG ORAL EVERY 8 HOURS for 60 Days, #180 TAB take one tab oral q 8 hours Isosorbide Mononitrate (Isosorbide Mononitrate Er) 30 Mg Tab.er.24h 30 MG ORAL DAILY for 60 Days, #60 TAB one tab oral daily Continued Medications: Albuterol Sulfate* (Albuterol Sulfate Mdi*) 8.5 Gm Hfa.aer.ad 2 PUFF INH Q6H for 30 Days, #1 EA 0 Refills Amlodipine Besylate (Norvasc) 2.5 Mg Tablet 2.5 MG ORAL DAILY for 30 Days, #30 TAB 3 Refills Aspirin* (Aspir 81*) 81 Mg Tablet.dr 81 MG ORAL DAILY for 90 Days, #90 TAB 3 Refills Atorvastatin Calcium* (Lipitor*) 10 Mg Tablet 10 MG ORAL BEDTIME for 30 Days, #30 TAB 3 Refills Carvedilol (Coreg) 3.125 Mg Tablet 3.125 MG ORAL EVERY 12 HOURS for 30 Days, #60 TAB 3 Refills Multivitamin (Multi-Vitamin Daily) 1 Each Tablet 1 EACH PO DAILY (This prescription has been renewed) Discontinued Medications: Furosemide* (Lasix*) 40 Mg Tablet 40 MG ORAL DAILY for 30 Days, #30 TAB 0 Refills Discharge Condition Upon Discharge: improving Discharge Disposition Patient was discharged to HOME Discharge Instructions Discharge Instructions Call MD/Return to Hospital if: acute shortness of breath or chest pain Mateo,Niceto MD Jan 15, 2019 15:44
[2019-01-15 16:00] VITALS: BP 128/76
[2019-01-15] MEDS ORDERED: ALBUTEROL SULF8.5 GM INH (16:35)
--- NOTE | 2019-01-15 16:41 | Cardiac Electrophysiology PN ---
Assessment/Plan Assessment/Plan 1. Exacerbation of CHF Due to polysubstance abuse and nonischemic CMP. EF 15%. On Dig, Hydralazine and isordil. Off Lasix for ARF In view of active cocaine use, avoid betablockers 2. Troponin leak. It could be due to renal failure. His creatinine is mildly elevated. Repeat cardiac enzymes. His stress test on the previous admission showed no evidence of ischemia. 3. Asthma and COPD. 4. Crack cocaine and PCP use. 5. Hypertension, on Hydralazine and isordil 6. ARF, off Lasix DW RN Subjective Subjective In SR. No events.DC in progress Objective Last 24 Hour Vital Signs Date Time Temp Pulse Resp B/P (MAP) Pulse Ox O2 Delivery O2 Flow Rate FiO2 01/15/19 16:01 88 18 100 Room Air 21 01/15/19 15:55 36 01/15/19 15:55 76 16 97 Room Air 21 01/15/19 14:42 119/83 01/15/19 12:00 96 01/15/19 12:00 98.0 96 20 119/83 (95) 97 01/15/19 09:32 105 01/15/19 09:30 130/87 01/15/19 09:00 Nasal Cannula 2.0 01/15/19 08:00 97.2 102 20 130/87 (101) 95 01/15/19 08:00 102 01/15/19 06:03 141/97 01/15/19 04:00 98.4 99 20 141/97 (112) 95 01/15/19 04:00 87 01/15/19 00:00 96 01/14/19 21:04 127/96 01/14/19 21:00 Nasal Cannula 2.0 01/14/19 20:00 87 01/14/19 20:00 98.9 92 19 127/96 (106) 99 01/14/19 18:32 97 Intake and Output 01/14/19 01/15/19 19:00 07:00 Intake Total 810 ml Balance 810 ml Intake Oral 810 ml # Voids 4 1 # Bowel Movements 1 Laboratory Tests Test 01/15/19 06:41 Sodium Level 145 MMOL/L (136-145) Potassium Level 4.2 MMOL/L (3.5-5.1) Chloride Level 110 MMOL/L (98-107) H Carbon Dioxide Level 27 MMOL/L (21-32) Anion Gap 8 mmol/L (5-15) Blood Urea Nitrogen 26 mg/dL (7-18) H Creatinine 1.8 MG/DL (0.55-1.30) H Estimat Glomerular Filtration Rate 47.8 mL/min (>60) Glucose Level 82 MG/DL (74-106) Calcium Level 8.6 MG/DL (8.5-10.1) Phosphorus Level 4.2 MG/DL (2.5-4.9) Magnesium Level 1.8 MG/DL (1.8-2.4) Total Bilirubin 0.5 MG/DL (0.2-1.0) Aspartate Amino Transf (AST/SGOT) 40 U/L (15-37) H Alanine Aminotransferase (ALT/SGPT) 88 U/L (12-78) H Alkaline Phosphatase 29 U/L (46-116) L Total Protein 6.0 G/DL (6.4-8.2) L Albumin 2.7 G/DL (3.4-5.0) L Globulin 3.3 g/dL Albumin/Globulin Ratio 0.8 (1.0-2.7) L Folate 16.7 NG/ML (8.6-58.9) Digoxin Level 0.3 NG/ML (0.5-2.0) L Objective NECK: No JVD. LUNGS: Coarse rhonchi. CARDIOVASCULAR: Regular S1 and S2 with no gallop or murmur. ABDOMEN: Soft. EXTREMITIES: No pitting edema. Nhan Sim MD Jan 15, 2019 16:41
== END 2019-01-15 18:04 | disposition home or self-care (01) | DRG 280 ==
LOC: EDUNIT# 03:48 → EDBD 03:48 → EMR 04:25 → 2E 05:34 → EDBEDREQ 06:22
DX: I13.0 Hypertensive heart and chronic kidney disease with heart failure and stage 1 through stage 4 chronic kidney disease, or unspecified chronic kidney disease (principal); I21.A1 Myocardial infarction type 2; I50.23 Acute on chronic systolic (congestive) heart failure; J44.1 Chronic obstructive pulmonary disease with (acute) exacerbation; N17.9 Acute kidney failure, unspecified; F14.10 Cocaine abuse, uncomplicated; F16.10 Hallucinogen abuse, uncomplicated; Z79.82 Long term (current) use of aspirin; Z87.891 Personal history of nicotine dependence; N18.9 Chronic kidney disease, unspecified; I25.10 Atherosclerotic heart disease of native coronary artery without angina pectoris; I42.8 Other cardiomyopathies
CPT/HCPCS: 36415; 71045; 71260; 80048; 80053; 80061; 80162; 80307; 82550; 82553; 82607; 82746; 82977; 83036; 83690; 83735; 83880; 84100; 84300; 84443; 84484; 84550; 85007; 85025; 86140; 89050; 93005; 93306; 94640; 94664; 96374; 96375; 99285; J2405; J7620; J8499

== ENCOUNTER 2019-03-25 05:16 | Inpatient (IN) | payer MEDICARE, MEDICAID ==
[~2019-03-25] VITALS: Ht 175.3 cm; Wt 98.3 kg
[2019-03-25] VITALS (8 sets, daily range): BP systolic 126–145; BP diastolic 54–109
[~2019-03-25 05:16] MED LIST changes: +DIGOXIN250 MCG ORAL; +HYDRALAZINE HCL25 M1 ORAL; +ISOSORBIDE MONO30 M1 ORAL; +MULTI-VITAMIN1 EACH PO
--- NOTE | 2019-03-25 05:25 | Emergency Room Report ---
History of Present Illness General Chief Complaint: Dyspnea/Respdistress Source: Patient, Medical Record, EMS Present Illness HPI This is a 53-year-old male with a history of cardiomyopathy with ejection fraction of 25 to 30% on the last echocardiogram when he was admitted in December 2018. He also has a history of CHF and asthma. He claims to be compliant with his medication but does not know name of his cardiac medication. He presents with chief complaint of shortness of breath. Onset for 1 day. Getting worse tonight. Unable to lay flat. Worse with exertion. He called 911. Per EMS his heart rate was tachycardic and he was dyspneic. They put him on oxygen and brought him here. Patient denies any chest pain. No nausea no vomiting. Denies any recent drug use. He said last use was a week ago. He used cocaine. No relief with his inhaler. Allergies: Coded Allergies: NO KNOWN ALLERGIES (Verified Allergy, Unknown, 08/08/18) Patient History Past Medical History: see triage record, old chart reviewed, CHF, asthma Past Surgical History: other Pertinent Family History: none Social History: Reports: drug use Immunizations: other Reviewed Nursing Documentation: PMH: Agreed; PSxH: Agreed Nursing Documentation-PMH Hx Cardiac Problems: Yes Hx Hypertension: Yes Hx Asthma: Yes Hx Diabetes: Yes Hx Cancer: No Hx Gastrointestinal Problems: No Hx Neurological Problems: Yes - Chronic back pain Review of Systems Eye: Denies: eye pain, blurred vision ENT: Denies: ear pain, nose congestion, throat swelling Respiratory: Reports: shortness of breath; Denies: cough Cardiovascular: Denies: chest pain, palpitations Gastrointestinal: Denies: abdominal pain, diarrhea, nausea, vomiting Musculoskeletal: Denies: back pain, joint pain Skin: Denies: rash Neurological: Denies: headache, numbness Endocrine: Denies: increased thirst, increased urine Hematologic/Lymphatic: Denies: easy bruising All Other Systems: negative except mentioned in HPI Physical Exam Vital Signs Date Time Temp Pulse Resp B/P (MAP) Pulse Ox O2 Delivery O2 Flow Rate FiO2 03/25/19 05:17 98.2 102 22 139/104 (116) 97 Room Air Vitals unremarkable Sp02 EP Interpretation: reviewed, normal General Appearance: well appearing, alert, moderate distress Head: normocephalic, atraumatic Eyes: bilateral eye PERRL, bilateral eye EOMI ENT: hearing grossly normal, normal pharynx Neck: full range of motion, supple, no meningismus Respiratory: chest non-tender, decreased breath sounds, rales Cardiovascular #1: regular rate, rhythm, no murmur Gastrointestinal: normal bowel sounds, non tender, no mass, no organomegaly, no bruit, non-distended Musculoskeletal: back normal, gait/station normal, normal range of motion, other - 1+ edema Neurologic: alert, oriented x3 Psychiatric: mood/affect normal Medical Decision Making Diagnostic Impression: Primary Impression: Dyspnea Qualified Codes: R06.00 - Dyspnea, unspecified Additional Impressions: Cardiomyopathy Qualified Codes: I42.7 - Cardiomyopathy due to drug and external agent Substance abuse CHF (congestive heart failure) Qualified Codes: I50.9 - Heart failure, unspecified UTI (urinary tract infection) Qualified Codes: N30.00 - Acute cystitis without hematuria ER Course Patient presents with dyspnea and mild rales on exam. He was never hypoxic. He said he felt better now after oxygen and Lasix was given. Oxygenation on room air is now 98%. He diuresed well. He said he is been off of Lasix for over a month. He never follow-up with primary care doctor. Pressures normal. Patient is at increased risk for arrhythmia and sudden based on the low ejection fraction and drug abuse. I stressed this to him and he expressed understanding. Patient felt better now. Still mildly dyspneic. Will admit versus transfer based on his insurance. Lab Results Impression Labs show elevated BNP. EKG Diagnostic Results Rate: normal Rhythm: NSR ST Segments: no acute changes Rhythm Strip Diag. Results Rate: 100 Rhythm: NSR Chest X-Ray Diagnostic Results Chest X-Ray Diagnostic Results : Chest X-Ray Ordered: Yes # of Views/Limited/Complete: 1 View Indication: Shortness of Breath EP Interpretation: Yes Interpretation: no consolidation, no effusion, no pneumothorax, other - CM with mild vasc congestion Impression: Other - CM Electronically Signed by: Raman Paiz MD Last Vital Signs Date Time Temp Pulse Resp B/P (MAP) Pulse Ox O2 Delivery O2 Flow Rate FiO2 03/25/19 05:17 98.2 102 22 139/104 (116) 97 Room Air Status: improved Disposition: ADMITTED INPATIENT Condition: Serious Raman Paiz MD Mar 25, 2019 05:25
--- NOTE | 2019-03-25 05:34 | NUR ---
ED Nurse Note: Patient presents BIBA with complaints of SOB, history of asthma.
[2019-03-25 05:36] LABS: BASOPHILS % (AUTO) 0.8 % (0.0-2.0); HEMATOCRIT 44.9 % (42.0-52.0); HEMOGLOBIN 14.1 G/DL (14.2-18.0); LYMPHOCYTES % (AUTO) 22.7 % (20.0-45.0); MEAN CORPUSCULAR VOLUME 88 FL (80-99); MONOCYTES % (AUTO) 7.2 % (1.0-10.0); NEUTROPHILS % (AUTO) 67.3 % (45.0-75.0); PLATELET COUNT 236 K/UL (150-450); RED BLOOD COUNT 5.09 M/UL (4.70-6.10); RED CELL DISTRIBUTION WIDTH 15.1 % (11.6-14.8)
[2019-03-25 05:44] LABS: ANION GAP 14 mmol/L (5-15); BLOOD UREA NITROGEN 20 mg/dL (7-18); CALCIUM 9.1 MG/DL (8.5-10.1); CARBON DIOXIDE 21 MMOL/L (21-32); CHLORIDE 114 MMOL/L (98-107); CREATININE 2.1 MG/DL (0.55-1.30); POTASSIUM 3.9 MMOL/L (3.5-5.1); SODIUM 149 MMOL/L (136-145)
[2019-03-25 05:47] LABS: INR 1.1 (0.9-1.1)
[2019-03-25 05:54] LABS: APPEARANCE,URINE CLEAR; BILIRUBIN, URINE NEGATIVE (NEGATIVE); COLOR,URINE PALE YELLOW; GLUCOSE, URINE (UA) NEGATIVE (NEGATIVE); KETONES,URINE NEGATIVE (NEGATIVE); LEUKOCYTE ESTERASE ,URINE 2+ (NEGATIVE); NITRITE,URINE NEGATIVE (NEGATIVE); PH,URINE 6 (4.5-8.0); PROTEIN,URINE 1+ (NEGATIVE); UROBILINOGEN,URINE NORMAL MG/DL (0.0-1.0)
[2019-03-25 05:57] LABS: ALANINE AMINOTRANSFERASE 125 U/L (12-78); ALBUMIN 3.3 G/DL (3.4-5.0); ALBUMIN/GLOBULIN RATIO 0.9 (1.0-2.7); ALKALINE PHOSPHATASE 34 U/L (46-116); ASPARTATE AMINO TRANSFERASE 107 U/L (15-37); BILIRUBIN,TOTAL 0.4 MG/DL (0.2-1.0); CKMB 5.6 NG/ML (0.0-3.6); CREATINE KINASE 571 U/L (26-308)
[2019-03-25] MEDS ORDERED: cefTRIAXone 1 GM in NS 55 ML IVPB ONE (06:15)
--- NOTE | 2019-03-25 06:57 | NUR ---
ED Nurse Note: Patietn is resting comfortably , vital signs are stable and documented.
--- NOTE | 2019-03-25 07:10 | NUR ---
ED Nurse Note: Received patient in bed. Patient is resting comfortably, patient on vehicle monitor technician.
[2019-03-25] MEDS ORDERED: UNOBMED (07:28)
--- NOTE | 2019-03-25 09:40 | NUR ---
NURSE NOTES: Nurse report given by ANGELITA Chau. Patient was transferred from ER by poonam with ER nurse and staff. Patient's in stable condition, ambulates, no s/s of distress or SOB, denies pain. Patient belonging list is sign by patient, went over with the ER nurse again in the room one more time to check the belonging list. yardage caller is applied on the patient, patient changed in hospital gown and wearing hospital yellow socks. Safety precaution is one, side rails x 2, zone 1. IV is on L AC, flushed well, patent and asymptomatic. Patient's on 2L NC but refused to use it at this moment, denies SOB and stated: "I will use it when needed." Dr. Galindo put in admission order. Orders are acknowledged, reviewed and carried out. VS: BP 127/77, O2 96%, WA 100, RR 18, T: 97.9.
--- NOTE | 2019-03-25 09:43 | NUR ---
ED Nurse Note: patient is being transferred to 2E with FORM SETTER and RN, on ACLS protocol. report is given to Lisseth GOLDSTEIN, endorsed all plan of care to Lisseth GOLDSTEIN patient transferred with all of his belongings.
--- NOTE | 2019-03-25 10:45 | Diagnostic Imaging Report ---
Indication: Shortness of breath Technique: One view of the chest Comparison: 01/09/2019 Findings: The heart is enlarged. There is equivocal mild interstitial congestion, similar to prior study if real. No definite effusions. No focal airspace consolidation Impression: Cardiomegaly. Mild interstitial congestion
[2019-03-25] MEDS ORDERED: LORazepam 1mg tab ORAL PRN (11:00)
[2019-03-25] MEDS ORDERED: Albuterol 90mcg Inhaler 8gm INH PRN (11:00)
[2019-03-25] MEDS ORDERED: Docusate 100mg cap ORAL PRN (11:00)
[2019-03-25] MEDS ORDERED: LORazepam Inj 2mg/ml 1ml IV PRN (11:00)
--- NOTE | 2019-03-25 11:12 | Cardiology Report ---
APPROVED REPORT EKG Measurement Heart [id number] Sinus tachycardia Biatrial enlargement Abnormal ECG
[2019-03-25] MEDS ORDERED: Albuterol 90mcg Inhaler 8gm INH SCH (12:00)
[2019-03-25] MEDS: Enoxaparin 40mg Inj SUBQ SCH (12:21)
--- NOTE | 2019-03-25 12:23 | Cardiac Electrophysiology PN ---
Subjective Subjective [id number] Objective Last 24 Hour Vital Signs Date Time Temp Pulse Resp B/P (MAP) Pulse Ox O2 Delivery O2 Flow Rate FiO2 03/25/19 12:00 97.3 99 20 145/54 (84) 100 03/25/19 09:43 98.2 100 27 135/109 99 Nasal Cannula 2.0 03/25/19 09:40 97.9 100 18 127/77 (94) 100 03/25/19 09:33 98.2 100 27 135/109 99 Nasal Cannula 2.0 03/25/19 07:45 98.2 97 19 126/101 99 Nasal Cannula 2.0 03/25/19 07:02 98.2 102 16 138/102 96 Nasal Cannula 2.0 03/25/19 05:17 98.2 102 22 139/104 (116) 97 Room Air 03/25/19 05:17 98.2 107 22 139/104 97 Room Air 03/25/19 05:17 102 36 Room Air Intake and Output 03/24/19 03/25/19 19:00 07:00 Intake Total 0 ml Balance 0 ml Intake Oral 0 ml Laboratory Tests Test 03/25/19 05:22 03/25/19 05:43 White Blood Count 9.0 K/UL (4.8-10.8) Red Blood Count 5.09 M/UL (4.70-6.10) Hemoglobin 14.1 G/DL (14.2-18.0) L Hematocrit 44.9 % (42.0-52.0) Mean Corpuscular Volume 88 FL (80-99) Mean Corpuscular Hemoglobin 27.8 PG (27.0-31.0) Mean Corpuscular Hemoglobin Concent 31.5 G/DL (32.0-36.0) L Red Cell Distribution Width 15.1 % (11.6-14.8) H Platelet Count 236 K/UL (150-450) Mean Platelet Volume 6.5 FL (6.5-10.1) Neutrophils (%) (Auto) 67.3 % (45.0-75.0) Lymphocytes (%) (Auto) 22.7 % (20.0-45.0) Monocytes (%) (Auto) 7.2 % (1.0-10.0) Eosinophils (%) (Auto) 2.0 % (0.0-3.0) Basophils (%) (Auto) 0.8 % (0.0-2.0) Prothrombin Time 11.4 SEC (9.30-11.50) Prothromb Time International Ratio 1.1 (0.9-1.1) Activated Partial Thromboplast Time 29 SEC (23-33) Sodium Level 149 MMOL/L (136-145) H Potassium Level 3.9 MMOL/L (3.5-5.1) Chloride Level 114 MMOL/L (98-107) H Carbon Dioxide Level 21 MMOL/L (21-32) Anion Gap 14 mmol/L (5-15) Blood Urea Nitrogen 20 mg/dL (7-18) H Creatinine 2.1 MG/DL (0.55-1.30) H Estimat Glomerular Filtration Rate 40.0 mL/min (>60) Glucose Level 104 MG/DL (74-106) Calcium Level 9.1 MG/DL (8.5-10.1) Total Bilirubin 0.4 MG/DL (0.2-1.0) Aspartate Amino Transf (AST/SGOT) 107 U/L (15-37) H Alanine Aminotransferase (ALT/SGPT) 125 U/L (12-78) H Alkaline Phosphatase 34 U/L (46-116) L Total Creatine Kinase 571 U/L (26-308) H Creatine Kinase MB 5.6 NG/ML (0.0-3.6) H Creatine Kinase MB Relative Index 0.9 Troponin I 0.051 ng/mL (0.000-0.056) Pro-B-Type Natriuretic Peptide 4408 pg/mL (0-125) H Total Protein 6.9 G/DL (6.4-8.2) Albumin 3.3 G/DL (3.4-5.0) L Globulin 3.6 g/dL Albumin/Globulin Ratio 0.9 (1.0-2.7) L Urine Color Pale yellow Urine Appearance Clear Urine pH 6 (4.5-8.0) Urine Specific [place] 1.015 (1.005-1.035) Urine Protein 1+ (NEGATIVE) H Urine Glucose (UA) Negative (NEGATIVE) Urine Ketones Negative (NEGATIVE) Urine Blood Negative (NEGATIVE) Urine Nitrite Negative (NEGATIVE) Urine Bilirubin Negative (NEGATIVE) Urine Urobilinogen Normal MG/DL (0.0-1.0) Urine Leukocyte Esterase 2+ (NEGATIVE) H Urine RBC 0 /HPF (0 - 0) Urine WBC 15-20 /HPF (0 - 0) H Urine Squamous Epithelial Cells Few /LPF (NONE/OCC) Urine Bacteria Few /HPF (NONE) Urine Opiates Screen Negative (NEGATIVE) Urine Barbiturates Screen Negative (NEGATIVE) Phencyclidine (PCP) Screen Positive (NEGATIVE) H Urine Amphetamines Screen Negative (NEGATIVE) Urine Benzodiazepines Screen Negative (NEGATIVE) Urine Cocaine Screen Positive (NEGATIVE) H Urine Marijuana (THC) Screen Negative (NEGATIVE) Nhan Sim MD Mar 25, 2019 12:23
--- NOTE | 2019-03-25 13:15 | History and Physical ---
History of Present Illness General Date patient seen: Mar 25, 2019 Time patient seen: 09:00 Reason for Hospitalization: Dyspnea/Respdistress Present Illness HPI 53 y M known to me from prior admission to [facility] with systolic heart failure and cocaine induced cardiomyopathy, CKD, HTN, PSA. He reports running out of some medications last month and does not know which ones. He reports using smoked crack/cocaine 1 week ago and today was BIBA after he called 911 due to not being able to breathe well. He was started on IV lasix in the ER and a dose of Ceftriaxone was given for abnormal UA. Currently, he denies any chest pain, sob, nausea or emesis. He feels better and is admitted for further medical management and monitoring. Insurance tried to transferred and admission was approved per ER report. Allergies: Coded Allergies: NO KNOWN ALLERGIES (Verified Allergy, Unknown, 08/08/18) Medication History Scheduled Albuterol Sulfate* (Albuterol Sulfate Mdi*), 2 PUFF INH Q6H Amlodipine Besylate (Norvasc), 2.5 MG ORAL DAILY Aspirin* (Aspir 81*), 81 MG ORAL DAILY Atorvastatin Calcium* (Lipitor*), 10 MG ORAL BEDTIME Carvedilol (Coreg), 3.125 MG ORAL EVERY 12 HOURS Hydralazine Hcl* (Hydralazine Hcl*), 25 MG ORAL EVERY 8 HOURS Isosorbide Mononitrate (Isosorbide Mononitrate Er), 30 MG ORAL DAILY Multivitamin (Multi-Vitamin Daily), 1 EACH PO DAILY, (Reported) Scheduled PRN Albuterol Sulfate* (Albuterol Sulfate Mdi*), 2 PUFF INH Q4H PRN Miscellaneous Medications Unable to Obtain Medications (Unable To Obtain Meds), (Reported) Patient History Healthcare decision maker Resuscitation status Advanced Directive on File Family History Family History: No history of premature CAD Review of Systems All Other Systems: negative except mentioned in HPI Physical Exam General Appearance: WD/WN Lines, tubes and drains: peripheral HEENT: normocephalic, atraumatic Neck: non-tender Respiratory/Chest: lungs clear Abdomen: non tender Skin Exam: normal pigmentation Neurologic: atv mechanic II-XII grossly normal Musculoskeletal: normal muscle bulk Last 24 Hour Vital Signs Date Time Temp Pulse Resp B/P (MAP) Pulse Ox O2 Delivery O2 Flow Rate FiO2 03/25/19 12:00 97.3 99 20 145/54 (84) 100 03/25/19 09:43 98.2 100 27 135/109 99 Nasal Cannula 2.0 03/25/19 09:40 97.9 100 18 127/77 (94) 100 03/25/19 09:33 98.2 100 27 135/109 99 Nasal Cannula 2.0 03/25/19 07:45 98.2 97 19 126/101 99 Nasal Cannula 2.0 03/25/19 07:02 98.2 102 16 138/102 96 Nasal Cannula 2.0 03/25/19 05:17 98.2 102 22 139/104 (116) 97 Room Air 03/25/19 05:17 98.2 107 22 139/104 97 Room Air 03/25/19 05:17 102 36 Room Air Intake and Output 03/24/19 03/25/19 19:00 07:00 Intake Total 0 ml Balance 0 ml Intake Oral 0 ml Laboratory Tests Test 03/25/19 05:22 03/25/19 05:43 White Blood Count 9.0 K/UL (4.8-10.8) Red Blood Count 5.09 M/UL (4.70-6.10) Hemoglobin 14.1 G/DL (14.2-18.0) L Hematocrit 44.9 % (42.0-52.0) Mean Corpuscular Volume 88 FL (80-99) Mean Corpuscular Hemoglobin 27.8 PG (27.0-31.0) Mean Corpuscular Hemoglobin Concent 31.5 G/DL (32.0-36.0) L Red Cell Distribution Width 15.1 % (11.6-14.8) H Platelet Count 236 K/UL (150-450) Mean Platelet Volume 6.5 FL (6.5-10.1) Neutrophils (%) (Auto) 67.3 % (45.0-75.0) Lymphocytes (%) (Auto) 22.7 % (20.0-45.0) Monocytes (%) (Auto) 7.2 % (1.0-10.0) Eosinophils (%) (Auto) 2.0 % (0.0-3.0) Basophils (%) (Auto) 0.8 % (0.0-2.0) Prothrombin Time 11.4 SEC (9.30-11.50) Prothromb Time International Ratio 1.1 (0.9-1.1) Activated Partial Thromboplast Time 29 SEC (23-33) Sodium Level 149 MMOL/L (136-145) H Potassium Level 3.9 MMOL/L (3.5-5.1) Chloride Level 114 MMOL/L (98-107) H Carbon Dioxide Level 21 MMOL/L (21-32) Anion Gap 14 mmol/L (5-15) Blood Urea Nitrogen 20 mg/dL (7-18) H Creatinine 2.1 MG/DL (0.55-1.30) H Estimat Glomerular Filtration Rate 40.0 mL/min (>60) Glucose Level 104 MG/DL (74-106) Calcium Level 9.1 MG/DL (8.5-10.1) Total Bilirubin 0.4 MG/DL (0.2-1.0) Aspartate Amino Transf (AST/SGOT) 107 U/L (15-37) H Alanine Aminotransferase (ALT/SGPT) 125 U/L (12-78) H Alkaline Phosphatase 34 U/L (46-116) L Total Creatine Kinase 571 U/L (26-308) H Creatine Kinase MB 5.6 NG/ML (0.0-3.6) H Creatine Kinase MB Relative Index 0.9 Troponin I 0.051 ng/mL (0.000-0.056) Pro-B-Type Natriuretic Peptide 4408 pg/mL (0-125) H Total Protein 6.9 G/DL (6.4-8.2) Albumin 3.3 G/DL (3.4-5.0) L Globulin 3.6 g/dL Albumin/Globulin Ratio 0.9 (1.0-2.7) L Urine Color Pale yellow Urine Appearance Clear Urine pH 6 (4.5-8.0) Urine Specific [place] 1.015 (1.005-1.035) Urine Protein 1+ (NEGATIVE) H Urine Glucose (UA) Negative (NEGATIVE) Urine Ketones Negative (NEGATIVE) Urine Blood Negative (NEGATIVE) Urine Nitrite Negative (NEGATIVE) Urine Bilirubin Negative (NEGATIVE) Urine Urobilinogen Normal MG/DL (0.0-1.0) Urine Leukocyte Esterase 2+ (NEGATIVE) H Urine RBC 0 /HPF (0 - 0) Urine WBC 15-20 /HPF (0 - 0) H Urine Squamous Epithelial Cells Few /LPF (NONE/OCC) Urine Bacteria Few /HPF (NONE) Urine Opiates Screen Negative (NEGATIVE) Urine Barbiturates Screen Negative (NEGATIVE) Phencyclidine (PCP) Screen Positive (NEGATIVE) H Urine Amphetamines Screen Negative (NEGATIVE) Urine Benzodiazepines Screen Negative (NEGATIVE) Urine Cocaine Screen Positive (NEGATIVE) H Urine Marijuana (THC) Screen Negative (NEGATIVE) Height (Feet): 5 Height (Inches): 9.00 Weight (Pounds): 216 Medications Current Medications Medications (Trade) Dose Ordered Sig/Lizette Route PRN Reason Start Time Stop Time Status Last Admin Dose Admin Albuterol Sulfate (Proventil MDI) 2 puff Q4H PRN INH Bronchospasm 03/25/19 11:00 04/24/19 10:59 Albuterol Sulfate (Proventil MDI) 2 puff Q6HRT INH 03/25/19 12:00 04/24/19 11:59 Amlodipine Besylate (Norvasc) 2.5 mg DAILY ORAL 03/26/19 09:00 04/25/19 08:59 Aspirin (Ecotrin) 81 mg DAILY ORAL 03/26/19 09:00 04/25/19 08:59 Atorvastatin Calcium (Lipitor) 10 mg BEDTIME ORAL 03/25/19 21:00 04/24/19 20:59 Ceftriaxone Sodium 1 gm/ Dextrose 55 ml @ 110 mls/hr DAILY IVPB 03/26/19 09:00 04/02/19 08:59 Dextrose (Dextrose 50%) 25 ml Q30M PRN IV Hypoglycemia 03/25/19 11:00 04/24/19 10:59 Dextrose (Dextrose 50%) 50 ml Q30M PRN IV Hypoglycemia 03/25/19 11:00 04/24/19 10:59 Docusate Sodium (Colace) 100 mg Q12H PRN ORAL Constipation 03/25/19 11:00 04/24/19 10:59 Enoxaparin Sodium (Lovenox) 40 mg DAILY SUBQ 03/25/19 11:04 04/24/19 11:03 03/25/19 12:21 Famotidine (Pepcid) 20 mg BID ORAL 03/25/19 18:00 04/24/19 17:59 Furosemide (Lasix) 40 mg EVERY 8 HOURS ONCE IV 03/25/19 14:00 03/25/19 14:01 Hydralazine HCl (Apresoline) 25 mg EVERY 8 HOURS ORAL 03/25/19 14:00 04/24/19 13:59 Isosorbide Mononitrate (Imdur) 30 mg DAILY ORAL 03/26/19 09:00 04/25/19 08:59 Lorazepam (Ativan 2mg/ml 1ml) 0.5 mg Q4H PRN IV For Anxiety 03/25/19 11:00 04/01/19 10:59 Lorazepam (Ativan) 1 mg Q4H PRN ORAL For Anxiety 03/25/19 11:00 04/01/19 10:59 Multivitamins (Multivitamins) 1 tab DAILY ORAL 03/26/19 09:00 04/25/19 08:59 Assessment/Plan Status: stable Assessment/Plan: 53 year old male with history of PSA ( cocaine ), systolic cardiomyopathy, HTN admitted with shortness of breath. # Acute on chronic systolic heart failure - Diuresis with IV Furosemide - Monitor electrolytes - I/O - Weight monitoring - Cardiology consult - Last TTE 01/09/19 EF 15-20 % ( did not order repeat TTE ) # PSA Polysubstance abuse - SW consult and follow up - Education was given once again # HTN - Resume home medication - Monitor # Asthma - PRN MDI Albuterol - Ambulation as tolerated. - PT evaluation for baseline # FULL CODE # DVT and GI ppx Yonas Galindo MD Mar 25, 2019 13:15
[2019-03-25] MEDS: HydrALAZINE 25mg tab ORAL SCH ×2 (14:53→22:16)
--- NOTE | 2019-03-25 17:00 | Consultation ---
DATE OF CONSULTATION: 03/25/2019 CARDIOLOGY CONSULTATION REASON FOR CONSULTATION: Exacerbation of congestive heart failure. HISTORY OF PRESENT ILLNESS: The patient is a 53-year-old gentleman with history of congestive heart failure due to polysubstance abuse and nonischemic cardiomyopathy with ejection fraction of as well as active cocaine use, who was discharged in December, came back today for increasing shortness of breath. He admits to doing cocaine a week earlier. The patient was admitted and Cardiology consultation was obtained for further evaluation and management. REVIEW OF SYSTEMS: Review of systems was negative other than what is mentioned in the history of present illness. PAST MEDICAL HISTORY: As mentioned above. FAMILY HISTORY: Noncontributory. SOCIAL HISTORY: Continues to do crack cocaine and PCP. PHYSICAL EXAMINATION: VITAL SIGNS: Show blood pressure of 145/54, pulse 100, respirations 20, and temperature 97.3. NECK: Positive JVD. LUNGS: Decreased breath sounds. CARDIOVASCULAR: Regular S1 and S2 with no gallop. ABDOMEN: Soft. EXTREMITIES: A 1+ pitting edema. DIAGNOSTIC DATA: EKG shows sinus tachycardia with biatrial enlargement. His labs show white count of 9, hemoglobin of 14, hematocrit of 45, and platelet count is 236. Sodium 145, potassium 3.9, BUN of 20, creatinine of 2.1, glucose of 104. Troponin 0.05. Urine toxicology is positive for PCP and cocaine. ASSESSMENT AND PLAN: 1. Exacerbation of congestive heart failure due to polysubstance abuse and noncompliance. Resume the patient's heart failure medication including Isordil and hydralazine. I will put him on Lasix and Norvasc. Avoid beta-oneida in view of active cocaine use. Put him on Lasix 40 mg IV every 8 hours. 2. Hypertension. Continue current heart failure therapy. 3. Hyperlipidemia on Lipitor. 4. Polysubstance use with PCP and cocaine. Thank you very much for allowing me to participate in the care of this patient. Please do not hesitate to contact me for any questions regarding my evaluation. Sincerely, Nhna Sim M.D. DR: Rainer JOB#: [id number] CC:
--- NOTE | 2019-03-25 19:25 | NUR ---
HAND-OFF: Report given to ANGELITA Rosa. Plan of care endorsed.
[2019-03-25] MEDS: Albuterol 90mcg Inhaler 8gm INH SCH (19:38)
[2019-03-26] VITALS: BP 113/73
[2019-03-26] MEDS: Albuterol 90mcg Inhaler 8gm INH SCH ×4 (01:14→20:09)
[2019-03-26 04:00] VITALS: BP 121/76
[2019-03-26 05:52] LABS: BASOPHILS % (AUTO) 0.7 % (0.0-2.0); HEMATOCRIT 43.4 % (42.0-52.0); HEMOGLOBIN 13.8 G/DL (14.2-18.0); LYMPHOCYTES % (AUTO) 24.7 % (20.0-45.0); MEAN CORPUSCULAR VOLUME 88 FL (80-99); MONOCYTES % (AUTO) 7.3 % (1.0-10.0); NEUTROPHILS % (AUTO) 64.3 % (45.0-75.0); PLATELET COUNT 222 K/UL (150-450); RED BLOOD COUNT 4.92 M/UL (4.70-6.10); RED CELL DISTRIBUTION WIDTH 14.7 % (11.6-14.8); WHITE BLOOD COUNT 7.5 K/UL (4.8-10.8)
[2019-03-26] MEDS: HydrALAZINE 25mg tab ORAL SCH ×3 (06:04→21:35)
[2019-03-26 06:14] LABS: ANION GAP 9 mmol/L (5-15); BLOOD UREA NITROGEN 29 mg/dL (7-18); CALCIUM 8.9 MG/DL (8.5-10.1); CARBON DIOXIDE 26 MMOL/L (21-32); CHLORIDE 112 MMOL/L (98-107); CREATININE 2.3 MG/DL (0.55-1.30); POTASSIUM 4.2 MMOL/L (3.5-5.1); SODIUM 147 MMOL/L (136-145)
--- NOTE | 2019-03-26 06:40 | NUR ---
NURSE NOTES: Notified Dr. Sim of pt elevated troponin. No orders given.
--- NOTE | 2019-03-26 07:42 | CDS Physician Query ---
Clarification is required for compliance, coding accuracy, and to reflect severity of illness for this patient Dear Yonas Ragsdale MD Date: 03/26/2019 [employer] Installer/CDS Name: Cruz Camargo Pt has HTN, Polysubstance abuse Labs: Cr: 2.1-->2.3; BUN: 29 Please Clarify the type of renal failure below: Etiology [] Acute Renal Failure w/ Tubular Necrosis [] Acute Renal Failure w/ Cortical Necrosis [] Acute Renal Failure w/ Medullary Necrosis [] Acute Renal Failure (unspecified) [] Other: If Chronic, please specify the stage: [] CKD Stage 1 [] CKD Stage 2 [x] CKD Stage 3 [] CKD Stage 4 [] CKD Stage 5 [] ESRD [] Not applicable Present on Admission: [x] Yes [] No [] Clinically Undetermined Physician signature Date Please also document in your Progress Notes and/or Discharge Summary and indicate if the condition was present on admission. ALESSANDRO
--- NOTE | 2019-03-26 07:55 | NUR ---
HAND-OFF: Report given to ANGELITA Mark. Endorsed plan of care.
--- NOTE | 2019-03-26 07:58 | NUR ---
NURSE NOTES: Received report from Heath/RN, Patient is awake, lying semi-blake's, On room air, No acute distress/SOB noted. Denies any pain at this time. AO x 4, Able to make needs known. Bed in lowest position and locked, bed alarms on, side rails x2. Call light and personal belonging within reach. Will continue plan of care.
[2019-03-26 08:00] VITALS: BP 107/74
[2019-03-26] MEDS: cefTRIAXone 1gm/D5W 55ml IVPB SCH ×2 (09:03)
[2019-03-26] MEDS: Aspirin EC 81mg tab ORAL SCH (09:04)
[2019-03-26] MEDS: Imdur 30mg tab ORAL SCH (09:04)
[2019-03-26] MEDS: Enoxaparin 40mg Inj SUBQ SCH (09:05)
--- NOTE | 2019-03-26 09:31 | NUR ---
*-* NO INSURANCE INFORMATION IN THE BAR UNABLE TO SEND CLINICALS OR REVIEWS *-*
--- NOTE | 2019-03-26 09:51 | NUR ---
*-* INSURANCE *-* ALL AVAILABLE CLINICALS HAVE BEEN FXED TO: [facility]:[place] F: [phone]
--- NOTE | 2019-03-26 10:38 | NUR ---
P.T NOTE: P.T EVALUATION COMPLETED. BASED ON P.T. EVALUATION PATIENT IS BASELINE INDEPENDENT IN ALL AREAS OF ADL/FUNCTIONAL MOBILITIES AND GAIT/LOCOMOTION W/O AD THEREFORE SKILLED P.T IS NOT RECOMMENDED AT THIS TIME. D/C P.T SERVICES. THANK YOU FOR THIS REFERRAL.
[2019-03-26 12:00] VITALS: BP 118/73
--- NOTE | 2019-03-26 14:45 | Cardiac Electrophysiology PN ---
Assessment/Plan Assessment/Plan 1. Exacerbation of congestive heart failure due to polysubstance abuse and noncompliance. Continue Isordil and hydralazine, Lasix 40 iv bid Avoid beta-oneida in view of active cocaine use. 2. Hypertension. Continue current heart failure therapy and Norvasc. 3. Hyperlipidemia on Lipitor. 4. Polysubstance use with PCP and cocaine. Subjective Subjective Feeling better. No CP or SOB Objective Last 24 Hour Vital Signs Date Time Temp Pulse Resp B/P (MAP) Pulse Ox O2 Delivery O2 Flow Rate FiO2 03/26/19 13:42 97 20 97 Room Air 21 03/26/19 13:42 97 18 97 Room Air 21 03/26/19 13:37 118/73 03/26/19 12:00 97.9 97 18 118/73 (88) 98 03/26/19 12:00 97 03/26/19 09:04 107/74 03/26/19 09:03 102 107/74 03/26/19 09:00 Nasal Cannula 2.0 03/26/19 08:00 101 03/26/19 08:00 98.1 102 19 107/74 (85) 97 03/26/19 07:34 101 20 97 Room Air 21 03/26/19 07:34 101 20 97 Room Air 21 03/26/19 06:04 123/74 03/26/19 04:00 93 03/26/19 04:00 98.3 93 20 121/76 (91) 97 03/26/19 01:15 95 20 96 Room Air 21 03/26/19 01:14 96 20 96 Room Air 21 03/26/19 00:00 98.2 117 20 113/73 (86) 99 03/26/19 00:00 117 03/26/19 00:00 105 03/25/19 22:16 117/92 03/25/19 21:00 Nasal Cannula 2.0 03/25/19 20:00 97.7 105 20 137/98 (111) 97 03/25/19 19:40 109 22 95 Room Air 21 03/25/19 19:38 114 22 94 Room Air 21 03/25/19 16:00 98.1 105 20 126/76 (93) 100 03/25/19 16:00 112 03/25/19 14:53 145/54 Intake and Output 03/25/19 03/26/19 19:00 07:00 Intake Total 480 ml Balance 480 ml Intake Oral 480 ml # Voids 2 Laboratory Tests Test 03/26/19 04:43 03/26/19 10:50 White Blood Count 7.5 K/UL (4.8-10.8) Red Blood Count 4.92 M/UL (4.70-6.10) Hemoglobin 13.8 G/DL (14.2-18.0) L Hematocrit 43.4 % (42.0-52.0) Mean Corpuscular Volume 88 FL (80-99) Mean Corpuscular Hemoglobin 28.1 PG (27.0-31.0) Mean Corpuscular Hemoglobin Concent 31.9 G/DL (32.0-36.0) L Red Cell Distribution Width 14.7 % (11.6-14.8) Platelet Count 222 K/UL (150-450) Mean Platelet Volume 6.7 FL (6.5-10.1) Neutrophils (%) (Auto) 64.3 % (45.0-75.0) Lymphocytes (%) (Auto) 24.7 % (20.0-45.0) Monocytes (%) (Auto) 7.3 % (1.0-10.0) Eosinophils (%) (Auto) 3.0 % (0.0-3.0) Basophils (%) (Auto) 0.7 % (0.0-2.0) Sodium Level 147 MMOL/L (136-145) H Potassium Level 4.2 MMOL/L (3.5-5.1) Chloride Level 112 MMOL/L (98-107) H Carbon Dioxide Level 26 MMOL/L (21-32) Anion Gap 9 mmol/L (5-15) Blood Urea Nitrogen 29 mg/dL (7-18) H Creatinine 2.3 MG/DL (0.55-1.30) H Estimat Glomerular Filtration Rate 36.0 mL/min (>60) Glucose Level 95 MG/DL (74-106) Calcium Level 8.9 MG/DL (8.5-10.1) Magnesium Level 1.7 MG/DL (1.8-2.4) L Troponin I 0.062 ng/mL (0.000-0.056) 0.013 ng/mL (0.000-0.056) Pro-B-Type Natriuretic Peptide 5657 pg/mL (0-125) H Thyroid Stimulating Hormone (TSH) 0.973 uiU/mL (0.358-3.740) Microbiology Date/Time Source Procedure Growth Status 03/25/19 05:43 Urine,Clean Catch Urine Culture - Preliminary NO GROWTH Resulted Objective NECK: Positive JVD. LUNGS: Decreased breath sounds. CARDIOVASCULAR: Regular S1 and S2 with no gallop. ABDOMEN: Soft. EXTREMITIES: A 1+ pitting edema. Nhan Sim MD Mar 26, 2019 14:45
[2019-03-26 16:00] VITALS: BP 101/74
--- NOTE | 2019-03-26 16:00 | General Progress Note ---
Assessment/Plan Status: stable Assessment/Plan: 53 year old male with history of PSA ( cocaine ), systolic cardiomyopathy, HTN admitted with shortness of breath. # Acute on chronic systolic heart failure - Diuresis with IV Furosemide, decreased to 40 mg BID - Monitor electrolytes - I/O - Weight monitoring - Cardiology consult appreciated - Last TTE 01/09/19 EF 15-20 % ( did not order repeat TTE ) # PSA Polysubstance abuse - SW consult and follow up - Education was given once again # HTN - Resume home medication - Monitor # Asthma - PRN MDI Albuterol - Ambulation as tolerated. - PT evaluation for baseline # CKD 3 - Baseline Creatinine last admission 02/14 was 1.8 - Currently Creatinine 2.3 and elevated BNP > 4000 ( previous admission was 2500 range ) - Continue to diurese and monitor renal function closely # FULL CODE # DVT and GI ppx Subjective ROS Limited/Unobtainable: No Allergies: Coded Allergies: NO KNOWN ALLERGIES (Verified Allergy, Unknown, 08/08/18) Subjective Denies chest pain, mild shortness of breath noted when getting up from bed. Denies dizziness or near syncope. Objective Last 24 Hour Vital Signs Date Time Temp Pulse Resp B/P (MAP) Pulse Ox O2 Delivery O2 Flow Rate FiO2 03/26/19 13:42 97 20 97 Room Air 21 03/26/19 13:42 97 18 97 Room Air 21 03/26/19 13:37 118/73 03/26/19 12:00 97.9 97 18 118/73 (88) 98 03/26/19 12:00 97 03/26/19 09:04 107/74 03/26/19 09:03 102 107/74 03/26/19 09:00 Nasal Cannula 2.0 03/26/19 08:00 101 03/26/19 08:00 98.1 102 19 107/74 (85) 97 03/26/19 07:34 101 20 97 Room Air 21 03/26/19 07:34 101 20 97 Room Air 21 03/26/19 06:04 123/74 03/26/19 04:00 93 03/26/19 04:00 98.3 93 20 121/76 (91) 97 03/26/19 01:15 95 20 96 Room Air 03/26/19 01:14 96 20 96 Room Air 21 03/26/19 00:00 98.2 117 20 113/73 (86) 99 03/26/19 00:00 117 03/26/19 00:00 105 03/25/19 22:16 117/92 03/25/19 21:00 Nasal Cannula 2.0 03/25/19 20:00 97.7 105 20 137/98 (111) 97 03/25/19 19:40 109 22 95 Room Air 21 03/25/19 19:38 114 22 94 Room Air 21 03/25/19 16:00 98.1 105 20 126/76 (93) 100 03/25/19 16:00 112 Intake and Output 03/25/19 03/26/19 19:00 07:00 Intake Total 480 ml Balance 480 ml Intake Oral 480 ml # Voids 2 Laboratory Tests 03/26/19 04:43: White Blood Count 7.5, Red Blood Count 4.92, Hemoglobin 13.8L, Hematocrit 43.4, Mean Corpuscular Volume 88, Mean Corpuscular Hemoglobin 28.1, Mean Corpuscular Hemoglobin Concent 31.9L, Red Cell Distribution Width 14.7, Platelet Count 222, Mean Platelet Volume 6.7, Neutrophils (%) (Auto) 64.3, Lymphocytes (%) (Auto) 24.7, Monocytes (%) (Auto) 7.3, Eosinophils (%) (Auto) 3.0, Basophils (%) (Auto ) 0.7, Sodium Level 147H, Potassium Level 4.2, Chloride Level 112H, Carbon Dioxide Level 26, Anion Gap 9, Blood Urea Nitrogen 29H, Creatinine 2.3H, Estimat Glomerular Filtration Rate 36.0, Glucose Level 95, Calcium Level 8.9, Magnesium Level 1.7L, Troponin I 0.062H, Pro-B-Type Natriuretic Peptide 5657H, Thyroid Stimulating Hormone (TSH) 0.973 03/26/19 10:50: Troponin I 0.013 Height (Feet): 5 Height (Inches): 9.00 Weight (Pounds): 216 General Appearance: WD/WN EENT: PERRL/EOMI Neck: non-tender Cardiovascular: normal rate Respiratory/Chest: lungs clear, normal breath sounds Abdomen: normal bowel sounds Extremities: normal range of motion Neurologic: director business II-XII grossly normal, no motor/sensory deficits Yonas Galindo MD Mar 26, 2019 16:00
--- NOTE | 2019-03-26 16:35 | NUR ---
CASE MANAGEMENT:REVIEW 03/26/19 SI: CHF. CARDIOMYOPATHY. UTI. DYSPNEA SUBSTANCE ABUSE 98.2 102 16 138/102 96% ON 2L/NC BUN+20 CR+2.1 BNP+4408 URINE POSITIVE FOR COCAINE IS: IV LASIX IV ROCEPHIN URINE CX CHEST XRAY : TO TELEMETRY INTERQUAL CRITERIA MET
--- NOTE | 2019-03-26 19:45 | NUR ---
HAND-OFF: Report given to James/RN, Patient is in stable condition, Endorsed plan of care.
--- NOTE | 2019-03-26 19:50 | NUR ---
NURSE NOTES: Received report from Jignesh Fatima RN. Patient in bed AAO X4 with no S/S of discomfort or CP noted at this time. Kept clean, dry, and comfortable in bed. On 2L NC with no episodes of SOB or Resp distress observed, 02 at 94-96%. IV line intact and patent SL. Patient can ambulate without assistance to the bathroom. Placed on continuous cardiac monitoring per protocol. Safety precaution in place; siderails X2 up, call light within reach, bed in lowest position, brakes and alarm on at all times. Needs and wants anticipated and attended, will continue plan of care and monitor for any changes noted.
[2019-03-26 20:00] VITALS: BP 108/80
[2019-03-27] VITALS: BP 112/72
[2019-03-27] MEDS: Albuterol 90mcg Inhaler 8gm INH SCH ×3 (01:20→12:25)
--- NOTE | 2019-03-27 03:12 | NUR ---
NURSE NOTES: Patient asleep in bed with no complaints of distress. Will continue plan of care.
[2019-03-27 04:00] VITALS: BP 136/85
[2019-03-27] MEDS: HydrALAZINE 25mg tab ORAL SCH (06:15)
--- NOTE | 2019-03-27 07:05 | NUR ---
HAND-OFF: Report given to Jignesh Fatima RN. Patient in bed in stable condition, endorsed plan of care.
--- NOTE | 2019-03-27 07:06 | NUR ---
NURSE NOTES: Received report from James/RN, Patient is awake, lying semi-blake's, resting comfortably, On room air, No acute distress/SOB noted. Denies any pain at this time. AAO x 4, Able to make needs known. Bed in lowest position and locked, bed alarms on, side rails up x2. Call light and personal belonging within reach. Will continue plan of care.
[2019-03-27 07:42] LABS: BASOPHILS % (AUTO) 1.1 % (0.0-2.0); EOSINOPHILS % (AUTO) 3.1 % (0.0-3.0); HEMATOCRIT 45.1 % (42.0-52.0); HEMOGLOBIN 14.4 G/DL (14.2-18.0); LYMPHOCYTES % (AUTO) 20.6 % (20.0-45.0); MEAN CORPUSCULAR VOLUME 87 FL (80-99); NEUTROPHILS % (AUTO) 67.2 % (45.0-75.0); PLATELET COUNT 230 K/UL (150-450); RED BLOOD COUNT 5.19 M/UL (4.70-6.10); RED CELL DISTRIBUTION WIDTH 14.5 % (11.6-14.8); WHITE BLOOD COUNT 7.5 K/UL (4.8-10.8)
[2019-03-27 08:00] VITALS: BP 117/81
[2019-03-27 08:04] LABS: ANION GAP 8 mmol/L (5-15); BLOOD UREA NITROGEN 25 mg/dL (7-18); CALCIUM 9.5 MG/DL (8.5-10.1); CARBON DIOXIDE 26 MMOL/L (21-32); CHLORIDE 109 MMOL/L (98-107); CREATININE 2.1 MG/DL (0.55-1.30); POTASSIUM 4.1 MMOL/L (3.5-5.1); SODIUM 143 MMOL/L (136-145)
[2019-03-27] MEDS: Aspirin EC 81mg tab ORAL SCH (08:30)
[2019-03-27] MEDS: Imdur 30mg tab ORAL SCH (08:31)
[2019-03-27] MEDS: cefTRIAXone 1gm/D5W 55ml IVPB SCH ×2 (08:31)
--- NOTE | 2019-03-27 08:34 | NUR ---
CASE MANAGEMENT:REVIEW 03/27/19 SI: AC/CHR CHF. POLYSUBSTANCE ABUSE HTN. ASTHMA. CKD. URINE POSITIVE FOR COCAINE 97.3 97 18 117/81 97% ON RA BUN+25 CR+2.1 BNP+2437 TROPONIN(+) 0.062 ~ YESTERDAY THEN NEGATIVE IS: IV LASIX Q12 IV ROCEPHIN Q24 NORVASC PO QD : TELEMETRY DCP: FROM HOME
[2019-03-27] MEDS: Enoxaparin 40mg Inj SUBQ SCH (08:41)
[2019-03-27] MEDS ORDERED: ALBUTEROL SULF8.5 GM INH (11:11)
[2019-03-27] MEDS ORDERED: LIPITOR10 MG ORAL (11:11)
[2019-03-27] MEDS ORDERED: NORVASC2.5 MG ORAL (11:11)
[2019-03-27] MEDS ORDERED: HYDRALAZINE HCL25 M1 ORAL (11:11)
[2019-03-27] MEDS ORDERED: COREG3.125 MG ORAL (11:11)
[2019-03-27] MEDS ORDERED: ISOSORBIDE MONO30 M1 ORAL (11:11)
[2019-03-27] MEDS ORDERED: ASPIR 8181 MG ORAL (11:11)
--- NOTE | 2019-03-27 11:12 | Discharge Instructions ---
Discharge Instructions Discharge Instructions Diet: 2 GM sodium (low sodium) Resume Normal Activity?: Yes Special Instructions do not use [id number] For Surgical Patients May shower: Yes For Congestive Heart Failure Reminder Report to your physician any weight gain of 5 pounds or more in one week. Yonas Galindo MD Mar 27, 2019 11:11
[2019-03-27] MEDS ORDERED: FUROSEMIDE40 MG ORAL (11:16)
[2019-03-27 12:00] VITALS: BP 118/72
--- NOTE | 2019-03-27 12:43 | NUR ---
*-* INSURANCE *-* ALL AVAILABLE CLINICALS HAVE BEEN FXED TO: [facility] LEE:[place] F: [phone]
--- NOTE | 2019-03-27 13:15 | NUR ---
NURSE NOTES: Discharge instruction given, Patient verbalized understanding. Heart monitor and IV removed, site patent, no infiltration or bleeding noted. Patient is in stable condition, No distress/SOB noted. Belonging check done, and signed by patient. Patient asked for taxi voucher, while waiting for taxi, patient stated his sister is waiting downstairs. Escorted him downstairs. Patient walked toward [employer].
--- NOTE | 2019-03-27 15:53 | Discharge Summary ---
Discharge Summary Hospital Course Date of Admission Mar 25, 2019 at 09:16 Date of Discharge Mar 27, 2019 at 13:15 Admitting Diagnosis CHF,DRUG ABUSE HPI Hernesto Khoury is a 53 year old male who was admitted on Mar 25, 2019 at 09: 16 for Congestive Heart Failure Hospital Course 53 year old male with history of PSA ( cocaine ), systolic cardiomyopathy, HTN admitted with shortness of breath. # Acute on chronic systolic heart failure - Diuresis with IV Furosemide, decreased to 40 mg BID and will be continued and prescribed - Weight monitoring - Cardiology consult appreciated - Last TTE 01/09/19 EF 15-20 % ( did not order repeat TTE ) - Cardiology consultation completed with Dr. Butler - no new recommendations. # PSA Polysubstance abuse - SW consult and follow up - Education was given once again # HTN - Resume home medication - Monitor # Asthma - PRN MDI Albuterol - Ambulation as tolerated. - PT evaluation for baseline # CKD 3 - Baseline Creatinine last admission 02/14 was 1.8 - Currently Creatinine 2.3 and elevated BNP > 4000 ( previous admission was 2500 range ), his BNP decreased to the 2 thousand range today. - Stable and recommend to avoid nephrotoxins and follow up with PCP # FULL CODE # DVT and GI ppx Discharge Medications New Medications: Furosemide* (Lasix*) 40 Mg Tablet 40 MG ORAL TWICE A DAY, #60 TAB Hydralazine Hcl* (Hydralazine Hcl*) 25 Mg Tablet 25 MG ORAL EVERY 8 HOURS for 30 Days, #90 TAB Isosorbide Mononitrate (Isosorbide Mononitrate Er) 30 Mg Tab.er.24h 30 MG ORAL DAILY for 30 Days, #30 TAB Changed Medications: Albuterol Sulfate* (Albuterol Sulfate Mdi*) 8.5 Gm Hfa.aer.ad 2 PUFF INH Q6H for 30 Days, #1 EA 0 Refills (Medication details modified) use 2 puff as needed for shortness of breath Continued Medications: Amlodipine Besylate (Norvasc) 2.5 Mg Tablet 2.5 MG ORAL DAILY for 30 Days, #30 TAB 3 Refills (This prescription has been renewed) Aspirin* (Aspir 81*) 81 Mg Tablet.dr 81 MG ORAL DAILY for 90 Days, #90 TAB 3 Refills (This prescription has been renewed) Atorvastatin Calcium* (Lipitor*) 10 Mg Tablet 10 MG ORAL BEDTIME for 30 Days, #30 TAB 3 Refills (This prescription has been renewed) Carvedilol (Coreg) 3.125 Mg Tablet 3.125 MG ORAL EVERY 12 HOURS for 30 Days, #60 TAB 3 Refills (This prescription has been renewed) Multivitamin (Multi-Vitamin Daily) 1 Each Tablet 1 EACH PO DAILY (This prescription has been renewed) Discontinued Medications: Albuterol Sulfate* (Albuterol Sulfate Mdi*) 8.5 Gm Hfa.aer.ad 2 PUFF INH Q4H PRN, #1 EA 0 Refills Isosorbide Mononitrate (Isosorbide Mononitrate Er) 30 Mg Tab.er.24h 30 MG ORAL DAILY for 60 Days, #60 TAB one tab oral daily Unable to Obtain Medications (Unable To Obtain Meds) 1 Ea Ea Discharge Condition Upon Discharge: stable Discharge Disposition Patient was discharged to HOME Discharge Diagnoses: (1) HTN (hypertension) (2) Acute on chronic systolic (congestive) heart failure (3) Acute on chronic renal failure (4) Cardiomyopathy Discharge Instructions For Surgical Patients May shower: Yes Yonas Galindo MD Mar 27, 2019 15:53
--- NOTE | 2019-03-28 11:18 | NUR ---
*-* INSURANCE *-* DISCHARGE SUMMARY [facility] BE[facility] F: [phone]
== END 2019-03-27 13:15 | disposition home or self-care (01) | DRG 291 ==
LOC: EDBD 05:16 → EDUNIT# 05:16 → EMR 05:28 → EDBEDREQ 06:27 → 2E 09:16 → EDBEDREQ 09:32
DX: I13.0 Hypertensive heart and chronic kidney disease with heart failure and stage 1 through stage 4 chronic kidney disease, or unspecified chronic kidney disease (principal); I50.23 Acute on chronic systolic (congestive) heart failure; N17.9 Acute kidney failure, unspecified; N18.3 Chronic kidney disease, stage 3 (moderate); J45.909 Unspecified asthma, uncomplicated; F14.10 Cocaine abuse, uncomplicated; F16.10 Hallucinogen abuse, uncomplicated; Z91.14 Patient's other noncompliance with medication regimen; E78.5 Hyperlipidemia, unspecified
CPT/HCPCS: 36415; 71045; 80048; 80053; 80307; 81003; 82550; 82553; 82962; 83735; 83880; 84443; 84484; 85025; 85610; 85730; 87086; 93005; 94640; 96365; 96375; 99285

== ENCOUNTER → 2019-05-26 | Emergency (ER) | payer MEDICARE, MEDICAID ==
[~2019-05-26] VITALS: Ht 175.3 cm; Wt 97.1 kg
[~2019-05-26] MED LIST changes: +Azithromycin 250mg tab ORAL ONE; +COLCHICINE0.6 M1 PO; +INDOCIN25 MG/5 ML PO; +Indomethacin 25mg cap ORAL STA; +Lidocaine 1% MPF 10mg/ml 5ml INJ ONE; +UNOBMED
[2019-05-26 10:58] VITALS: BP 125/80
[2019-05-26 10:58] LABS: APPEARANCE,URINE CLEAR; BILIRUBIN, URINE NEGATIVE (NEGATIVE); COLOR,URINE PALE YELLOW; GLUCOSE, URINE (UA) NEGATIVE (NEGATIVE); KETONES,URINE NEGATIVE (NEGATIVE); LEUKOCYTE ESTERASE ,URINE NEGATIVE (NEGATIVE); NITRITE,URINE NEGATIVE (NEGATIVE); PH,URINE 7 (4.5-8.0); PROTEIN,URINE NEGATIVE (NEGATIVE); UROBILINOGEN,URINE NORMAL MG/DL (0.0-1.0)
--- NOTE | 2019-05-26 11:00 | NUR ---
ED Nurse Note:urine sent to labs, pain meds given for left elbow pain
--- NOTE | 2019-05-26 11:04 | Emergency Room Report ---
History of Present Illness General Chief Complaint: Male Urogenital Problems Source: Patient Present Illness HPI Patient presents with left elbow pain since . He states he has had this problem before and was told it was gout. He is allegedly taking some medication but is uncertain whether its specifically for gout. Denies any fevers or chills. Denies trauma. There is no distal numbness. The pain is localized to the elbow and does not radiate. He rates the pain 10/10 and aching somewhat burning. Reports unprotected sex recently with a discharge. Patient has a history of congestive heart failure. No orthopnea or shortness of breath this time. The past uric acid was elevated. Patient is on Lasix for congestive heart failure which makes him at high risk for developing gout. Allergies: Coded Allergies: NO KNOWN ALLERGIES (Verified Allergy, Unknown, 08/08/18) Patient History Past Medical History: see triage record, old chart reviewed Social History: Reports: drug use - In the past positive for cocaine and PCP; Denies: smoking - Former Social History Narrative Disabled Reviewed Nursing Documentation: PMH: Agreed; PSxH: Agreed Nursing Documentation-PMH Past Medical History: No History, Except For Hx Cardiac Problems: Yes Hx Hypertension: Yes Hx Asthma: Yes Hx Diabetes: Yes Hx Cancer: No Hx Gastrointestinal Problems: No Hx Neurological Problems: Yes - Chronic back pain, gout Review of Systems Constitutional: Denies: fever Respiratory: Reports: see HPI Cardiovascular: Denies: chest pain Genitourinary: Reports: see HPI Musculoskeletal: Reports: see HPI Skin: Denies: rash Neurological: Denies: numbness Physical Exam Vital Signs Date Time Temp Pulse Resp B/P (MAP) Pulse Ox O2 Delivery O2 Flow Rate FiO2 05/26/19 10:28 98.2 85 18 125/80 (95) 95 Room Air Sp02 EP Interpretation: reviewed, normal General Appearance: well appearing, no apparent distress, GCS 15 Head: normocephalic Eyes: bilateral eye normal inspection, bilateral eye PERRL ENT: moist mucus membranes Cardiovascular #1: regular rate, rhythm Gastrointestinal: normal inspection Genitourinary: no CVA tenderness Musculoskeletal: gait/station normal, tenderness - Left elbow with swelling of the olecranon bursa without erythema or warmth Neurologic: alert, oriented x3, grossly normal Psychiatric: mood/affect normal Skin: normal color, no rash, warm/dry Medical Decision Making Diagnostic Impression: Primary Impression: Elbow pain Qualified Codes: M25.522 - Pain in left elbow Additional Impression: Exposure to STD ER Course Patient presents with 2 problems. Left elbow pain which she says is gout. Differential includes olecranon bursitis versus gout versus pseudogout. Colchicine and Indocin are indicated. The second problem is exposure to STD. Urine chlamydia and gonorrhea will be sent. The patient will be treated with Rocephin and azithromycin. With treatment the patient states that the pain is dramatically decreased. Sling applied by tech. Position excellent and neurovascular checked and normal. Discussed the need for outpatient reevaluation by his doctors. Patient stable for outpatient observation and treatment. Laboratory Tests Test 05/26/19 10:40 Urine Color Pale yellow Urine Appearance Clear Urine pH 7 (4.5-8.0) Urine Specific [place] 1.005 (1.005-1.035) Urine Protein Negative (NEGATIVE) Urine Glucose (UA) Negative (NEGATIVE) Urine Ketones Negative (NEGATIVE) Urine Blood Negative (NEGATIVE) Urine Nitrite Negative (NEGATIVE) Urine Bilirubin Negative (NEGATIVE) Urine Urobilinogen Normal MG/DL (0.0-1.0) Urine Leukocyte Esterase Negative (NEGATIVE) Chlamydia trachomatis RNA Pending Neisseria gonorrhoeae RNA Pending Last Vital Signs Date Time Temp Pulse Resp B/P (MAP) Pulse Ox O2 Delivery O2 Flow Rate FiO2 05/26/19 10:58 98.2 85 18 125/80 95 Room Air Status: improved Disposition: HOME, SELF-CARE Condition: Improved Scripts Indomethacin (INDOCIN) 25 Mg/5 Ml Oral.susp 25 MG PO Q8HR, #14 ML 1 Refill Prov: Vinod Rodriguez MD 05/26/19 Colchicine (Colchicine) 0.6 Mg Capsule 0.6 MG PO BID PRN for joint pain, #20 CAP Prov: Vinod Rodriguez MD 05/26/19 Vinod Rodriguez MD May 26, 2019 11:04
== END | disposition home or self-care (01) ==
LOC: EMR 11:13
DX: M25.522 Pain in left elbow (principal); Z20.2 Contact with and (suspected) exposure to infections with a predominantly sexual mode of transmission; J45.909 Unspecified asthma, uncomplicated; E11.9 Type 2 diabetes mellitus without complications; G89.29 Other chronic pain; M54.9 Dorsalgia, unspecified; Z87.891 Personal history of nicotine dependence; I11.0 Hypertensive heart disease with heart failure; I50.9 Heart failure, unspecified
CPT/HCPCS: 81003; 87491; 87590; 96372; 96374; 99284; J0696

== ENCOUNTER 2019-06-30 07:46 | Inpatient (IN) | payer MEDICARE, MEDICAID ==
[~2019-06-30] VITALS: Ht 175.3 cm; Wt 101.6 kg
[~2019-06-30 07:46] MED LIST changes: -Azithromycin 250mg tab ORAL ONE; -Indomethacin 25mg cap ORAL STA; -Lidocaine 1% MPF 10mg/ml 5ml INJ ONE
[2019-06-30 07:56] VITALS: BP 127/87
[2019-06-30] MEDS ORDERED: Albuterol ud Inhalation HHN ONE (08:00)
[2019-06-30] MEDS ORDERED: Ipratropium 0.02% Inh Soln 2.5ml UD HHN ONE (08:00)
[2019-06-30] MEDS ORDERED: Albuterol ud Inhalation ONE (08:20)
[2019-06-30 08:52] LABS: BASOPHILS % (AUTO) 0.5 % (0.0-2.0); EOSINOPHILS % (AUTO) 2.3 % (0.0-3.0); HEMATOCRIT 42.1 % (42.0-52.0); HEMOGLOBIN 13.1 G/DL (14.2-18.0); LYMPHOCYTES % (AUTO) 18.2 % (20.0-45.0); MEAN CORPUSCULAR VOLUME 87 FL (80-99); MONOCYTES % (AUTO) 4.9 % (1.0-10.0); NEUTROPHILS % (AUTO) 74.1 % (45.0-75.0); PLATELET COUNT 304 K/UL (150-450); RED BLOOD COUNT 4.83 M/UL (4.70-6.10); RED CELL DISTRIBUTION WIDTH 14.9 % (11.6-14.8); WHITE BLOOD COUNT 8.5 K/UL (4.8-10.8)
--- NOTE | 2019-06-30 08:57 | Emergency Room Report ---
History of Present Illness General Chief Complaint: Asthma Source: Patient Present Illness HPI Patient states that for the past few days he has had shortness of breath. He denies recent illness. He denies cough or congestion. He denies fever or chills. Denies chest pain. He states that he does have a history of asthma and has been using his albuterol without relief. He denies abdominal pain. He admits to using cocaine regularly, the last time being 1 week ago. He has no other complaints. Allergies: Coded Allergies: NO KNOWN ALLERGIES (Verified Allergy, Unknown, 08/08/18) Patient History Past Medical History: see triage record, DM, HTN, CAD, asthma Social History: Reports: drug use - cocaine; Denies: smoking, alcohol use Reviewed Nursing Documentation: PMH: Agreed; PSxH: Agreed Nursing Documentation-PMH Past Medical History: No History, Except For Hx Cardiac Problems: Yes Hx Hypertension: Yes Hx Asthma: Yes Hx Diabetes: Yes Hx Cancer: No Hx Gastrointestinal Problems: No Hx Neurological Problems: Yes - Chronic back pain, gout Review of Systems All Other Systems: negative except mentioned in HPI Physical Exam Vital Signs Date Time Temp Pulse Resp B/P (MAP) Pulse Ox O2 Delivery O2 Flow Rate FiO2 06/30/19 07:46 98.8 89 20 150/102 (118) 98 06/30/19 07:56 Room Air 06/30/19 08:25 21 Sp02 EP Interpretation: reviewed, normal General Appearance: no apparent distress, alert, GCS 15, non-toxic Head: normocephalic, atraumatic Eyes: bilateral eye normal inspection, bilateral eye PERRL ENT: hearing grossly normal, normal pharynx, no angioedema, normal voice Neck: full range of motion, supple/symm/no masses Respiratory: chest non-tender, lungs clear, normal breath sounds, no respiratory distress, no retraction, no accessory muscle use, speaking full sentences Cardiovascular #1: regular rate, rhythm, no edema Gastrointestinal: normal bowel sounds, non tender, soft, non-distended, no guarding, no rebound Rectal: deferred Musculoskeletal: back normal, normal range of motion, gait/station normal, non- tender Neurologic: alert, motor strength/tone normal, oriented x3, sensory intact, responsive, speech normal Psychiatric: judgement/insight normal, memory normal, mood/affect normal, no suicidal/homicidal ideation Skin: no rash, normal color Medical Decision Making Diagnostic Impression: Primary Impression: CHF (congestive heart failure) Additional Impression: Drug abuse ER Course This patient has congestive heart failure. I suspect he may have a history of congestive heart failure. Although, the patient denies that he has never had heart failure. The patient used cocaine about a week ago and has a chest x-ray with cardiomegaly and diffuse patchy opacities consistent with congestive heart failure. Nitropaste was placed on the patient's chest wall and he was given IV Lasix and admitted for further evaluation and treatment by cardiology. I did also give the patient albuterol and Atrovent to simultaneously treat a possible asthma exacerbation. Patient remained stable in the emergency department was admitted to telemetry. The patient's insurance company requested his transfer based on [facility]. The patient is stable for transfer and was transferred. Patient was accepted by an executive director of marketing at receiving facility. Laboratory Tests Test 06/30/19 08:20 White Blood Count 8.5 K/UL (4.8-10.8) Red Blood Count 4.83 M/UL (4.70-6.10) Hemoglobin 13.1 G/DL (14.2-18.0) L Hematocrit 42.1 % (42.0-52.0) Mean Corpuscular Volume 87 FL (80-99) Mean Corpuscular Hemoglobin 27.2 PG (27.0-31.0) Mean Corpuscular Hemoglobin Concent 31.2 G/DL (32.0-36.0) L Red Cell Distribution Width 14.9 % (11.6-14.8) H Platelet Count 304 K/UL (150-450) Mean Platelet Volume 5.4 FL (6.5-10.1) L Neutrophils (%) (Auto) 74.1 % (45.0-75.0) Lymphocytes (%) (Auto) 18.2 % (20.0-45.0) L Monocytes (%) (Auto) 4.9 % (1.0-10.0) Eosinophils (%) (Auto) 2.3 % (0.0-3.0) Basophils (%) (Auto) 0.5 % (0.0-2.0) Sodium Level 145 MMOL/L (136-145) Potassium Level 4.5 MMOL/L (3.5-5.1) Chloride Level 113 MMOL/L (98-107) H Carbon Dioxide Level 22 MMOL/L (21-32) Anion Gap 10 mmol/L (5-15) Blood Urea Nitrogen 26 mg/dL (7-18) H Creatinine 1.9 MG/DL (0.55-1.30) H Estimate Glomerular Filtration Rate 44.7 mL/min (>60) Glucose Level 105 MG/DL (74-106) Calcium Level 8.2 MG/DL (8.5-10.1) L Total Bilirubin Pending Aspartate Amino Transferase (AST) Pending Alanine Aminotransferase (ALT) Pending Alkaline Phosphatase Pending Troponin I Pending Total Protein Pending Albumin Pending Globulin Pending EKG Diagnostic Results Rate: normal Rhythm: NSR ST Segments: no acute changes Rhythm Strip Diag. Results EP Interpretation: yes Rate: 80's Rhythm: NSR, no PVC's, no ectopy Chest X-Ray Diagnostic Results Chest X-Ray Diagnostic Results : Chest X-Ray Ordered: Yes # of Views/Limited/Complete: 1 View Indication: Shortness of Breath EP Interpretation: Yes Interpretation: no pneumothorax, other - +cardiomegaly, diffuse patchy opacities Impression: Other - C/W CHF Electronically Signed by: Carley Bañuelos DO Last Vital Signs Date Time Temp Pulse Resp B/P (MAP) Pulse Ox O2 Delivery O2 Flow Rate FiO2 06/30/19 08:25 95 24 100 Room Air 21 88 28 98 06/30/19 07:56 98.8 127/87 Status: improved Disposition: XFER SHT-TRM HOSP Condition: Stable Referrals: [facility],REFERRING (PCP) Carley Bañuelos DO Jun 30, 2019 08:57
[2019-06-30] MEDS ORDERED: Nitroglycerin 2% oint pkt TOPIC ONE (09:00)
[2019-06-30 09:01] LABS: ANION GAP 10 mmol/L (5-15); BLOOD UREA NITROGEN 26 mg/dL (7-18); CALCIUM 8.2 MG/DL (8.5-10.1); CARBON DIOXIDE 22 MMOL/L (21-32); CHLORIDE 113 MMOL/L (98-107); CREATININE 1.9 MG/DL (0.55-1.30); POTASSIUM 4.5 MMOL/L (3.5-5.1); SODIUM 145 MMOL/L (136-145)
[2019-06-30 09:06] LABS: ALANINE AMINOTRANSFERASE 87 U/L (12-78); ALBUMIN/GLOBULIN RATIO 0.8 (1.0-2.7); ASPARTATE AMINO TRANSFERASE 65 U/L (15-37); BILIRUBIN,TOTAL 0.4 MG/DL (0.2-1.0)
[2019-06-30 09:55] LABS: ALKALINE PHOSPHATASE 40 U/L (46-116)
[2019-06-30 10:31] VITALS: BP 119/86
--- NOTE | 2019-06-30 12:34 | Diagnostic Imaging Report ---
Indication: Dyspnea Comparison: 03/25/2019 A single view chest radiograph was obtained. Findings: The heart is enlarged. Pulmonary vascularity is somewhat prominent but stable. Bones are unremarkable. Breast attenuation limits evaluation of the lung bases. IMPRESSION: Suspected mild pulmonary vascular congestion. Correlate
[2019-06-30 12:50] VITALS: BP 121/78
[2019-06-30 16:00] VITALS: BP 133/91
[2019-06-30] MEDS ORDERED: Lexiscan 0.4mg/5ml syringe IV PRN (19:00)
[2019-06-30 20:00] VITALS: BP 138/92
[2019-06-30] MEDS: Heparin 5000 units/ml inj SUBQ SCH (21:01)
[2019-06-30] MEDS: Albuterol/Ipratropium 3ml neb HHN SCH (22:12)
[2019-06-30] MEDS: HydrALAZINE 25mg tab ORAL SCH (23:24)
[2019-07-01] VITALS (7 sets, daily range): BP systolic 94–143; BP diastolic 58–99
[2019-07-01] MEDS: Albuterol/Ipratropium 3ml neb HHN SCH ×6 (03:51→23:26)
[2019-07-01] MEDS: HydrALAZINE 25mg tab ORAL SCH ×3 (05:23→20:42)
[2019-07-01 07:04] LABS: BASOPHILS % (AUTO) 0.7 % (0.0-2.0); EOSINOPHILS % (AUTO) 2.6 % (0.0-3.0); HEMOGLOBIN 13.3 G/DL (14.2-18.0); LYMPHOCYTES % (AUTO) 17.8 % (20.0-45.0); MEAN CORPUSCULAR VOLUME 87 FL (80-99); NEUTROPHILS % (AUTO) 73.9 % (45.0-75.0); PLATELET COUNT 278 K/UL (150-450); RED BLOOD COUNT 4.85 M/UL (4.70-6.10); WHITE BLOOD COUNT 8.9 K/UL (4.8-10.8)
[2019-07-01 07:54] LABS: ALANINE AMINOTRANSFERASE 80 U/L (12-78); ALBUMIN 2.9 G/DL (3.4-5.0); ALBUMIN/GLOBULIN RATIO 0.8 (1.0-2.7); ALKALINE PHOSPHATASE 40 U/L (46-116); ANION GAP 9 mmol/L (5-15); ASPARTATE AMINO TRANSFERASE 46 U/L (15-37); BILIRUBIN,TOTAL 0.8 MG/DL (0.2-1.0); BLOOD UREA NITROGEN 27 mg/dL (7-18); CALCIUM 8.4 MG/DL (8.5-10.1); CARBON DIOXIDE 26 MMOL/L (21-32); CHLORIDE 113 MMOL/L (98-107); CREATININE 2.1 MG/DL (0.55-1.30); POTASSIUM 4.1 MMOL/L (3.5-5.1); SODIUM 148 MMOL/L (136-145)
[2019-07-01] MEDS: Heparin 5000 units/ml inj SUBQ SCH ×2 (09:44→20:45)
[2019-07-01] MEDS: Aspirin EC 81mg tab ORAL SCH (09:49)
[2019-07-01] MEDS: Lisinopril 20mg tab ORAL SCH (09:50)
[2019-07-01] MEDS ORDERED: Atropine Sulfate 0.4mg/ml inj IVP SCH (12:02)
[2019-07-01] MEDS ORDERED: Atropine Sulfate 1mg Inj *FOR SURGERY CHARGING ONLY IVP SCH (12:15)
--- NOTE | 2019-07-01 12:49 | Cardiology Report ---
APPROVED REPORT EXAM: Two-dimensional and M-mode echocardiogram with Doppler and color Doppler. INDICATION Congestive Heart Failure M-Mode DIMENSIONS IVSd1.1 (0.7-1.1cm)Left Atrium (MM)4.6 (1.6-4.0cm) LVDd7.2 (3.5-5.6cm)Aortic Root3.4 (2.0-3.7cm) PWd1.2 (0.7-1.1cm)Aortic Cusp Exc.1.9 (1.5-2.0cm) LVDs6.2 (2.5-4.0cm) PWs1.5 cm Moderate left ventricular enlargement. Severe global LV hypokinesis with septal thinning. Left ventricular ejection fraction estimated to be 15-20 %. Increased E point-interventricular septal separation c/w left ventricular dysfunction. No evidence of left ventricular hypertrophy. No evidence of pericardial effusion. Moderate Bi-atrial enlargement. Mild right ventricular enlargement. Focal aortic valve sclerosis with adequate cusp excursion. Thickened mitral valve leaflets with normal excursion. Mitral annulus and aortic root calcification. Normal pulmonic valve structure. Normal tricuspid valve structure. IVC dilated at 2.8 cm without physiologic collapse suggestive of increased RA pressure. A color flow and spectral Doppler study was performed and revealed: No evidence of aortic regurgitation. Severe mitral regurgitation. Mitral inflow non diagnostic in setting of severe MR Moderate tricuspid regurgitation. Tricuspid systolic velocities suggests peak right ventricular systolic pressure of 63 mmHg consistent with severe pulmonary hypertension. Moderate pulmonic regurgitation present.
[2019-07-01] MEDS ORDERED: Atropine Sulfate 0.4mg/ml inj 20ML IVP SCH (13:00)
--- NOTE | 2019-07-01 13:07 | Cardiology Report ---
APPROVED REPORT EKG Measurement Heart [id number] [place] [id number] Normal sinus rhythm Biatrial enlargement Nonspecific T wave abnormality Abnormal ECG
--- NOTE | 2019-07-01 14:45 | History and Physical Report ---
DATE OF ADMISSION: 06/30/2019 REASON FOR ADMISSION: Congestive heart failure. HISTORY OF PRESENT ILLNESS: This is a 54-year-old male, who presents with increased shortness of breath for the past 2 days. The patient denies cough, sputum production. Denies any fevers, chills. Denies chest pain. The patient does have a history of asthma. The patient admitted with diagnosis of CHF. PAST MEDICAL HISTORY: Diabetes, hypertension, CAD, asthma. MEDICATIONS: Reviewed. ALLERGIES: Reviewed. SOCIAL HISTORY: The patient is a nonsmoker and nondrinker at this time. REVIEW OF SYSTEMS: Otherwise negative except the above. PHYSICAL EXAMINATION: GENERAL: A well-developed male, comfortable at present. VITAL SIGNS: Reviewed. Temperature 97.5, blood pressure 131/91, pulse 94, respirations 20, sats 98% on 2 liters. HEENT: Negative. NECK: Supple. No lymphadenopathy. LUNGS: Moderate breath sounds. Some basilar crackles. CARDIAC: S1 and S2. Regular rate and rhythm. ABDOMEN: Soft, nontender, nondistended. EXTREMITIES: No cyanosis, clubbing, or edema. NEUROLOGIC: Grossly nonfocal. LABORATORY DATA: Reviewed. CBC essentially normal. Chemistries noted. Sodium 138, BUN 27, creatinine 2.1. Troponin 0.063. Albumin is 2.9. Liver enzymes are elevated. IMPRESSION: Congestive heart failure, pulmonary edema, acute on chronic renal failure, transaminitis, elevated troponin, possibly non-STEMI, history of asthma, severe protein-calorie malnutrition. RECOMMENDATION: Cardiology evaluation. Renal evaluation. Diuresis as needed. Cardiac medications. Monitor clinically. Echocardiogram and EKG. Follow up for further change in interventions. Follow up natriuretic peptide. Assist with discharge planning. Bill Flynn M.D. DR: JOSEPH JOB#: [id number] CC: ALESSANDRO
--- NOTE | 2019-07-01 15:44 | Diagnostic Imaging Report ---
Indications: Chest pain Technique: Single day single isotope protocol utilized. Initially, resting images obtained using IV administration 10.1 millicuries 99M technetium Myoview. Subsequently, patient underwent Dobutamine stress testing. See cardiology report for details. During dobutamine infusion, IV administration 31.6 mCi 99 M technetium Myoview. SPECT and planar images obtained. SPECT images gated to 8 phases of the cardiac cycle were also obtained, and reformatted into cine images for evaluation of ejection fraction. Comparison: 04/19/2018 Findings: Patient achieved a peak heart rate of 136 bpm, short of target heart rate one 39 bpm. Per cardiology report, patient experienced palpitations during infusion. Per cardiology report, resting EKG demonstrates normal sinus rhythm. Presence or absence of EKG changes during infusion is not described in the cardiology report. Imaging demonstrates a large defect extending from the apex well into the inferior wall. This is fixed. There is subtle decreased activity in the anteroseptal wall which is fixed, but this finding is less striking than that demonstrated on the prior study. No definite reversible post stress perfusion defect demonstrated. The left ventricle is dilated. Calculated post stress ejection fraction 26%. Wall motion images demonstrate global hypokinesis. Findings are similar to the previous study Impression: Nonischemic clinical response to pharmacologic stress, per cardiology report Nonischemic electrocardiographic response to pharmacologic stress, per cardiology report Large inferior wall infarct, also previously reported. Questionable anteroseptal infarct, also previously reported but less evident than on the prior study. No imaging findings to suggest ischemia, at level of stress achieved. Calculated post stress ejection fraction 26%
--- NOTE | 2019-07-01 22:15 | Consultation ---
DATE OF CONSULTATION: 07/01/2019 NEPHROLOGY CONSULTATION CONSULTING PHYSICIAN: Sharita Rollins M.D. REFERRING PHYSICIAN: Bill Flynn M.D. REASON FOR CONSULTATION: Elevated BUN and creatinine. HISTORY OF PRESENT ILLNESS: This is a 54-year-old male, who was admitted with congestive heart failure. I am asked to see the patient for elevation of BUN and creatinine. PAST MEDICAL HISTORY: 1. Chronic obstructive pulmonary disease. 2. Congestive heart failure. 3. Type 2 diabetes mellitus. 4. Coronary artery disease. MEDICATIONS: Intravenous Lasix, amlodipine, baby aspirin, lisinopril, albuterol, ipratropium inhalation, hydralazine, subcutaneous heparin, atorvastatin, Coreg, and Tylenol p.r.n. ALLERGIES: No known drug allergies. FAMILY HISTORY: Unremarkable . SOCIAL HISTORY: The patient lives at home. HABITS: He is nonsmoker and nondrinker. There is no history of illicit drug abuse. REVIEW OF SYSTEMS: HEENT: Hearing and eyesight are normal. ENDOCRINE: He has type 2 diabetes mellitus. There is no history of thyroid or adrenal problems. CARDIAC: There is history of ischemic heart disease. NEUROLOGIC: No history of stroke, syncope, or Parkinson disease. PHYSICAL EXAMINATION: GENERAL: This is an elderly obese male, who is in no acute distress. VITAL SIGNS: Blood pressure 128/99, pulse 96 regular, respirations 26, and temperature 97.7 oral. HEENT: The head is normocephalic and atraumatic. Pupils are equal, round, and reactive to light and accommodation consensually. NECK: Supple. Trachea midline. There was no lymphadenopathy or thyromegaly. LUNGS: Few bilateral wheezes. HEART: Regular rate and rhythm without rubs, murmurs, or gallops. ABDOMEN: Soft and nontender. Bowel sounds were active. EXTREMITIES: No clubbing, cyanosis, or edema. NEUROLOGICAL: He is alert and oriented x4. Cranial nerves II through XII intact. LABORATORY AND ANCILLARY DATA: Sodium 148, potassium 4.1, BUN 27, creatinine 2.1, and albumin 2.9. Urinalysis not available. A 2D echo shows left ventricular ejection fraction 15 to 20 percent. Severe global LV hypokinesis. ASSESSMENT: 1. Hypoalbuminemia. 2. Chronic kidney disease, suspected diabetic nephropathy. 3. Rule out nephrotic syndrome. 4. Chronic obstructive pulmonary disease. 5. Congestive heart failure. 6. Type 2 diabetes mellitus. 7. Coronary artery disease. PLAN: 1. Obtain urinalysis. 2. A 24-hour urine collection. 3. Tight blood pressure control. Thank you, Dr. Flynn, for letting me to participate in the care of this patient. Sharita Rollins M.D. DR: MALLY JOB#: [id number] CC:
--- NOTE | 2019-07-01 23:00 | CDS Physician Query ---
Clarification is required for compliance, coding accuracy, and to reflect severity of illness for this patient Dear Dr. Echavarria Date: 07/01/19 CDS Name: Tata Gottlieb "Heart Failure / CHF" documented in H&P Echo: EF 15-20% BNP: 8026 Rx: IV Lasix 20 mg Please Clarify: Acuity [ ] Acute [ ] Chronic [ x ] Acute on Chronic Type [ x ] Systolic [ ] Diastolic [ ] Systolic & Diastolic (Combined) Present on Admission: [ x ] Yes [ ] No [ ] Clinically Undetermined Physician signature Date Please also document in your Progress Notes and/or Discharge Summary and indicate if the condition was present on admission MTDD
[2019-07-02] VITALS: BP 117/87
[2019-07-02] MEDS: Albuterol/Ipratropium 3ml neb HHN SCH ×6 (02:33→23:31)
--- NOTE | 2019-07-02 03:45 | Progress Note ---
DATE: 07/01/2019 CARDIOLOGY PROGRESS NOTE SUBJECTIVE: Myocardial perfusion scan was unchanged from prior study with prior infarcts noted and no reversible ischemia, severely depressed ejection fraction confirmed. The patient is slightly less short of breath. Blood pressure parameters have improved. OBJECTIVE: VITAL SIGNS: Blood pressure 116/80, pulse 99, and respiratory rate 18. LUNGS: Diminished breath sounds. Few rales. HEART: Regular rhythm and rate. Normal S1 and S2 with a 1/6 systolic apical murmur. ABDOMEN: Soft. EXTREMITIES: No edema. IMPRESSION: 1. Severe cardiomyopathy. 2. Cocaine abuse. 3. Acute on chronic systolic congestive heart failure. 4. Ischemic cardiomyopathy. 5. Labile hypertension. 6. Coronary vasospasm due to cocaine. 7. High risk for sudden cardiac . PLAN: 1. ____ beta-oneida, add nitrates, maximize anti-failure and antianginal regimen. 2. Continue anti-platelet therapy. 3. Diuresis. 4. DVT prophylaxis. 5. Not a candidate for cardiac defibrillator . Vinod Carmona M.D. DR: SINTIA JOB#: [id number] CC:
[2019-07-02 04:00] VITALS: BP 109/86
--- NOTE | 2019-07-02 04:15 | Consultation ---
DATE OF CONSULTATION: 06/30/2019 CARDIOLOGY CONSULT CONSULTING PHYSICIAN: Vinod Carmona M.D. REQUESTING PHYSICIAN: Bill Flynn M.D. REASON FOR CONSULTATION: Congestive heart failure in the setting of ischemic heart disease. HISTORY OF PRESENT ILLNESS: This is a 54-year-old male with a known history of coronary artery disease and prior myocardial infarctions. He has had progressive shortness of breath for the past few days. He has used inhalers for his asthma without relief. He does use cocaine regularly and most recently a week ago, he has not had any chest pain. He has had some orthopnea and PND. PAST MEDICAL HISTORY: 1. Chronic obstructive pulmonary disease. 2. Coronary artery disease. 3. History of myocardial infarction. 4. Hypertensive heart disease. 5. Type 2 diabetes mellitus. 6. History of hyperuricemia with history of gout. 7. Chronic kidney disease. ALLERGIES: None. MEDICATIONS: Reviewed and reconciled. SOCIAL HISTORY: Nonsmoker. No alcohol use. Positive cocaine abuse. FAMILY HISTORY: Noncontributory. REVIEW OF SYSTEMS: Otherwise unremarkable. PHYSICAL EXAMINATION: VITAL SIGNS: Blood pressure in the emergency room 150/102, heart rate 89, respiratory rate 20, and afebrile. LUNGS: With diminished breath sounds and rales. CARDIAC: Regular rhythm and rate. Normal S1 and S2 with a 1/6 systolic apical murmur. ABDOMEN: Soft. EXTREMITIES: No edema. LABORATORY DATA: White count 8.5 and hemoglobin 13.1. Troponin 0.046. BUN 26 and creatinine 1.9. IMPRESSION: 1. Acute myocardial ischemia. 2. Acute on chronic diastolic and systolic congestive heart failure. 3. Paroxysmal bronchospasm. 4. Cocaine abuse. 5. Cocaine-associated coronary vasospasms. PLAN: 1. Antiplatelet therapy. 2. Would not use unopposed beta-blockade. 3. Continue calcium blockers. 4. Diuresis. 5. Perfusion scan to assess for reversible ischemia. 6. Maximize anti-failure therapy. 7. Counseling regarding with the risk of sudden cardiac with cocaine use. Vinod Carmona M.D. : KALEN JOB#: [id number] CC:
[2019-07-02] MEDS: HydrALAZINE 25mg tab ORAL SCH ×3 (06:04→21:57)
[2019-07-02 08:00] VITALS: BP 116/67
[2019-07-02 08:25] LABS: ANION GAP 11 mmol/L (5-15); BLOOD UREA NITROGEN 29 mg/dL (7-18); CALCIUM 8.4 MG/DL (8.5-10.1); CARBON DIOXIDE 26 MMOL/L (21-32); CHLORIDE 111 MMOL/L (98-107); CREATININE 2.2 MG/DL (0.55-1.30); POTASSIUM 3.8 MMOL/L (3.5-5.1); SODIUM 148 MMOL/L (136-145)
[2019-07-02] MEDS: Imdur 30mg tab ORAL SCH (09:20)
[2019-07-02] MEDS: Aspirin EC 81mg tab ORAL SCH (09:20)
[2019-07-02] MEDS: Lisinopril 20mg tab ORAL SCH (09:20)
[2019-07-02] MEDS: Heparin 5000 units/ml inj SUBQ SCH ×2 (09:26→22:03)
--- NOTE | 2019-07-02 10:17 | Diagnostic Imaging Report ---
Indication:Elevated Bun and Creatinine. Technique: Grayscale and duplex Doppler imaging of the kidneys performed. Comparison: None Findings: Kidneys are normal in size and contour with increased cortical echogenicity bilaterally.. The right kidney measures 10.6 cm. in length. The left kidney measures 10.8 cm. in length. There are multiple cysts within the left kidney. The IVC is patent. Urinary bladder shows mild diffuse wall thickening. IMPRESSION: Medical renal disease. Suspect chronic cystitis
[2019-07-02 12:00] VITALS: BP 119/79
--- NOTE | 2019-07-02 15:08 | Nephrology Progress Note ---
Assessment/Plan Plan CKD IV. Obtain 24 h studies. m/p Hypertensive Nephrosclerosis - see 2D Echo + proteinuria??? Subjective Subjective No new c/o Objective Objective Last 24 Hour Vital Signs Date Time Temp Pulse Resp B/P (MAP) Pulse Ox O2 Delivery O2 Flow Rate FiO2 07/02/19 14:52 82 20 95 Nasal Cannula 2.0 28 07/02/19 14:14 119/79 07/02/19 12:00 89 07/02/19 12:00 97.2 86 18 119/79 (92) 99 07/02/19 11:00 91 18 99 Nasal Cannula 2.0 28 84 20 95 07/02/19 09:21 89 125/87 07/02/19 09:20 125/87 07/02/19 09:20 125/87 07/02/19 09:00 Nasal Cannula 2.0 07/02/19 08:00 98.1 76 18 116/67 (83) 98 07/02/19 08:00 86 07/02/19 07:30 90 18 95 Nasal Cannula 2.0 28 90 20 98 07/02/19 06:04 106/55 07/02/19 04:00 88 07/02/19 04:00 97.2 83 18 109/86 (94) 97 07/02/19 00:00 90 07/02/19 00:00 97.4 90 18 117/87 (97) 98 07/01/19 23:26 88 20 99 Nasal Cannula 21 89 20 97 07/01/19 21:00 Nasal Cannula 2.0 07/01/19 20:42 116/80 07/01/19 20:42 99 116/80 07/01/19 20:00 97.3 99 18 116/80 (92) 99 07/01/19 20:00 93 07/01/19 19:34 96 20 99 Nasal Cannula 2.0 28 94 20 97 07/01/19 16:59 95 07/01/19 16:00 97.2 98 20 120/83 (95) 96 07/01/19 15:07 99 20 100 Nasal Cannula 2.0 28 87 20 97 Intake and Output 07/01/19 07/02/19 18:59 06:59 Intake Total 900 ml 240 ml Balance 900 ml 240 ml Intake Oral 900 ml 240 ml # Voids 3 3 # Bowel Movements 1 1 Laboratory Tests 07/02/19 06:55: Sodium Level 148H, Potassium Level 3.8, Chloride Level 111H, Carbon Dioxide Level 26, Anion Gap 11, Blood Urea Nitrogen 29H, Creatinine 2.2H, Estimat Glomerular Filtration Rate 37.7, Glucose Level 96, Calcium Level 8.4L, Magnesium Level 1.7L Height (Feet): 5 Height (Inches): 9.00 Weight (Pounds): 224 Objective CV RR Lungs CTA Abd SNT. BS + E NO CCE Sharita Rollins MD Jul 02, 2019 15:08
--- NOTE | 2019-07-02 15:35 | Pulmonology Progress Note ---
Assessment/Plan Assessment/Plan Pulmonary Progress Note HPI: Patient is a 54-year-old male admitted with congestive heart failure. He presented with increased shortness of breath for the past 2 days. No cough, sputum production. Denied any fevers, chills. Denied chest pain. Hasa history of asthma. PAST MEDICAL HISTORY: Diabetes, hypertension, CAD, asthma. PHYSICAL EXAMINATION: GENERAL: A well-developed male, comfortable at present. VITAL SIGNS NOTED HEENT: Negative. NECK: Supple. No lymphadenopathy. LUNGS: Moderate breath sounds. Some basilar crackles. CARDIAC: S1 and S2. Regular rate and rhythm. ABDOMEN: Soft, nontender, nondistended. EXTREMITIES: No cyanosis, clubbing, or edema. NEUROLOGIC: Grossly nonfocal. LABORATORY DATA: Reviewed. CBC essentially normal. Chemistries noted. Sodium 138, BUN 27, creatinine 2.1. Troponin 0.063. Albumin is 2.9. Liver enzymes are elevated. IMPRESSION: Congestive heart failure, pulmonary edema, acute on chronic renal failure, transaminitis, elevated troponin, possibly non-STEMI, history of asthma, severe protein-calorie malnutrition. RECOMMENDATION: Cardiology evaluation. Renal evaluation. Diuresis as needed. Cardiac medications. Monitor clinically. Echocardiogram and EKG. Follow up for further change. Follow up natriuretic peptide. Assist with discharge planning. Subjective Allergies: Coded Allergies: NO KNOWN ALLERGIES (Verified Allergy, Unknown, 08/08/18) Objective Last 24 Hour Vital Signs Date Time Temp Pulse Resp B/P (MAP) Pulse Ox O2 Delivery O2 Flow Rate FiO2 07/02/19 14:52 80 18 98 Nasal Cannula 2.0 28 82 20 95 07/02/19 14:14 119/79 07/02/19 12:00 89 07/02/19 12:00 97.2 86 18 119/79 (92) 99 07/02/19 11:00 91 18 99 Nasal Cannula 2.0 28 84 20 95 07/02/19 09:21 89 125/87 07/02/19 09:20 125/87 07/02/19 09:20 125/87 07/02/19 09:00 Nasal Cannula 2.0 07/02/19 08:00 98.1 76 18 116/67 (83) 98 07/02/19 08:00 86 07/02/19 07:30 90 18 95 Nasal Cannula 2.0 28 90 20 98 07/02/19 06:04 106/55 07/02/19 04:00 88 07/02/19 04:00 97.2 83 18 109/86 (94) 97 07/02/19 00:00 90 07/02/19 00:00 97.4 90 18 117/87 (97) 98 07/01/19 23:26 88 20 99 Nasal Cannula 21 89 20 97 07/01/19 21:00 Nasal Cannula 2.0 07/01/19 20:42 116/80 07/01/19 20:42 99 116/80 07/01/19 20:00 97.3 99 18 116/80 (92) 99 07/01/19 20:00 93 07/01/19 19:34 96 20 99 Nasal Cannula 2.0 28 94 20 97 07/01/19 16:59 95 07/01/19 16:00 97.2 98 20 120/83 (95) 96 Intake and Output 07/01/19 07/02/19 18:59 06:59 Intake Total 900 ml 240 ml Balance 900 ml 240 ml Intake Oral 900 ml 240 ml # Voids 3 3 # Bowel Movements 1 1 Microbiology Date/Time Source Procedure Growth Status 06/30/19 08:42 Nasal Nares - Final Complete 06/30/19 08:42 Nasal Nares - Final Complete Laboratory Tests 07/02/19 06:55: Sodium Level 148H, Potassium Level 3.8, Chloride Level 111H, Carbon Dioxide Level 26, Anion Gap 11, Blood Urea Nitrogen 29H, Creatinine 2.2H, Estimat Glomerular Filtration Rate 37.7, Glucose Level 96, Calcium Level 8.4L, Magnesium Level 1.7L Current Medications Medications (Trade) Dose Ordered Sig/Lizette Route PRN Reason Start Time Stop Time Status Last Admin Dose Admin Acetaminophen (Tylenol) 650 mg Q6H PRN ORAL Mild Pain/Temp > 100.5 06/30/19 19:15 07/30/19 19:14 07/01/19 23:38 Albuterol/ Ipratropium (Albuterol/ Ipratropium) 3 ml Q4HRT HHN 06/30/19 23:00 07/05/19 22:59 07/02/19 14:53 Aspirin (Ecotrin) 81 mg DAILY ORAL 07/01/19 09:00 07/31/19 08:59 07/02/19 09:20 Atorvastatin Calcium (Lipitor) 10 mg BEDTIME ORAL 06/30/19 21:00 07/30/19 20:59 07/01/19 20:41 Dextrose 500 ml @ 100 mls/hr ONCE ONCE IV 07/02/19 13:30 07/02/19 18:29 07/02/19 13:30 Furosemide (Lasix) 20 mg DAILY IV 07/03/19 09:00 08/02/19 08:59 Heparin Sodium (Porcine) (Heparin 5000 units/ml) 5,000 units EVERY 12 HOURS SUBQ 06/30/19 21:00 07/30/19 20:59 07/02/19 09:26 Hydralazine HCl (Apresoline) 25 mg EVERY 8 HOURS ORAL 06/30/19 22:00 07/30/19 21:59 07/02/19 14:14 Isosorbide Mononitrate (Imdur) 30 mg DAILY ORAL 07/02/19 09:00 08/01/19 08:59 07/02/19 09:20 Lisinopril (Prinivil) 40 mg DAILY ORAL 07/03/19 09:00 08/02/19 08:59 Regadenoson (Lexiscan) 0.4 mg ONCE PRN IV stress test 06/30/19 19:00 07/02/19 18:59 Vinod Martin MD Jul 02, 2019 15:34
[2019-07-02 15:55] LABS: APPEARANCE,URINE CLEAR; BILIRUBIN, URINE NEGATIVE (NEGATIVE); COLOR,URINE PALE YELLOW; GLUCOSE, URINE (UA) NEGATIVE (NEGATIVE); KETONES,URINE NEGATIVE (NEGATIVE); LEUKOCYTE ESTERASE ,URINE NEGATIVE (NEGATIVE); NITRITE,URINE NEGATIVE (NEGATIVE); PH,URINE 6.5 (4.5-8.0); PROTEIN,URINE NEGATIVE (NEGATIVE); UROBILINOGEN,URINE NORMAL MG/DL (0.0-1.0)
[2019-07-02 16:00] VITALS: BP 108/73
[2019-07-02] MEDS ORDERED: INDOMETHACIN25 MG PO (17:58)
[2019-07-02] MEDS ORDERED: ALBUTEROL SULF8.5 GM INH (17:59)
[2019-07-02] MEDS ORDERED: NORCO 10-325 T1 EACH ORAL (17:59)
[2019-07-02] MEDS ORDERED: ISOSORBIDE MONO30 M1 PO (18:00)
[2019-07-02 20:00] VITALS: BP 115/71
[2019-07-03] VITALS: BP 113/72
--- NOTE | 2019-07-03 00:45 | Progress Note ---
DATE: 07/02/2019 CARDIOLOGY PROGRESS NOTE SUBJECTIVE: The patient remains with shortness of breath although slightly better. Blood pressure parameters remain labile. Echocardiogram confirmed ejection fraction in the range of 20%. The patient admits to cocaine use about a week ago. Myocardial perfusion scan reveals mostly nonreversible ischemia and cardiomyopathy. PHYSICAL EXAMINATION: VITAL SIGNS: Blood pressure 119/79, heart rate 80, respirations 18. NECK: Elevated jugular venous pressure. LUNGS: Few rales. HEART: Regular rhythm rate. Diffuse point of maximum impulse. Normal S1, S2 with a 2/6 systolic murmur at the apex. EXTREMITIES: With trace dependent edema. LABORATORY DATA: Urinalysis with no active sediment. Troponin is 0.063 yesterday. BUN 29, creatinine 2.2, sodium 148, potassium 3.8, magnesium 1.7. IMPRESSION: 1. Severe cardiomyopathy due to cocaine and ischemic component. 2. Chronic kidney disease. 3. Hypomagnesemia. 4. Dehydration. 5. Hyponatremia. 6. Acute myocardial ischemia. PLAN: 1. Diuresis. 2. Free water replacement. 3. Maximize anti-failure regimen. 4. IV magnesium replacement. 5. The patient is at high risk for sudden cardiac especially with cocaine use and this was made aware to the patient again. In the future, he may be considered for a defibrillator for primary prevention if he can avoid substance abuse. Vinod Carmona M.D. DR: AMEE JOB#: [id number] CC:
[2019-07-03] MEDS: Albuterol/Ipratropium 3ml neb HHN SCH ×3 (03:32→10:45)
[2019-07-03 04:00] VITALS: BP 127/85
[2019-07-03] MEDS: HydrALAZINE 25mg tab ORAL SCH (05:23)
[2019-07-03 08:00] VITALS: BP 144/77
--- NOTE | 2019-07-03 08:18 | General Progress Note ---
Assessment/Plan Assessment/Plan: 1. Severe cardiomyopathy due to cocaine and ischemic component. 2. Chronic kidney disease. 3. Hypomagnesemia. 4. Dehydration. 5. Hyponatremia. 6. Acute myocardial ischemia. PLAN care noted dc today if cleared by cardiology meds by cards impression, plan, and exam edited and reviewed in detail care discussed with RN Subjective Allergies: Coded Allergies: NO KNOWN ALLERGIES (Verified Allergy, Unknown, 08/08/18) Subjective care noted monitor for change Objective Last 24 Hour Vital Signs Date Time Temp Pulse Resp B/P (MAP) Pulse Ox O2 Delivery O2 Flow Rate FiO2 07/03/19 06:21 87 18 99 Room Air 21 92 18 99 07/03/19 05:23 127/80 07/03/19 04:00 81 07/03/19 04:00 97.3 81 18 127/85 (99) 96 07/03/19 03:48 89 16 99 Room Air 21 86 18 95 07/03/19 00:00 86 07/03/19 00:00 98.1 86 16 113/72 (86) 98 07/02/19 23:32 86 18 99 Room Air 21 82 20 96 07/02/19 21:57 126/97 07/02/19 21:00 Nasal Cannula 2.0 07/02/19 20:00 93 07/02/19 20:00 97.8 93 16 115/71 (86) 97 07/02/19 19:57 95 20 99 Room Air 21 90 22 96 07/02/19 16:00 86 07/02/19 16:00 97.1 86 20 108/73 (85) 97 07/02/19 14:52 80 18 98 Nasal Cannula 2.0 28 82 20 95 07/02/19 14:14 119/79 07/02/19 12:00 89 07/02/19 12:00 97.2 86 18 119/79 (92) 99 07/02/19 11:00 91 18 99 Nasal Cannula 2.0 28 84 20 95 07/02/19 09:21 89 125/87 07/02/19 09:20 125/87 07/02/19 09:20 125/87 07/02/19 09:00 Nasal Cannula 2.0 Intake and Output 07/02/19 07/03/19 19:00 07:00 Intake Total 140 ml Output Total 800 ml Balance -660 ml Intake Oral 140 ml Output Urine Total 800 ml # Voids 3 3 # Bowel Movements 1 Laboratory Tests 07/02/19 15:30: Urine Color Pale yellow, Urine Appearance Clear, Urine pH 6.5, Urine Specific [place] 1.010, Urine Protein Negative, Urine Glucose (UA) Negative, Urine Ketones Negative, Urine Blood Negative, Urine Nitrite Negative, Urine Bilirubin Negative, Urine Urobilinogen Normal, Urine Leukocyte Esterase Negative, Urine RBC 0-2H, Urine WBC 0, Urine Squamous Epithelial Cells None, Urine Bacteria None 07/02/19 17:00: Urine Color [Pending], Urine Appearance [Pending], Urine pH [Pending], Urine Specific [place] [Pending], Urine Protein [Pending], Urine Glucose (UA) [Pending ], Urine Ketones [Pending], Urine Blood [Pending], Urine Nitrite [Pending], Urine Bilirubin [Pending], Urine Urobilinogen [Pending], Urine Leukocyte Esterase [Pending] Height (Feet): 5 Height (Inches): 9.00 Weight (Pounds): 224 Objective WDWN NAD clear breath sounds bilaterally without rhonchi or wheeze [id number] without MRG NABS nontender no HSM no CCE nonfocal Bill Flynn MD Jul 03, 2019 08:18
[2019-07-03] MEDS ORDERED: Lisinopril 20mg tab ORAL SCH (09:00)
[2019-07-03] MEDS ORDERED: LISINOPRIL20 MG ORAL (09:28)
[2019-07-03] MEDS: Imdur 30mg tab ORAL SCH (09:33)
[2019-07-03] MEDS: Aspirin EC 81mg tab ORAL SCH (09:34)
[2019-07-03] MEDS: Heparin 5000 units/ml inj SUBQ SCH (09:36)
[2019-07-03] MEDS ORDERED: Atropine Inj 1mg/10ml Syr ONE (11:39)
[2019-07-03] MEDS ORDERED: DOBUTamine 250mg/250ml Premix IV ONE (11:39)
[2019-07-03 11:40] VITALS: BP 113/61
--- NOTE | 2019-07-04 05:45 | Progress Note ---
DATE: 07/03/2019 CARDIOLOGY PROGRESS NOTE SUBJECTIVE: The patient is not having any chest pain or shortness of breath. OBJECTIVE: VITAL SIGNS: Blood pressure 127/80, pulse 81, and respiratory rate 18. LUNGS: Clear. CARDIAC: Regular. Normal S1 and S2. A 1/6 systolic murmur . ABDOMEN: Soft. EXTREMITIES: No edema. IMPRESSION: 1. Cocaine intoxication. 2. Acute myocardial ischemia. 3. Acute on chronic systolic congestive heart failure. 4. Hypertensive and cocaine induced cardiomyopathy. PLAN: 1. Stable for outpatient followup on current medication regimen. 2. Counseled as to risks of cocaine use and sudden cardiac . 3. May be a candidate for cardiac defibrillator for primary prevention, if he can show willingness to avoid high risk drug use. 4. Regular outpatient followup recommended. 5. Compliance with anti-failure medication regimen as well. Vinod Carmona M.D. DR: SINTIA JOB#: [id number] CC:
--- NOTE | 2019-07-04 12:25 | Discharge Summary ---
Discharge Summary Discharge Summary _ DATE OF ADMISSION: 06/30/2019 DATE OF DISCHARGE: 07/03/2019 DISCHARGED BY: Dr. Flynn REASON FOR ADMISSION: [] CONSULTANTS: lands resource manager Dr. Carmona neurologist pulmonary ID specialist GI specialist director of online merchandising Dr. Dr. Rollins 54 years old male with past medical history of hypertension, asthma, diabetes mellitus, coronary artery disease, presented to the emergency room with the chief complaint of shortness of breath for the last few days. He reported using albuterol inhaler at home without relief . He denied recent illness. He denied cough or congestion. He denied fever and chills. No chest pain. No abdominal pain. Patient admitted to using cocaine, last time 1 week ago. Upon evaluation blood pressure was 150/102. Laboratory work-up revealed no leukocytosis, stable hemoglobin and hematocrit. BUN 26, creatinine 1.9. Stable electrolytes. Elevated LFT. Troponin - 0.046. EKG revealed sinus rhythm no acute ischemic changes. Urinalysis revealed no evidence of UTI. Chest x-ray demonstrated suspected mild pulmonary vascular congestion. HOSPITAL COURSE: [] News Clerk and director of online merchandising were involved in care of this patient. [place] echocardiogram demonstrated severe global left ventricular hypokinesis with septal thinning. Left ventricular ejection fraction estimated to be 15-20 moderate biatrial enlargement. No evidence of pericardial effusion. No evidence of left ventricular hypertrophy. AVR mitral regurgitation. Mitral inflow nondiagnostic in setting of severe mitral regurgitation. Moderate tricuspid vegetation. Right ventricular systolic pressure of 63 urine toxicology screen was positive for cocaine and phencyclidine. proBNP 8026. Troponin minimally elevated 0.06 patient was started on antiplatelet therapy. No beta-oneida given cocaine active cocaine use. Added on diuresis with a calcium channel one[place]. Patient was counseled regarding the risk of sudden cardiac with cocaine use News Clerk maximize anti-failure and antianginal regimen. Diuresis continued along with antiplatelet therapy. Per lands resource manager patient was not a candidate for cardiac defibrillator. DVT prophylaxis provided. News Clerk closely followed and maximize anti-failure medication regimen nitro and nitrates blood pressure was managed with patient was consult appliances anti-failure medication regimen for outpatient follow-up. Patient may be a candidate for cardiac defibrillation for primary prevention if he can show willingness to avoid high risk drug use. Patient was counseled to risk of cocaine use and sudden cardiac . Renal parameters electrolytes are closely monitor. Electrolytes corrected as needed nephrotoxins were avoided. Manager Floor followed.. Per director of online merchandising patient has chronic kidney disease stage IV. 24 hours urine studies were done. Chronic kidney disease was possibly due to hypertensive nephrosclerosis. LFT were closely monitored. AST from 65 down to 46 ALT from 87 down to 80. Submental oxygen provided as needed keep pulse oximetry above 92%. Pulse oximetry remained stable on room air. Bronchodilator therapy via HHN provided as needed. Magnesium replaced blood pressure stabilized. Resolved patient was stable for discharge home FINAL DIAGNOSES: 1. [] Myocardial ischemia Acute on chronic systolic congestive heart failure [place] pulmonary edema Severe ischemic cardiomyopathy/hypertension and cocaine induced cardiomyopathy Labile hypertension Paroxysmal bronchospasm Cocaine abuse Cocaine associated coronary vasospasm Acute on chronic renal failure/chronic kidney disease stage IV probably due to hypertensive nephrosclerosis Transaminitis Severe protein calorie malnutrition High risk for sudden cardiac bed Electrolyte imbalance hypomagnesemia hyponatremia DISCHARGE MEDICATIONS: See Medication Reconciliation list. DISCHARGE INSTRUCTIONS: Patient was discharged home. Follow-up with primary care provider in 1 week. I have been assigned to dictate discharge summary for this account. I was not involved in the patient's management. Elizabeth Solo NP Jul 04, 2019 12:25
== END 2019-07-03 11:40 | disposition home or self-care (01) | DRG 291 ==
LOC: EDBD 07:46 → EMR 08:05 → 2E 11:45 → EDBEDREQ 15:44
DX: I13.0 Hypertensive heart and chronic kidney disease with heart failure and stage 1 through stage 4 chronic kidney disease, or unspecified chronic kidney disease (principal); I50.23 Acute on chronic systolic (congestive) heart failure; E43 Unspecified severe protein-calorie malnutrition; N17.9 Acute kidney failure, unspecified; E87.1 Hypo-osmolality and hyponatremia; N18.4 Chronic kidney disease, stage 4 (severe); I25.10 Atherosclerotic heart disease of native coronary artery without angina pectoris; I25.5 Ischemic cardiomyopathy; I51.3 Intracardiac thrombosis, not elsewhere classified; F14.188 Cocaine abuse with other cocaine-induced disorder; I43 Cardiomyopathy in diseases classified elsewhere; E83.42 Hypomagnesemia; Z79.82 Long term (current) use of aspirin; E11.22 Type 2 diabetes mellitus with diabetic chronic kidney disease; J44.9 Chronic obstructive pulmonary disease, unspecified; I25.2 Old myocardial infarction; M1A.9XX0 Chronic gout, unspecified, without tophus (tophi)
CPT/HCPCS: 36415; 71045; 76770; 78452; 80048; 80053; 80307; 81001; 81050; 82570; 83735; 83880; 84156; 84484; 85025; 86710; 93005; 93017; 93306; 94640; 94664; 96361; 96374; 99285; J7030; J7620